=== PATIENT | female | born 1960 | race Caucasian/White ===

== ENCOUNTER 2018-03-28 13:59 | Inpatient (IN) | payer MEDICAID ==
[~2018-03-28] VITALS: Ht 172.7 cm; Wt 81.6 kg
[2018-03-28 14:30] VITALS: BP 105/71
[2018-03-28] MEDS ORDERED: Sodium Chloride 500ML 500 ML IV ONE (14:33)
[2018-03-28] MEDS ORDERED: ZESTRIL20 MG ORAL (14:34)
[2018-03-28] MEDS ORDERED: PRO-STAT LIQUID30 ML ORAL (14:34)
[2018-03-28] MEDS ORDERED: NITROFURAN25 MG/5 ML PO (14:34)
[2018-03-28] MEDS ORDERED: LORATADINE10 M2 PO (14:34)
[2018-03-28] MEDS ORDERED: MULTIVITAMINS1 EAC2 ORAL (14:34)
[2018-03-28] MEDS ORDERED: ARTIFICIAL TEAR15 ML BOTH EYES (14:34)
[2018-03-28] MEDS ORDERED: SYNTHROID25 MCG ORAL (14:34)
[2018-03-28] MEDS ORDERED: FLONASE ALLERG9.9 ML NS (14:34)
[2018-03-28] MEDS ORDERED: RESTORIL15 MG ORAL (14:34)
[2018-03-28] MEDS ORDERED: SEROQUEL200 MG ORAL (14:34)
[2018-03-28] MEDS ORDERED: VALIUM10 MG ORAL (14:34)
[2018-03-28] MEDS ORDERED: NORCO 10-325 T1 EACH ORAL (14:34)
[2018-03-28] MEDS: cefTRIAXone 1 GM in NS 55 ML IVPB ONE ×2 (14:45→15:19)
[2018-03-28] MEDS ORDERED: Morphine Sulfate 4mg/ml Inj (IV USE ONLY) IVP ONE (14:45)
--- NOTE | 2018-03-28 14:59 | Emergency Room Report ---
History of Present Illness General Chief Complaint: Abdominal Pain Source: Patient Present Illness HPI Patient is DO NOT RESUSCITATE. Patient has history of chronic back pain as well as recurrent UTIs. Patient was noted to have elevated white blood cells in the urine. Patient was at the intermediate. Patient was also complaining of worsening back pain. Patient apparently has required narcotics for pain control in the past. Patient's primary care physician is Dr. Nishant Rider. Given patient's presentation Dr. Nishant Rider recommended patient come the emergency Department further evaluation. Symptoms noted to be severe. Apparently patient was on oral antibiotics but things were not improving.No other modifying factors. No other associated signs and symptoms. No other complaints were noted. Allergies: Coded Allergies: HYDROMORPHONE (Verified Allergy, Intermediate, 03/28/18) PREDNISONE (Verified Allergy, Intermediate, 03/28/18) PSEUDOEPHEDRINE (Verified Allergy, Intermediate, 03/28/18) Patient History Past Medical History: HTN PMH Narrative multiple scle, chronic back pain, recurrent UTIs Past Surgical History: none Pertinent Family History: none Social History: Denies: smoking, alcohol use, drug use Social History Narrative from intermediate Reviewed Nursing Documentation: PMH: Agreed; PSxH: Agreed Nursing Documentation-PMH Hx Hypertension: Yes Review of Systems All Other Systems: negative except mentioned in HPI Physical Exam Vital Signs Date Time Temp Pulse Resp B/P (MAP) Pulse Ox O2 Delivery O2 Flow Rate FiO2 03/28/18 14:08 97.7 105/71 97.7 Sp02 EP Interpretation: reviewed, normal General Appearance: alert, mild distress Head: atraumatic Eyes: bilateral eye normal inspection ENT: normal ENT inspection, hearing grossly normal, normal voice Neck: normal inspection, full range of motion, supple, no bony tend Respiratory: normal inspection, lungs clear, normal breath sounds, no respiratory distress, no retraction, no wheezing Cardiovascular #1: regular rate, rhythm, no edema Gastrointestinal: normal inspection, normal bowel sounds, non tender, soft, no guarding, no hernia Genitourinary: no CVA tenderness Musculoskeletal: back normal, normal range of motion, other - Back pain Neurologic: normal inspection, alert, responsive, speech normal Psychiatric: normal inspection, judgement/insight normal, mood/affect normal Skin: normal inspection, normal color, no rash Medical Decision Making Diagnostic Impression: Primary Impression: UTI (urinary tract infection) Additional Impressions: Multiple sclerosis exacerbation Intractable pain ER Course Patient presents emergency department today complaining of lower back pain and dysuria with UTI. Patient states that she has a history of multiple sclerosis recurrent UTIs highly resistant in the past. Patient was in a intermediate and noted to have UTI apparently was started on antibiotics without much improvement. Patient was sent to the emergency room further evaluation by Dr. Nishant Rider.Given the severity of the patient's presentation I felt this is a highly complex patient. This patient required extensive workup.Patient laboratory workup show evidence UTI. Given severe he patient's pain require morphine injection and history of resistant UTI patient was seen by Dr. Nishant Rider patient's private care physician in the emergency department. He felt the patient should be admitted to the hospital. Patient will be admitted to the hospital under his service. Patient was started on one dose of Rocephin. Labs Test 03/28/18 14:45 03/28/18 15:00 White Blood Count 5.3 K/UL (4.8-10.8) Red Blood Count 4.09 M/UL (4.20-5.40) Hemoglobin 12.0 G/DL (12.0-16.0) Hematocrit 36.6 % (37.0-47.0) Mean Corpuscular Volume 90 FL (80-99) Mean Corpuscular Hemoglobin 29.4 PG (27.0-31.0) Mean Corpuscular Hemoglobin Concent 32.8 G/DL (32.0-36.0) Red Cell Distribution Width 12.2 % (11.6-14.8) Platelet Count 176 K/UL (150-450) Mean Platelet Volume 7.6 FL (6.5-10.1) Neutrophils (%) (Auto) 56.8 % (45.0-75.0) Lymphocytes (%) (Auto) 27.2 % (20.0-45.0) Monocytes (%) (Auto) 13.2 % (1.0-10.0) Eosinophils (%) (Auto) 1.7 % (0.0-3.0) Basophils (%) (Auto) 1.0 % (0.0-2.0) Sodium Level 134 MMOL/L (136-145) Potassium Level 4.3 MMOL/L (3.5-5.1) Chloride Level 100 MMOL/L (98-107) Carbon Dioxide Level 26 MMOL/L (21-32) Anion Gap 8 mmol/L (5-15) Blood Urea Nitrogen 17 mg/dL (7-18) Creatinine 0.8 MG/DL (0.55-1.30) Estimat Glomerular Filtration Rate > 60 mL/min (>60) Glucose Level 91 MG/DL (74-106) Calcium Level 8.8 MG/DL (8.5-10.1) Total Bilirubin 0.3 MG/DL (0.2-1.0) Aspartate Amino Transf (AST/SGOT) 17 U/L (15-37) Alanine Aminotransferase (ALT/SGPT) 26 U/L (12-78) Alkaline Phosphatase 64 U/L (46-116) Total Protein 7.5 G/DL (6.4-8.2) Albumin 3.1 G/DL (3.4-5.0) Globulin 4.4 g/dL Albumin/Globulin Ratio 0.7 (1.0-2.7) Lipase 155 U/L (73-393) Urine Color Pale yellow Urine Appearance Clear Urine pH 8 (4.5-8.0) Urine Specific [place] 1.010 (1.005-1.035) Urine Protein Negative (NEGATIVE) Urine Glucose (UA) Negative (NEGATIVE) Urine Ketones Negative (NEGATIVE) Urine Occult Blood 2+ (NEGATIVE) Urine Nitrite Positive (NEGATIVE) Urine Bilirubin Negative (NEGATIVE) Urine Urobilinogen Normal MG/DL (NORMAL) Urine Leukocyte Esterase 3+ (NEGATIVE) Urine RBC 0-2 /HPF (0 - 2) Urine WBC 2-4 /HPF (0 - 2) Urine Squamous Epithelial Cells Few /LPF (NONE/OCC) Urine Bacteria Moderate /HPF (NONE) Last Vital Signs Date Time Temp Pulse Resp B/P (MAP) Pulse Ox O2 Delivery O2 Flow Rate FiO2 03/28/18 14:08 97.7 105/71 97.7 Status: improved Disposition: ADMITTED INPATIENT Condition: Serious Shabbir Bruner MD Mar 28, 2018 14:59
[2018-03-28 15:05] LABS: EOSINOPHILS % (AUTO) 1.7 % (0.0-3.0); HEMATOCRIT 36.6 % (37.0-47.0); LYMPHOCYTES % (AUTO) 27.2 % (20.0-45.0); MEAN CORPUSCULAR VOLUME 90 FL (80-99); MONOCYTES % (AUTO) 13.2 % (1.0-10.0); NEUTROPHILS % (AUTO) 56.8 % (45.0-75.0); PLATELET COUNT 176 K/UL (150-450); RED BLOOD COUNT 4.09 M/UL (4.20-5.40); RED CELL DISTRIBUTION WIDTH 12.2 % (11.6-14.8); WHITE BLOOD COUNT 5.3 K/UL (4.8-10.8)
[2018-03-28 15:22] LABS: ANION GAP 8 mmol/L (5-15); BLOOD UREA NITROGEN 17 mg/dL (7-18); CALCIUM 8.8 MG/DL (8.5-10.1); CARBON DIOXIDE 26 MMOL/L (21-32); CHLORIDE 100 MMOL/L (98-107); CREATININE 0.8 MG/DL (0.55-1.30); POTASSIUM 4.3 MMOL/L (3.5-5.1); SODIUM 134 MMOL/L (136-145)
[2018-03-28 15:26] LABS: APPEARANCE,URINE CLEAR; BILIRUBIN, URINE NEGATIVE (NEGATIVE); COLOR,URINE PALE YELLOW; GLUCOSE, URINE (UA) NEGATIVE (NEGATIVE); KETONES,URINE NEGATIVE (NEGATIVE); LEUKOCYTE ESTERASE ,URINE 3+ (NEGATIVE); NITRITE,URINE POSITIVE (NEGATIVE); PH,URINE 8 (4.5-8.0); PROTEIN,URINE NEGATIVE (NEGATIVE); UROBILINOGEN,URINE NORMAL (NORMAL)
[2018-03-28 15:26] LABS: ALANINE AMINOTRANSFERASE 26 U/L (12-78); ALBUMIN 3.1 G/DL (3.4-5.0); ALBUMIN/GLOBULIN RATIO 0.7 (1.0-2.7); ALKALINE PHOSPHATASE 64 U/L (46-116); ASPARTATE AMINO TRANSFERASE 17 U/L (15-37); BILIRUBIN,TOTAL 0.3 MG/DL (0.2-1.0)
[2018-03-28 18:06] VITALS: BP 101/61
[2018-03-28] MEDS ORDERED: Miralax 17gm pkt ORAL PRN (19:00)
[2018-03-28] MEDS ORDERED: HYDROcodone/Acetamin 10/325 tab ORAL PRN (19:00)
[2018-03-28] MEDS ORDERED: Albuterol/Ipratropium 3ml neb HHN PRN (19:00)
[2018-03-28] MEDS ORDERED: Morphine Sulfate 2mg/ml Inj(IV/IM USE ONLY) IVP PRN (19:00)
[2018-03-28 20:00] VITALS: BP 95/63
[2018-03-28] MEDS ORDERED: Vancomycin 1.5 GM/D5W 250ML IVPB ONE (20:00)
[2018-03-28] MEDS: Heparin 5000 units/ml inj SUBQ SCH (20:23)
[2018-03-28] MEDS ORDERED: QUEtiapine 200mg tab ORAL SCH (21:00)
--- NOTE | 2018-03-28 21:45 | History and Physical Report ---
DATE OF ADMISSION: 03/28/2018 APPROXIMATE TIME: 3 p.m. CONSULTANTS: 1. Jose De Jesus Alcala M.D. 2. Lauren Fried M.D. 3. Randell Mills M.D. 4. Juan Correia M.D. CHIEF COMPLAINT: Back pain, UTI, weakness and anxiety. BRIEF HISTORY: This is a 57-year-old female from [facility] presented with the above-mentioned diagnosis, two-day increased back pain, found to have UTI, and increased weakness, sent to [place], diagnosed with above, being admitted to medical floor for further treatment. Currently slightly anxious in the ER gurfranklin, oriented x3, no acute distress. PAST MEDICAL HISTORY: Chronic pain, hypertension, hypothyroid and anxiety. PAST SURGICAL HISTORY: Exploratory abdominal surgery. MEDICATIONS: Morphine and ceftriaxone. ALLERGIES: Hydromorphone, prednisone, . SOCIAL HISTORY: No smoking. No alcohol. No intravenous drug abuse. FAMILY HISTORY: Noncontributory. PHYSICAL EXAMINATION: GENERAL: Anxious in bed, oriented x3, in no acute distress. VITAL SIGNS: Temperature 97 degrees, blood pressure 105/71, other values are pending. CARDIOVASCULAR: No murmur. LUNGS: Distant and clear. ABDOMEN: Bowel sound positive. Nontender. Nondistended. EXTREMITIES: No cyanosis, clubbing, or edema. NEUROLOGIC: Lower extremity weakness noted. The patient moves all extremities. LABORATORY AND DIAGNOSTIC DATA: CBC is normal. BMP is pending. Urinalysis is pending from long-term. UA was positive. ASSESSMENT: 1. UTI. 2. Back pain. 3. Anxiety. 4. Chronic pain. 5. Hypertension. 6. Hypothyroid. PLAN: 1. Continue previous medications. 2. OT/PT. 3. Dietary followup. 4. Antibiotics per Infectious Disease. 5. Pain control. 6. Blood pressure control. 7. We will continue to follow the patient medically. Nishant Rider D.O. DR: KARI JOB#: [id number] CC:
[2018-03-28] MEDS: Cefepime HCl 2 GM in D5W 110 ML IV SCH (22:32)
[2018-03-28] MEDS: QUEtiapine 200mg tab ORAL SCH (22:32)
[2018-03-29] VITALS: BP 86/54
[2018-03-29] MEDS ORDERED: Vancomycin 1 GM in D5W 275 ML IV SCH (00:30)
[2018-03-29 04:00] VITALS: BP 88/55
[2018-03-29 06:42] LABS: BASOPHILS % (AUTO) 0.8 % (0.0-2.0); EOSINOPHILS % (AUTO) 3.9 % (0.0-3.0); HEMATOCRIT 34.6 % (37.0-47.0); HEMOGLOBIN 11.6 G/DL (12.0-16.0); LYMPHOCYTES % (AUTO) 35.9 % (20.0-45.0); MEAN CORPUSCULAR VOLUME 90 FL (80-99); MONOCYTES % (AUTO) 8.6 % (1.0-10.0); NEUTROPHILS % (AUTO) 50.8 % (45.0-75.0); PLATELET COUNT 192 K/UL (150-450); RED BLOOD COUNT 3.83 M/UL (4.20-5.40); RED CELL DISTRIBUTION WIDTH 12.4 % (11.6-14.8); WHITE BLOOD COUNT 4.3 K/UL (4.8-10.8)
[2018-03-29 07:08] LABS: ALANINE AMINOTRANSFERASE 23 U/L (12-78); ALBUMIN/GLOBULIN RATIO 0.8 (1.0-2.7); ALKALINE PHOSPHATASE 58 U/L (46-116); ANION GAP 7 mmol/L (5-15); ASPARTATE AMINO TRANSFERASE 13 U/L (15-37); BILIRUBIN,TOTAL 0.3 MG/DL (0.2-1.0); BLOOD UREA NITROGEN 15 mg/dL (7-18); CALCIUM 8.6 MG/DL (8.5-10.1); CARBON DIOXIDE 26 MMOL/L (21-32); CHLORIDE 105 MMOL/L (98-107); CREATININE 0.5 MG/DL (0.55-1.30); SODIUM 138 MMOL/L (136-145)
--- NOTE | 2018-03-29 07:46 | Consultation ---
History of Present Illness Present Illness Allergies: Coded Allergies: HYDROMORPHONE (Verified Allergy, Intermediate, 03/28/18) PREDNISONE (Verified Allergy, Intermediate, 03/28/18) PSEUDOEPHEDRINE (Verified Allergy, Intermediate, 03/28/18) Medication History Scheduled Amino Acids/Protein Hydrolys (Pro-Stat Liquid), 30 ML ORAL THREE TIMES A DAY, ( Reported) Dextran 70/Hypromellose (Artificial Tears Eye Drops*), 1 DROP BOTH EYES BID, ( Reported) Levothyroxine Sodium* (Synthroid*), 25 MCG ORAL DAILY, (Reported) Lisinopril* (Zestril*), 20 MG ORAL DAILY, (Reported) Loratadine (Loratadine), 10 MG PO DAILY, (Reported) Multivitamins* (Multivitamins*), 1 TAB ORAL DAILY, (Reported) Nitrofurantoin (Nitrofurantoin), 100 MG PO BID, (Reported) Quetiapine Fumarate* (Seroquel*), 300 MG ORAL DAILY, (Reported) Scheduled PRN Diazepam* (Valium*), 10 MG ORAL EVERY 6 HOURS PRN for ANXIETY, (Reported) Hydrocodone Bit/Acetaminophen 10-325* ([place] 10-325*), 1 TAB ORAL Q6H PRN for For Pain, (Reported) Temazepam* (Restoril*), 30 MG ORAL BEDTIME PRN for Insomnia, (Reported) Miscellaneous Medications Fluticasone Propionate (Flonase Allergy Relief), 9.9 ML NS, (Reported) Patient History Healthcare decision maker N Resuscitation status Advanced Directive on File Physical Exam Last 24 Hour Vital Signs Date Time Temp Pulse Resp B/P (MAP) Pulse Ox O2 Delivery O2 Flow Rate FiO2 03/29/18 04:00 96.6 59 18 88/55 (66) 95 96.6 03/29/18 00:00 98.4 69 18 86/54 (65) 98 98.4 03/28/18 21:00 Room Air 03/28/18 20:00 98.6 68 19 95/63 (74) 98 98.6 03/28/18 18:38 Room Air 03/28/18 18:06 98.0 73 18 101/61 (74) 97 98.0 03/28/18 17:55 97.7 78 18 102/68 100 Room Air 97.7 03/28/18 14:30 97.7 80 18 105/71 100 Room Air 97.7 03/28/18 14:08 97.7 105/71 97.7 Intake and Output 03/28/18 03/29/18 19:00 07:00 Intake Total 500 ml 240 ml Output Total 600 ml Balance -100 ml 240 ml Intake Oral 240 ml IV Total 500 ml Output Urine Total 600 ml # Voids 4 Laboratory Tests Test 03/28/18 14:45 03/28/18 15:00 03/29/18 06:00 White Blood Count 5.3 K/UL (4.8-10.8) 4.3 K/UL (4.8-10.8) L Red Blood Count 4.09 M/UL (4.20-5.40) L 3.83 M/UL (4.20-5.40) L Hemoglobin 12.0 G/DL (12.0-16.0) 11.6 G/DL (12.0-16.0) L Hematocrit 36.6 % (37.0-47.0) L 34.6 % (37.0-47.0) L Mean Corpuscular Volume 90 FL (80-99) 90 FL (80-99) Mean Corpuscular Hemoglobin 29.4 PG (27.0-31.0) 30.3 PG (27.0-31.0) Mean Corpuscular Hemoglobin Concent 32.8 G/DL (32.0-36.0) 33.6 G/DL (32.0-36.0) Red Cell Distribution Width 12.2 % (11.6-14.8) 12.4 % (11.6-14.8) Platelet Count 176 K/UL (150-450) 192 K/UL (150-450) Mean Platelet Volume 7.6 FL (6.5-10.1) 7.6 FL (6.5-10.1) Neutrophils (%) (Auto) 56.8 % (45.0-75.0) 50.8 % (45.0-75.0) Lymphocytes (%) (Auto) 27.2 % (20.0-45.0) 35.9 % (20.0-45.0) Monocytes (%) (Auto) 13.2 % (1.0-10.0) H 8.6 % (1.0-10.0) Eosinophils (%) (Auto) 1.7 % (0.0-3.0) 3.9 % (0.0-3.0) H Basophils (%) (Auto) 1.0 % (0.0-2.0) 0.8 % (0.0-2.0) Sodium Level 134 MMOL/L (136-145) L 138 MMOL/L (136-145) Potassium Level 4.3 MMOL/L (3.5-5.1) 4.0 MMOL/L (3.5-5.1) Chloride Level 100 MMOL/L (98-107) 105 MMOL/L (98-107) Carbon Dioxide Level 26 MMOL/L (21-32) 26 MMOL/L (21-32) Anion Gap 8 mmol/L (5-15) 7 mmol/L (5-15) Blood Urea Nitrogen 17 mg/dL (7-18) 15 mg/dL (7-18) Creatinine 0.8 MG/DL (0.55-1.30) 0.5 MG/DL (0.55-1.30) L Estimat Glomerular Filtration Rate > 60 mL/min (>60) > 60 mL/min (>60) Glucose Level 91 MG/DL (74-106) 92 MG/DL (74-106) Calcium Level 8.8 MG/DL (8.5-10.1) 8.6 MG/DL (8.5-10.1) Total Bilirubin 0.3 MG/DL (0.2-1.0) 0.3 MG/DL (0.2-1.0) Aspartate Amino Transf (AST/SGOT) 17 U/L (15-37) 13 U/L (15-37) L Alanine Aminotransferase (ALT/SGPT) 26 U/L (12-78) 23 U/L (12-78) Alkaline Phosphatase 64 U/L (46-116) 58 U/L (46-116) Total Protein 7.5 G/DL (6.4-8.2) 6.9 G/DL (6.4-8.2) Albumin 3.1 G/DL (3.4-5.0) L 3.0 G/DL (3.4-5.0) L Globulin 4.4 g/dL 3.9 g/dL Albumin/Globulin Ratio 0.7 (1.0-2.7) L 0.8 (1.0-2.7) L Lipase 155 U/L (73-393) Urine Color Pale yellow Urine Appearance Clear Urine pH 8 (4.5-8.0) Urine Specific [place] 1.010 (1.005-1.035) Urine Protein Negative (NEGATIVE) Urine Glucose (UA) Negative (NEGATIVE) Urine Ketones Negative (NEGATIVE) Urine Occult Blood 2+ (NEGATIVE) H Urine Nitrite Positive (NEGATIVE) H Urine Bilirubin Negative (NEGATIVE) Urine Urobilinogen Normal MG/DL (NORMAL) Urine Leukocyte Esterase 3+ (NEGATIVE) H Urine RBC 0-2 /HPF (0 - 2) Urine WBC 2-4 /HPF (0 - 2) Urine Squamous Epithelial Cells Few /LPF (NONE/OCC) Urine Bacteria Moderate /HPF (NONE) H Height (Feet): 5 Height (Inches): 8.00 Weight (Pounds): 180 Medications Current Medications Medications (Trade) Dose Ordered Sig/[place] Route PRN Reason Start Time Stop Time Status Last Admin Dose Admin Acetaminophen (Tylenol) 650 mg Q4H PRN ORAL fever 03/28/18 19:00 04/27/18 18:59 Acetaminophen/ Hydrocodone Bitart ([place] 10/325) 1 tab Q6H PRN ORAL FOR MILD PAIN 03/28/18 19:00 04/04/18 18:59 Albuterol/ Ipratropium (Albuterol/ Ipratropium) 3 ml EVERY 4 HOURS PRN HHN Shortness of Breath 03/28/18 19:00 04/02/18 18:59 Cefepime HCl 2 gm/ Dextrose 110 ml @ 220 mls/hr EVERY 12 HOURS IV 03/28/18 21:00 04/04/18 20:59 03/28/18 22:32 Heparin Sodium (Porcine) (Heparin 5000 units/ml) 5,000 units EVERY 12 HOURS SUBQ 03/28/18 21:00 04/27/18 20:59 03/28/18 20:23 Levothyroxine Sodium (Synthroid) 25 mcg DAILY ORAL 03/29/18 09:00 04/28/18 08:59 Lisinopril (Prinivil) 20 mg DAILY ORAL 03/29/18 09:00 04/28/18 08:59 Morphine Sulfate (Morphine Sulfate) 2 mg EVERY 4 HOURS PRN IVP Moderate Pain (Pain Scale 4-6) 03/28/18 19:00 04/04/18 18:59 03/28/18 20:20 Ondansetron HCl (Zofran) 4 mg Q6H PRN IVP Nausea & Vomiting 03/28/18 19:00 04/27/18 18:59 Phenazopyridine HCl (Pyridium) 100 mg DAILY PRN ORAL dysuria 03/28/18 19:00 04/27/18 18:59 Polyethylene Glycol (Miralax) 17 gm DAILYPRN PRN ORAL Constipation 03/28/18 19:00 04/27/18 18:59 Quetiapine Fumarate (SEROquel) 300 mg QHS ORAL 03/28/18 22:00 04/27/18 21:59 03/28/18 22:32 Temazepam (Restoril) 15 mg HSPRN PRN ORAL Insomnia 03/28/18 19:00 04/04/18 18:59 Vancomycin HCl 1 gm/Dextrose 275 ml @ 183.708 mls/hr Q12H IVPB 03/29/18 08:00 04/03/18 07:59 Assessment/Plan Assessment/Plan (1) Multiple sclerosis (2) Neuropathic pain seen dictated. Alonso Young Mar 29, 2018 07:46
[2018-03-29 08:00] VITALS: BP 102/68
[2018-03-29] MEDS: Vancomycin 1gm/D5W 275ml IVPB SCH ×4 (08:07→20:16)
[2018-03-29] MEDS: HYDROcodone/Acetamin 10/325 tab ORAL PRN ×4 (08:15→22:15)
[2018-03-29] MEDS ORDERED: QUEtiapine 200mg tab ORAL SCH (09:00)
[2018-03-29] MEDS: Heparin 5000 units/ml inj SUBQ SCH ×2 (09:00→20:26)
[2018-03-29] MEDS: Lisinopril 20mg tab ORAL SCH (09:00)
[2018-03-29] MEDS: Lyrica 50mg cap ORAL SCH ×4 (09:47→21:14)
[2018-03-29] MEDS: Cefepime HCl 2 GM in D5W 110 ML IV SCH ×2 (09:48→21:52)
[2018-03-29] MEDS: Levothyroxine 25mcg tab ORAL SCH (09:48)
[2018-03-29 11:58] VITALS: BP 108/71
--- NOTE | 2018-03-29 12:26 | General Progress Note ---
Assessment/Plan Problem List: (1) Chronic pain ICD Codes: G89.29 - Other chronic pain SNOMED: 92452844 (2) HTN (hypertension) ICD Codes: I10 - Essential (primary) hypertension SNOMED: 75861941 (3) Hypothyroid ICD Codes: E03.9 - Hypothyroidism, unspecified SNOMED: 80170895 (4) UTI (urinary tract infection) ICD Codes: N39.0 - Urinary tract infection, site not specified SNOMED: 66751326 (5) Intractable pain ICD Codes: R52 - Pain, unspecified SNOMED: 22699677 (6) Multiple sclerosis exacerbation ICD Codes: G35 - Multiple sclerosis SNOMED: 973484298 Status: unchanged Assessment/Plan ot pt diet pain control abx cbc bmp am Subjective Constitutional: Reports: weakness Allergies: Coded Allergies: HYDROMORPHONE (Verified Allergy, Intermediate, 03/28/18) PREDNISONE (Verified Allergy, Intermediate, 03/28/18) PSEUDOEPHEDRINE (Verified Allergy, Intermediate, 03/28/18) All Systems: reviewed and negative except above Subjective calm in bed sleepy Objective Last 24 Hour Vital Signs Date Time Temp Pulse Resp B/P (MAP) Pulse Ox O2 Delivery O2 Flow Rate FiO2 03/29/18 11:58 98.3 71 20 108/71 (83) 98 98.3 03/29/18 09:14 96.6 03/29/18 08:15 96.6 03/29/18 08:03 65 Room Air 21 03/29/18 08:00 Room Air 03/29/18 08:00 97.7 68 20 102/68 (79) 95 97.7 03/29/18 04:00 96.6 59 18 88/55 (66) 95 96.6 03/29/18 00:00 98.4 69 18 86/54 (65) 98 98.4 03/28/18 21:00 Room Air 03/28/18 20:00 98.6 68 19 95/63 (74) 98 98.6 03/28/18 18:38 Room Air 03/28/18 18:06 98.0 73 18 101/61 (74) 97 98.0 03/28/18 17:55 97.7 78 18 102/68 100 Room Air 97.7 03/28/18 14:30 97.7 80 18 105/71 100 Room Air 97.7 8/7/18 14:08 97.7 105/71 97.7 Intake and Output 03/28/18 03/29/18 19:00 07:00 Intake Total 500 ml 240 ml Output Total 600 ml Balance -100 ml 240 ml Intake Oral 240 ml IV Total 500 ml Output Urine Total 600 ml # Voids 4 Laboratory Tests 03/28/18 14:45: White Blood Count 5.3, Red Blood Count 4.09L, Hemoglobin 12.0, Hematocrit 36.6L , Mean Corpuscular Volume 90, Mean Corpuscular Hemoglobin 29.4, Mean Corpuscular Hemoglobin Concent 32.8, Red Cell Distribution Width 12.2, Platelet Count 176, Mean Platelet Volume 7.6, Neutrophils (%) (Auto) 56.8, Lymphocytes (% ) (Auto) 27.2, Monocytes (%) (Auto) 13.2H, Eosinophils (%) (Auto) 1.7, Basophils (%) (Auto) 1.0, Sodium Level 134L, Potassium Level 4.3, Chloride Level 100, Carbon Dioxide Level 26, Anion Gap 8, Blood Urea Nitrogen 17, Creatinine 0.8, Estimat Glomerular Filtration Rate > 60, Glucose Level 91, Calcium Level 8.8, Total Bilirubin 0.3, Aspartate Amino Transf (AST/SGOT) 17, Alanine Aminotransferase (ALT/SGPT) 26, Alkaline Phosphatase 64, Total Protein 7.5, Albumin 3.1L, Globulin 4.4, Albumin/Globulin Ratio 0.7L, Lipase 155 03/28/18 15:00: Urine Color Pale yellow, Urine Appearance Clear, Urine pH 8, Urine Specific [place] 1.010, Urine Protein Negative, Urine Glucose (UA) Negative, Urine Ketones Negative, Urine Occult Blood 2+H, Urine Nitrite PositiveH, Urine Bilirubin Negative, Urine Urobilinogen Normal, Urine Leukocyte Esterase 3+H, Urine RBC 0-2, Urine WBC 2-4, Urine Squamous Epithelial Cells Few, Urine Bacteria ModerateH 03/29/18 06:00: White Blood Count 4.3L, Red Blood Count 3.83L, Hemoglobin 11.6L, Hematocrit 34.6L, Mean Corpuscular Volume 90, Mean Corpuscular Hemoglobin 30.3, Mean Corpuscular Hemoglobin Concent 33.6, Red Cell Distribution Width 12.4, Platelet Count 192, Mean Platelet Volume 7.6, Neutrophils (%) (Auto) 50.8, Lymphocytes (% ) (Auto) 35.9, Monocytes (%) (Auto) 8.6, Eosinophils (%) (Auto) 3.9H, Basophils (%) (Auto) 0.8, Sodium Level 138, Potassium Level 4.0, Chloride Level 105, Carbon Dioxide Level 26, Anion Gap 7, Blood Urea Nitrogen 15, Creatinine 0.5L, Estimat Glomerular Filtration Rate > 60, Glucose Level 92, Calcium Level 8.6, Total Bilirubin 0.3, Aspartate Amino Transf (AST/SGOT) 13L, Alanine Aminotransferase (ALT/SGPT) 23, Alkaline Phosphatase 58, Total Protein 6.9, Albumin 3.0L, Globulin 3.9, Albumin/Globulin Ratio 0.8L Height (Feet): 5 Height (Inches): 8.00 Weight (Pounds): 180 General Appearance: lethargic EENT: normal ENT inspection Neck: normal alignment Cardiovascular: normal peripheral pulses, normal rate, regular rhythm Respiratory/Chest: chest wall non-tender, lungs clear, normal breath sounds Abdomen: normal bowel sounds, non tender, soft Extremities: normal inspection Edema: no edema noted Arm (L), no edema noted Arm (R), no edema noted Leg (L), no edema noted Leg (R), no edema noted Pedal (L), no edema noted Pedal (R), no edema noted Generalized Neurologic: motor weakness Skin: normal pigmentation, warm/dry Nishant Rider DO Mar 29, 2018 12:26
--- NOTE | 2018-03-29 12:27 | Consultation ---
History of Present Illness General Date patient seen: Mar 29, 2018 Chief Complaint: Abdominal Pain Reason for Consultation: Recurrent UTI Present Illness HPI Ms Castorena is a 57 yo female with PMHx of recurrent UTIs. She presented to the ED on 03/28/18 with back pain not improved with antibiotics. She lives at a skilled nursing and get narcotic for her back pain. In the ED she had no fever or leukocytosis. UA was negative with 0-2 WBCs. She reports that she has had dysuria for the last to months or so. It comes an goes. No bleeding or suprapubic pain. She does have chronic back pain but this has no tbeen worse. She denies fever, chill, CP, SP, N/V/D and abdominal pain. She says that she was started on Macrobid on the day of admission, PMHx/PSHx HTN Recurrent UTIS MS Chronic back pain SocHx Live in a skilled nursing No E/T/D FamHx Reviewed not contributory Allergies: Coded Allergies: HYDROMORPHONE (Verified Allergy, Intermediate, 03/28/18) PREDNISONE (Verified Allergy, Intermediate, 03/28/18) PSEUDOEPHEDRINE (Verified Allergy, Intermediate, 03/28/18) Medication History Scheduled Amino Acids/Protein Hydrolys (Pro-Stat Liquid), 30 ML ORAL THREE TIMES A DAY, ( Reported) Dextran 70/Hypromellose (Artificial Tears Eye Drops*), 1 DROP BOTH EYES BID, ( Reported) Levothyroxine Sodium* (Synthroid*), 25 MCG ORAL DAILY, (Reported) Lisinopril* (Zestril*), 20 MG ORAL DAILY, (Reported) Loratadine (Loratadine), 10 MG PO DAILY, (Reported) Multivitamins* (Multivitamins*), 1 TAB ORAL DAILY, (Reported) Nitrofurantoin (Nitrofurantoin), 100 MG PO BID, (Reported) Quetiapine Fumarate* (Seroquel*), 300 MG ORAL DAILY, (Reported) Scheduled PRN Diazepam* (Valium*), 10 MG ORAL EVERY 6 HOURS PRN for ANXIETY, (Reported) Hydrocodone Bit/Acetaminophen 10-325* ([place] 10-325*), 1 TAB ORAL Q6H PRN for For Pain, (Reported) Temazepam* (Restoril*), 30 MG ORAL BEDTIME PRN for Insomnia, (Reported) Miscellaneous Medications Fluticasone Propionate (Flonase Allergy Relief), 9.9 ML NS, (Reported) Patient History Healthcare decision maker N Resuscitation status Advanced Directive on File Review of Systems All Other Systems: negative except mentioned in HPI Physical Exam Last 24 Hour Vital Signs Date Time Temp Pulse Resp B/P (MAP) Pulse Ox O2 Delivery O2 Flow Rate FiO2 03/29/18 11:58 98.3 71 20 108/71 (83) 98 98.3 03/29/18 09:14 96.6 03/29/18 08:15 96.6 03/29/18 08:03 65 Room Air 21 03/29/18 08:00 Room Air 03/29/18 08:00 97.7 68 20 102/68 (79) 95 97.7 03/29/18 04:00 96.6 59 18 88/55 (66) 95 96.6 03/29/18 00:00 98.4 69 18 86/54 (65) 98 98.4 03/28/18 21:00 Room Air 03/28/18 20:00 98.6 68 19 95/63 (74) 98 98.6 03/28/18 18:38 Room Air 03/28/18 18:06 98.0 73 18 101/61 (74) 97 98.0 03/28/18 17:55 97.7 78 18 102/68 100 Room Air 97.7 03/28/18 14:30 97.7 80 18 105/71 100 Room Air 97.7 03/28/18 14:08 97.7 105/71 97.7 Intake and Output 03/28/18 03/29/18 19:00 07:00 Intake Total 500 ml 240 ml Output Total 600 ml Balance -100 ml 240 ml Intake Oral 240 ml IV Total 500 ml Output Urine Total 600 ml # Voids 4 Laboratory Tests Test 03/28/18 14:45 03/28/18 15:00 03/29/18 06:00 White Blood Count 5.3 K/UL (4.8-10.8) 4.3 K/UL (4.8-10.8) L Red Blood Count 4.09 M/UL (4.20-5.40) L 3.83 M/UL (4.20-5.40) L Hemoglobin 12.0 G/DL (12.0-16.0) 11.6 G/DL (12.0-16.0) L Hematocrit 36.6 % (37.0-47.0) L 34.6 % (37.0-47.0) L Mean Corpuscular Volume 90 FL (80-99) 90 FL (80-99) Mean Corpuscular Hemoglobin 29.4 PG (27.0-31.0) 30.3 PG (27.0-31.0) Mean Corpuscular Hemoglobin Concent 32.8 G/DL (32.0-36.0) 33.6 G/DL (32.0-36.0) Red Cell Distribution Width 12.2 % (11.6-14.8) 12.4 % (11.6-14.8) Platelet Count 176 K/UL (150-450) 192 K/UL (150-450) Mean Platelet Volume 7.6 FL (6.5-10.1) 7.6 FL (6.5-10.1) Neutrophils (%) (Auto) 56.8 % (45.0-75.0) 50.8 % (45.0-75.0) Lymphocytes (%) (Auto) 27.2 % (20.0-45.0) 35.9 % (20.0-45.0) Monocytes (%) (Auto) 13.2 % (1.0-10.0) H 8.6 % (1.0-10.0) Eosinophils (%) (Auto) 1.7 % (0.0-3.0) 3.9 % (0.0-3.0) H Basophils (%) (Auto) 1.0 % (0.0-2.0) 0.8 % (0.0-2.0) Sodium Level 134 MMOL/L (136-145) L 138 MMOL/L (136-145) Potassium Level 4.3 MMOL/L (3.5-5.1) 4.0 MMOL/L (3.5-5.1) Chloride Level 100 MMOL/L (98-107) 105 MMOL/L (98-107) Carbon Dioxide Level 26 MMOL/L (21-32) 26 MMOL/L (21-32) Anion Gap 8 mmol/L (5-15) 7 mmol/L (5-15) Blood Urea Nitrogen 17 mg/dL (7-18) 15 mg/dL (7-18) Creatinine 0.8 MG/DL (0.55-1.30) 0.5 MG/DL (0.55-1.30) L Estimat Glomerular Filtration Rate > 60 mL/min (>60) > 60 mL/min (>60) Glucose Level 91 MG/DL (74-106) 92 MG/DL (74-106) Calcium Level 8.8 MG/DL (8.5-10.1) 8.6 MG/DL (8.5-10.1) Total Bilirubin 0.3 MG/DL (0.2-1.0) 0.3 MG/DL (0.2-1.0) Aspartate Amino Transf (AST/SGOT) 17 U/L (15-37) 13 U/L (15-37) L Alanine Aminotransferase (ALT/SGPT) 26 U/L (12-78) 23 U/L (12-78) Alkaline Phosphatase 64 U/L (46-116) 58 U/L (46-116) Total Protein 7.5 G/DL (6.4-8.2) 6.9 G/DL (6.4-8.2) Albumin 3.1 G/DL (3.4-5.0) L 3.0 G/DL (3.4-5.0) L Globulin 4.4 g/dL 3.9 g/dL Albumin/Globulin Ratio 0.7 (1.0-2.7) L 0.8 (1.0-2.7) L Lipase 155 U/L (73-393) Urine Color Pale yellow Urine Appearance Clear Urine pH 8 (4.5-8.0) Urine Specific [place] 1.010 (1.005-1.035) Urine Protein Negative (NEGATIVE) Urine Glucose (UA) Negative (NEGATIVE) Urine Ketones Negative (NEGATIVE) Urine Occult Blood 2+ (NEGATIVE) H Urine Nitrite Positive (NEGATIVE) H Urine Bilirubin Negative (NEGATIVE) Urine Urobilinogen Normal MG/DL (NORMAL) Urine Leukocyte Esterase 3+ (NEGATIVE) H Urine RBC 0-2 /HPF (0 - 2) Urine WBC 2-4 /HPF (0 - 2) Urine Squamous Epithelial Cells Few /LPF (NONE/OCC) Urine Bacteria Moderate /HPF (NONE) H Microbiology Date/Time Source Procedure Growth Status 03/28/18 15:00 Urine,Clean Catch Urine Culture - Preliminary Resulted Height (Feet): 5 Height (Inches): 8.00 Weight (Pounds): 180 Medications Current Medications Medications (Trade) Dose Ordered Sig/[place] Route PRN Reason Start Time Stop Time Status Last Admin Dose Admin Acetaminophen (Tylenol) 650 mg Q4H PRN ORAL fever 03/28/18 19:00 04/27/18 18:59 Acetaminophen/ Hydrocodone Bitart ([place] 10/325) 1 tab Q4H PRN ORAL Severe Pain (Pain Scale 7-10) 03/29/18 08:00 04/04/18 18:59 03/29/18 08:15 Albuterol/ Ipratropium (Albuterol/ Ipratropium) 3 ml EVERY 4 HOURS PRN HHN Shortness of Breath 03/28/18 19:00 04/02/18 18:59 Cefepime HCl 2 gm/ Dextrose 110 ml @ 220 mls/hr EVERY 12 HOURS IV 03/28/18 21:00 04/04/18 20:59 03/29/18 09:48 Heparin Sodium (Porcine) (Heparin 5000 units/ml) 5,000 units EVERY 12 HOURS SUBQ 03/28/18 21:00 04/27/18 20:59 03/28/18 20:23 Levothyroxine Sodium (Synthroid) 25 mcg DAILY ORAL 03/29/18 09:00 04/28/18 08:59 03/29/18 09:48 Lisinopril (Prinivil) 20 mg DAILY ORAL 03/29/18 09:00 04/28/18 08:59 Ondansetron HCl (Zofran) 4 mg Q6H PRN IVP Nausea & Vomiting 03/28/18 19:00 04/27/18 18:59 Phenazopyridine HCl (Pyridium) 100 mg DAILY PRN ORAL dysuria 03/28/18 19:00 04/27/18 18:59 Polyethylene Glycol (Miralax) 17 gm DAILYPRN PRN ORAL Constipation 03/28/18 19:00 04/27/18 18:59 Pregabalin (Lyrica) 50 mg Q8HR ORAL 03/29/18 09:00 9/7/18 08:59 03/29/18 09:47 Quetiapine Fumarate (SEROquel) 300 mg QHS ORAL 03/28/18 22:00 04/27/18 21:59 03/28/18 22:32 Temazepam (Restoril) 15 mg HSPRN PRN ORAL Insomnia 03/28/18 19:00 04/04/18 18:59 Vancomycin HCl 1 gm/Dextrose 275 ml @ 183.708 mls/hr Q12H IVPB 03/29/18 08:00 04/03/18 07:59 03/29/18 08:07 Objective Narrative Gen: NAD, well appearing, alert HEENT: NCAT, MMM, No Oral lesion NECK: full range of motion, supple, no meningismus, No LAD, No JVD LUNGS: CTAB, No W/C, No Accessory muscle use CARDS: RRR, S1, S2, No M/R/G, ABD: Soft, NT, ND, No R/G, + BS, No HSM, No Masses, Generalized back pain no specific CVA tenderness Ext: C/C/E, Pulses 2+ B/L (DP, Rad): NEURO: A/O x 4, Decrease strength in legs B/L PSYCH: mood/affect normal SKIN: warm/dry, No rashes Assessment/Plan Assessment/Plan 57 yo female with PMHx of recurrent UTIs. She presented to the ED on 03/28/18 with back pain hx of UTI at her skilled nursing that was not improved with antibiotics. # Recurrent UTI Patient s/p Abx. UA negative 03/28/28 Urine culture 03/28/28 - pending #HTN #MS #Chronic back pain PLAN - Continue Cefepime #1 and Vancomycin #1 for now - follow up Urine Cx - Monitor WBCs and Temps - Supportive care Thank you for consulting us for the care of this patient. We will continue to follow with you. Skyler Sawant M.D. Mar 29, 2018 12:27
--- NOTE | 2018-03-29 12:55 | Consultation ---
History of Present Illness General Date patient seen: Mar 29, 2018 Chief Complaint: Abdominal Pain Reason for Consultation: Recurrent UTI Present Illness HPI 57 year old female with hx of MS, HTN, chronic back pain as well as recurrent UTIs presented to ER from [facility] because she was noted to have elevated white blood cells in the urine. Patient was also complaining of worsening back pain. Patient apparently has required narcotics for pain control in the past. . Apparently patient was on oral antibiotics but things were not improving.No other modifying factors. No other associated signs and symptoms. She is admitted to medical floor for further management. Allergies: Coded Allergies: HYDROMORPHONE (Verified Allergy, Intermediate, 03/28/18) PREDNISONE (Verified Allergy, Intermediate, 03/28/18) PSEUDOEPHEDRINE (Verified Allergy, Intermediate, 03/28/18) Medication History Scheduled Amino Acids/Protein Hydrolys (Pro-Stat Liquid), 30 ML ORAL THREE TIMES A DAY, ( Reported) Dextran 70/Hypromellose (Artificial Tears Eye Drops*), 1 DROP BOTH EYES BID, ( Reported) Levothyroxine Sodium* (Synthroid*), 25 MCG ORAL DAILY, (Reported) Lisinopril* (Zestril*), 20 MG ORAL DAILY, (Reported) Loratadine (Loratadine), 10 MG PO DAILY, (Reported) Multivitamins* (Multivitamins*), 1 TAB ORAL DAILY, (Reported) Nitrofurantoin (Nitrofurantoin), 100 MG PO BID, (Reported) Quetiapine Fumarate* (Seroquel*), 300 MG ORAL DAILY, (Reported) Scheduled PRN Diazepam* (Valium*), 10 MG ORAL EVERY 6 HOURS PRN for ANXIETY, (Reported) Hydrocodone Bit/Acetaminophen 10-325* ([place] 10-325*), 1 TAB ORAL Q6H PRN for For Pain, (Reported) Temazepam* (Restoril*), 30 MG ORAL BEDTIME PRN for Insomnia, (Reported) Miscellaneous Medications Fluticasone Propionate (Flonase Allergy Relief), 9.9 ML NS, (Reported) Patient History Healthcare decision maker N Resuscitation status Advanced Directive on File Past Medical/Surgical History Past Medical/Surgical History: (1) Multiple sclerosis (2) Hypothyroid (3) Chronic pain (4) UTI (urinary tract infection) Review of Systems All Other Systems: negative except mentioned in HPI Physical Exam General Appearance: WD/WN Lines, tubes and drains: peripheral HEENT: normocephalic, atraumatic Neck: non-tender, normal alignment Respiratory/Chest: chest wall non-tender, lungs clear Breasts: no masses Cardiovascular/Chest: normal rate Abdomen: normal bowel sounds, soft Genitourinary/Rectal: normal genital exam Extremities: normal range of motion Last 24 Hour Vital Signs Date Time Temp Pulse Resp B/P (MAP) Pulse Ox O2 Delivery O2 Flow Rate FiO2 03/29/18 11:58 98.3 71 20 108/71 (83) 98 98.3 03/29/18 09:14 96.6 03/29/18 08:15 96.6 03/29/18 08:03 65 Room Air 21 03/29/18 08:00 Room Air 03/29/18 08:00 97.7 68 20 102/68 (79) 95 97.7 03/29/18 04:00 96.6 59 18 88/55 (66) 95 96.6 03/29/18 00:00 98.4 69 18 86/54 (65) 98 98.4 03/28/18 21:00 Room Air 03/28/18 20:00 98.6 68 19 95/63 (74) 98 98.6 03/28/18 18:38 Room Air 03/28/18 18:06 98.0 73 18 101/61 (74) 97 98.0 03/28/18 17:55 97.7 78 18 102/68 100 Room Air 97.7 03/28/18 14:30 97.7 80 18 105/71 100 Room Air 97.7 03/28/18 14:08 97.7 105/71 97.7 Intake and Output 03/28/18 03/29/18 19:00 07:00 Intake Total 500 ml 240 ml Output Total 600 ml Balance -100 ml 240 ml Intake Oral 240 ml IV Total 500 ml Output Urine Total 600 ml # Voids 4 Laboratory Tests Test 03/28/18 14:45 03/28/18 15:00 03/29/18 06:00 White Blood Count 5.3 K/UL (4.8-10.8) 4.3 K/UL (4.8-10.8) L Red Blood Count 4.09 M/UL (4.20-5.40) L 3.83 M/UL (4.20-5.40) L Hemoglobin 12.0 G/DL (12.0-16.0) 11.6 G/DL (12.0-16.0) L Hematocrit 36.6 % (37.0-47.0) L 34.6 % (37.0-47.0) L Mean Corpuscular Volume 90 FL (80-99) 90 FL (80-99) Mean Corpuscular Hemoglobin 29.4 PG (27.0-31.0) 30.3 PG (27.0-31.0) Mean Corpuscular Hemoglobin Concent 32.8 G/DL (32.0-36.0) 33.6 G/DL (32.0-36.0) Red Cell Distribution Width 12.2 % (11.6-14.8) 12.4 % (11.6-14.8) Platelet Count 176 K/UL (150-450) 192 K/UL (150-450) Mean Platelet Volume 7.6 FL (6.5-10.1) 7.6 FL (6.5-10.1) Neutrophils (%) (Auto) 56.8 % (45.0-75.0) 50.8 % (45.0-75.0) Lymphocytes (%) (Auto) 27.2 % (20.0-45.0) 35.9 % (20.0-45.0) Monocytes (%) (Auto) 13.2 % (1.0-10.0) H 8.6 % (1.0-10.0) Eosinophils (%) (Auto) 1.7 % (0.0-3.0) 3.9 % (0.0-3.0) H Basophils (%) (Auto) 1.0 % (0.0-2.0) 0.8 % (0.0-2.0) Sodium Level 134 MMOL/L (136-145) L 138 MMOL/L (136-145) Potassium Level 4.3 MMOL/L (3.5-5.1) 4.0 MMOL/L (3.5-5.1) Chloride Level 100 MMOL/L (98-107) 105 MMOL/L (98-107) Carbon Dioxide Level 26 MMOL/L (21-32) 26 MMOL/L (21-32) Anion Gap 8 mmol/L (5-15) 7 mmol/L (5-15) Blood Urea Nitrogen 17 mg/dL (7-18) 15 mg/dL (7-18) Creatinine 0.8 MG/DL (0.55-1.30) 0.5 MG/DL (0.55-1.30) L Estimat Glomerular Filtration Rate > 60 mL/min (>60) > 60 mL/min (>60) Glucose Level 91 MG/DL (74-106) 92 MG/DL (74-106) Calcium Level 8.8 MG/DL (8.5-10.1) 8.6 MG/DL (8.5-10.1) Total Bilirubin 0.3 MG/DL (0.2-1.0) 0.3 MG/DL (0.2-1.0) Aspartate Amino Transf (AST/SGOT) 17 U/L (15-37) 13 U/L (15-37) L Alanine Aminotransferase (ALT/SGPT) 26 U/L (12-78) 23 U/L (12-78) Alkaline Phosphatase 64 U/L (46-116) 58 U/L (46-116) Total Protein 7.5 G/DL (6.4-8.2) 6.9 G/DL (6.4-8.2) Albumin 3.1 G/DL (3.4-5.0) L 3.0 G/DL (3.4-5.0) L Globulin 4.4 g/dL 3.9 g/dL Albumin/Globulin Ratio 0.7 (1.0-2.7) L 0.8 (1.0-2.7) L Lipase 155 U/L (73-393) Urine Color Pale yellow Urine Appearance Clear Urine pH 8 (4.5-8.0) Urine Specific [place] 1.010 (1.005-1.035) Urine Protein Negative (NEGATIVE) Urine Glucose (UA) Negative (NEGATIVE) Urine Ketones Negative (NEGATIVE) Urine Occult Blood 2+ (NEGATIVE) H Urine Nitrite Positive (NEGATIVE) H Urine Bilirubin Negative (NEGATIVE) Urine Urobilinogen Normal MG/DL (NORMAL) Urine Leukocyte Esterase 3+ (NEGATIVE) H Urine RBC 0-2 /HPF (0 - 2) Urine WBC 2-4 /HPF (0 - 2) Urine Squamous Epithelial Cells Few /LPF (NONE/OCC) Urine Bacteria Moderate /HPF (NONE) H Microbiology Date/Time Source Procedure Growth Status 03/28/18 15:00 Urine,Clean Catch Urine Culture - Preliminary Resulted Height (Feet): 5 Height (Inches): 8.00 Weight (Pounds): 180 Medications Current Medications Medications (Trade) Dose Ordered Sig/[place] Route PRN Reason Start Time Stop Time Status Last Admin Dose Admin Acetaminophen (Tylenol) 650 mg Q4H PRN ORAL fever 03/28/18 19:00 04/27/18 18:59 Acetaminophen/ Hydrocodone Bitart ([place] 10/325) 1 tab Q4H PRN ORAL Severe Pain (Pain Scale 7-10) 03/29/18 08:00 04/04/18 18:59 03/29/18 08:15 Albuterol/ Ipratropium (Albuterol/ Ipratropium) 3 ml EVERY 4 HOURS PRN HHN Shortness of Breath 03/28/18 19:00 04/02/18 18:59 Cefepime HCl 2 gm/ Dextrose 110 ml @ 220 mls/hr EVERY 12 HOURS IV 03/28/18 21:00 04/04/18 20:59 03/29/18 09:48 Heparin Sodium (Porcine) (Heparin 5000 units/ml) 5,000 units EVERY 12 HOURS SUBQ 03/28/18 21:00 04/27/18 20:59 03/28/18 20:23 Levothyroxine Sodium (Synthroid) 25 mcg DAILY ORAL 03/29/18 09:00 04/28/18 08:59 03/29/18 09:48 Lisinopril (Prinivil) 20 mg DAILY ORAL 03/29/18 09:00 04/28/18 08:59 Ondansetron HCl (Zofran) 4 mg Q6H PRN IVP Nausea & Vomiting 03/28/18 19:00 04/27/18 18:59 Phenazopyridine HCl (Pyridium) 100 mg DAILY PRN ORAL dysuria 03/28/18 19:00 04/27/18 18:59 Polyethylene Glycol (Miralax) 17 gm DAILYPRN PRN ORAL Constipation 03/28/18 19:00 04/27/18 18:59 Pregabalin (Lyrica) 50 mg Q8HR ORAL 03/29/18 09:00 04/28/18 08:59 03/29/18 09:47 Quetiapine Fumarate (SEROquel) 300 mg QHS ORAL 03/28/18 22:00 04/27/18 21:59 03/28/18 22:32 Temazepam (Restoril) 15 mg HSPRN PRN ORAL Insomnia 03/28/18 19:00 04/04/18 18:59 Vancomycin HCl 1 gm/Dextrose 275 ml @ 183.708 mls/hr Q12H IVPB 03/29/18 08:00 04/03/18 07:59 03/29/18 08:07 Assessment/Plan Problem List: (1) UTI (urinary tract infection) ICD Codes: N39.0 - Urinary tract infection, site not specified SNOMED: 49836048 (2) Chronic pain ICD Codes: G89.29 - Other chronic pain SNOMED: 72354445 (3) HTN (hypertension) ICD Codes: I10 - Essential (primary) hypertension SNOMED: 81160450 (4) Intractable pain ICD Codes: R52 - Pain, unspecified SNOMED: 01340926 (5) Multiple sclerosis ICD Codes: G35 - Multiple sclerosis SNOMED: 30647868 (6) Hypothyroid ICD Codes: E03.9 - Hypothyroidism, unspecified SNOMED: 02571294 Assessment/Plan iv fluids iv abx check cultures pain management check electrolytes pt/ot dvt prophylaxis Jose De Jesus Alcala MD Mar 29, 2018 12:55
[2018-03-29 15:51] VITALS: BP 117/71
[2018-03-29 20:00] VITALS: BP 113/62
[2018-03-29] MEDS: QUEtiapine 200mg tab ORAL SCH (20:16)
[2018-03-30] VITALS: BP 110/60
--- NOTE | 2018-03-30 04:00 | Consultation ---
DATE OF CONSULTATION: 03/29/2018 PAIN MANAGEMENT CONSULTATION CONSULTING PHYSICIAN: Elmer Fried M.D. REFERRING PHYSICIAN: Nishant Rider D.O. PHYSICIAN CREDIT OR LOANS OFFICER: Vick Powers CHIEF COMPLAINT: Generalized body pain. HISTORY OF PRESENT ILLNESS: This is a 57-year-old female, who is being seen on the med/surg floor or [facility] for initial comprehensive pain management consultation. The patient was admitted under the care of Dr. Rider due to urinary tract infection. She reports that she has a history of MS, was living in a fpc, however, due to AMS she was brought to the emergency room and admitted to the hospital for possible IV antibiotics. She is complaining of pain throughout her body. She was started on [place] 10/325 one tablet every 6 hours as needed with morphine 2 mg IV every 4 hours as needed with no pain relief. We were consulted so patient has adequate pain control while here in the hospital. PAST MEDICAL HISTORY: Multiple sclerosis and hypertension. PAST SURGICAL HISTORY: Exploratory laparotomy. MEDICATIONS: As needed levothyroxine, lisinopril, loratadine, nitro, Seroquel. ALLERGIES: No known drug allergies. SOCIAL HISTORY: Denies smoking tobacco, drinking alcohol, or drug abuse. REVIEW OF SYSTEMS: Denies rash, fever, chills, sweating, dizziness, drowsiness, blurred vision, sore throat, or change in weight. No shortness of breath or chest pain. No nausea, vomiting, diarrhea, or blood in the stool or urine. She is complaining of generalized body pain. PHYSICAL EXAMINATION: GENERAL: She is alert, awake, and oriented. VITAL SIGNS: Blood pressure is 88/55, heart rate is 59, oxygen saturation is 95%, respirations 18, and temp is 96.6 degrees Fahrenheit. HEENT: PERRLA. NECK: Range of motion is full in all directions. No tenderness to paracervical muscles. No adenopathy. LUNGS: Decreased breath sounds bilaterally. HEART: S1 and S2 regular. ABDOMEN: Flat. BACK: Range of motion is decreased to flexion and extension. EXTREMITIES: No cyanosis. No clubbing. No edema. NEUROLOGICAL: Marked weakness noted in bilateral lower extremities. ASSESSMENT AND PLAN: This is a 57-year-old female with multiple sclerosis and neuropathic pain. The patient will be changed to a [place] 10/325 one tablet every 4 hours as needed for her severe pain. We will discontinue the morphine intravenous and start the patient on Lyrica 50 mg tablet 3 times a day. The patient was discussed with Dr. Fried and Dr. Fried concurred. We will follow the patient. Thank you very much for the courtesy of this consultation. Elmer Fried M.D. JM Powers DR: VICKY JOB#: [id number] CC: AR
[2018-03-30] MEDS: HYDROcodone/Acetamin 10/325 tab ORAL PRN ×4 (05:36→18:13)
[2018-03-30] MEDS: Lyrica 50mg cap ORAL SCH ×3 (06:29→21:17)
[2018-03-30 07:26] LABS: BASOPHILS % (AUTO) 1.4 % (0.0-2.0); EOSINOPHILS % (AUTO) 3.5 % (0.0-3.0); HEMATOCRIT 34.2 % (37.0-47.0); HEMOGLOBIN 11.8 G/DL (12.0-16.0); LYMPHOCYTES % (AUTO) 46.9 % (20.0-45.0); MEAN CORPUSCULAR VOLUME 89 FL (80-99); MONOCYTES % (AUTO) 9.4 % (1.0-10.0); NEUTROPHILS % (AUTO) 38.8 % (45.0-75.0); PLATELET COUNT 179 K/UL (150-450); RED BLOOD COUNT 3.84 M/UL (4.20-5.40); RED CELL DISTRIBUTION WIDTH 12.2 % (11.6-14.8); WHITE BLOOD COUNT 3.8 K/UL (4.8-10.8)
[2018-03-30 07:45] LABS: ANION GAP 6 mmol/L (5-15); BLOOD UREA NITROGEN 13 mg/dL (7-18); CARBON DIOXIDE 27 MMOL/L (21-32); CHLORIDE 100 MMOL/L (98-107); CREATININE 0.6 MG/DL (0.55-1.30); POTASSIUM 4.2 MMOL/L (3.5-5.1); SODIUM 133 MMOL/L (136-145)
[2018-03-30 07:51] VITALS: BP 95/61
[2018-03-30] MEDS: Levothyroxine 25mcg tab ORAL SCH (09:29)
[2018-03-30] MEDS: Lisinopril 20mg tab ORAL SCH (09:30)
--- NOTE | 2018-03-30 09:31 | Infectious Diseases Prog Note ---
Assessment/Plan Assessment/Plan 57 yo female with PMHx of recurrent UTIs. She presented to the ED on 03/28/18 with [facility] not improved with antibiotics. # Recurrent UTI Patient s/p Abx. - UA negative 03/28/28 - Urine culture 03/28/28 - Mixed illia - Suspect chronic pain contributing to feeling of dysuria. #HTN #MS #Chronic back pain PLAN - Continue Cefepime #2 will treat for 3-5 days as patient's symptoms improved - If D/C prior to finishing 3-5 days of IV abx would D/C on Augmentin to finish the course - D/C Vancomycin #2 - Monitor WBCs and Temps - Supportive care - Consider out patient urology consult for chronic urinary pain without strong evidence for active UTI Thank you for consulting us for the care of this patient. We will continue to follow with you. Subjective Allergies: Coded Allergies: HYDROMORPHONE (Verified Allergy, Intermediate, 03/28/18) PREDNISONE (Verified Allergy, Intermediate, 03/28/18) PSEUDOEPHEDRINE (Verified Allergy, Intermediate, 03/28/18) Subjective Patient reports dysuria improved Afebrile no leukocytosis Objective Vital Signs Last 24 Hour Vital Signs Date Time Temp Pulse Resp B/P (MAP) Pulse Ox O2 Delivery O2 Flow Rate FiO2 03/30/18 07:51 97.8 66 18 95/61 (72) 96 97.8 03/30/18 00:00 97.9 70 18 110/60 (77) 97 97.9 03/29/18 21:00 Room Air 03/29/18 20:00 97.6 73 19 113/62 (79) 97 97.6 03/29/18 19:12 97.9 03/29/18 18:13 97.9 03/29/18 15:51 97.9 69 19 117/71 (86) 98 97.9 03/29/18 13:54 98.3 03/29/18 11:58 98.3 71 20 108/71 (83) 98 98.3 Height (Feet): 5 Height (Inches): 8.00 Weight (Pounds): 180 Objective Gen: NAD, well appearing, alert HEENT: NCAT, MMM, LUNGS: CTAB, No W/C, No Accessory muscle use CARDS: RRR, S1, S2, No M/R/G, ABD: Soft, NT, ND, No R/G, + BS, No HSM, No Masses, Generalized back pain no specific CVA tenderness Ext: C/C/E, Pulses 2+ B/L (DP, Rad): NEURO: A/O x 4, Decrease strength in legs B/L SKIN: warm/dry, No rashes Microbiology Date/Time Source Procedure Growth Status 03/28/18 20:30 Blood Blood Culture - Preliminary NO GROWTH AFTER 24 HOURS Resulted 03/28/18 20:26 Blood Blood Culture - Preliminary NO GROWTH AFTER 24 HOURS Resulted 03/28/18 15:00 Urine,Clean Catch Urine Culture - Preliminary Mixed Urogenital Contaminants Resulted 03/28/18 16:00 Rectum VRE Culture - Final NO VANCOMYCIN RESISTANT ENTEROCOCCUS ... Complete 03/28/18 16:00 Rectum - Final NO CARBAPENEM-RESISTANT ENTEROBACTERI... Complete Laboratory Tests Test 03/30/18 07:00 White Blood Count 3.8 K/UL (4.8-10.8) L Red Blood Count 3.84 M/UL (4.20-5.40) L Hemoglobin 11.8 G/DL (12.0-16.0) L Hematocrit 34.2 % (37.0-47.0) L Mean Corpuscular Volume 89 FL (80-99) Mean Corpuscular Hemoglobin 30.7 PG (27.0-31.0) Mean Corpuscular Hemoglobin Concent 34.5 G/DL (32.0-36.0) Red Cell Distribution Width 12.2 % (11.6-14.8) Platelet Count 179 K/UL (150-450) Mean Platelet Volume 7.3 FL (6.5-10.1) Neutrophils (%) (Auto) 38.8 % (45.0-75.0) L Lymphocytes (%) (Auto) 46.9 % (20.0-45.0) H Monocytes (%) (Auto) 9.4 % (1.0-10.0) Eosinophils (%) (Auto) 3.5 % (0.0-3.0) H Basophils (%) (Auto) 1.4 % (0.0-2.0) Sodium Level 133 MMOL/L (136-145) L Potassium Level 4.2 MMOL/L (3.5-5.1) Chloride Level 100 MMOL/L (98-107) Carbon Dioxide Level 27 MMOL/L (21-32) Anion Gap 6 mmol/L (5-15) Blood Urea Nitrogen 13 mg/dL (7-18) Creatinine 0.6 MG/DL (0.55-1.30) Estimat Glomerular Filtration Rate > 60 mL/min (>60) Glucose Level 100 MG/DL (74-106) Calcium Level 9.0 MG/DL (8.5-10.1) Vancomycin Level Trough 12.4 ug/mL (5.0-12.0) H Current Medications Medications (Trade) Dose Ordered Sig/Galen Route PRN Reason Start Time Stop Time Status Last Admin Dose Admin Acetaminophen (Tylenol) 650 mg Q4H PRN ORAL fever 03/28/18 19:00 04/27/18 18:59 Acetaminophen/ Hydrocodone Bitart ([place] 10/325) 1 tab Q4H PRN ORAL Severe Pain (Pain Scale 7-10) 03/29/18 08:00 04/04/18 18:59 03/30/18 05:36 Albuterol/ Ipratropium (Albuterol/ Ipratropium) 3 ml EVERY 4 HOURS PRN HHN Shortness of Breath 03/28/18 19:00 04/02/18 18:59 Cefepime HCl 2 gm/ Dextrose 110 ml @ 220 mls/hr EVERY 12 HOURS IV 03/28/18 21:00 04/04/18 20:59 03/29/18 21:52 Heparin Sodium (Porcine) (Heparin 5000 units/ml) 5,000 units EVERY 12 HOURS SUBQ 03/28/18 21:00 04/27/18 20:59 03/29/18 20:26 Levothyroxine Sodium (Synthroid) 25 mcg DAILY ORAL 03/29/18 09:00 04/28/18 08:59 03/29/18 09:48 Lisinopril (Prinivil) 20 mg DAILY ORAL 03/29/18 09:00 04/28/18 08:59 Ondansetron HCl (Zofran) 4 mg Q6H PRN IVP Nausea & Vomiting 03/28/18 19:00 04/27/18 18:59 Phenazopyridine HCl (Pyridium) 100 mg DAILY PRN ORAL dysuria 03/28/18 19:00 04/27/18 18:59 Polyethylene Glycol (Miralax) 17 gm DAILYPRN PRN ORAL Constipation 03/28/18 19:00 04/27/18 18:59 Pregabalin (Lyrica) 50 mg Q8HR ORAL 03/29/18 09:00 04/28/18 08:59 03/30/18 06:29 Quetiapine Fumarate (SEROquel) 300 mg QHS ORAL 03/28/18 22:00 04/27/18 21:59 03/29/18 20:16 Temazepam (Restoril) 15 mg HSPRN PRN ORAL Insomnia 03/28/18 19:00 04/04/18 18:59 Vancomycin HCl (Vanco rx to dose) 1 ea DAILY PRN MISC vanco per pharmacy 03/30/18 08:30 04/29/18 08:29 Vancomycin HCl 1 gm/Dextrose 275 ml @ 183.708 mls/hr Q12H IVPB 03/29/18 08:00 04/03/18 07:59 03/29/18 20:16 Skyler Sawant M.D. Mar 30, 2018 09:31
[2018-03-30] MEDS: Heparin 5000 units/ml inj SUBQ SCH ×2 (09:32→20:06)
[2018-03-30] MEDS: Vancomycin 1gm/D5W 275ml IVPB SCH ×4 (09:33→20:05)
[2018-03-30] MEDS: Cefepime HCl 2 GM in D5W 110 ML IV SCH ×2 (11:39→21:17)
[2018-03-30 12:45] VITALS: BP 88/53
--- NOTE | 2018-03-30 13:33 | Pulmonology Progress Note ---
Assessment/Plan Problems: (1) UTI (urinary tract infection) (2) Chronic pain (3) HTN (hypertension) (4) Intractable pain (5) Multiple sclerosis (6) Hypothyroid Assessment/Plan continue abx pt/ot symptomatic treatment check electrolytes pain management Subjective ROS Limited/Unobtainable: No Constitutional: Reports: no symptoms Respiratory: Reports: no symptoms Allergies: Coded Allergies: HYDROMORPHONE (Verified Allergy, Intermediate, 03/28/18) PREDNISONE (Verified Allergy, Intermediate, 03/28/18) PSEUDOEPHEDRINE (Verified Allergy, Intermediate, 03/28/18) Objective Last 24 Hour Vital Signs Date Time Temp Pulse Resp B/P (MAP) Pulse Ox O2 Delivery O2 Flow Rate FiO2 03/30/18 12:45 97.6 68 18 88/53 (65) 97.6 03/30/18 10:29 97.8 03/30/18 09:30 97.8 03/30/18 09:30 95/61 03/30/18 07:51 97.8 66 18 95/61 (72) 96 97.8 03/30/18 00:00 97.9 70 18 110/60 (77) 97 97.9 03/29/18 21:00 Room Air 03/29/18 20:00 97.6 73 19 113/62 (79) 97 97.6 03/29/18 18:13 97.9 03/29/18 15:51 97.9 69 19 117/71 (86) 98 97.9 03/29/18 13:54 98.3 Intake and Output 03/29/18 03/30/18 19:00 07:00 Intake Total 845 ml 300 ml Balance 845 ml 300 ml Intake Oral 460 ml 300 ml IV Total 385 ml # Voids 3 2 General Appearance: WD/WN HEENT: normocephalic, atraumatic, PERRL Respiratory/Chest: chest wall non-tender, lungs clear Cardiovascular: normal peripheral pulses, normal rate Abdomen: normal bowel sounds, soft, non tender Extremities: no cyanosis Skin: no rash Microbiology Date/Time Source Procedure Growth Status 03/28/18 20:30 Blood Blood Culture - Preliminary NO GROWTH AFTER 24 HOURS Resulted 03/28/18 20:26 Blood Blood Culture - Preliminary NO GROWTH AFTER 24 HOURS Resulted 03/28/18 16:00 Nasal Nares MRSA Culture - Final NO METHICILLIN RESISTANT STAPH AUREUS... Complete 03/28/18 15:00 Urine,Clean Catch Urine Culture - Preliminary Mixed Urogenital Contaminants Resulted 03/28/18 16:00 Rectum VRE Culture - Final NO VANCOMYCIN RESISTANT ENTEROCOCCUS ... Complete 03/28/18 16:00 Rectum - Final NO CARBAPENEM-RESISTANT ENTEROBACTERI... Complete Laboratory Tests 03/30/18 07:00: White Blood Count 3.8L, Red Blood Count 3.84L, Hemoglobin 11.8L, Hematocrit 34.2L, Mean Corpuscular Volume 89, Mean Corpuscular Hemoglobin 30.7, Mean Corpuscular Hemoglobin Concent 34.5, Red Cell Distribution Width 12.2, Platelet Count 179, Mean Platelet Volume 7.3, Neutrophils (%) (Auto) 38.8L, Lymphocytes ( %) (Auto) 46.9H, Monocytes (%) (Auto) 9.4, Eosinophils (%) (Auto) 3.5H, Basophils (%) (Auto) 1.4, Sodium Level 133L, Potassium Level 4.2, Chloride Level 100, Carbon Dioxide Level 27, Anion Gap 6, Blood Urea Nitrogen 13, Creatinine 0.6, Estimat Glomerular Filtration Rate > 60, Glucose Level 100, Calcium Level 9.0, Vancomycin Level Trough 12.4H Current Medications Medications (Trade) Dose Ordered Sig/Gal[place] Route PRN Reason Start Time Stop Time Status Last Admin Dose Admin Acetaminophen (Tylenol) 650 mg Q4H PRN ORAL fever 03/28/18 19:00 04/27/18 18:59 Acetaminophen/ Hydrocodone Bitart ([place] 10/325) 1 tab Q4H PRN ORAL Severe Pain (Pain Scale 7-10) 03/29/18 08:00 04/04/18 18:59 03/30/18 09:30 Albuterol/ Ipratropium (Albuterol/ Ipratropium) 3 ml EVERY 4 HOURS PRN HHN Shortness of Breath 03/28/18 19:00 04/02/18 18:59 Cefepime HCl 2 gm/ Dextrose 110 ml @ 220 mls/hr EVERY 12 HOURS IV 03/28/18 21:00 04/04/18 20:59 03/30/18 11:39 Heparin Sodium (Porcine) (Heparin 5000 units/ml) 5,000 units EVERY 12 HOURS SUBQ 03/28/18 21:00 04/27/18 20:59 03/30/18 09:32 Levothyroxine Sodium (Synthroid) 25 mcg DAILY ORAL 03/29/18 09:00 04/28/18 08:59 03/30/18 09:29 Lisinopril (Prinivil) 20 mg DAILY ORAL 03/29/18 09:00 04/28/18 08:59 03/30/18 09:30 Ondansetron HCl (Zofran) 4 mg Q6H PRN IVP Nausea & Vomiting 03/28/18 19:00 04/27/18 18:59 Phenazopyridine HCl (Pyridium) 100 mg DAILY PRN ORAL dysuria 03/28/18 19:00 04/27/18 18:59 Polyethylene Glycol (Miralax) 17 gm DAILYPRN PRN ORAL Constipation 03/28/18 19:00 04/27/18 18:59 Pregabalin (Lyrica) 50 mg Q8HR ORAL 03/29/18 09:00 04/28/18 08:59 03/30/18 06:29 Quetiapine Fumarate (SEROquel) 300 mg QHS ORAL 03/28/18 22:00 04/27/18 21:59 03/29/18 20:16 Temazepam (Restoril) 15 mg HSPRN PRN ORAL Insomnia 03/28/18 19:00 04/04/18 18:59 Vancomycin HCl (Vanco rx to dose) 1 ea DAILY PRN MISC vanco per pharmacy 03/30/18 08:30 04/29/18 08:29 Vancomycin HCl 1 gm/Dextrose 275 ml @ 183.708 mls/hr Q12H IVPB 03/29/18 08:00 04/03/18 07:59 03/30/18 09:33 Jose De Jesus Alcala MD Mar 30, 2018 13:33
--- NOTE | 2018-03-30 13:59 | General Progress Note ---
Assessment/Plan Problem List: (1) Chronic pain ICD Codes: G89.29 - Other chronic pain SNOMED: 16786027 (2) HTN (hypertension) ICD Codes: I10 - Essential (primary) hypertension SNOMED: 42079979 (3) Hypothyroid ICD Codes: E03.9 - Hypothyroidism, unspecified SNOMED: 76690900 (4) UTI (urinary tract infection) ICD Codes: N39.0 - Urinary tract infection, site not specified SNOMED: 71540587 (5) Intractable pain ICD Codes: R52 - Pain, unspecified SNOMED: 80022757 (6) Multiple sclerosis exacerbation ICD Codes: G35 - Multiple sclerosis SNOMED: 345328770 Status: stable, progressing Assessment/Plan ot pt diet pain control abx cbc bmp am dc if clear Subjective Constitutional: Reports: weakness Allergies: Coded Allergies: HYDROMORPHONE (Verified Allergy, Intermediate, 03/28/18) PREDNISONE (Verified Allergy, Intermediate, 03/28/18) PSEUDOEPHEDRINE (Verified Allergy, Intermediate, 03/28/18) All Systems: reviewed and negative except above Subjective calm in bed sleepy Objective Last 24 Hour Vital Signs Date Time Temp Pulse Resp B/P (MAP) Pulse Ox O2 Delivery O2 Flow Rate FiO2 03/30/18 12:45 97.6 68 18 88/53 (65) 97.6 03/30/18 10:29 97.8 03/30/18 09:30 97.8 03/30/18 09:30 95/61 03/30/18 07:51 97.8 66 18 95/61 (72) 96 97.8 03/30/18 00:00 97.9 70 18 110/60 (77) 97 97.9 03/29/18 21:00 Room Air 03/29/18 20:00 97.6 73 19 113/62 (79) 97 97.6 03/29/18 18:13 97.9 03/29/18 15:51 97.9 69 19 117/71 (86) 98 97.9 Intake and Output 03/29/18 03/30/18 19:00 07:00 Intake Total 845 ml 300 ml Balance 845 ml 300 ml Intake Oral 460 ml 300 ml IV Total 385 ml # Voids 3 2 Laboratory Tests 03/30/18 07:00: White Blood Count 3.8L, Red Blood Count 3.84L, Hemoglobin 11.8L, Hematocrit 34.2L, Mean Corpuscular Volume 89, Mean Corpuscular Hemoglobin 30.7, Mean Corpuscular Hemoglobin Concent 34.5, Red Cell Distribution Width 12.2, Platelet Count 179, Mean Platelet Volume 7.3, Neutrophils (%) (Auto) 38.8L, Lymphocytes ( %) (Auto) 46.9H, Monocytes (%) (Auto) 9.4, Eosinophils (%) (Auto) 3.5H, Basophils (%) (Auto) 1.4, Sodium Level 133L, Potassium Level 4.2, Chloride Level 100, Carbon Dioxide Level 27, Anion Gap 6, Blood Urea Nitrogen 13, Creatinine 0.6, Estimat Glomerular Filtration Rate > 60, Glucose Level 100, Calcium Level 9.0, Vancomycin Level Trough 12.4H Height (Feet): 5 Height (Inches): 8.00 Weight (Pounds): 180 General Appearance: lethargic EENT: normal ENT inspection Neck: normal alignment Cardiovascular: normal peripheral pulses, normal rate, regular rhythm Respiratory/Chest: chest wall non-tender, lungs clear, normal breath sounds Abdomen: normal bowel sounds, non tender, soft Extremities: normal inspection Edema: no edema noted Arm (L), no edema noted Arm (R), no edema noted Leg (L), no edema noted Leg (R), no edema noted Pedal (L), no edema noted Pedal (R), no edema noted Generalized Neurologic: responsive, motor weakness Skin: normal pigmentation, warm/dry Nishant Rider DO Mar 30, 2018 13:59
[2018-03-30 16:00] VITALS: BP 91/43
[2018-03-30 20:00] VITALS: BP 87/40
[2018-03-30] MEDS: QUEtiapine 200mg tab ORAL SCH (20:05)
[2018-03-31] VITALS: BP 81/46
[2018-03-31] MEDS: HYDROcodone/Acetamin 10/325 tab ORAL PRN ×4 (00:34→16:13)
[2018-03-31 04:00] VITALS: BP 81/45
[2018-03-31] MEDS: Lyrica 50mg cap ORAL SCH ×2 (06:10→14:20)
[2018-03-31 07:34] LABS: EOSINOPHILS % (AUTO) 2.9 % (0.0-3.0); HEMATOCRIT 36.1 % (37.0-47.0); HEMOGLOBIN 11.9 G/DL (12.0-16.0); LYMPHOCYTES % (AUTO) 51.1 % (20.0-45.0); MEAN CORPUSCULAR VOLUME 91 FL (80-99); MONOCYTES % (AUTO) 10.9 % (1.0-10.0); NEUTROPHILS % (AUTO) 34.1 % (45.0-75.0); PLATELET COUNT 207 K/UL (150-450); RED BLOOD COUNT 3.95 M/UL (4.20-5.40); RED CELL DISTRIBUTION WIDTH 12.5 % (11.6-14.8)
[2018-03-31 07:58] LABS: ANION GAP 6 mmol/L (5-15); BLOOD UREA NITROGEN 16 mg/dL (7-18); CALCIUM 9.1 MG/DL (8.5-10.1); CARBON DIOXIDE 28 MMOL/L (21-32); CHLORIDE 102 MMOL/L (98-107); CREATININE 0.6 MG/DL (0.55-1.30); POTASSIUM 4.3 MMOL/L (3.5-5.1); SODIUM 136 MMOL/L (136-145)
--- NOTE | 2018-03-31 07:58 | Infectious Diseases Prog Note ---
Assessment/Plan Assessment/Plan 57 yo female with PMHx of recurrent UTIs. She presented to the ED on 03/28/18 with back pain hx of UTI at her [facility] that was not improved with antibiotics. # Recurrent UTI - Suspect chronic cystitis - No clear evidence of active infection. Patient s/p Abx. - UA negative 03/28/28 - Urine culture 03/28/28 - Mixed lilia - Suspect chronic pain contributing to feeling of dysuria. #HTN #MS #Chronic back pain PLAN - D/C Cefepime #3 - Suspect no significant UTI present - D/C Vancomycin #2 - Monitor WBCs and Temps - Supportive care - Consider out patient urology consult for chronic urinary pain without strong evidence for active UTI Thank you for consulting us for the care of this patient. We will continue to follow with you. Subjective Allergies: Coded Allergies: HYDROMORPHONE (Verified Allergy, Intermediate, 03/28/18) PREDNISONE (Verified Allergy, Intermediate, 03/28/18) PSEUDOEPHEDRINE (Verified Allergy, Intermediate, 03/28/18) Subjective No acute events over night. Patient no long complaining of dysuria Afebrile no leukocytosis Objective Vital Signs Last 24 Hour Vital Signs Date Time Temp Pulse Resp B/P (MAP) Pulse Ox O2 Delivery O2 Flow Rate FiO2 03/31/18 07:44 98.1 03/31/18 04:00 98.1 70 16 81/45 (57) 95 98.1 03/31/18 00:00 99.0 68 16 81/46 (58) 95 99.0 03/30/18 21:00 Room Air 03/30/18 20:00 99.8 76 16 87/40 (56) 96 99.8 03/30/18 19:24 98.1 03/30/18 18:13 98.1 03/30/18 16:00 98.1 55 17 91/43 (59) 97 98.1 03/30/18 12:45 97.6 68 18 88/53 (65) 97.6 03/30/18 09:30 97.8 03/30/18 09:30 95/61 03/30/18 09:00 Room Air Height (Feet): 5 Height (Inches): 8.00 Weight (Pounds): 180 Objective Gen: NAD, well appearing, alert HEENT: NCAT, MMM, EOMI, PERRL LUNGS: CTAB, No W/C, No Accessory muscle use CARDS: RRR, S1, S2, No M/R/G, ABD: Soft, NT, ND, No R/G, + BS, No HSM, No Masses, Generalized back pain no specific CVA tenderness Ext: C/C/E, Pulses 2+ B/L (DP, Rad): NEURO: A/O x 4, Decrease strength in legs B/L Microbiology Date/Time Source Procedure Growth Status 03/28/18 20:30 Blood Blood Culture - Preliminary NO GROWTH AFTER 48 HOURS Resulted 03/28/18 20:26 Blood Blood Culture - Preliminary NO GROWTH AFTER 48 HOURS Resulted 03/28/18 16:00 Nasal Nares MRSA Culture - Final NO METHICILLIN RESISTANT STAPH AUREUS... Complete 03/28/18 15:00 Urine,Clean Catch Urine Culture - Final Mixed Urogenital Contaminants Complete 03/28/18 16:00 Rectum VRE Culture - Final NO VANCOMYCIN RESISTANT ENTEROCOCCUS ... Complete 03/28/18 16:00 Rectum - Final NO CARBAPENEM-RESISTANT ENTEROBACTERI... Complete Laboratory Tests Test 03/31/18 06:40 White Blood Count 4.0 K/UL (4.8-10.8) L Red Blood Count 3.95 M/UL (4.20-5.40) L Hemoglobin 11.9 G/DL (12.0-16.0) L Hematocrit 36.1 % (37.0-47.0) L Mean Corpuscular Volume 91 FL (80-99) Mean Corpuscular Hemoglobin 30.0 PG (27.0-31.0) Mean Corpuscular Hemoglobin Concent 32.9 G/DL (32.0-36.0) Red Cell Distribution Width 12.5 % (11.6-14.8) Platelet Count 207 K/UL (150-450) Mean Platelet Volume 7.0 FL (6.5-10.1) Neutrophils (%) (Auto) 34.1 % (45.0-75.0) L Lymphocytes (%) (Auto) 51.1 % (20.0-45.0) H Monocytes (%) (Auto) 10.9 % (1.0-10.0) H Eosinophils (%) (Auto) 2.9 % (0.0-3.0) Basophils (%) (Auto) 1.0 % (0.0-2.0) Sodium Level Pending Potassium Level Pending Chloride Level Pending Carbon Dioxide Level Pending Blood Urea Nitrogen Pending Creatinine Pending Estimat Glomerular Filtration Rate Pending Glucose Level Pending Calcium Level Pending Current Medications Medications (Trade) Dose Ordered Sig/[place] Route PRN Reason Start Time Stop Time Status Last Admin Dose Admin Acetaminophen (Tylenol) 650 mg Q4H PRN ORAL fever 03/28/18 19:00 04/27/18 18:59 Acetaminophen/ Hydrocodone Bitart ([place] 10/325) 1 tab Q4H PRN ORAL Severe Pain (Pain Scale 7-10) 03/29/18 08:00 04/04/18 18:59 03/31/18 07:44 Albuterol/ Ipratropium (Albuterol/ Ipratropium) 3 ml EVERY 4 HOURS PRN HHN Shortness of Breath 03/28/18 19:00 04/02/18 18:59 Cefepime HCl 2 gm/ Dextrose 110 ml @ 220 mls/hr EVERY 12 HOURS IV 03/28/18 21:00 04/04/18 20:59 03/30/18 21:17 Heparin Sodium (Porcine) (Heparin 5000 units/ml) 5,000 units EVERY 12 HOURS SUBQ 03/28/18 21:00 04/27/18 20:59 03/30/18 20:06 Levothyroxine Sodium (Synthroid) 25 mcg DAILY ORAL 03/29/18 09:00 04/28/18 08:59 03/30/18 09:29 Lisinopril (Prinivil) 20 mg DAILY ORAL 03/29/18 09:00 04/28/18 08:59 03/30/18 09:30 Ondansetron HCl (Zofran) 4 mg Q6H PRN IVP Nausea & Vomiting 03/28/18 19:00 04/27/18 18:59 Phenazopyridine HCl (Pyridium) 100 mg DAILY PRN ORAL dysuria 03/28/18 19:00 04/27/18 18:59 Polyethylene Glycol (Miralax) 17 gm DAILYPRN PRN ORAL Constipation 03/28/18 19:00 04/27/18 18:59 Pregabalin (Lyrica) 50 mg Q8HR ORAL 03/29/18 09:00 04/28/18 08:59 03/31/18 06:10 Quetiapine Fumarate (SEROquel) 300 mg QHS ORAL 03/28/18 22:00 04/27/18 21:59 03/30/18 20:05 Temazepam (Restoril) 15 mg HSPRN PRN ORAL Insomnia 03/28/18 19:00 04/04/18 18:59 Vancomycin HCl (Vanco rx to dose) 1 ea DAILY PRN MISC vanco per pharmacy 03/30/18 08:30 04/29/18 08:29 Vancomycin HCl 1 gm/Dextrose 275 ml @ 183.708 mls/hr Q12H IVPB 03/29/18 08:00 04/03/18 07:59 03/30/18 20:05 Skyler Sawant M.D. Mar 31, 2018 07:58
[2018-03-31 08:00] VITALS: BP 112/71
[2018-03-31] MEDS: Levothyroxine 25mcg tab ORAL SCH (08:12)
[2018-03-31] MEDS: Lisinopril 20mg tab ORAL SCH (08:13)
[2018-03-31] MEDS: Heparin 5000 units/ml inj SUBQ SCH (08:14)
[2018-03-31] MEDS: Vancomycin 1gm/D5W 275ml IVPB SCH ×2 (08:15)
[2018-03-31] MEDS: Cefepime HCl 2 GM in D5W 110 ML IV SCH (10:08)
--- NOTE | 2018-03-31 11:46 | General Progress Note ---
Assessment/Plan Problem List: (1) Chronic pain ICD Codes: G89.29 - Other chronic pain SNOMED: 80428619 (2) HTN (hypertension) ICD Codes: I10 - Essential (primary) hypertension SNOMED: 53867994 (3) Hypothyroid ICD Codes: E03.9 - Hypothyroidism, unspecified SNOMED: 36553010 (4) UTI (urinary tract infection) ICD Codes: N39.0 - Urinary tract infection, site not specified SNOMED: 47719182 (5) Intractable pain ICD Codes: R52 - Pain, unspecified SNOMED: 92691643 (6) Multiple sclerosis exacerbation ICD Codes: G35 - Multiple sclerosis SNOMED: 289339199 Status: stable, progressing Assessment/Plan ot pt diet pain control abx cbc bmp am dc if clear Subjective Constitutional: Reports: weakness Allergies: Coded Allergies: HYDROMORPHONE (Verified Allergy, Intermediate, 03/28/18) PREDNISONE (Verified Allergy, Intermediate, 03/28/18) PSEUDOEPHEDRINE (Verified Allergy, Intermediate, 03/28/18) All Systems: reviewed and negative except above Subjective calm in bed sleepy Objective Last 24 Hour Vital Signs Date Time Temp Pulse Resp B/P (MAP) Pulse Ox O2 Delivery O2 Flow Rate FiO2 03/31/18 11:36 97.9 03/31/18 09:00 Room Air 03/31/18 08:43 97.9 03/31/18 08:00 97.9 68 20 112/71 (85) 99 97.9 03/31/18 07:44 98.1 03/31/18 04:00 98.1 70 16 81/45 (57) 95 98.1 03/31/18 00:00 99.0 68 16 81/46 (58) 95 99.0 03/30/18 21:00 Room Air 03/30/18 20:00 99.8 76 16 87/40 (56) 96 99.8 03/30/18 18:13 98.1 03/30/18 16:00 98.1 55 17 91/43 (59) 97 98.1 03/30/18 12:45 97.6 68 18 88/53 (65) 97.6 Intake and Output 03/30/18 03/31/18 19:00 07:00 Intake Total 900 ml 777.416 ml Balance 900 ml 777.416 ml Intake Oral 900 ml 300 ml IV Total 477.416 ml # Voids 2 2 Laboratory Tests 03/31/18 06:40: White Blood Count 4.0L, Red Blood Count 3.95L, Hemoglobin 11.9L, Hematocrit 36.1L, Mean Corpuscular Volume 91, Mean Corpuscular Hemoglobin 30.0, Mean Corpuscular Hemoglobin Concent 32.9, Red Cell Distribution Width 12.5, Platelet Count 207, Mean Platelet Volume 7.0, Neutrophils (%) (Auto) 34.1L, Lymphocytes ( %) (Auto) 51.1H, Monocytes (%) (Auto) 10.9H, Eosinophils (%) (Auto) 2.9, Basophils (%) (Auto) 1.0, Sodium Level 136, Potassium Level 4.3, Chloride Level 102, Carbon Dioxide Level 28, Anion Gap 6, Blood Urea Nitrogen 16, Creatinine 0.6, Estimat Glomerular Filtration Rate > 60, Glucose Level 85, Calcium Level 9.1 Height (Feet): 5 Height (Inches): 8.00 Weight (Pounds): 180 General Appearance: lethargic EENT: normal ENT inspection Neck: normal alignment Cardiovascular: normal peripheral pulses, normal rate, regular rhythm Respiratory/Chest: chest wall non-tender, lungs clear, normal breath sounds Abdomen: normal bowel sounds, non tender, soft Extremities: normal inspection Edema: no edema noted Arm (L), no edema noted Arm (R), no edema noted Leg (L), no edema noted Leg (R), no edema noted Pedal (L), no edema noted Pedal (R), no edema noted Generalized Neurologic: responsive, motor weakness Skin: normal pigmentation, warm/dry Nishant Rider DO Mar 31, 2018 11:46
[2018-03-31 12:00] VITALS: BP 115/74
[2018-03-31 16:00] VITALS: BP 118/70
[2018-03-31] MEDS ORDERED: AUGMENTIN 875-1 EAC1 ORAL (16:21)
[2018-03-31] MEDS ORDERED: NS 275ml ONE (18:46)
[2018-03-31] MEDS ORDERED: Tubing IV Secondary IV ONE (18:46)
[2018-03-31] MEDS ORDERED: D5 1/2NS 1000ml IV ONE (18:46)
[2018-04-01] MEDS ORDERED: Levothyroxine 25mcg tab ORAL SCH (06:30)
--- NOTE | 2018-04-02 10:57 | Discharge Summary ---
Discharge Summary Discharge Summary _ DATE OF ADMISSION: 03/28/2018 DATE OF DISCHARGE: 03/31/2018 REASON FOR ADMISSION: 57 years old female, resident of [facility] facility, with past medical history significant for multiple sclerosis, hypertension, recurrent UTIs , hypothyroidism, neuropathy, was sent from the [facility] for evaluation due to dysuria and worsening back pain. Patient started on oral antibiotics at the facility without significant improvement. Vital signs were stable. Laboratory workup revealed no leukocytosis ,stable hemoglobin and hematocrit. Stable renal parameters and electrolytes. Urinalysis with +3 leukocyte esterase and moderate bacteria Patient with DNR/DNI status. Patient given first dose of antibiotic in emergency room. patient admitted with diagnoses of multiple sclerosis exacerbation, urinary tract infection CONSULTANTS: pulmonary Dr. Alcala ID specialist Dr. Johnson pain specialist Dr. Fried [facility]RSE: Patient admitted. Patient started on empiric antibiotic. Infectious disease doctor closely followed. Urine culture revealed mixed urogenital contaminants , blood culture were negative. Patient was on Pyridium for symptomatic relief. Patient status post treatment with empiric antibiotics. Antibiotics stopped as per ID specialist. Urologic evaluation as outpatient was recommended by ID specialist. Chronic pain was due to MS exacerbation , and was likely contributed to dysuria as per infectious disease specialist . Patient was afebrile, no leukocytosis. Pain management consult was requested. Pain management was addressed and provided as per pain specialist recommendations. Pain was eventually controlled. Home medications were resumed. Blood pressure was managed with PATRICIA inhibitor and remained stable. DVT prophylaxis provided. Supplemental oxygen titrated as needed to keep pulse oximetry above 92%. Pulmonary toilet provided as needed. Patient was working with physical and occupational therapists. Fall precautions maintained. Bowel regimen instituted . Supportive care provided . Patient clinically improved and was stable for discharge back to [facility] for continuation of care. FINAL DIAGNOSES: MS exacerbation Neuropathic pain Possible UTI with history of recurrent UTI Chronic back pain Hypertension Hypothyroidism DISCHARGE MEDICATIONS: See Medication Reconciliation list. DISCHARGE INSTRUCTIONS: Patient was discharged to the [facility] facility. Follow up with medical doctor at the facility. I have been assigned to dictate discharge summary for this account. I was not involved in the patient's management. Amanda Spangler NP Apr 02, 2018 10:57
== END 2018-03-31 18:47 | DRG 463 ==
LOC: EDBD 13:59 → EMR 14:46 → 3E 15:35 → EDBEDREQ 17:07 → 3E 17:45
DX: N39.0 Urinary tract infection, site not specified (principal); G35 Multiple sclerosis; G62.9 Polyneuropathy, unspecified; M54.9 Dorsalgia, unspecified; G89.29 Other chronic pain; I10 Essential (primary) hypertension; E03.9 Hypothyroidism, unspecified; F41.9 Anxiety disorder, unspecified; Z66 Do not resuscitate; Z88.6 Allergy status to analgesic agent; Z88.8 Allergy status to other drugs, medicaments and biological substances
CPT/HCPCS: 36415; 80048; 80053; 80202; 81003; 83690; 85025; 87040; 87081; 87086; 94664; 99285; J2405

== ENCOUNTER 2018-04-12 13:16 | Inpatient (IN) | payer MEDICAID ==
[~2018-04-12] VITALS: Ht 165.1 cm; Wt 72.6 kg
[~2018-04-12 13:16] MED LIST: ARTIFICIAL TEAR15 ML BOTH EYES; AUGMENTIN 875-1 EAC1 ORAL; FLONASE ALLERG9.9 ML NS; LORATADINE10 M2 PO; MULTIVITAMINS1 EAC2 ORAL; NITROFURAN25 MG/5 ML PO; NORCO 10-325 T1 EACH ORAL; PRO-STAT LIQUID30 ML ORAL; RESTORIL15 MG ORAL; SEROQUEL200 MG ORAL; SYNTHROID25 MCG ORAL; VALIUM10 MG ORAL; ZESTRIL20 MG ORAL
[2018-04-12] MEDS ORDERED: Morphine Sulfate 4mg/ml Inj (IV USE ONLY) IVP ONE (13:30)
--- NOTE | 2018-04-12 14:07 | Consultation ---
History of Present Illness General Date patient seen: Apr 12, 2018 Chief Complaint: General Complaint Present Illness HPI 57 year old female with hx of MS, residential resident presented to ED c/o diffuse pain x 1 day. . coming from SNF. Patient states pain is not controlled with [place] at facility. Pain is a 10 out of 10, diffuse, non radiating. Denies chest pain or shortness of breath. Denies fevers or chills. No other aggravating relieving factors. Denies any other associated symptoms Allergies: Coded Allergies: HYDROMORPHONE (Verified Allergy, Intermediate, 03/28/18) PREDNISONE (Verified Allergy, Intermediate, 03/28/18) PSEUDOEPHEDRINE (Verified Allergy, Intermediate, 03/28/18) Medication History Scheduled Amino Acids/Protein Hydrolys (Pro-Stat Liquid), 30 ML ORAL THREE TIMES A DAY, ( Reported) Amoxicillin/Potassium Clav 875-125* (Augmentin 875-125 Tablet*), 1 TAB ORAL TWICE A DAY, (Reported) Baclofen* (Baclofen*), 10 MG ORAL Q8HR, (Reported) Dextran 70/Hypromellose (Artificial Tears Eye Drops*), 1 DROP BOTH EYES BID, ( Reported) Levofloxacin* (Levaquin*), 750 MG ORAL DAILY, (Reported) Levothyroxine Sodium* (Synthroid*), 25 MCG ORAL DAILY, (Reported) Lisinopril* (Zestril*), 20 MG ORAL DAILY, (Reported) Loratadine (Loratadine), 10 MG PO DAILY, (Reported) Multivitamins* (Multivitamins*), 1 TAB ORAL DAILY, (Reported) Nitrofurantoin (Nitrofurantoin), 100 MG PO BID, (Reported) Polyethylene Glycol 3350* (Miralax*), 17 GM ORAL DAILY, (Reported) Pregabalin* (Lyrica*), 100 MG ORAL THREE TIMES A DAY, (Reported) Quetiapine Fumarate* (Seroquel*), 300 MG ORAL DAILY, (Reported) Scheduled PRN Diazepam* (Valium*), 10 MG ORAL EVERY 6 HOURS PRN for ANXIETY, (Reported) Hydrocodone Bit/Acetaminophen 10-325* ([place] 10-325*), 1 TAB ORAL Q6H PRN for For Pain, (Reported) Hydrocodone Bit/Acetaminophen 10-325* ([place] 10-325*), 1 TAB ORAL Q4H PRN for For Pain, (Reported) Ondansetron Odt* (Zofran Odt*), 8 MG ORAL Q6H PRN for Nausea & Vomiting, ( Reported) Temazepam* (Restoril*), 30 MG ORAL BEDTIME PRN for Insomnia, (Reported) Miscellaneous Medications Fluticasone Propionate (Flonase Allergy Relief), 9.9 ML NS, (Reported) Patient History Healthcare decision maker Resuscitation status Advanced Directive on File Past Medical/Surgical History Past Medical/Surgical History: (1) Multiple sclerosis (2) Hypothyroid (3) HTN (hypertension) Review of Systems All Other Systems: negative except mentioned in HPI Physical Exam General Appearance: WD/WN, no apparent distress Lines, tubes and drains: peripheral HEENT: normocephalic, atraumatic Neck: non-tender, normal alignment Respiratory/Chest: chest wall non-tender, lungs clear Cardiovascular/Chest: normal peripheral pulses, normal rate Abdomen: normal bowel sounds, non tender Genitourinary/Rectal: normal genital exam Extremities: normal range of motion Skin Exam: normal pigmentation 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: 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 normal Last 24 Hour Vital Signs Date Time Temp Pulse Resp B/P (MAP) Pulse Ox O2 Delivery O2 Flow Rate FiO2 04/12/18 13:13 97.2 64 16 106/72 100 Room Air 97.2 Height (Feet): 5 Height (Inches): 5.00 Weight (Pounds): 160 Medications Current Medications Medications (Trade) Dose Ordered Sig/[place] Route PRN Reason Start Time Stop Time Status Last Admin Dose Admin Sodium Chloride 1,000 ml @ 999 mls/hr Q1H1M ONCE IV 04/12/18 13:28 04/12/18 14:28 Assessment/Plan Problem List: (1) Chronic pain ICD Codes: G89.29 - Other chronic pain SNOMED: 51891814 (2) UTI (urinary tract infection) ICD Codes: N39.0 - Urinary tract infection, site not specified SNOMED: 48086381 (3) Hypothyroid ICD Codes: E03.9 - Hypothyroidism, unspecified SNOMED: 45055072 (4) Multiple sclerosis ICD Codes: G35 - Multiple sclerosis SNOMED: 52191190 (5) HTN (hypertension) ICD Codes: I10 - Essential (primary) hypertension SNOMED: 13446831 Assessment/Plan symptomatic treatment pain management check electrolytes check urine dvt prophylaxis Jose De Jesus Alcala MD Apr 12, 2018 14:07
[2018-04-12] MEDS ORDERED: Miralax 17gm pkt ORAL PRN (14:15)
[2018-04-12] MEDS ORDERED: Mylanta II UD 30ml ORAL PRN (14:15)
[2018-04-12] MEDS ORDERED: LORazepam Inj 2mg/ml 1ml IV PRN (14:15)
[2018-04-12 14:16] VITALS: BP 111/67
--- NOTE | 2018-04-12 14:51 | Emergency Room Report ---
History of Present Illness General Chief Complaint: General Complaint Source: Patient, Medical Record Present Illness HPI 57 yo F presents to ED c/o pain. notes diffuse pain x 1 day. history of MS and chronic back pain. coming from SNF. Patient states pain is not controlled with [place] at facility. Pain is a 10 out of 10, diffuse, non radiating. Denies chest pain or shortness of breath. Denies fevers or chills. No other aggravating relieving factors. Denies any other associated symptoms Allergies: Coded Allergies: HYDROMORPHONE (Verified Allergy, Intermediate, 03/28/18) PREDNISONE (Verified Allergy, Intermediate, 03/28/18) PSEUDOEPHEDRINE (Verified Allergy, Intermediate, 03/28/18) Patient History Past Medical History: HTN Past Surgical History: none Pertinent Family History: none Social History: Denies: smoking, alcohol use, drug use Now: No Immunizations: UTD Reviewed Nursing Documentation: PMH: Agreed; PSxH: Agreed Nursing Documentation-PMH Past Medical History: No History, Except For Hx Hypertension: Yes Hx Cancer: No Hx Gastrointestinal Problems: No Review of Systems All Other Systems: negative except mentioned in HPI Physical Exam Vital Signs Date Time Temp Pulse Resp B/P (MAP) Pulse Ox O2 Delivery O2 Flow Rate FiO2 04/12/18 13:13 97.2 64 16 106/72 100 Room Air 97.2 Sp02 EP Interpretation: reviewed, normal General Appearance: no apparent distress, alert, GCS 15, non-toxic Head: normocephalic, atraumatic Eyes: bilateral eye normal inspection, bilateral eye PERRL ENT: hearing grossly normal, normal pharynx, no angioedema, normal voice Neck: full range of motion, supple/symm/no masses Respiratory: chest non-tender, lungs clear, normal breath sounds, speaking full sentences Cardiovascular #1: regular rate, rhythm, no edema Cardiovascular #2: 2+ carotid (R), 2+ carotid (L), 2+ radial (R), 2+ radial (L) , 2+ dorsalis pedis (R), 2+ dorsalis pedis (L) Gastrointestinal: normal bowel sounds, non tender, soft, non-distended, no guarding, no rebound Rectal: deferred Genitourinary: normal inspection, no CVA tenderness Musculoskeletal: back normal, gait/station normal, normal range of motion, non- tender Neurologic: alert, oriented x3, responsive, motor strength/tone normal, sensory intact, speech normal Psychiatric: judgement/insight normal, memory normal, mood/affect normal, no suicidal/homicidal ideation Reflexes: 3+ bicep (R), 3+ bicep (L), 3+ tricep (R), 3+ tricep (L), 3+ knee (R) , 3+ knee (L) Skin: normal color, no rash, warm/dry, well hydrated Lymphatic: no adenopathy Medical Decision Making Diagnostic Impression: Primary Impression: Multiple sclerosis Additional Impression: Intractable pain ER Course Hospital Course 57-year-old female presents to ED with back pain, generalized pain . Differential diagnoses include: narcotic withdrawal, dehydration, MS flare Clinical course Patient placed on stretcher. monitoring analyst. After initial history and physical I ordered labs, IV fluids, UA, pain meds Labs - no leukocytosis, Hb/Hct stable. electrolytes ok. Despite adequate analgesia patient continues to have pain. Uncontrolled that facility. Patient will require admission for IV pain control and pain management patient will be admitted to Dr Rider I feel this is a highly complex case requiring extensive working including EKG/ Rhythm strip, Xray/CT/US, Blood/urine lab work, repeat exams while in ED, and administration of strong opiates/narcotics for pain control, admission to hospital or close patient follow up. Diagnosis -intractable pain , multiple sclerosis Patient admitted to floor in serious condition Labs Test 04/12/18 15:05 04/13/18 06:55 White Blood Count 6.3 K/UL (4.8-10.8) 4.5 K/UL (4.8-10.8) Red Blood Count 3.93 M/UL (4.20-5.40) 3.96 M/UL (4.20-5.40) Hemoglobin 11.6 G/DL (12.0-16.0) 12.2 G/DL (12.0-16.0) Hematocrit 35.3 % (37.0-47.0) 35.8 % (37.0-47.0) Mean Corpuscular Volume 90 FL (80-99) 91 FL (80-99) Mean Corpuscular Hemoglobin 29.4 PG (27.0-31.0) 30.7 PG (27.0-31.0) Mean Corpuscular Hemoglobin Concent 32.8 G/DL (32.0-36.0) 33.9 G/DL (32.0-36.0) Red Cell Distribution Width 12.1 % (11.6-14.8) 12.6 % (11.6-14.8) Platelet Count 220 K/UL (150-450) 194 K/UL (150-450) Mean Platelet Volume 7.2 FL (6.5-10.1) 7.6 FL (6.5-10.1) Neutrophils (%) (Auto) 40.3 % (45.0-75.0) 40.6 % (45.0-75.0) Lymphocytes (%) (Auto) 49.9 % (20.0-45.0) 49.9 % (20.0-45.0) Monocytes (%) (Auto) 6.7 % (1.0-10.0) 5.9 % (1.0-10.0) Eosinophils (%) (Auto) 1.9 % (0.0-3.0) 2.3 % (0.0-3.0) Basophils (%) (Auto) 1.2 % (0.0-2.0) 1.3 % (0.0-2.0) Sodium Level 139 MMOL/L (136-145) 138 MMOL/L (136-145) Potassium Level 4.2 MMOL/L (3.5-5.1) 4.3 MMOL/L (3.5-5.1) Chloride Level 105 MMOL/L (98-107) 104 MMOL/L (98-107) Carbon Dioxide Level 26 MMOL/L (21-32) 27 MMOL/L (21-32) Anion Gap 8 mmol/L (5-15) 7 mmol/L (5-15) Blood Urea Nitrogen 11 mg/dL (7-18) 10 mg/dL (7-18) Creatinine 0.4 MG/DL (0.55-1.30) 0.5 MG/DL (0.55-1.30) Estimat Glomerular Filtration Rate > 60 mL/min (>60) > 60 mL/min (>60) Glucose Level 92 MG/DL (74-106) 85 MG/DL (74-106) Calcium Level 8.4 MG/DL (8.5-10.1) 8.3 MG/DL (8.5-10.1) Total Bilirubin 0.2 MG/DL (0.2-1.0) 0.2 MG/DL (0.2-1.0) Aspartate Amino Transf (AST/SGOT) 15 U/L (15-37) 16 U/L (15-37) Alanine Aminotransferase (ALT/SGPT) 32 U/L (12-78) 28 U/L (12-78) Alkaline Phosphatase 73 U/L (46-116) 66 U/L (46-116) Total Protein 6.2 G/DL (6.4-8.2) 6.4 G/DL (6.4-8.2) Albumin 3.0 G/DL (3.4-5.0) 3.0 G/DL (3.4-5.0) Globulin 3.2 g/dL 3.4 g/dL Albumin/Globulin Ratio 0.9 (1.0-2.7) 0.9 (1.0-2.7) Lipase 124 U/L (73-393) Thyroid Stimulating Hormone (TSH) 5.383 uiU/mL (0.358-3.740) Last Vital Signs Date Time Temp Pulse Resp B/P (MAP) Pulse Ox O2 Delivery O2 Flow Rate FiO2 04/12/18 14:21 97.2 04/12/18 14:16 89 16 111/67 100 Room Air Status: improved Disposition: ADMITTED INPATIENT Condition: Serious Referrals: Nishant Rider DO (PCP) Nikko Sawyer MD Apr 12, 2018 14:51
[2018-04-12 15:20] LABS: BASOPHILS % (AUTO) 1.2 % (0.0-2.0); EOSINOPHILS % (AUTO) 1.9 % (0.0-3.0); HEMATOCRIT 35.3 % (37.0-47.0); HEMOGLOBIN 11.6 G/DL (12.0-16.0); LYMPHOCYTES % (AUTO) 49.9 % (20.0-45.0); MEAN CORPUSCULAR VOLUME 90 FL (80-99); MONOCYTES % (AUTO) 6.7 % (1.0-10.0); NEUTROPHILS % (AUTO) 40.3 % (45.0-75.0); PLATELET COUNT 220 K/UL (150-450); RED BLOOD COUNT 3.93 M/UL (4.20-5.40); RED CELL DISTRIBUTION WIDTH 12.1 % (11.6-14.8); WHITE BLOOD COUNT 6.3 K/UL (4.8-10.8)
[2018-04-12 15:33] LABS: ANION GAP 8 mmol/L (5-15); BLOOD UREA NITROGEN 11 mg/dL (7-18); CALCIUM 8.4 MG/DL (8.5-10.1); CARBON DIOXIDE 26 MMOL/L (21-32); CHLORIDE 105 MMOL/L (98-107); CREATININE 0.4 MG/DL (0.55-1.30); POTASSIUM 4.2 MMOL/L (3.5-5.1); SODIUM 139 MMOL/L (136-145)
[2018-04-12 15:39] LABS: ALANINE AMINOTRANSFERASE 32 U/L (12-78); ALBUMIN/GLOBULIN RATIO 0.9 (1.0-2.7); ALKALINE PHOSPHATASE 73 U/L (46-116); ASPARTATE AMINO TRANSFERASE 15 U/L (15-37); BILIRUBIN,TOTAL 0.2 MG/DL (0.2-1.0)
[2018-04-12 17:45] VITALS: BP 118/62
[2018-04-12 18:50] VITALS: BP 81/54
[2018-04-12 21:00] VITALS: BP 101/55
[2018-04-12] MEDS ORDERED: QUEtiapine 200mg tab ORAL SCH (21:00)
[2018-04-12] MEDS: Zolpidem 5mg tab ORAL PRN (21:05)
[2018-04-12] MEDS: HYDROcodone/Acetamin 10/325 tab ORAL PRN (21:06)
[2018-04-12] MEDS: Heparin 5000 units/ml inj SUBQ SCH (21:07)
--- NOTE | 2018-04-12 23:30 | History and Physical Report ---
DATE OF ADMISSION: 04/12/2018 This is a patient of Dr. Nishant Rider. I am covering Dr. Nishant Rider. HISTORY OF PRESENT ILLNESS: The patient is coming here because of intractable pain. The patient has MS and also possible urinary tract infection. The patient is in lot of pain and so he now is admitted for pain control as well as possible urinary tract infection. The patient also complains of back and leg pain and dysuria. PAST MEDICAL HISTORY: Significant for chronic pain syndrome, gastroesophageal reflux disease, and multiple sclerosis. PAST SURGICAL HISTORY: Exploratory abdominal surgery as a child. MEDICATIONS: in the chart. ALLERGIES: Denied. SOCIAL HISTORY: Denies smoking, alcohol, or illicit drugs. FAMILY HISTORY: Noncontributory. REVIEW OF SYSTEMS: HEENT: Has occasional headaches. RESPIRATORY: Denies shortness of breath. Denies cough. CARDIOVASCULAR: Denies chest pain or orthopnea. GASTROINTESTINAL: Denies nausea, vomiting, or diarrhea. EXTREMITIES: Does have back and leg pains, which is excruciating and getting worse. The patient cannot tolerate it. GRADES 1 6 TUTOR: No change in speech pattern and does have ataxic gait. PHYSICAL EXAMINATION: VITAL SIGNS: Temperature 97.2, pulse 70, and blood pressure 132/70. HEENT: PERRLA. NECK: Supple. No lymphadenopathy. CHEST: Clear to auscultation. GASTROINTESTINAL: Soft, nontender, and nondistended. No organomegaly. EXTREMITIES: A 1+ edema. Reflexes are equal on both sides. Moves all extremities. ASSESSMENT: Possible urinary tract infection and pain control. The patient is in severe pain. PLAN: Dr. Fried, Dr. Rogelio Mejia, Dr. Alcala, and Dr. Temple have been consulted for psychiatric condition as well as for pain control as well as for treatment of urinary tract infection. Dexter Pelayo M.D. DR: DANILO JOB#: [id number] CC:
[2018-04-13] VITALS: BP 91/49
[2018-04-13 04:00] VITALS: BP 129/55
[2018-04-13] MEDS: HYDROcodone/Acetamin 10/325 tab ORAL PRN ×2 (04:40→09:43)
[2018-04-13 07:31] LABS: BASOPHILS % (AUTO) 1.3 % (0.0-2.0); EOSINOPHILS % (AUTO) 2.3 % (0.0-3.0); HEMATOCRIT 35.8 % (37.0-47.0); HEMOGLOBIN 12.2 G/DL (12.0-16.0); LYMPHOCYTES % (AUTO) 49.9 % (20.0-45.0); MEAN CORPUSCULAR VOLUME 91 FL (80-99); MONOCYTES % (AUTO) 5.9 % (1.0-10.0); NEUTROPHILS % (AUTO) 40.6 % (45.0-75.0); PLATELET COUNT 194 K/UL (150-450); RED BLOOD COUNT 3.96 M/UL (4.20-5.40); RED CELL DISTRIBUTION WIDTH 12.6 % (11.6-14.8); WHITE BLOOD COUNT 4.5 K/UL (4.8-10.8)
[2018-04-13 07:52] LABS: ALANINE AMINOTRANSFERASE 28 U/L (12-78); ALBUMIN/GLOBULIN RATIO 0.9 (1.0-2.7); ALKALINE PHOSPHATASE 66 U/L (46-116); ANION GAP 7 mmol/L (5-15); ASPARTATE AMINO TRANSFERASE 16 U/L (15-37); BILIRUBIN,TOTAL 0.2 MG/DL (0.2-1.0); BLOOD UREA NITROGEN 10 mg/dL (7-18); CALCIUM 8.3 MG/DL (8.5-10.1); CARBON DIOXIDE 27 MMOL/L (21-32); CHLORIDE 104 MMOL/L (98-107); CREATININE 0.5 MG/DL (0.55-1.30); POTASSIUM 4.3 MMOL/L (3.5-5.1); SODIUM 138 MMOL/L (136-145)
[2018-04-13 08:00] VITALS: BP 108/60
[2018-04-13] MEDS: Heparin 5000 units/ml inj SUBQ SCH ×2 (08:17→21:24)
[2018-04-13 12:00] VITALS: BP 114/60
--- NOTE | 2018-04-13 12:36 | Pulmonology Progress Note ---
Assessment/Plan Problems: (1) Intractable pain (2) Multiple sclerosis (3) Hypothyroid (4) Chronic pain (5) HTN (hypertension) Assessment/Plan pain management MRI of left hip monitor bp symptomatic treatment dvt prophylaxis Subjective ROS Limited/Unobtainable: No Interval Events: still complaining of left hip pain Allergies: Coded Allergies: HYDROMORPHONE (Verified Allergy, Intermediate, 03/28/18) PREDNISONE (Verified Allergy, Intermediate, 03/28/18) PSEUDOEPHEDRINE (Verified Allergy, Intermediate, 03/28/18) Objective Last 24 Hour Vital Signs Date Time Temp Pulse Resp B/P (MAP) Pulse Ox O2 Delivery O2 Flow Rate FiO2 04/13/18 09:00 Room Air 04/13/18 08:00 98.0 70 20 108/60 (76) 99 98.0 04/13/18 04:00 97.1 71 20 129/55 (79) 99 97.1 04/13/18 00:00 98.2 66 20 91/49 (63) 96 98.2 04/12/18 21:00 97.8 70 20 101/55 (70) 98 97.8 04/12/18 19:03 Room Air 04/12/18 18:50 93.0 81/54 (63) 93.0 04/12/18 18:22 Room Air 04/12/18 18:07 98.2 75 18 135/75 99 Room Air 04/12/18 17:45 85 16 118/62 100 Room Air 04/12/18 14:45 97.2 04/12/18 14:21 97.2 04/12/18 14:16 97.2 89 16 111/67 100 Room Air 97.2 04/12/18 13:13 97.2 64 16 106/72 100 Room Air 97.2 Intake and Output 04/12/18 04/13/18 19:00 07:00 Intake Total 1000 ml Balance 1000 ml Intake Oral 1000 ml # Voids 1 2 General Appearance: WD/WN HEENT: normocephalic, atraumatic Respiratory/Chest: chest wall non-tender, lungs clear Breasts: no masses Cardiovascular: normal peripheral pulses Abdomen: normal bowel sounds, no organomegaly Genitourinary: normal external genitalia Extremities: no cyanosis Skin: no rash Neurologic/Psychiatric: aba therapist 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 normal Lymphatic: no neck adenopathy Laboratory Tests 8/22/18 15:05: White Blood Count 6.3, Red Blood Count 3.93L, Hemoglobin 11.6L, Hematocrit 35.3L , Mean Corpuscular Volume 90, Mean Corpuscular Hemoglobin 29.4, Mean Corpuscular Hemoglobin Concent 32.8, Red Cell Distribution Width 12.1, Platelet Count 220, Mean Platelet Volume 7.2, Neutrophils (%) (Auto) 40.3L, Lymphocytes ( %) (Auto) 49.9H, Monocytes (%) (Auto) 6.7, Eosinophils (%) (Auto) 1.9, Basophils (%) (Auto) 1.2, Sodium Level 139, Potassium Level 4.2, Chloride Level 105, Carbon Dioxide Level 26, Anion Gap 8, Blood Urea Nitrogen 11, Creatinine 0.4L, Estimat Glomerular Filtration Rate > 60, Glucose Level 92, Calcium Level 8.4L, Total Bilirubin 0.2, Aspartate Amino Transf (AST/SGOT) 15, Alanine Aminotransferase (ALT/SGPT) 32, Alkaline Phosphatase 73, Total Protein 6.2L, Albumin 3.0L, Globulin 3.2, Albumin/Globulin Ratio 0.9L, Lipase 124 04/13/18 06:55: White Blood Count 4.5L, Red Blood Count 3.96L, Hemoglobin 12.2, Hematocrit 35.8L , Mean Corpuscular Volume 91, Mean Corpuscular Hemoglobin 30.7, Mean Corpuscular Hemoglobin Concent 33.9, Red Cell Distribution Width 12.6, Platelet Count 194, Mean Platelet Volume 7.6, Neutrophils (%) (Auto) 40.6L, Lymphocytes ( %) (Auto) 49.9H, Monocytes (%) (Auto) 5.9, Eosinophils (%) (Auto) 2.3, Basophils (%) (Auto) 1.3, Sodium Level 138, Potassium Level 4.3, Chloride Level 104, Carbon Dioxide Level 27, Anion Gap 7, Blood Urea Nitrogen 10, Creatinine 0.5L, Estimat Glomerular Filtration Rate > 60, Glucose Level 85, Calcium Level 8.3L, Total Bilirubin 0.2, Aspartate Amino Transf (AST/SGOT) 16, Alanine Aminotransferase (ALT/SGPT) 28, Alkaline Phosphatase 66, Total Protein 6.4, Albumin 3.0L, Globulin 3.4, Albumin/Globulin Ratio 0.9L, Thyroid Stimulating Hormone (TSH) 5.383H Current Medications Medications (Trade) Dose Ordered Sig/[place] Route PRN Reason Start Time Stop Time Status Last Admin Dose Admin Acetaminophen (Tylenol) 650 mg Q4H PRN ORAL fever 04/12/18 14:15 05/12/18 14:14 Acetaminophen/ Hydrocodone Bitart ([place] 10/325) 1 tab Q4H PRN ORAL For Pain 04/12/18 20:30 04/19/18 20:29 04/13/18 09:43 Al Hydroxide/Mg Hydroxide ([place]yl[place] II) 30 ml Q6H PRN ORAL dyspepsia 04/12/18 14:15 05/12/18 14:14 Dextrose (Dextrose 50%) STAT PRN IV Hypoglycemia 04/12/18 14:15 05/12/18 14:14 Diazepam (Valium) 10 mg Q6H PRN ORAL For Anxiety 04/13/18 07:45 04/20/18 07:44 04/13/18 08:16 Heparin Sodium (Porcine) (Heparin 5000 units/ml) 5,000 units EVERY 12 HOURS SUBQ 04/12/18 21:00 05/12/18 20:59 04/13/18 08:17 Levothyroxine Sodium (Synthroid) 25 mcg DAILY@0630 ORAL 04/14/18 06:30 05/14/18 06:29 Ondansetron HCl (Zofran) 4 mg Q6H PRN IVP Nausea & Vomiting 04/12/18 14:15 05/12/18 14:14 Polyethylene Glycol (Miralax) 17 gm HSPRN PRN ORAL Constipation 04/12/18 14:15 05/12/18 14:14 Quetiapine Fumarate (SEROquel) 300 mg QHS ORAL 04/13/18 21:00 05/12/18 20:59 Zolpidem Tartrate (Ambien) 5 mg HSPRN PRN ORAL Insomnia 04/12/18 14:15 04/19/18 14:14 04/12/18 21:05 Jose De Jesus Alcala MD Apr 13, 2018 12:36
--- NOTE | 2018-04-13 12:38 | General Progress Note ---
Assessment/Plan Problem List: (1) Multiple sclerosis ICD Codes: G35 - Multiple sclerosis SNOMED: 56079557 (2) HTN (hypertension) ICD Codes: I10 - Essential (primary) hypertension SNOMED: 84681061 (3) Chronic pain ICD Codes: G89.29 - Other chronic pain SNOMED: 61667732 (4) Intractable pain ICD Codes: R52 - Pain, unspecified SNOMED: 85719824 (5) Hypothyroid ICD Codes: E03.9 - Hypothyroidism, unspecified SNOMED: 78602152 Status: progressing Assessment/Plan chronic and intractable pain pain med per dr amaya MS R/O UTI ABX PER ID Subjective Allergies: Coded Allergies: HYDROMORPHONE (Verified Allergy, Intermediate, 03/28/18) PREDNISONE (Verified Allergy, Intermediate, 03/28/18) PSEUDOEPHEDRINE (Verified Allergy, Intermediate, 03/28/18) Subjective chronic pain Objective Last 24 Hour Vital Signs Date Time Temp Pulse Resp B/P (MAP) Pulse Ox O2 Delivery O2 Flow Rate FiO2 04/13/18 09:00 Room Air 04/13/18 08:00 98.0 70 20 108/60 (76) 99 98.0 04/13/18 04:00 97.1 71 20 129/55 (79) 99 97.1 04/13/18 00:00 98.2 66 20 91/49 (63) 96 98.2 04/12/18 21:00 97.8 70 20 101/55 (70) 98 97.8 04/12/18 19:03 Room Air 04/12/18 18:50 93.0 81/54 (63) 93.0 04/12/18 18:22 Room Air 04/12/18 18:07 98.2 75 18 135/75 99 Room Air 04/12/18 17:45 85 16 118/62 100 Room Air 04/12/18 14:45 97.2 04/12/18 14:21 97.2 04/12/18 14:16 97.2 89 16 111/67 100 Room Air 97.2 04/12/18 13:13 97.2 64 16 106/72 100 Room Air 97.2 Intake and Output 04/12/18 04/13/18 19:00 07:00 Intake Total 1000 ml Balance 1000 ml Intake Oral 1000 ml # Voids 1 2 Laboratory Tests 04/12/18 15:05: White Blood Count 6.3, Red Blood Count 3.93L, Hemoglobin 11.6L, Hematocrit 35.3L , Mean Corpuscular Volume 90, Mean Corpuscular Hemoglobin 29.4, Mean Corpuscular Hemoglobin Concent 32.8, Red Cell Distribution Width 12.1, Platelet Count 220, Mean Platelet Volume 7.2, Neutrophils (%) (Auto) 40.3L, Lymphocytes ( %) (Auto) 49.9H, Monocytes (%) (Auto) 6.7, Eosinophils (%) (Auto) 1.9, Basophils (%) (Auto) 1.2, Sodium Level 139, Potassium Level 4.2, Chloride Level 105, Carbon Dioxide Level 26, Anion Gap 8, Blood Urea Nitrogen 11, Creatinine 0.4L, Estimat Glomerular Filtration Rate > 60, Glucose Level 92, Calcium Level 8.4L, Total Bilirubin 0.2, Aspartate Amino Transf (AST/SGOT) 15, Alanine Aminotransferase (ALT/SGPT) 32, Alkaline Phosphatase 73, Total Protein 6.2L, Albumin 3.0L, Globulin 3.2, Albumin/Globulin Ratio 0.9L, Lipase 124 04/13/18 06:55: White Blood Count 4.5L, Red Blood Count 3.96L, Hemoglobin 12.2, Hematocrit 35.8L , Mean Corpuscular Volume 91, Mean Corpuscular Hemoglobin 30.7, Mean Corpuscular Hemoglobin Concent 33.9, Red Cell Distribution Width 12.6, Platelet Count 194, Mean Platelet Volume 7.6, Neutrophils (%) (Auto) 40.6L, Lymphocytes ( %) (Auto) 49.9H, Monocytes (%) (Auto) 5.9, Eosinophils (%) (Auto) 2.3, Basophils (%) (Auto) 1.3, Sodium Level 138, Potassium Level 4.3, Chloride Level 104, Carbon Dioxide Level 27, Anion Gap 7, Blood Urea Nitrogen 10, Creatinine 0.5L, Estimat Glomerular Filtration Rate > 60, Glucose Level 85, Calcium Level 8.3L, Total Bilirubin 0.2, Aspartate Amino Transf (AST/SGOT) 16, Alanine Aminotransferase (ALT/SGPT) 28, Alkaline Phosphatase 66, Total Protein 6.4, Albumin 3.0L, Globulin 3.4, Albumin/Globulin Ratio 0.9L, Thyroid Stimulating Hormone (TSH) 5.383H Height (Feet): 5 Height (Inches): 5.00 Weight (Pounds): 160 Cardiovascular: normal rate Respiratory/Chest: lungs clear Abdomen: soft Dexter Pelayo MD Apr 13, 2018 12:38
[2018-04-13] MEDS ORDERED: HYDROcodone/Acetamin 10/325 tab ORAL PRN (13:00)
[2018-04-13] MEDS: Morphine Sulfate 4mg/ml Inj (IV USE ONLY) IVP PRN ×3 (13:11→21:30)
--- NOTE | 2018-04-13 14:52 | Infectious Diseases Prog Note ---
Assessment/Plan Assessment/Plan ID consult dictated # [id number] Subjective Allergies: Coded Allergies: HYDROMORPHONE (Verified Allergy, Intermediate, 03/28/18) PREDNISONE (Verified Allergy, Intermediate, 03/28/18) PSEUDOEPHEDRINE (Verified Allergy, Intermediate, 03/28/18) Objective Vital Signs Last 24 Hour Vital Signs Date Time Temp Pulse Resp B/P (MAP) Pulse Ox O2 Delivery O2 Flow Rate FiO2 04/13/18 12:00 96.8 67 20 114/60 (78) 99 96.8 04/13/18 09:00 Room Air 04/13/18 08:00 98.0 70 20 108/60 (76) 99 98.0 04/13/18 04:00 97.1 71 20 129/55 (79) 99 97.1 04/13/18 00:00 98.2 66 20 91/49 (63) 96 98.2 04/12/18 21:00 97.8 70 20 101/55 (70) 98 97.8 04/12/18 19:03 Room Air 04/12/18 18:50 93.0 81/54 (63) 93.0 04/12/18 18:22 Room Air 04/12/18 18:07 98.2 75 18 135/75 99 Room Air 04/12/18 17:45 85 16 118/62 100 Room Air Height (Feet): 5 Height (Inches): 5.00 Weight (Pounds): 160 Laboratory Tests Test 04/12/18 15:05 04/13/18 06:55 White Blood Count 6.3 K/UL (4.8-10.8) 4.5 K/UL (4.8-10.8) L Red Blood Count 3.93 M/UL (4.20-5.40) L 3.96 M/UL (4.20-5.40) L Hemoglobin 11.6 G/DL (12.0-16.0) L 12.2 G/DL (12.0-16.0) Hematocrit 35.3 % (37.0-47.0) L 35.8 % (37.0-47.0) L Mean Corpuscular Volume 90 FL (80-99) 91 FL (80-99) Mean Corpuscular Hemoglobin 29.4 PG (27.0-31.0) 30.7 PG (27.0-31.0) Mean Corpuscular Hemoglobin Concent 32.8 G/DL (32.0-36.0) 33.9 G/DL (32.0-36.0) Red Cell Distribution Width 12.1 % (11.6-14.8) 12.6 % (11.6-14.8) Platelet Count 220 K/UL (150-450) 194 K/UL (150-450) Mean Platelet Volume 7.2 FL (6.5-10.1) 7.6 FL (6.5-10.1) Neutrophils (%) (Auto) 40.3 % (45.0-75.0) L 40.6 % (45.0-75.0) L Lymphocytes (%) (Auto) 49.9 % (20.0-45.0) H 49.9 % (20.0-45.0) H Monocytes (%) (Auto) 6.7 % (1.0-10.0) 5.9 % (1.0-10.0) Eosinophils (%) (Auto) 1.9 % (0.0-3.0) 2.3 % (0.0-3.0) Basophils (%) (Auto) 1.2 % (0.0-2.0) 1.3 % (0.0-2.0) Sodium Level 139 MMOL/L (136-145) 138 MMOL/L (136-145) Potassium Level 4.2 MMOL/L (3.5-5.1) 4.3 MMOL/L (3.5-5.1) Chloride Level 105 MMOL/L (98-107) 104 MMOL/L (98-107) Carbon Dioxide Level 26 MMOL/L (21-32) 27 MMOL/L (21-32) Anion Gap 8 mmol/L (5-15) 7 mmol/L (5-15) Blood Urea Nitrogen 11 mg/dL (7-18) 10 mg/dL (7-18) Creatinine 0.4 MG/DL (0.55-1.30) L 0.5 MG/DL (0.55-1.30) L Estimat Glomerular Filtration Rate > 60 mL/min (>60) > 60 mL/min (>60) Glucose Level 92 MG/DL (74-106) 85 MG/DL (74-106) Calcium Level 8.4 MG/DL (8.5-10.1) L 8.3 MG/DL (8.5-10.1) L Total Bilirubin 0.2 MG/DL (0.2-1.0) 0.2 MG/DL (0.2-1.0) Aspartate Amino Transf (AST/SGOT) 15 U/L (15-37) 16 U/L (15-37) Alanine Aminotransferase (ALT/SGPT) 32 U/L (12-78) 28 U/L (12-78) Alkaline Phosphatase 73 U/L (46-116) 66 U/L (46-116) Total Protein 6.2 G/DL (6.4-8.2) L 6.4 G/DL (6.4-8.2) Albumin 3.0 G/DL (3.4-5.0) L 3.0 G/DL (3.4-5.0) L Globulin 3.2 g/dL 3.4 g/dL Albumin/Globulin Ratio 0.9 (1.0-2.7) L 0.9 (1.0-2.7) L Lipase 124 U/L (73-393) Thyroid Stimulating Hormone (TSH) 5.383 uiU/mL (0.358-3.740) Current Medications Medications (Trade) Dose Ordered Sig/[place] Route PRN Reason Start Time Stop Time Status Last Admin Dose Admin Acetaminophen (Tylenol) 650 mg Q4H PRN ORAL fever 04/12/18 14:15 05/12/18 14:14 Acetaminophen/ Hydrocodone Bitart ([place] 10/325) 1 tab Q4H PRN ORAL Moderate Pain (Pain Scale 4-6) 04/13/18 13:00 04/19/18 12:59 Al Hydroxide/Mg Hydroxide (Mylanta II) 30 ml Q6H PRN ORAL dyspepsia 04/12/18 14:15 05/12/18 14:14 Ceftriaxone Sodium 1 gm/ Dextrose 55 ml @ 110 mls/hr Q24H IVPB 04/13/18 16:00 04/20/18 15:59 Dextrose (Dextrose 50%) STAT PRN IV Hypoglycemia 04/12/18 14:15 05/12/18 14:14 Diazepam (Valium) 10 mg Q6H PRN ORAL For Anxiety 04/13/18 07:45 04/20/18 07:44 04/13/18 14:22 Heparin Sodium (Porcine) (Heparin 5000 units/ml) 5,000 units EVERY 12 HOURS SUBQ 04/12/18 21:00 05/12/18 20:59 04/13/18 08:17 Levothyroxine Sodium (Synthroid) 25 mcg DAILY@0630 ORAL 04/14/18 06:30 05/14/18 06:29 Morphine Sulfate (Morphine Sulfate) 4 mg Q4H PRN IVP Severe Pain (Pain Scale 7-10) 04/13/18 12:45 04/20/18 12:44 04/13/18 13:11 Ondansetron HCl (Zofran) 4 mg Q6H PRN IVP Nausea & Vomiting 04/12/18 14:15 05/12/18 14:14 Polyethylene Glycol (Miralax) 17 gm HSPRN PRN ORAL Constipation 04/12/18 14:15 05/12/18 14:14 Quetiapine Fumarate (SEROquel) 300 mg QHS ORAL 04/13/18 21:00 05/12/18 20:59 Zolpidem Tartrate (Ambien) 5 mg HSPRN PRN ORAL Insomnia 04/12/18 14:15 04/19/18 14:14 04/12/18 21:05 Rogelio Mejia MD Apr 13, 2018 14:52
[2018-04-13 16:00] VITALS: BP 100/52
--- NOTE | 2018-04-13 17:10 | General Progress Note ---
Assessment/Plan Assessment/Plan (1) Neuropathic pain (2) Multiple Sclerosis Patient will be continued on Sandy and Morphine Stated on Lyrica 100mg TID and Baclofen 10mg PO 1 tab Q8H PRN muscle spasm. D/w Dr. Fried and he concurred. Subjective Date patient seen: Apr 13, 2018 Time patient seen: 05:15 - pm Allergies: Coded Allergies: HYDROMORPHONE (Verified Allergy, Intermediate, 03/28/18) PREDNISONE (Verified Allergy, Intermediate, 03/28/18) PSEUDOEPHEDRINE (Verified Allergy, Intermediate, 03/28/18) Subjective REVIEW OF SYSTEMS: Denies rash, fever, chills, sweating, dizziness, drowsiness, blurred vision, sore throat, or change in weight. No shortness of breath or chest pain. No nausea, vomiting, diarrhea, or blood in the stool or urine. She is complaining of generalized body pain. SUBJECTIVE: Patient is a known patient from prior admission. Has returned with c/o severe body pain. Started on [place] 10/325mg PO 1 tab Q4H PRN mod pain and Morphine 4mg IV Q4H PRN severe pain withe minimal pain relief. Due to this we were consulted so patient will had adequate pain control while here in the hospital. Objective Last 24 Hour Vital Signs Date Time Temp Pulse Resp B/P (MAP) Pulse Ox O2 Delivery O2 Flow Rate FiO2 04/13/18 16:00 98.8 74 20 100/52 (68) 99 98.8 04/13/18 12:00 96.8 67 20 114/60 (78) 99 96.8 04/13/18 09:00 Room Air 04/13/18 08:00 98.0 70 20 108/60 (76) 99 98.0 04/13/18 04:00 97.1 71 20 129/55 (79) 99 97.1 04/13/18 00:00 98.2 66 20 91/49 (63) 96 98.2 04/12/18 21:00 97.8 70 20 101/55 (70) 98 97.8 04/12/18 19:03 Room Air 04/12/18 18:50 93.0 81/54 (63) 93.0 04/12/18 18:22 Room Air 04/12/18 18:07 98.2 75 18 135/75 99 Room Air 04/12/18 17:45 85 16 118/62 100 Room Air Intake and Output 04/12/18 04/13/18 19:00 07:00 Intake Total 1000 ml Balance 1000 ml Intake Oral 1000 ml # Voids 1 2 Laboratory Tests 04/13/18 06:55: White Blood Count 4.5L, Red Blood Count 3.96L, Hemoglobin 12.2, Hematocrit 35.8L , Mean Corpuscular Volume 91, Mean Corpuscular Hemoglobin 30.7, Mean Corpuscular Hemoglobin Concent 33.9, Red Cell Distribution Width 12.6, Platelet Count 194, Mean Platelet Volume 7.6, Neutrophils (%) (Auto) 40.6L, Lymphocytes ( %) (Auto) 49.9H, Monocytes (%) (Auto) 5.9, Eosinophils (%) (Auto) 2.3, Basophils (%) (Auto) 1.3, Sodium Level 138, Potassium Level 4.3, Chloride Level 104, Carbon Dioxide Level 27, Anion Gap 7, Blood Urea Nitrogen 10, Creatinine 0.5L, Estimat Glomerular Filtration Rate > 60, Glucose Level 85, Calcium Level 8.3L, Total Bilirubin 0.2, Aspartate Amino Transf (AST/SGOT) 16, Alanine Aminotransferase (ALT/SGPT) 28, Alkaline Phosphatase 66, Total Protein 6.4, Albumin 3.0L, Globulin 3.4, Albumin/Globulin Ratio 0.9L, Thyroid Stimulating Hormone (TSH) 5.383H 04/13/18 10:30: Hepatitis B Surface Antigen [Pending], Hepatitis B Surface Antibody, Quant [ Pending], Hepatitis C Antibody [Pending] Height (Feet): 5 Height (Inches): 5.00 Weight (Pounds): 160 Objective ENERAL: She is alert, awake, and oriented. LUNGS: Decreased breath sounds bilaterally. HEART: S1 and S2 regular. ABDOMEN: Benign. EXTREMITIES: No cyanosis. No clubbing. No edema. NEUROLOGICAL: Marked weakness noted in bilateral lower extremities. Alonso Young Apr 13, 2018 17:10
[2018-04-13] MEDS: cefTRIAXone 1 GM in D5W 55 ML IVPB SCH (17:27)
[2018-04-13] MEDS: Lyrica 50mg cap ORAL SCH ×2 (17:29→18:28)
[2018-04-13 20:00] VITALS: BP 105/57
[2018-04-13] MEDS: Zolpidem 5mg tab ORAL PRN (21:19)
--- NOTE | 2018-04-14 01:15 | Consultation ---
DATE OF CONSULTATION: 04/13/2018 INFECTIOUS DISEASE CONSULTATION CONSULTING PHYSICIAN: Rogelio Mejia M.D. PRIMARY ATTENDING PHYSICIAN: Dexter Pelayo M.D. REASON FOR CONSULT: Dysuria, UTI. HISTORY OF PRESENT ILLNESS: The patient is a 57-year-old female who is a assisted resident, admitted yesterday complaining of generalized body pain. She has multiple sclerosis, she is bed bound, had diarrhea and urinary frequency. Denies any fever or chills. PAST MEDICAL HISTORY: Significant for multiple sclerosis, hypertension, hypothyroidism, and sacral ulcer. ALLERGIES: Allergic to hydromorphone, prednisone, and pseudoephedrine. MEDICATIONS: Getting levothyroxine with Seroquel, B[place], morphine, diazepam, , Ambien, and Mylanta. REVIEW OF SYSTEMS: No fever. No chills. No headache. No coughing. Feels nausea. No vomiting. No diarrhea. Has urinary incontinence and dysuria. PHYSICAL EXAMINATION: VITAL SIGNS: Temperature 96.8 degrees, pulse 67, blood pressure 114/60. GENERAL APPEARANCE: No acute distress. HEAD AND NECK: [place] conjunctivae. HEART: S1 and S2, regular. LUNGS: Clear. ABDOMEN: Soft and nontender. EXTREMITIES: She has no edema. LABORATORY AND DIAGNOSTIC DATA: Sodium 138, potassium 4.3, chloride 104, bicarbonate 27, BUN 10, creatinine 0.5, and glucose 85. WBC 4.5, hemoglobin 12.2, hematocrit 35.8, and platelets 194. IMPRESSION: Dysuria, may have UTI. The patient has multiple sclerosis, coming with generalized body pain, has hypertension, hypothyroidism, and has sacral pressure ulcer that seems uninfected. The patient is concerned about having hepatitis C. She states that 2 years ago, she had relation with somebody with hepatitis C. RECOMMENDATION: Check hepatitis C antibody. We will check UA, urine culture. We will check hepatitis B surface antigen and antibody. We will empirically start her on ceftriaxone. At the end of my exam, I thank Dr. Pelayo for involving me in the care of this patient. Rogelio Mejia M.D. DR: TOSIN JOB#: [id number] CC:
[2018-04-14] MEDS: Levothyroxine 25mcg tab ORAL SCH (06:32)
[2018-04-14] MEDS: Morphine Sulfate 4mg/ml Inj (IV USE ONLY) IVP PRN ×4 (06:33→20:05)
[2018-04-14 06:40] VITALS: BP 104/60
[2018-04-14 08:00] VITALS: BP 112/62
[2018-04-14] MEDS: Heparin 5000 units/ml inj SUBQ SCH ×2 (09:43→20:06)
--- NOTE | 2018-04-14 12:59 | Infectious Diseases Prog Note ---
Assessment/Plan Assessment/Plan A; UTI Multiple sclerosis HPN Hypothyroidism P; Continue Rocephin Will f/u cultures Subjective ROS Limited/Unobtainable: No Respiratory: Reports: no symptoms Cardiovascular: Reports: no symptoms Genitourinary: Reports: no symptoms Musculoskeletal: Reports: pain, other - in left lower ribs, left hip Allergies: Coded Allergies: HYDROMORPHONE (Verified Allergy, Intermediate, 03/28/18) PREDNISONE (Verified Allergy, Intermediate, 03/28/18) PSEUDOEPHEDRINE (Verified Allergy, Intermediate, 03/28/18) Objective Vital Signs Last 24 Hour Vital Signs Date Time Temp Pulse Resp B/P (MAP) Pulse Ox O2 Delivery O2 Flow Rate FiO2 04/14/18 09:00 Room Air 04/14/18 08:00 97.7 86 20 112/62 (79) 95 97.7 04/14/18 06:40 98.1 70 19 104/60 (75) 94 98.1 04/13/18 21:00 Room Air 04/13/18 20:00 98.5 71 19 105/57 (73) 95 98.5 04/13/18 16:00 98.8 74 20 100/52 (68) 99 98.8 Height (Feet): 5 Height (Inches): 5.00 Weight (Pounds): 160 HEENT: mucous membranes moist Respiratory/Chest: lungs clear Cardiovascular: normal rate Abdomen: soft, non tender Extremities: no edema Neurologic/Psychiatric: alert, responsive Microbiology Date/Time Source Procedure Growth Status 04/12/18 17:01 Nasal Nares MRSA Culture - Final NO METHICILLIN RESISTANT STAPH AUREUS... Complete 04/12/18 17:01 Rectum VRE Culture - Final NO VANCOMYCIN RESISTANT ENTEROCOCCUS ... Complete Current Medications Medications (Trade) Dose Ordered Sig/[place] Route PRN Reason Start Time Stop Time Status Last Admin Dose Admin Acetaminophen (Tylenol) 650 mg Q4H PRN ORAL fever 04/12/18 14:15 05/12/18 14:14 Acetaminophen/ Hydrocodone Bitart ([place] 10/325) 1 tab Q4H PRN ORAL Moderate Pain (Pain Scale 4-6) 04/13/18 13:00 04/19/18 12:59 Al Hydroxide/Mg Hydroxide (Mylanta II) 30 ml Q6H PRN ORAL dyspepsia 04/12/18 14:15 05/12/18 14:14 Baclofen (Lioresal) 10 mg TIDPRN PRN ORAL muscle spasm 04/13/18 17:15 05/13/18 17:14 Ceftriaxone Sodium 1 gm/ Dextrose 55 ml @ 110 mls/hr Q24H IVPB 04/13/18 16:00 04/20/18 15:59 04/13/18 17:27 Dextrose (Dextrose 50%) STAT PRN IV Hypoglycemia 04/12/18 14:15 05/12/18 14:14 Diazepam (Valium) 10 mg Q6H PRN ORAL For Anxiety 04/13/18 07:45 04/20/18 07:44 04/14/18 06:56 Heparin Sodium (Porcine) (Heparin 5000 units/ml) 5,000 units EVERY 12 HOURS SUBQ 04/12/18 21:00 05/12/18 20:59 04/14/18 09:43 Levothyroxine Sodium (Synthroid) 25 mcg DAILY@0630 ORAL 04/14/18 06:30 05/14/18 06:29 04/14/18 06:32 Morphine Sulfate (Morphine Sulfate) 4 mg Q4H PRN IVP Severe Pain (Pain Scale 7-10) 04/13/18 12:45 04/20/18 12:44 04/14/18 10:36 Ondansetron HCl (Zofran) 4 mg Q6H PRN IVP Nausea & Vomiting 04/12/18 14:15 05/12/18 14:14 Polyethylene Glycol (Miralax) 17 gm HSPRN PRN ORAL Constipation 04/12/18 14:15 05/12/18 14:14 Pregabalin (Lyrica) 100 mg THREE TIMES A DAY ORAL 04/13/18 18:00 05/13/18 17:59 04/13/18 18:28 Quetiapine Fumarate (SEROquel) 300 mg QHS ORAL 04/13/18 21:00 05/12/18 20:59 04/13/18 21:19 Zolpidem Tartrate (Ambien) 5 mg HSPRN PRN ORAL Insomnia 04/12/18 14:15 04/19/18 14:14 04/13/18 21:19 Rogelio Mejia MD Apr 14, 2018 12:59
[2018-04-14] MEDS: Lyrica 50mg cap ORAL SCH ×2 (13:03→17:03)
--- NOTE | 2018-04-14 13:15 | Pulmonology Progress Note ---
Assessment/Plan Problems: (1) Intractable pain (2) Multiple sclerosis (3) Hypothyroid (4) Chronic pain (5) HTN (hypertension) Assessment/Plan no new complains pain management MRI of left hip pending monitor bp symptomatic treatment dvt prophylaxis Subjective ROS Limited/Unobtainable: No Constitutional: Reports: no symptoms HEENT: Repors: no symptoms Respiratory: Reports: no symptoms Allergies: Coded Allergies: HYDROMORPHONE (Verified Allergy, Intermediate, 03/28/18) PREDNISONE (Verified Allergy, Intermediate, 03/28/18) PSEUDOEPHEDRINE (Verified Allergy, Intermediate, 03/28/18) Objective Last 24 Hour Vital Signs Date Time Temp Pulse Resp B/P (MAP) Pulse Ox O2 Delivery O2 Flow Rate FiO2 04/14/18 09:00 Room Air 04/14/18 08:00 97.7 86 20 112/62 (79) 95 97.7 04/14/18 06:40 98.1 70 19 104/60 (75) 94 98.1 04/13/18 21:00 Room Air 04/13/18 20:00 98.5 71 19 105/57 (73) 95 98.5 04/13/18 16:00 98.8 74 20 100/52 (68) 99 98.8 Intake and Output 04/13/18 04/14/18 19:00 07:00 Intake Total 2360 ml 350 ml Balance 2360 ml 350 ml Intake Oral 2360 ml 350 ml # Voids 4 3 General Appearance: WD/WN HEENT: normocephalic, anicteric Cardiovascular: normal peripheral pulses, normal rate Abdomen: normal bowel sounds, soft, non tender Genitourinary: normal external genitalia Extremities: no clubbing Skin: no rash Microbiology Date/Time Source Procedure Growth Status 04/12/18 17:01 Nasal Nares MRSA Culture - Final NO METHICILLIN RESISTANT STAPH AUREUS... Complete 04/12/18 17:01 Rectum VRE Culture - Final NO VANCOMYCIN RESISTANT ENTEROCOCCUS ... Complete Current Medications Medications (Trade) Dose Ordered Sig/[place] Route PRN Reason Start Time Stop Time Status Last Admin Dose Admin Acetaminophen (Tylenol) 650 mg Q4H PRN ORAL fever 04/12/18 14:15 05/12/18 14:14 Acetaminophen/ Hydrocodone Bitart ([place] 10/325) 1 tab Q4H PRN ORAL Moderate Pain (Pain Scale 4-6) 04/13/18 13:00 04/19/18 12:59 Al Hydroxide/Mg Hydroxide (Mylanta II) 30 ml Q6H PRN ORAL dyspepsia 04/12/18 14:15 05/12/18 14:14 Baclofen (Lioresal) 10 mg TIDPRN PRN ORAL muscle spasm 04/13/18 17:15 05/13/18 17:14 Ceftriaxone Sodium 1 gm/ Dextrose 55 ml @ 110 mls/hr Q24H IVPB 04/13/18 16:00 04/20/18 15:59 04/13/18 17:27 Dextrose (Dextrose 50%) STAT PRN IV Hypoglycemia 04/12/18 14:15 05/12/18 14:14 Diazepam (Valium) 10 mg Q6H PRN ORAL For Anxiety 04/13/18 07:45 04/20/18 07:44 04/14/18 13:03 Heparin Sodium (Porcine) (Heparin 5000 units/ml) 5,000 units EVERY 12 HOURS SUBQ 04/12/18 21:00 05/12/18 20:59 04/14/18 09:43 Levothyroxine Sodium (Synthroid) 25 mcg DAILY@0630 ORAL 04/14/18 06:30 05/14/18 06:29 04/14/18 06:32 Morphine Sulfate (Morphine Sulfate) 4 mg Q4H PRN IVP Severe Pain (Pain Scale 7-10) 04/13/18 12:45 04/20/18 12:44 04/14/18 10:36 Ondansetron HCl (Zofran) 4 mg Q6H PRN IVP Nausea & Vomiting 04/12/18 14:15 05/12/18 14:14 Polyethylene Glycol (Miralax) 17 gm HSPRN PRN ORAL Constipation 04/12/18 14:15 05/12/18 14:14 Pregabalin (Lyrica) 100 mg THREE TIMES A DAY ORAL 04/13/18 18:00 05/13/18 17:59 04/14/18 13:03 Quetiapine Fumarate (SEROquel) 300 mg QHS ORAL 04/13/18 21:00 05/12/18 20:59 04/13/18 21:19 Zolpidem Tartrate (Ambien) 5 mg HSPRN PRN ORAL Insomnia 04/12/18 14:15 04/19/18 14:14 04/13/18 21:19 Jose De Jesus Alcala MD Apr 14, 2018 13:15
--- NOTE | 2018-04-14 13:51 | General Progress Note ---
Assessment/Plan Problem List: (1) HTN (hypertension) ICD Codes: I10 - Essential (primary) hypertension SNOMED: 93273237 (2) Chronic pain ICD Codes: G89.29 - Other chronic pain SNOMED: 04723418 (3) Hypothyroid ICD Codes: E03.9 - Hypothyroidism, unspecified SNOMED: 49223570 (4) Multiple sclerosis ICD Codes: G35 - Multiple sclerosis SNOMED: 93559109 (5) Intractable pain ICD Codes: R52 - Pain, unspecified SNOMED: 78528409 Status: stable, progressing Assessment/Plan ot pt diet pain control cbc bmp am Subjective Constitutional: Reports: weakness Allergies: Coded Allergies: HYDROMORPHONE (Verified Allergy, Intermediate, 03/28/18) PREDNISONE (Verified Allergy, Intermediate, 03/28/18) PSEUDOEPHEDRINE (Verified Allergy, Intermediate, 03/28/18) All Systems: reviewed and negative except above Subjective calm in bed c/o sl left leg pain Objective Last 24 Hour Vital Signs Date Time Temp Pulse Resp B/P (MAP) Pulse Ox O2 Delivery O2 Flow Rate FiO2 04/14/18 09:00 Room Air 04/14/18 08:00 97.7 86 20 112/62 (79) 95 97.7 04/14/18 06:40 98.1 70 19 104/60 (75) 94 98.1 04/13/18 21:00 Room Air 04/13/18 20:00 98.5 71 19 105/57 (73) 95 98.5 04/13/18 16:00 98.8 74 20 100/52 (68) 99 98.8 Intake and Output 04/13/18 04/14/18 19:00 07:00 Intake Total 2360 ml 350 ml Balance 2360 ml 350 ml Intake Oral 2360 ml 350 ml # Voids 4 3 Height (Feet): 5 Height (Inches): 5.00 Weight (Pounds): 160 General Appearance: alert EENT: normal ENT inspection Neck: normal alignment Cardiovascular: normal peripheral pulses, normal rate, regular rhythm Respiratory/Chest: chest wall non-tender, lungs clear, normal breath sounds Abdomen: normal bowel sounds, non tender, soft Extremities: normal inspection Edema: no edema noted Arm (L), no edema noted Arm (R), no edema noted Leg (L), no edema noted Leg (R), no edema noted Pedal (L), no edema noted Pedal (R), no edema noted Generalized Neurologic: responsive, motor weakness Skin: normal pigmentation, warm/dry Nishant Rider DO Apr 14, 2018 13:51
[2018-04-14 16:00] VITALS: BP 111/63
[2018-04-14] MEDS: cefTRIAXone 1 GM in D5W 55 ML IVPB SCH (17:03)
[2018-04-14 20:00] VITALS: BP 119/74
[2018-04-14] MEDS: Zolpidem 5mg tab ORAL PRN (20:56)
[2018-04-15 04:00] VITALS: BP 124/62
[2018-04-15] MEDS: Morphine Sulfate 4mg/ml Inj (IV USE ONLY) IVP PRN ×5 (05:31→22:35)
[2018-04-15] MEDS: Levothyroxine 25mcg tab ORAL SCH (06:16)
[2018-04-15 06:18] LABS: BASOPHILS % (AUTO) 0.8 % (0.0-2.0); EOSINOPHILS % (AUTO) 2.3 % (0.0-3.0); HEMATOCRIT 38.1 % (37.0-47.0); HEMOGLOBIN 12.7 G/DL (12.0-16.0); LYMPHOCYTES % (AUTO) 34.4 % (20.0-45.0); MEAN CORPUSCULAR VOLUME 90 FL (80-99); MONOCYTES % (AUTO) 6.7 % (1.0-10.0); NEUTROPHILS % (AUTO) 55.8 % (45.0-75.0); PLATELET COUNT 224 K/UL (150-450); RED BLOOD COUNT 4.22 M/UL (4.20-5.40); RED CELL DISTRIBUTION WIDTH 12.3 % (11.6-14.8); WHITE BLOOD COUNT 5.2 K/UL (4.8-10.8)
[2018-04-15 06:25] LABS: ANION GAP 8 mmol/L (5-15); BLOOD UREA NITROGEN 20 mg/dL (7-18); CALCIUM 8.9 MG/DL (8.5-10.1); CARBON DIOXIDE 27 MMOL/L (21-32); CHLORIDE 103 MMOL/L (98-107); CREATININE 0.5 MG/DL (0.55-1.30); SODIUM 138 MMOL/L (136-145)
[2018-04-15] MEDS: Lyrica 50mg cap ORAL SCH ×3 (09:22→17:51)
[2018-04-15] MEDS: Heparin 5000 units/ml inj SUBQ SCH ×2 (09:23→21:12)
[2018-04-15 09:35] VITALS: BP 136/75
--- NOTE | 2018-04-15 10:33 | General Progress Note ---
Assessment/Plan Problem List: (1) HTN (hypertension) ICD Codes: I10 - Essential (primary) hypertension SNOMED: 64813982 (2) Chronic pain ICD Codes: G89.29 - Other chronic pain SNOMED: 79916058 (3) Hypothyroid ICD Codes: E03.9 - Hypothyroidism, unspecified SNOMED: 65832574 (4) Multiple sclerosis ICD Codes: G35 - Multiple sclerosis SNOMED: 73961566 (5) Intractable pain ICD Codes: R52 - Pain, unspecified SNOMED: 34421709 Status: stable, progressing Assessment/Plan ot pt diet pain control psyc transfer Subjective Allergies: Coded Allergies: HYDROMORPHONE (Verified Allergy, Intermediate, 03/28/18) PREDNISONE (Verified Allergy, Intermediate, 03/28/18) PSEUDOEPHEDRINE (Verified Allergy, Intermediate, 03/28/18) All Systems: reviewed and negative except above Subjective calm in bed c/o sl left leg pain Objective Last 24 Hour Vital Signs Date Time Temp Pulse Resp B/P (MAP) Pulse Ox O2 Delivery O2 Flow Rate FiO2 04/15/18 10:10 97.3 04/15/18 09:35 97.3 70 18 136/75 (95) 96 97.3 04/15/18 09:00 Room Air 04/15/18 04:00 97.7 89 18 124/62 (82) 94 97.7 04/14/18 21:00 Room Air 04/14/18 20:00 99.7 77 19 119/74 (89) 95 99.7 04/14/18 16:00 98.3 74 20 111/63 (79) 95 98.3 Intake and Output 04/14/18 04/15/18 19:00 07:00 Intake Total 2105 ml 1000 ml Balance 2105 ml 1000 ml Intake Oral 2050 ml 1000 ml IV Total 55 ml # Voids 3 3 Laboratory Tests 04/15/18 05:20: White Blood Count 5.2, Red Blood Count 4.22, Hemoglobin 12.7, Hematocrit 38.1, Mean Corpuscular Volume 90, Mean Corpuscular Hemoglobin 30.0, Mean Corpuscular Hemoglobin Concent 33.3, Red Cell Distribution Width 12.3, Platelet Count 224, Mean Platelet Volume 7.8, Neutrophils (%) (Auto) 55.8, Lymphocytes (%) (Auto) 34.4, Monocytes (%) (Auto) 6.7, Eosinophils (%) (Auto) 2.3, Basophils (%) (Auto ) 0.8, Sodium Level 138, Potassium Level 4.0, Chloride Level 103, Carbon Dioxide Level 27, Anion Gap 8, Blood Urea Nitrogen 20H, Creatinine 0.5L, Estimat Glomerular Filtration Rate > 60, Glucose Level 95, Calcium Level 8.9 Height (Feet): 5 Height (Inches): 5.00 Weight (Pounds): 160 General Appearance: alert EENT: normal ENT inspection Neck: normal alignment Cardiovascular: normal peripheral pulses, normal rate, regular rhythm Respiratory/Chest: chest wall non-tender, lungs clear, normal breath sounds Abdomen: normal bowel sounds, non tender, soft Extremities: normal inspection Edema: no edema noted Arm (L), no edema noted Arm (R), no edema noted Leg (L), no edema noted Leg (R), no edema noted Pedal (L), no edema noted Pedal (R), no edema noted Generalized Neurologic: responsive, motor weakness Skin: normal pigmentation, warm/dry Nishant Rider DO Apr 15, 2018 10:33
[2018-04-15 12:00] VITALS: BP 131/79
[2018-04-15 12:45] VITALS: BP 131/71
--- NOTE | 2018-04-15 15:24 | Infectious Diseases Prog Note ---
Assessment/Plan Problems: (1) UTI (urinary tract infection) Assessment & Plan: due to gram negative rods continue ceftriaxon pending urine culture (2) Multiple sclerosis Assessment & Plan: continue meds follow up with neurology (3) Hypothyroid Assessment & Plan: continue levothyroxine monitor TSH (4) Chronic pain Assessment & Plan: due to MS continue lyrica Subjective Constitutional: Reports: no symptoms HEENT: Reports: no symptoms Respiratory: Reports: no symptoms Breasts: Reports: no symptoms Cardiovascular: Reports: no symptoms Gastrointestinal/Abdominal: Reports: no symptoms Genitourinary: Reports: no symptoms Neurologic: Reports: numbness, weakness Psychiatric: Reports: no symptoms Skin: Reports: no symptoms Musculoskeletal: Reports: pain, stiffness Allergies: Coded Allergies: HYDROMORPHONE (Verified Allergy, Intermediate, 03/28/18) PREDNISONE (Verified Allergy, Intermediate, 03/28/18) PSEUDOEPHEDRINE (Verified Allergy, Intermediate, 03/28/18) Objective Vital Signs Last 24 Hour Vital Signs Date Time Temp Pulse Resp B/P (MAP) Pulse Ox O2 Delivery O2 Flow Rate FiO2 04/15/18 14:53 96.6 04/15/18 12:45 96.6 81 18 131/71 (91) 97 96.6 04/15/18 12:00 96.6 81 18 131/79 (96) 97 96.6 04/15/18 10:10 97.3 04/15/18 09:35 97.3 70 18 136/75 (95) 96 97.3 04/15/18 09:00 Room Air 04/15/18 04:00 97.7 89 18 124/62 (82) 94 97.7 04/14/18 21:00 Room Air 04/14/18 20:00 99.7 77 19 119/74 (89) 95 99.7 04/14/18 16:00 98.3 74 20 111/63 (79) 95 98.3 Height (Feet): 5 Height (Inches): 5.00 Weight (Pounds): 160 General Appearance: WD/WN, no acute distress HEENT: normocephalic, atraumatic, anicteric, mucous membranes moist, PERRL Respiratory/Chest: chest wall non-tender, lungs clear, normal breath sounds, no respiratory distress, no accessory muscle use Cardiovascular: normal peripheral pulses, normal rate, regular rhythm, no gallop/murmur, no JVD Abdomen: normal bowel sounds, soft, non tender, no organomegaly, non distended , no mass, no scars Extremities: no cyanosis, no clubbing Skin: no rash, no lesions, no ulcers Neurologic/Psychiatric: alert, oriented x 3, responsive Lymphatic: no neck adenopathy, no groin adenopathy Musculoskeletal: no effusion Microbiology Date/Time Source Procedure Growth Status 04/12/18 17:01 Nasal Nares MRSA Culture - Final NO METHICILLIN RESISTANT STAPH AUREUS... Complete 04/14/18 00:00 External Cath Urine Culture - Preliminary Gram Negative Parviz Resulted 04/12/18 17:01 Rectum VRE Culture - Final NO VANCOMYCIN RESISTANT ENTEROCOCCUS ... Complete Laboratory Tests Test 04/15/18 05:20 White Blood Count 5.2 K/UL (4.8-10.8) Red Blood Count 4.22 M/UL (4.20-5.40) Hemoglobin 12.7 G/DL (12.0-16.0) Hematocrit 38.1 % (37.0-47.0) Mean Corpuscular Volume 90 FL (80-99) Mean Corpuscular Hemoglobin 30.0 PG (27.0-31.0) Mean Corpuscular Hemoglobin Concent 33.3 G/DL (32.0-36.0) Red Cell Distribution Width 12.3 % (11.6-14.8) Platelet Count 224 K/UL (150-450) Mean Platelet Volume 7.8 FL (6.5-10.1) Neutrophils (%) (Auto) 55.8 % (45.0-75.0) Lymphocytes (%) (Auto) 34.4 % (20.0-45.0) Monocytes (%) (Auto) 6.7 % (1.0-10.0) Eosinophils (%) (Auto) 2.3 % (0.0-3.0) Basophils (%) (Auto) 0.8 % (0.0-2.0) Sodium Level 138 MMOL/L (136-145) Potassium Level 4.0 MMOL/L (3.5-5.1) Chloride Level 103 MMOL/L (98-107) Carbon Dioxide Level 27 MMOL/L (21-32) Anion Gap 8 mmol/L (5-15) Blood Urea Nitrogen 20 mg/dL (7-18) H Creatinine 0.5 MG/DL (0.55-1.30) L Estimat Glomerular Filtration Rate > 60 mL/min (>60) Glucose Level 95 MG/DL (74-106) Calcium Level 8.9 MG/DL (8.5-10.1) Current Medications Medications (Trade) Dose Ordered Sig/[place] Route PRN Reason Start Time Stop Time Status Last Admin Dose Admin Acetaminophen (Tylenol) 650 mg Q4H PRN ORAL fever 04/12/18 14:15 05/12/18 14:14 Acetaminophen/ Hydrocodone Bitart ([place] 10/325) 1 tab Q4H PRN ORAL Moderate Pain (Pain Scale 4-6) 04/13/18 13:00 04/19/18 12:59 Al Hydroxide/Mg Hydroxide (Mylanta II) 30 ml Q6H PRN ORAL dyspepsia 04/12/18 14:15 05/12/18 14:14 Baclofen (Lioresal) 10 mg TIDPRN PRN ORAL muscle spasm 04/13/18 17:15 05/13/18 17:14 Bisacodyl (Dulcolax) 10 mg BID PRN RECTAL Constipation 04/15/18 13:00 05/15/18 12:59 04/15/18 13:07 Ceftriaxone Sodium 1 gm/ Dextrose 55 ml @ 110 mls/hr Q24H IVPB 04/13/18 16:00 04/20/18 15:59 04/14/18 17:03 Dextrose (Dextrose 50%) STAT PRN IV Hypoglycemia 04/12/18 14:15 05/12/18 14:14 Diazepam (Valium) 10 mg Q6H PRN ORAL For Anxiety 04/13/18 07:45 04/20/18 07:44 04/15/18 13:10 Heparin Sodium (Porcine) (Heparin 5000 units/ml) 5,000 units EVERY 12 HOURS SUBQ 04/12/18 21:00 05/12/18 20:59 04/15/18 09:23 Levothyroxine Sodium (Synthroid) 25 mcg DAILY@0630 ORAL 04/14/18 06:30 05/14/18 06:29 04/15/18 06:16 Morphine Sulfate (Morphine Sulfate) 4 mg Q4H PRN IVP Severe Pain (Pain Scale 7-10) 04/13/18 12:45 04/20/18 12:44 04/15/18 14:23 Ondansetron HCl (Zofran) 4 mg Q6H PRN IVP Nausea & Vomiting 04/12/18 14:15 05/12/18 14:14 Polyethylene Glycol (Miralax) 17 gm HSPRN PRN ORAL Constipation 04/12/18 14:15 05/12/18 14:14 Pregabalin (Lyrica) 100 mg THREE TIMES A DAY ORAL 04/13/18 18:00 05/13/18 17:59 04/15/18 13:07 Quetiapine Fumarate (SEROquel) 300 mg QHS ORAL 04/13/18 21:00 05/12/18 20:59 04/14/18 20:04 Zolpidem Tartrate (Ambien) 5 mg HSPRN PRN ORAL Insomnia 04/12/18 14:15 04/19/18 14:14 04/14/18 20:56 Susan Thompson M.D. Apr 15, 2018 15:24
[2018-04-15] MEDS: cefTRIAXone 1 GM in D5W 55 ML IVPB SCH (15:56)
[2018-04-15 16:00] VITALS: BP 106/63
[2018-04-15 20:00] VITALS: BP 104/64
[2018-04-15] MEDS: Zolpidem 5mg tab ORAL PRN (23:32)
[2018-04-16] VITALS: BP 97/61
[2018-04-16 04:00] VITALS: BP 102/64
[2018-04-16] MEDS: Levothyroxine 25mcg tab ORAL SCH (06:05)
[2018-04-16] MEDS: Morphine Sulfate 4mg/ml Inj (IV USE ONLY) IVP PRN ×3 (07:28→17:02)
[2018-04-16 08:00] VITALS: BP 107/60
[2018-04-16] MEDS: Lyrica 50mg cap ORAL SCH ×2 (08:12→12:34)
[2018-04-16] MEDS: Heparin 5000 units/ml inj SUBQ SCH (08:14)
--- NOTE | 2018-04-16 09:45 | General Progress Note ---
Assessment/Plan Problem List: (1) HTN (hypertension) ICD Codes: I10 - Essential (primary) hypertension SNOMED: 56054625 (2) Chronic pain ICD Codes: G89.29 - Other chronic pain SNOMED: 93018179 (3) Hypothyroid ICD Codes: E03.9 - Hypothyroidism, unspecified SNOMED: 83070643 (4) Multiple sclerosis ICD Codes: G35 - Multiple sclerosis SNOMED: 05063122 (5) Intractable pain ICD Codes: R52 - Pain, unspecified SNOMED: 40733034 Status: stable, progressing Assessment/Plan ot pt diet pain control psyc transfer cbc bmp am dc plan if clear by all Subjective Constitutional: Reports: weakness Allergies: Coded Allergies: HYDROMORPHONE (Verified Allergy, Intermediate, 03/28/18) PREDNISONE (Verified Allergy, Intermediate, 03/28/18) PSEUDOEPHEDRINE (Verified Allergy, Intermediate, 03/28/18) All Systems: reviewed and negative except above Subjective calm in bed sleepy Objective Last 24 Hour Vital Signs Date Time Temp Pulse Resp B/P (MAP) Pulse Ox O2 Delivery O2 Flow Rate FiO2 04/16/18 04:00 97.3 74 18 102/64 (77) 96 97.3 04/16/18 00:00 99.3 76 18 97/61 (73) 95 99.3 04/15/18 21:00 Room Air 04/15/18 20:00 98.1 81 19 104/64 (77) 5 98.1 04/15/18 19:00 98.3 04/15/18 16:00 98.3 82 18 106/63 (77) 94 98.3 04/15/18 12:45 96.6 81 18 131/71 (91) 97 96.6 04/15/18 12:00 96.6 81 18 131/79 (96) 97 96.6 04/15/18 10:10 97.3 Intake and Output 04/15/18 04/16/18 19:00 07:00 Intake Total 2110 ml 800 ml Balance 2110 ml 800 ml Intake Oral 2000 ml 800 ml IV Total 110 ml # Voids 3 2 # Bowel Movements 1 Height (Feet): 5 Height (Inches): 5.00 Weight (Pounds): 160 General Appearance: lethargic EENT: normal ENT inspection Neck: normal alignment Cardiovascular: normal peripheral pulses, normal rate, regular rhythm Respiratory/Chest: chest wall non-tender, lungs clear, normal breath sounds Abdomen: normal bowel sounds, non tender, soft Extremities: normal inspection Edema: no edema noted Arm (L), no edema noted Arm (R), no edema noted Leg (L), no edema noted Leg (R), no edema noted Pedal (L), no edema noted Pedal (R), no edema noted Generalized Neurologic: motor weakness Skin: normal pigmentation, warm/dry Nishant Rider Apr 16, 2018 09:44
--- NOTE | 2018-04-16 13:12 | Infectious Diseases Prog Note ---
Assessment/Plan Assessment/Plan A; UTI with pseudomonas Multiple sclerosis HPN Hypothyroidism P; discontinue Rocephin Start on Levaquin Subjective HEENT: Reports: other - dental problem with bleeding Respiratory: Reports: no symptoms Gastrointestinal/Abdominal: Reports: no symptoms Genitourinary: Reports: dysuria Musculoskeletal: Reports: pain Allergies: Coded Allergies: HYDROMORPHONE (Verified Allergy, Intermediate, 03/28/18) PREDNISONE (Verified Allergy, Intermediate, 03/28/18) PSEUDOEPHEDRINE (Verified Allergy, Intermediate, 03/28/18) Objective Vital Signs Last 24 Hour Vital Signs Date Time Temp Pulse Resp B/P (MAP) Pulse Ox O2 Delivery O2 Flow Rate FiO2 04/16/18 13:02 97.3 04/16/18 09:00 Room Air 04/16/18 08:00 97.3 74 19 107/60 (76) 99 97.3 04/16/18 07:58 97.3 04/16/18 04:00 97.3 74 18 102/64 (77) 96 97.3 04/16/18 00:00 99.3 76 18 97/61 (73) 95 99.3 04/15/18 21:00 Room Air 04/15/18 20:00 98.1 81 19 104/64 (77) 5 98.1 04/15/18 16:00 98.3 82 18 106/63 (77) 94 98.3 Height (Feet): 5 Height (Inches): 5.00 Weight (Pounds): 160 General Appearance: no acute distress HEENT: mucous membranes moist, other - decayed teeth in left upper jaw Respiratory/Chest: lungs clear Cardiovascular: normal peripheral pulses Abdomen: soft, non tender Extremities: no edema Neurologic/Psychiatric: alert, oriented x 3, responsive Microbiology Date/Time Source Procedure Growth Status 04/14/18 00:00 External Cath Urine Culture - Final Pseudomonas Aeruginosa Complete Current Medications Medications (Trade) Dose Ordered Sig/[place] Route PRN Reason Start Time Stop Time Status Last Admin Dose Admin Acetaminophen (Tylenol) 650 mg Q4H PRN ORAL fever 04/12/18 14:15 05/12/18 14:14 Acetaminophen/ Hydrocodone Bitart ([place] 10/325) 1 tab Q4H PRN ORAL Moderate Pain (Pain Scale 4-6) 04/13/18 13:00 04/19/18 12:59 Al Hydroxide/Mg Hydroxide (Mylanta II) 30 ml Q6H PRN ORAL dyspepsia 04/12/18 14:15 05/12/18 14:14 Baclofen (Lioresal) 10 mg TIDPRN PRN ORAL muscle spasm 04/13/18 17:15 05/13/18 17:14 04/15/18 17:50 Bisacodyl (Dulcolax) 10 mg BID PRN RECTAL Constipation 04/15/18 13:00 05/15/18 12:59 04/15/18 13:07 Ceftriaxone Sodium 1 gm/ Dextrose 55 ml @ 110 mls/hr Q24H IVPB 04/13/18 16:00 04/20/18 15:59 04/15/18 15:56 Dextrose (Dextrose 50%) STAT PRN IV Hypoglycemia 04/12/18 14:15 05/12/18 14:14 Diazepam (Valium) 10 mg Q6H PRN ORAL For Anxiety 04/13/18 07:45 04/20/18 07:44 04/16/18 12:39 Heparin Sodium (Porcine) (Heparin 5000 units/ml) 5,000 units EVERY 12 HOURS SUBQ 04/12/18 21:00 05/12/18 20:59 04/16/18 08:14 Levothyroxine Sodium (Synthroid) 25 mcg DAILY@0630 ORAL 04/14/18 06:30 05/14/18 06:29 04/16/18 06:05 Morphine Sulfate (Morphine Sulfate) 4 mg Q4H PRN IVP Severe Pain (Pain Scale 7-10) 04/13/18 12:45 04/20/18 12:44 04/16/18 13:02 Ondansetron HCl (Zofran) 4 mg Q6H PRN IVP Nausea & Vomiting 04/12/18 14:15 05/12/18 14:14 Polyethylene Glycol (Miralax) 17 gm HSPRN PRN ORAL Constipation 04/12/18 14:15 05/12/18 14:14 Pregabalin (Lyrica) 100 mg THREE TIMES A DAY ORAL 04/13/18 18:00 05/13/18 17:59 04/16/18 12:34 Quetiapine Fumarate (SEROquel) 300 mg QHS ORAL 04/13/18 21:00 05/12/18 20:59 04/15/18 21:08 Zolpidem Tartrate (Ambien) 5 mg HSPRN PRN ORAL Insomnia 04/12/18 14:15 04/19/18 14:14 04/15/18 23:32 Rogelio Mejia MD Apr 16, 2018 13:12
[2018-04-16 16:00] VITALS: BP 121/73
[2018-04-16] MEDS ORDERED: LEVAQUIN750 MG ORAL (16:06)
[2018-04-16] MEDS ORDERED: ZOFRAN ODT8 MG ORAL (16:07)
[2018-04-16] MEDS ORDERED: LYRICA75 M1 ORAL (16:07)
[2018-04-16] MEDS ORDERED: BACLOFEN10 MG ORAL (16:07)
[2018-04-16] MEDS ORDERED: MIRALAX17 G2 ORAL (16:07)
[2018-04-16] MEDS ORDERED: NORCO 10-325 T1 EACH ORAL (16:08)
[2018-04-16] MEDS ORDERED: Levofloxacin 500mg tab ORAL SCH (17:00)
--- NOTE | 2018-04-17 10:04 | Discharge Summary ---
Discharge Summary Discharge Summary _ DATE OF ADMISSION: 04/12/2018 DATE OF DISCHARGE: 04/16/2018 REASON FOR ADMISSION: 57 years old female with past medical history of multiple sclerosis, chronic back pain, hypertension, presented to emergency department complaining of diffuse pain for one day. Patient was not controlled with [place] at the facility. Upon evaluation vital signs were stable No leukocytosis, hemoglobin 11.6 hematocrit 35.3 , albumin 2.0 , electrolytes and renal parameters stable . Patient admitted with diagnoses of multiple sclerosis, possible UTI, intractable pain. CONSULTANTS: pulmonary Dr. Alcala ID specialist Dr.M. Mejia pain specialist Dr. Fried [facility] COURSE: Patient admitted. Patient started on IV hydration and empiric antibiotic. ID specialist consulted. Urine culture revealed Pseudomonas. Antibiotic regimen optimized as per ID specialist recommendations. Patient need to continue antibiotic at the facility to complete the course. Pain management was provided as per pain specialist recommendations. Pain was neuropathic and was controlled with current analgesic regimen. Home medications were resumed. Supportive care provided. DVT prophylaxis provided. Supplemental oxygen provided as needed to keep pulse oximetry above 92%. Patient was working with physical and occupational therapists. Bowel regimen instituted. Hepatitis panel revealed no immunity to hepatitis B. Recommended hepatitis B vaccination at the facility. Patient clinically improved and was stable for discharge to half-way facility for continuation of care FINAL DIAGNOSES: Pseudomonas UTI multiply sclerosis neuropathic pain hypertension hypothyroidism DISCHARGE MEDICATIONS: See Medication Reconciliation list. DISCHARGE INSTRUCTIONS: Patient was discharged to the half-way facility. Follow up with medical doctor at the facility. I have been assigned to dictate discharge summary for this account. I was not involved in the patient's management. Amanda Spangler NP Apr 17, 2018 10:04
--- NOTE | 2018-04-17 12:24 | Diagnostic Imaging Report ---
Indication: Hip and pelvis pain Technique: MRI examination of the pelvis and left hip was performed in a 1.5 Meera magnet. Sequences obtained include multiplanar T1 and T2 fast spin echo, and STIR. Comparison: none Findings: Bone marrow signal is moderately heterogeneous in appearance throughout the visualized hip and axial skeleton. There is no acute fracture identified. No significant joint effusion identified. No evidence of AVN of either hip. Hips demonstrate osteoarthritis changes with osteophyte formation and abnormal subchondral signal. Parasacral posterior decubitus subcutaneous signal noted. Consider decubitus ulceration. No obvious abscess identified. No ascites appreciated within the visualized pelvis. Incidental left ovarian cyst suspected measuring about 2.4 cm. Spondylosis are demonstrated within the visualized part of the lower lumbar spine. IMPRESSION: No acute findings with regard to the left hip to account for the pain. No fracture or AVN. Moderate arthrosis. Heterogeneous bone marrow signal nonspecific in nature. Degenerative spondylosis involving the visualized lower lumbar spine. Question of a decubitus ulceration posterior to the sacrum. Incidental 2.4 cm left ovarian cyst.
== END 2018-04-16 18:30 | disposition home or self-care (01) | DRG 463 ==
LOC: EDBD 13:16 → EMR 13:46 → EDBEDREQ 16:47 → 4E 17:21
DX: N39.0 Urinary tract infection, site not specified (principal); G35 Multiple sclerosis; B96.5 Pseudomonas (aeruginosa) (mallei) (pseudomallei) as the cause of diseases classified elsewhere; G62.9 Polyneuropathy, unspecified; I10 Essential (primary) hypertension; E03.9 Hypothyroidism, unspecified; Z88.6 Allergy status to analgesic agent; Z88.8 Allergy status to other drugs, medicaments and biological substances; G89.29 Other chronic pain
CPT/HCPCS: 36415; 80048; 80053; 83690; 84443; 85025; 86803; 87081; 87086; 87181; 87340; 87517; 99285; J2405

== ENCOUNTER 2019-01-04 18:00 | Inpatient (IN) | payer MEDICAID ==
[~2019-01-04] VITALS: Ht 172.7 cm; Wt 81.6 kg
[~2019-01-04 18:00] MED LIST changes: +BACLOFEN10 MG ORAL; +LEVAQUIN750 MG ORAL; +LYRICA75 M1 ORAL; +MIRALAX17 G2 ORAL; +ZOFRAN ODT8 MG ORAL
[2019-01-04 18:01] VITALS: BP 116/75
--- NOTE | 2019-01-04 18:09 | NUR ---
ED Nurse Note: Patient brought in by [facility] ambulance from [facility] Patient is c/o bodyache, patient reports pain starts from the back and radiates to bilateral feet, 10/10, feels like "electrocution" patient is alert awake x4 immobile, due to paraplegic. patient reports hx of MS. Attempted to assess patient's sacral area due to hx of wound, patient reports she has no wounds and refused to show the sacral area at this time.
[2019-01-04] MEDS ORDERED: NEURONTIN400 MG ORAL (18:10)
[2019-01-04] MEDS ORDERED: TEGRETOL200 MG PO (18:10)
[2019-01-04] MEDS ORDERED: HYDROcodone/Acetamin 10/325 tab ORAL ONE (18:30)
--- NOTE | 2019-01-04 18:33 | Emergency Room Report ---
History of Present Illness General Chief Complaint: Pain Source: Patient, Medical Record Present Illness HPI Patient present with complaints of diffuse bodyaches increased weakness in her legs patient reports that she was sleeping on a harder material and feels that this worsened her symptoms denies any chest pain denies any short of breath Denies any vomiting or diarrhea denies any fevers Allergies: Coded Allergies: HYDROMORPHONE (Verified Allergy, Intermediate, 03/28/18) PREDNISONE (Verified Allergy, Intermediate, 03/28/18) PSEUDOEPHEDRINE (Verified Allergy, Intermediate, 03/28/18) Patient History Past Medical History: see triage record Pertinent Family History: none Reviewed Nursing Documentation: PMH: Agreed; PSxH: Agreed Nursing Documentation-PMH Past Medical History: No History, Except For Hx Cardiac Problems: No - multiple sclerosis, paraplegia, anemia Hx Hypertension: Yes History Of Psychiatric Problem: Yes - dementia, schizoaffective Review of Systems All Other Systems: negative except mentioned in HPI Physical Exam Vital Signs Date Time Temp Pulse Resp B/P (MAP) Pulse Ox O2 Delivery O2 Flow Rate FiO2 01/04/19 18:01 98.4 72 16 95 Room Air 01/04/19 18:01 116/75 Sp02 EP Interpretation: reviewed, normal General Appearance: well appearing, no apparent distress Head: normocephalic, atraumatic Eyes: bilateral eye PERRL, bilateral eye EOMI ENT: hearing grossly normal, normal pharynx, TMs + canals normal, uvula midline Neck: full range of motion, supple, no meningismus, no bony tend Respiratory: lungs clear, normal breath sounds, no rhonchi, no respiratory distress, no retraction, no accessory muscle use Cardiovascular #1: normal peripheral pulses, regular rate, rhythm, no edema, no gallop, no JVD, no murmur Gastrointestinal: normal bowel sounds, non tender, soft, no mass, no organomegaly, non-distended, no guarding, no hernia, no pulsatile mass, no rebound Genitourinary: no CVA tenderness Musculoskeletal: other - Patient has difficulty trying to push against resistance on both feet Neurologic: oriented x3, responsive, sensory intact Psychiatric: mood/affect normal Skin: normal color, no rash, warm/dry, palpation normal Lymphatic: normal inspection, no adenopathy Medical Decision Making Diagnostic Impression: Primary Impression: Multiple sclerosis Additional Impression: Myalgia ER Course Patient is a complex medical history given the exam and presentation multiple differentials are in consideration Baseline blood work are appropriate patient feels aggressively worsening weakness General myalgia And requires further inpatient care Labs Test 01/04/19 18:43 01/04/19 18:59 01/05/19 06:36 White Blood Count 7.1 K/UL (4.8-10.8) 5.1 K/UL (4.8-10.8) Red Blood Count 3.98 M/UL (4.20-5.40) 3.84 M/UL (4.20-5.40) Hemoglobin 12.2 G/DL (12.0-16.0) 11.8 G/DL (12.0-16.0) Hematocrit 34.9 % (37.0-47.0) 34.7 % (37.0-47.0) Mean Corpuscular Volume 88 FL (80-99) 90 FL (80-99) Mean Corpuscular Hemoglobin 30.7 PG (27.0-31.0) 30.8 PG (27.0-31.0) Mean Corpuscular Hemoglobin Concent 35.1 G/DL (32.0-36.0) 34.1 G/DL (32.0-36.0) Red Cell Distribution Width 12.1 % (11.6-14.8) 12.3 % (11.6-14.8) Platelet Count 303 K/UL (150-450) 293 K/UL (150-450) Mean Platelet Volume 5.2 FL (6.5-10.1) 6.1 FL (6.5-10.1) Neutrophils (%) (Auto) 60.2 % (45.0-75.0) 46.6 % (45.0-75.0) Lymphocytes (%) (Auto) 30.6 % (20.0-45.0) 43.2 % (20.0-45.0) Monocytes (%) (Auto) 6.5 % (1.0-10.0) 6.3 % (1.0-10.0) Eosinophils (%) (Auto) 1.5 % (0.0-3.0) 2.8 % (0.0-3.0) Basophils (%) (Auto) 1.3 % (0.0-2.0) 1.2 % (0.0-2.0) Sodium Level 125 MMOL/L (136-145) Potassium Level 4.3 MMOL/L (3.5-5.1) Chloride Level 93 MMOL/L (98-107) Carbon Dioxide Level 23 MMOL/L (21-32) Anion Gap 9 mmol/L (5-15) Blood Urea Nitrogen 11 mg/dL (7-18) Creatinine 0.4 MG/DL (0.55-1.30) Estimat Glomerular Filtration Rate > 60 mL/min (>60) Glucose Level 91 MG/DL (74-106) Calcium Level 8.8 MG/DL (8.5-10.1) Total Bilirubin 0.3 MG/DL (0.2-1.0) Aspartate Amino Transf (AST/SGOT) 22 U/L (15-37) Alanine Aminotransferase (ALT/SGPT) 22 U/L (12-78) Alkaline Phosphatase 97 U/L (46-116) Total Protein 7.0 G/DL (6.4-8.2) Albumin 3.5 G/DL (3.4-5.0) Globulin 3.5 g/dL Albumin/Globulin Ratio 1.0 (1.0-2.7) Lipase 103 U/L (73-393) Urine Color Pale yellow Urine Appearance Clear Urine pH 8 (4.5-8.0) Urine Specific [place] 1.015 (1.005-1.035) Urine Protein Negative (NEGATIVE) Urine Glucose (UA) Negative (NEGATIVE) Urine Ketones Negative (NEGATIVE) Urine Blood 2+ (NEGATIVE) Urine Nitrite Positive (NEGATIVE) Urine Bilirubin Negative (NEGATIVE) Urine Urobilinogen Normal MG/DL (0.0-1.0) Urine Leukocyte Esterase 3+ (NEGATIVE) Urine RBC 5-10 /HPF (0 - 2) Urine WBC 40-60 /HPF (0 - 2) Urine Squamous Epithelial Cells Few /LPF (NONE/OCC) Urine Bacteria Many /HPF (NONE) Rhythm Strip Diag. Results EP Interpretation: yes Rate: 80 Rhythm: NSR, no PVC's, no ectopy Last Vital Signs Date Time Temp Pulse Resp B/P (MAP) Pulse Ox O2 Delivery O2 Flow Rate FiO2 01/04/19 18:01 98.4 72 16 116/75 95 Room Air Status: improved Disposition: ADMITTED INPATIENT Condition: Serious Dexter Pitt DO January 04, 2019 18:33
--- NOTE | 2019-01-04 18:40 | NUR ---
ED Nurse Note: blood and urine sent to lab
[2019-01-04] MEDS ORDERED: Morphine Sulfate 4mg/ml Inj (IV USE ONLY) IVP ONE (18:45)
[2019-01-04 19:17] LABS: BASOPHILS % (AUTO) 1.3 % (0.0-2.0); EOSINOPHILS % (AUTO) 1.5 % (0.0-3.0); HEMATOCRIT 34.9 % (37.0-47.0); HEMOGLOBIN 12.2 G/DL (12.0-16.0); LYMPHOCYTES % (AUTO) 30.6 % (20.0-45.0); MEAN CORPUSCULAR VOLUME 88 FL (80-99); MONOCYTES % (AUTO) 6.5 % (1.0-10.0); NEUTROPHILS % (AUTO) 60.2 % (45.0-75.0); PLATELET COUNT 303 K/UL (150-450); RED BLOOD COUNT 3.98 M/UL (4.20-5.40); RED CELL DISTRIBUTION WIDTH 12.1 % (11.6-14.8); WHITE BLOOD COUNT 7.1 K/UL (4.8-10.8)
[2019-01-04 19:18] LABS: APPEARANCE,URINE CLEAR; BILIRUBIN, URINE NEGATIVE (NEGATIVE); COLOR,URINE PALE YELLOW; GLUCOSE, URINE (UA) NEGATIVE (NEGATIVE); KETONES,URINE NEGATIVE (NEGATIVE); LEUKOCYTE ESTERASE ,URINE 3+ (NEGATIVE); NITRITE,URINE POSITIVE (NEGATIVE); PH,URINE 8 (4.5-8.0); PROTEIN,URINE NEGATIVE (NEGATIVE); UROBILINOGEN,URINE NORMAL MG/DL (0.0-1.0)
[2019-01-04 19:37] LABS: ANION GAP 9 mmol/L (5-15); BLOOD UREA NITROGEN 11 mg/dL (7-18); CALCIUM 8.8 MG/DL (8.5-10.1); CARBON DIOXIDE 23 MMOL/L (21-32); CHLORIDE 93 MMOL/L (98-107); CREATININE 0.4 MG/DL (0.55-1.30); POTASSIUM 4.3 MMOL/L (3.5-5.1); SODIUM 125 MMOL/L (136-145)
[2019-01-04 19:42] LABS: ALANINE AMINOTRANSFERASE 22 U/L (12-78); ALBUMIN 3.5 G/DL (3.4-5.0); ALKALINE PHOSPHATASE 97 U/L (46-116); ASPARTATE AMINO TRANSFERASE 22 U/L (15-37); BILIRUBIN,TOTAL 0.3 MG/DL (0.2-1.0)
--- NOTE | 2019-01-04 19:59 | Consultation ---
History of Present Illness General Date patient seen: January 04, 2019 Chief Complaint: Pain and Weakness Referring physician: Dr. Juni Rider Present Illness HPI Estefania Castorena is a 58 year old with a reported PMH of multiple sclerosis. She presented to [facility] to complaining of diffuse body pain and increased weakness in her legs. She reports a past history of multiple sclerosis but cannot recall when she was diagnosed or if she has ever received treatment. She reports that memory problems have been a part of her syndrome. She confirms that she has not been ambulatory for 3 years. She denies any vomiting, diarrhea, fevers, shortness of breath, rashes, vision changes, difficulty eating or drinking, voice changes, new numbness or tingling. Allergies: Coded Allergies: HYDROMORPHONE (Verified Allergy, Intermediate, 03/28/18) PREDNISONE (Verified Allergy, Intermediate, 03/28/18) PSEUDOEPHEDRINE (Verified Allergy, Intermediate, 03/28/18) Medication History Scheduled Amino Acids/Protein Hydrolys (Pro-Stat Liquid), 30 ML ORAL THREE TIMES A DAY, ( Reported) Amoxicillin/Potassium Clav 875-125* (Augmentin 875-125 Tablet*), 1 TAB ORAL TWICE A DAY, (Reported) Baclofen* (Baclofen*), 10 MG ORAL Q8HR, (Reported) Carbamazepine (Tegretol*), 200 MG PO BID, (Reported) Dextran 70/Hypromellose (Artificial Tears Eye Drops*), 1 DROP BOTH EYES BID, ( Reported) Gabapentin* (Neurontin*), 400 MG ORAL TWICE A DAY, (Reported) Levofloxacin* (Levaquin*), 750 MG ORAL DAILY, (Reported) Levothyroxine Sodium* (Synthroid*), 25 MCG ORAL DAILY, (Reported) Lisinopril* (Zestril*), 20 MG ORAL DAILY, (Reported) Loratadine (Loratadine), 10 MG PO DAILY, (Reported) Multivitamins* (Multivitamins*), 1 TAB ORAL DAILY, (Reported) Nitrofurantoin (Nitrofurantoin), 100 MG PO BID, (Reported) Polyethylene Glycol 3350* (Miralax*), 17 GM ORAL DAILY, (Reported) Pregabalin* (Lyrica*), 100 MG ORAL THREE TIMES A DAY, (Reported) Quetiapine Fumarate* (Seroquel*), 300 MG ORAL DAILY, (Reported) Scheduled PRN Diazepam* (Valium*), 10 MG ORAL EVERY 6 HOURS PRN for ANXIETY, (Reported) Hydrocodone Bit/Acetaminophen 10-325* ([place] 10-325*), 1 TAB ORAL Q6H PRN for For Pain, (Reported) Hydrocodone Bit/Acetaminophen 10-325* ([place] 10-325*), 1 TAB ORAL Q4H PRN for For Pain, (Reported) Ondansetron Odt* (Zofran Odt*), 8 MG ORAL Q6H PRN for Nausea & Vomiting, ( Reported) Temazepam* (Restoril*), 30 MG ORAL BEDTIME PRN for Insomnia, (Reported) Miscellaneous Medications Fluticasone Propionate (Flonase Allergy Relief), 9.9 ML NS, (Reported) Patient History Limited by: medical condition Healthcare decision maker Resuscitation status Advanced Directive on File Past Medical/Surgical History Past Medical/Surgical History: (1) HTN (hypertension) (2) Chronic pain (3) Hypothyroid (4) Multiple sclerosis (5) UTI (urinary tract infection) (6) Pain Review of Systems Constitutional: Reports: malaise, weakness Eye: Denies: no symptoms, see HPI, eye pain, blurred vision, tearing, double vision, nose pain, nose congestion, acuity changes, discharge, other ENT: Denies: no symptoms, see HPI, ear pain, ear discharge, nose pain, nose congestion, throat pain, throat swelling, mouth pain, hearing loss, nasal discharge, other Respiratory: Denies: no symptoms, see HPI, cough, orthopnea, shortness of breath, stridor, wheezing, WATTS, sputum, other Cardiovascular: Denies: no symptoms, see HPI, chest pain, edema, palpitations, syncope, PND, other Gastrointestinal: Denies: no symptoms, see HPI, abdominal pain, constipation, diarrhea, nausea, vomiting, melena, hematemesis, other Genitourinary: Denies: no symptoms, see HPI, discharge, dysuria, frequency, hematuria, pain, retention, incontinence, urgency, vag bleed/dc, other Musculoskeletal: Denies: no symptoms, see HPI, back pain, gout, joint pain, joint swelling, muscle pain, muscle stiffness, other Skin: Denies: no symptoms, see HPI, rash, change in color, change in hair/nails , dryness, lesions, other Psychiatric: Denies: no symptoms, see HPI, prior hx, anxiety, depressed feelings, emotional problems, SI, HI, hallucinations, other Neurological: Denies: no symptoms, see HPI, headache, numbness, paresthesia, seizure, tingling, tremors, focal weakness, syncope, dizziness, other Endocrine: Denies: no symptoms, see HPI, excessive sweating, flushing, intolerance to temperature, increased thirst, increased urine, unexplained weight loss, other Hematologic/Lymphatic: Denies: no symptoms, see HPI, anemia, blood clots, easy bleeding, easy bruising, swollen glands, diathesis, other Physical Exam General Appearance: WD/WN, no apparent distress, alert, mild distress - Requesting benzodiazapenes, Xanax , alert oriented x3 Lines, tubes and drains: peripheral HEENT: normocephalic, atraumatic, anicteric, mucous membranes moist, PERRL, EOMI, pharynx normal, no JVD Neck: non-tender, normal alignment, supple, normal inspection Respiratory/Chest: no respiratory distress, no accessory muscle use Cardiovascular/Chest: normal peripheral pulses Extremities: non-tender, no edema, no cyanosis Skin Exam: normal pigmentation, warm/dry 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 normal, no motor/sensory deficits, motor weakness Physical Exam Narrative Bilateral LE / calf atrophy and foot drop Reports prior nerve conduction testing - cannot recall results Neurovascular signs intact for PMS Increased weakness on RLE 2/5, LLE 3/5 UEs 5/5, no facial weakness, dysarthria or aphasia Last 24 Hour Vital Signs Date Time Temp Pulse Resp B/P (MAP) Pulse Ox O2 Delivery O2 Flow Rate FiO2 01/04/19 18:01 98.4 72 16 116/75 95 Room Air 01/04/19 18:01 98.4 72 16 95 Room Air Laboratory Tests Test 01/04/19 18:43 01/04/19 18:59 White Blood Count 7.1 K/UL (4.8-10.8) Red Blood Count 3.98 M/UL (4.20-5.40) L Hemoglobin 12.2 G/DL (12.0-16.0) Hematocrit 34.9 % (37.0-47.0) L Mean Corpuscular Volume 88 FL (80-99) Mean Corpuscular Hemoglobin 30.7 PG (27.0-31.0) Mean Corpuscular Hemoglobin Concent 35.1 G/DL (32.0-36.0) Red Cell Distribution Width 12.1 % (11.6-14.8) Platelet Count 303 K/UL (150-450) Mean Platelet Volume 5.2 FL (6.5-10.1) L Neutrophils (%) (Auto) 60.2 % (45.0-75.0) Lymphocytes (%) (Auto) 30.6 % (20.0-45.0) Monocytes (%) (Auto) 6.5 % (1.0-10.0) Eosinophils (%) (Auto) 1.5 % (0.0-3.0) Basophils (%) (Auto) 1.3 % (0.0-2.0) Sodium Level Pending Potassium Level Pending Chloride Level Pending Carbon Dioxide Level Pending Blood Urea Nitrogen Pending Creatinine Pending Estimat Glomerular Filtration Rate Pending Glucose Level Pending Calcium Level Pending Total Bilirubin Pending Aspartate Amino Transf (AST/SGOT) Pending Alanine Aminotransferase (ALT/SGPT) Pending Alkaline Phosphatase Pending Total Protein Pending Albumin Pending Globulin Pending Lipase Pending Urine Color Pale yellow Urine Appearance Clear Urine pH 8 (4.5-8.0) Urine Specific [place] 1.015 (1.005-1.035) Urine Protein Negative (NEGATIVE) Urine Glucose (UA) Negative (NEGATIVE) Urine Ketones Negative (NEGATIVE) Urine Blood 2+ (NEGATIVE) H Urine Nitrite Positive (NEGATIVE) H Urine Bilirubin Negative (NEGATIVE) Urine Urobilinogen Normal MG/DL (0.0-1.0) Urine Leukocyte Esterase 3+ (NEGATIVE) H Urine RBC 5-10 /HPF (0 - 2) H Urine WBC 40-60 /HPF (0 - 2) H Urine Squamous Epithelial Cells Few /LPF (NONE/OCC) Urine Bacteria Many /HPF (NONE) H Height (Feet): 5 Height (Inches): 2.50 Weight (Pounds): 153 Medications Current Medications Medications (Trade) Dose Ordered Sig/[place] Route PRN Reason Start Time Stop Time Status Last Admin Dose Admin Baclofen (Lioresal) 10 mg Q8HR ORAL 01/04/19 22:00 02/03/19 21:59 UNV Carbamazepine (TEGretol) 200 mg BID ORAL 01/05/19 09:00 02/04/19 08:59 UNV Gabapentin (Neurontin) 400 mg TWICE A DAY ORAL 01/05/19 09:00 02/04/19 08:59 UNV Levofloxacin (Levaquin) 750 mg DAILY ORAL 01/05/19 09:00 01/12/19 08:59 UNV Pregabalin (Lyrica) 100 mg THREE TIMES A DAY ORAL 01/05/19 09:00 02/04/19 08:59 UNV Quetiapine Fumarate (SEROquel) 300 mg DAILY ORAL 01/05/19 09:00 02/04/19 08:59 UNV Assessment/Plan Problem List: (1) Pain ICD Codes: R52 - Pain, unspecified SNOMED: 20775685 (2) UTI (urinary tract infection) ICD Codes: N39.0 - Urinary tract infection, site not specified SNOMED: 88242687 (3) Multiple sclerosis ICD Codes: G35 - Multiple sclerosis SNOMED: 23186734 (4) HTN (hypertension) ICD Codes: I10 - Essential (primary) hypertension SNOMED: 91741958 (5) Chronic pain ICD Codes: G89.29 - Other chronic pain SNOMED: 78691394 (6) Hypothyroid ICD Codes: E03.9 - Hypothyroidism, unspecified SNOMED: 85277883 (7) Hyponatremia ICD Codes: E87.1 - Hypo-osmolality and hyponatremia SNOMED: 09353810 Status: stable Assessment/Plan: MRI Brain to determine if pseudo versus MS relapse Can plan for IV course initially of Methylprednisolone 1000mg IV x 5 days - if patient can tolerate high dose steroids . Await MRI results prior to initiating treatment - Review Gabapentin vs Lyrica for neuropathic pain Q4 Neuro Obs SBP<140 Treat UTI with Abx Check TSH Na 135-145 IV Hydration - limit free water Kacie Toscano N.PMervin January 04, 2019 19:59
[2019-01-04] MEDS ORDERED: Gadavist 7.5mMol/7.5ml vial IV PRN (20:00)
[2019-01-04 20:04] VITALS: BP 124/78
--- NOTE | 2019-01-04 20:11 | NUR ---
ER Nurse Note: Pt a&ox4, VSS, no signs of distress. Pt skin intact. Radioloy called for MRI. Will continue to montior.
--- NOTE | 2019-01-04 21:30 | NUR ---
ER Nurse Note: Report given to IRAIDA Yates for continuity of care. Pt a&ox4, VSS, no signs of distress. 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
[2019-01-04 21:40] VITALS: BP 117/61
--- NOTE | 2019-01-04 22:00 | NUR ---
NURSE NOTES: Admitted patient awake,alert,verbal,on bedrest,with essentially normal vital signs.
[2019-01-04] MEDS ORDERED: Zolpidem 5mg tab ORAL PRN (22:15)
[2019-01-04] MEDS ORDERED: Miralax 17gm pkt ORAL PRN (22:15)
[2019-01-04] MEDS ORDERED: Morphine Sulfate 2mg/ml Inj(IV/IM USE ONLY) IVP PRN (22:15)
[2019-01-04] MEDS: Morphine Sulfate 4mg/ml Inj (IV USE ONLY) IVP PRN (23:10)
[2019-01-05] VITALS: BP 120/71
[2019-01-05] MEDS: Morphine Sulfate 4mg/ml Inj (IV USE ONLY) IVP PRN ×5 (02:59→21:32)
--- NOTE | 2019-01-05 03:37 | Neurology Progress Note ---
Interim History Interim History ROS Limited/Unobtainable: No Events: Weakness/ Pain Interim History MRI Brain performed - results pending Review of Systems All Systems: reviewed and negative except above Objective Physical Exam Last Vital Signs Date Time Temp Pulse Resp B/P (MAP) Pulse Ox O2 Delivery O2 Flow Rate FiO2 01/05/19 00:00 98.3 65 18 120/71 (87) 96 01/04/19 22:35 Room Air Laboratory Tests Test 01/04/19 18:43 01/04/19 18:59 White Blood Count 7.1 K/UL (4.8-10.8) Red Blood Count 3.98 M/UL (4.20-5.40) L Hemoglobin 12.2 G/DL (12.0-16.0) Hematocrit 34.9 % (37.0-47.0) L Mean Corpuscular Volume 88 FL (80-99) Mean Corpuscular Hemoglobin 30.7 PG (27.0-31.0) Mean Corpuscular Hemoglobin Concent 35.1 G/DL (32.0-36.0) Red Cell Distribution Width 12.1 % (11.6-14.8) Platelet Count 303 K/UL (150-450) Mean Platelet Volume 5.2 FL (6.5-10.1) L Neutrophils (%) (Auto) 60.2 % (45.0-75.0) Lymphocytes (%) (Auto) 30.6 % (20.0-45.0) Monocytes (%) (Auto) 6.5 % (1.0-10.0) Eosinophils (%) (Auto) 1.5 % (0.0-3.0) Basophils (%) (Auto) 1.3 % (0.0-2.0) Sodium Level 125 MMOL/L (136-145) L Potassium Level 4.3 MMOL/L (3.5-5.1) Chloride Level 93 MMOL/L (98-107) L Carbon Dioxide Level 23 MMOL/L (21-32) Anion Gap 9 mmol/L (5-15) Blood Urea Nitrogen 11 mg/dL (7-18) Creatinine 0.4 MG/DL (0.55-1.30) L Estimat Glomerular Filtration Rate > 60 mL/min (>60) Glucose Level 91 MG/DL (74-106) Calcium Level 8.8 MG/DL (8.5-10.1) Total Bilirubin 0.3 MG/DL (0.2-1.0) Aspartate Amino Transf (AST/SGOT) 22 U/L (15-37) Alanine Aminotransferase (ALT/SGPT) 22 U/L (12-78) Alkaline Phosphatase 97 U/L (46-116) Total Protein 7.0 G/DL (6.4-8.2) Albumin 3.5 G/DL (3.4-5.0) Globulin 3.5 g/dL Albumin/Globulin Ratio 1.0 (1.0-2.7) Lipase 103 U/L (73-393) Urine Color Pale yellow Urine Appearance Clear Urine pH 8 (4.5-8.0) Urine Specific [place] 1.015 (1.005-1.035) Urine Protein Negative (NEGATIVE) Urine Glucose (UA) Negative (NEGATIVE) Urine Ketones Negative (NEGATIVE) Urine Blood 2+ (NEGATIVE) H Urine Nitrite Positive (NEGATIVE) H Urine Bilirubin Negative (NEGATIVE) Urine Urobilinogen Normal MG/DL (0.0-1.0) Urine Leukocyte Esterase 3+ (NEGATIVE) H Urine RBC 5-10 /HPF (0 - 2) H Urine WBC 40-60 /HPF (0 - 2) H Urine Squamous Epithelial Cells Few /LPF (NONE/OCC) Urine Bacteria Many /HPF (NONE) H Neurologic Exam Mental Status: awake, alert, oriented x4, normal cognition, good mathematical skills, normal recent memory, normal remote memory, preserved visuospatial function Speech: normal speech, no dysarthia Language: normal language, no aphasia Cranial Nerve II: fundus normal, visual jesus, no papilledema Cranial Nerves III, IV, : PERRLA, EOMI, pupils Cranial Nerve V: normal facial sensations, temporales function normal, masseters function normal, pterygoids function normal Cranial Nerve VII: no facial asymmetry, normal facial expressions Cranial Nerve IX: normal palate elevation, gag response Cranial Nerve X: no voice hoarseness Cranial Nerve XI: SCM symmetric, trapezii function normal Cranial Nerve XII: tongue midline, no tongue atrophy/fasciculations Motor System: other Impression/Recommendations Problems: (1) Pain (2) UTI (urinary tract infection) (3) Multiple sclerosis (4) HTN (hypertension) (5) Chronic pain (6) Hypothyroid Status: stable Recommendations Await MRI results Adjust Lyrica dose to commence lower and then titrate Will consider steroids depending upon what MRI shows. Kacie Toscano N.P. January 05, 2019 03:37
[2019-01-05 04:00] VITALS: BP_SYST 106; BP_SYST 115; BP_DIAS 59; BP_DIAS 67
--- NOTE | 2019-01-05 05:56 | NUR ---
HAND-OFF: Written Report given to Torri Hernandez RN.
[2019-01-05 06:53] LABS: BASOPHILS % (AUTO) 1.2 % (0.0-2.0); EOSINOPHILS % (AUTO) 2.8 % (0.0-3.0); HEMATOCRIT 34.7 % (37.0-47.0); HEMOGLOBIN 11.8 G/DL (12.0-16.0); LYMPHOCYTES % (AUTO) 43.2 % (20.0-45.0); MEAN CORPUSCULAR VOLUME 90 FL (80-99); MONOCYTES % (AUTO) 6.3 % (1.0-10.0); NEUTROPHILS % (AUTO) 46.6 % (45.0-75.0); PLATELET COUNT 293 K/UL (150-450); RED BLOOD COUNT 3.84 M/UL (4.20-5.40); RED CELL DISTRIBUTION WIDTH 12.3 % (11.6-14.8); WHITE BLOOD COUNT 5.1 K/UL (4.8-10.8)
--- NOTE | 2019-01-05 07:15 | NUR ---
NURSE NOTES: Received written report from IRAIDA Macias. Patient a/o x4 and c/o generalized pain as 10/10. Pain medicine will be given as MD ordered. Bed in lowest position, call light within reach. Will continue to monitor.
[2019-01-05 07:23] LABS: ALANINE AMINOTRANSFERASE 22 U/L (12-78); ALBUMIN 3.2 G/DL (3.4-5.0); ALBUMIN/GLOBULIN RATIO 0.9 (1.0-2.7); ALKALINE PHOSPHATASE 89 U/L (46-116); ANION GAP 7 mmol/L (5-15); ASPARTATE AMINO TRANSFERASE 13 U/L (15-37); BILIRUBIN,TOTAL 0.2 MG/DL (0.2-1.0); BLOOD UREA NITROGEN 13 mg/dL (7-18); CALCIUM 8.8 MG/DL (8.5-10.1); CARBON DIOXIDE 28 MMOL/L (21-32); CHLORIDE 96 MMOL/L (98-107); CHOLESTEROL 198 MG/DL (< 200); CREATININE 0.5 MG/DL (0.55-1.30); HDL CHOLESTEROL 71 MG/DL (40-60); POTASSIUM 4.2 MMOL/L (3.5-5.1); SODIUM 130 MMOL/L (136-145); TRIGLYCERIDES 35 MG/DL (30-150)
[2019-01-05 08:00] VITALS: BP 94/59
--- NOTE | 2019-01-05 08:03 | NUR ---
NURSE NOTES: Patient c/o itching on posterior neck area. Dr. Rider was notified and ordered Benadryl 50 mg q6 prn. Noted and carried out.
[2019-01-05] MEDS: carBAMazepine 200mg tab ORAL SCH ×2 (08:50→17:42)
[2019-01-05] MEDS: Docusate 100mg cap ORAL SCH ×3 (08:53→17:43)
[2019-01-05] MEDS ORDERED: Lyrica 50mg cap ORAL SCH (09:00)
--- NOTE | 2019-01-05 09:01 | General Progress Note ---
Assessment/Plan Assessment/Plan: (1) Neuropathic pain (2) Multiple Sclerosis Patient will be continued on Morphine We will start Percocet 10/325mg PO 1 tab Q6H PRN pain. D/w Dr. Fried and he concurred. Subjective Date patient seen: January 05, 2019 Time patient seen: 07:15 - am Allergies: Coded Allergies: HYDROMORPHONE (Verified Allergy, Intermediate, 03/28/18) PREDNISONE (Verified Allergy, Intermediate, 03/28/18) PSEUDOEPHEDRINE (Verified Allergy, Intermediate, 03/28/18) Subjective REVIEW OF SYSTEMS: Denies rash, fever, chills, sweating, dizziness, drowsiness, blurred vision, sore throat, or change in weight. No shortness of breath or chest pain. No nausea, vomiting, diarrhea, or blood in the stool or urine. She is complaining of generalized body pain. SUBJECTIVE: Patient is a known patient from prior admission. Has returned with c/o exacerbation body pain due MS. Started on Morphine 4mg IV Q4H PRN severe pain which patient reports has helped to minimally to reduce her pain. Was seen by Neurologist who has ordered neuropathic pain medications. Objective Last 24 Hour Vital Signs Date Time Temp Pulse Resp B/P (MAP) Pulse Ox O2 Delivery O2 Flow Rate FiO2 01/05/19 04:00 97.9 69 18 106/59 (75) 97 01/05/19 03:30 98.3 01/05/19 00:00 98.3 65 18 120/71 (87) 96 01/04/19 22:35 Room Air 01/04/19 21:40 98.2 90 18 117/61 (79) 96 01/04/19 21:30 98.4 76 16 124/78 98 Room Air 01/04/19 20:04 98.4 01/04/19 20:04 98.4 76 16 124/78 98 Room Air 01/04/19 18:01 98.4 72 16 116/75 95 Room Air 01/04/19 18:01 98.4 72 16 95 Room Air Laboratory Tests 01/04/19 18:43: White Blood Count 7.1, Red Blood Count 3.98L, Hemoglobin 12.2, Hematocrit 34.9L , Mean Corpuscular Volume 88, Mean Corpuscular Hemoglobin 30.7, Mean Corpuscular Hemoglobin Concent 35.1, Red Cell Distribution Width 12.1, Platelet Count 303, Mean Platelet Volume 5.2L, Neutrophils (%) (Auto) 60.2, Lymphocytes ( %) (Auto) 30.6, Monocytes (%) (Auto) 6.5, Eosinophils (%) (Auto) 1.5, Basophils (%) (Auto) 1.3, Sodium Level 125L, Potassium Level 4.3, Chloride Level 93L, Carbon Dioxide Level 23, Anion Gap 9, Blood Urea Nitrogen 11, Creatinine 0.4L, Estimat Glomerular Filtration Rate > 60, Glucose Level 91, Calcium Level 8.8, Total Bilirubin 0.3, Aspartate Amino Transf (AST/SGOT) 22, Alanine Aminotransferase (ALT/SGPT) 22, Alkaline Phosphatase 97, Total Protein 7.0, Albumin 3.5, Globulin 3.5, Albumin/Globulin Ratio 1.0, Lipase 103 01/04/19 18:59: Urine Color Pale yellow, Urine Appearance Clear, Urine pH 8, Urine Specific [place] 1.015, Urine Protein Negative, Urine Glucose (UA) Negative, Urine Ketones Negative, Urine Blood 2+H, Urine Nitrite PositiveH, Urine Bilirubin Negative, Urine Urobilinogen Normal, Urine Leukocyte Esterase 3+H, Urine RBC 5- 10H, Urine WBC 40-60H, Urine Squamous Epithelial Cells Few, Urine Bacteria ManyH 01/05/19 06:36: White Blood Count 5.1, Red Blood Count 3.84L, Hemoglobin 11.8L, Hematocrit 34.7L , Mean Corpuscular Volume 90, Mean Corpuscular Hemoglobin 30.8, Mean Corpuscular Hemoglobin Concent 34.1, Red Cell Distribution Width 12.3, Platelet Count 293, Mean Platelet Volume 6.1L, Neutrophils (%) (Auto) 46.6, Lymphocytes ( %) (Auto) 43.2, Monocytes (%) (Auto) 6.3, Eosinophils (%) (Auto) 2.8, Basophils (%) (Auto) 1.2, Sodium Level 130L, Potassium Level 4.2, Chloride Level 96L, Carbon Dioxide Level 28, Anion Gap 7, Blood Urea Nitrogen 13, Creatinine 0.5L, Estimat Glomerular Filtration Rate > 60, Glucose Level 90, Calcium Level 8.8, Total Bilirubin 0.2, Aspartate Amino Transf (AST/SGOT) 13L, Alanine Aminotransferase (ALT/SGPT) 22, Alkaline Phosphatase 89, Total Protein 6.8, Albumin 3.2L, Globulin 3.6, Albumin/Globulin Ratio 0.9L, Triglycerides Level 35 , Cholesterol Level 198, LDL Cholesterol 116H, HDL Cholesterol 71H, Cholesterol/ HDL Ratio 2.8L, Thyroid Stimulating Hormone (TSH) 5.851H Height (Feet): 5 Height (Inches): 8.00 Weight (Pounds): 180 Objective GENERAL: She is alert, awake, and oriented. LUNGS: Decreased breath sounds bilaterally. HEART: S1 and S2 regular. ABDOMEN: Benign. EXTREMITIES: No cyanosis. No clubbing. No edema. NEUROLOGICAL: Marked weakness noted in bilateral lower extremities. Alonso Young January 05, 2019 09:01
[2019-01-05] MEDS ORDERED: Morphine Sulfate 2mg/ml Inj(IV/IM USE ONLY) IVP PRN (09:30)
--- NOTE | 2019-01-05 10:16 | Consultation ---
Consult Note Consult Note asked to eval for low Na Patient present with complaints of diffuse bodyaches increased weakness in her legs patient reports that she was sleeping on a harder material and feels that this worsened her symptoms denies any chest pain denies any short of breath Denies any vomiting or diarrhea denies any fevers Allergies: Coded Allergies: HYDROMORPHONE (Verified Allergy, Intermediate, 03/28/18) PREDNISONE (Verified Allergy, Intermediate, 03/28/18) PSEUDOEPHEDRINE (Verified Allergy, Intermediate, 03/28/18) Past Medical History: No History, Except For Hx Cardiac Problems: No - multiple sclerosis, paraplegia, anemia Hx Hypertension: Yes History Of Psychiatric Problem: Yes - dementia, schizoaffective examined interviewed data reviewed has foot drop no edema Assessment/Plan Low Na , 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
[2019-01-05 10:37] LABS: PHOSPHORUS 4.5 MG/DL (2.5-4.9)
--- NOTE | 2019-01-05 11:25 | NUR ---
MRI BRAIN W/WO COMPLETED
--- NOTE | 2019-01-05 11:35 | NUR ---
NURSE NOTES: Patient came back from Brain MRI in stable condition.
[2019-01-05] MEDS: D5NS 1,000 ML IV SCH (11:47)
--- NOTE | 2019-01-05 13:19 | Consultation ---
History of Present Illness General Date patient seen: January 05, 2019 Chief Complaint: Pain Referring physician: Dr. Juni Rider Present Illness HPI 58 year old year female with hx of MS, longterm resident presented to ER with complaints of diffuse body aches increased weakness in her legs. Pt was found to have severe hyponatremia and admitted for further work up. Allergies: Coded Allergies: HYDROMORPHONE (Verified Allergy, Intermediate, 03/28/18) PREDNISONE (Verified Allergy, Intermediate, 03/28/18) PSEUDOEPHEDRINE (Verified Allergy, Intermediate, 03/28/18) Medication History Scheduled Amino Acids/Protein Hydrolys (Pro-Stat Liquid), 30 ML ORAL THREE TIMES A DAY, ( Reported) Amoxicillin/Potassium Clav 875-125* (Augmentin 875-125 Tablet*), 1 TAB ORAL TWICE A DAY, (Reported) Baclofen* (Baclofen*), 10 MG ORAL Q8HR, (Reported) Carbamazepine (Tegretol*), 200 MG PO BID, (Reported) Dextran 70/Hypromellose (Artificial Tears Eye Drops*), 1 DROP BOTH EYES BID, ( Reported) Gabapentin* (Neurontin*), 400 MG ORAL TWICE A DAY, (Reported) Levofloxacin* (Levaquin*), 750 MG ORAL DAILY, (Reported) Levothyroxine Sodium* (Synthroid*), 25 MCG ORAL DAILY, (Reported) Lisinopril* (Zestril*), 20 MG ORAL DAILY, (Reported) Loratadine (Loratadine), 10 MG PO DAILY, (Reported) Multivitamins* (Multivitamins*), 1 TAB ORAL DAILY, (Reported) Nitrofurantoin (Nitrofurantoin), 100 MG PO BID, (Reported) Polyethylene Glycol 3350* (Miralax*), 17 GM ORAL DAILY, (Reported) Pregabalin* (Lyrica*), 100 MG ORAL THREE TIMES A DAY, (Reported) Quetiapine Fumarate* (Seroquel*), 300 MG ORAL DAILY, (Reported) Scheduled PRN Diazepam* (Valium*), 10 MG ORAL EVERY 6 HOURS PRN for ANXIETY, (Reported) Hydrocodone Bit/Acetaminophen 10-325* ([place] 10-325*), 1 TAB ORAL Q6H PRN for For Pain, (Reported) Hydrocodone Bit/Acetaminophen 10-325* ([place] 10-325*), 1 TAB ORAL Q4H PRN for For Pain, (Reported) Ondansetron Odt* (Zofran Odt*), 8 MG ORAL Q6H PRN for Nausea & Vomiting, ( Reported) Temazepam* (Restoril*), 30 MG ORAL BEDTIME PRN for Insomnia, (Reported) Miscellaneous Medications Fluticasone Propionate (Flonase Allergy Relief), 9.9 ML NS, (Reported) Patient History Healthcare decision maker Resuscitation status Do Not Resuscitate Advanced Directive on File Yes Past Medical/Surgical History Past Medical/Surgical History: (1) Multiple sclerosis (2) Hypothyroid (3) HTN (hypertension) (4) DNR (do not resuscitate) Review of Systems All Other Systems: negative except mentioned in HPI Physical Exam General Appearance: WD/WN Lines, tubes and drains: peripheral HEENT: normocephalic, atraumatic Neck: non-tender, normal alignment Respiratory/Chest: chest wall non-tender, lungs clear Cardiovascular/Chest: normal peripheral pulses, normal rate, regular rhythm Abdomen: normal bowel sounds, non tender Genitourinary/Rectal: normal genital exam Extremities: normal range of motion, non-pitting Last 24 Hour Vital Signs Date Time Temp Pulse Resp B/P (MAP) Pulse Ox O2 Delivery O2 Flow Rate FiO2 01/05/19 09:00 Room Air 01/05/19 08:00 97.7 73 20 94/59 (71) 95 01/05/19 04:00 97.9 69 18 106/59 (75) 97 01/05/19 03:30 98.3 01/05/19 00:00 98.3 65 18 120/71 (87) 96 01/04/19 22:35 Room Air 01/04/19 21:40 98.2 90 18 117/61 (79) 96 01/04/19 21:30 98.4 76 16 124/78 98 Room Air 01/04/19 20:04 98.4 01/04/19 20:04 98.4 76 16 124/78 98 Room Air 01/04/19 18:01 98.4 72 16 116/75 95 Room Air 01/04/19 18:01 98.4 72 16 95 Room Air Laboratory Tests Test 01/04/19 18:43 01/04/19 18:59 01/05/19 06:30 01/05/19 06:36 White Blood Count 7.1 K/UL (4.8-10.8) 5.1 K/UL (4.8-10.8) Red Blood Count 3.98 M/UL (4.20-5.40) L 3.84 M/UL (4.20-5.40) L Hemoglobin 12.2 G/DL (12.0-16.0) 11.8 G/DL (12.0-16.0) L Hematocrit 34.9 % (37.0-47.0) L 34.7 % (37.0-47.0) L Mean Corpuscular Volume 88 FL (80-99) 90 FL (80-99) Mean Corpuscular Hemoglobin 30.7 PG (27.0-31.0) 30.8 PG (27.0-31.0) Mean Corpuscular Hemoglobin Concent 35.1 G/DL (32.0-36.0) 34.1 G/DL (32.0-36.0) Red Cell Distribution Width 12.1 % (11.6-14.8) 12.3 % (11.6-14.8) Platelet Count 303 K/UL (150-450) 293 K/UL (150-450) Mean Platelet Volume 5.2 FL (6.5-10.1) L 6.1 FL (6.5-10.1) L Neutrophils (%) (Auto) 60.2 % (45.0-75.0) 46.6 % (45.0-75.0) Lymphocytes (%) (Auto) 30.6 % (20.0-45.0) 43.2 % (20.0-45.0) Monocytes (%) (Auto) 6.5 % (1.0-10.0) 6.3 % (1.0-10.0) Eosinophils (%) (Auto) 1.5 % (0.0-3.0) 2.8 % (0.0-3.0) Basophils (%) (Auto) 1.3 % (0.0-2.0) 1.2 % (0.0-2.0) Sodium Level 125 MMOL/L (136-145) L 130 MMOL/L (136-145) L Potassium Level 4.3 MMOL/L (3.5-5.1) 4.2 MMOL/L (3.5-5.1) Chloride Level 93 MMOL/L (98-107) L 96 MMOL/L (98-107) L Carbon Dioxide Level 23 MMOL/L (21-32) 28 MMOL/L (21-32) Anion Gap 9 mmol/L (5-15) 7 mmol/L (5-15) Blood Urea Nitrogen 11 mg/dL (7-18) 13 mg/dL (7-18) Creatinine 0.4 MG/DL (0.55-1.30) L 0.5 MG/DL (0.55-1.30) L Estimat Glomerular Filtration Rate > 60 mL/min (>60) > 60 mL/min (>60) Glucose Level 91 MG/DL (74-106) 90 MG/DL (74-106) Calcium Level 8.8 MG/DL (8.5-10.1) 8.8 MG/DL (8.5-10.1) Total Bilirubin 0.3 MG/DL (0.2-1.0) 0.2 MG/DL (0.2-1.0) Aspartate Amino Transf (AST/SGOT) 22 U/L (15-37) 13 U/L (15-37) L Alanine Aminotransferase (ALT/SGPT) 22 U/L (12-78) 22 U/L (12-78) Alkaline Phosphatase 97 U/L (46-116) 89 U/L (46-116) Total Protein 7.0 G/DL (6.4-8.2) 6.8 G/DL (6.4-8.2) Albumin 3.5 G/DL (3.4-5.0) 3.2 G/DL (3.4-5.0) L Globulin 3.5 g/dL 3.6 g/dL Albumin/Globulin Ratio 1.0 (1.0-2.7) 0.9 (1.0-2.7) L Lipase 103 U/L (73-393) Urine Color Pale yellow Urine Appearance Clear Urine pH 8 (4.5-8.0) Urine Specific [place] 1.015 (1.005-1.035) Urine Protein Negative (NEGATIVE) Urine Glucose (UA) Negative (NEGATIVE) Urine Ketones Negative (NEGATIVE) Urine Blood 2+ (NEGATIVE) H Urine Nitrite Positive (NEGATIVE) H Urine Bilirubin Negative (NEGATIVE) Urine Urobilinogen Normal MG/DL (0.0-1.0) Urine Leukocyte Esterase 3+ (NEGATIVE) H Urine RBC 5-10 /HPF (0 - 2) H Urine WBC 40-60 /HPF (0 - 2) H Urine Squamous Epithelial Cells Few /LPF (NONE/OCC) Urine Bacteria Many /HPF (NONE) H Osmolality 274 mOsm/kg (297-317) L Uric Acid 2.3 MG/DL (2.6-7.2) L Phosphorus Level 4.5 MG/DL (2.5-4.9) Magnesium Level 1.7 MG/DL (1.8-2.4) L Triglycerides Level 35 MG/DL (30-150) Cholesterol Level 198 MG/DL (< 200) LDL Cholesterol 116 mg/dL (<100) H HDL Cholesterol 71 MG/DL (40-60) H Cholesterol/HDL Ratio 2.8 (3.3-4.4) L Thyroid Stimulating Hormone (TSH) 5.851 uiU/mL (0.358-3.740) Microbiology Date/Time Source Procedure Growth Status 01/04/19 18:59 Urine,Clean Catch Urine Culture - Preliminary Resulted 01/04/19 21:00 Rectum Received Height (Feet): 5 Height (Inches): 8.00 Weight (Pounds): 180 Medications Current Medications Medications (Trade) Dose Ordered Sig/Gal[place] Route PRN Reason Start Time Stop Time Status Last Admin Dose Admin Acetaminophen (Tylenol) 650 mg Q4H PRN ORAL fever 01/04/19 22:15 02/03/19 22:14 Baclofen (Lioresal) 10 mg Q8HR ORAL 01/04/19 22:00 02/03/19 21:59 01/05/19 05:22 Carbamazepine (TEGretol) 200 mg BID ORAL 01/05/19 09:00 02/04/19 08:59 01/05/19 08:50 Dextrose (Dextrose 50%) STAT PRN IV Hypoglycemia 01/04/19 22:15 02/03/19 22:14 Dextrose/Sodium Chloride 1,000 ml @ 75 mls/hr [id number] IV 01/05/19 10:30 02/04/19 10:29 01/05/19 11:47 Diphenhydramine HCl (Benadryl) 50 mg Q6H PRN ORAL Itching 01/05/19 08:30 02/04/19 08:29 01/05/19 08:50 Docusate Sodium (Colace) 100 mg THREE TIMES A DAY ORAL 01/05/19 09:00 02/04/19 08:59 Gabapentin (Neurontin) 400 mg TID ORAL 01/05/19 09:00 02/04/19 08:59 01/05/19 08:51 Lorazepam (Ativan 2mg/ml 1ml) 0.5 mg Q4H PRN IV For Anxiety 01/04/19 22:15 01/11/19 22:14 Morphine Sulfate (Morphine Sulfate) 1 mg EVERY 4 HOURS PRN IVP Moderate Pain (Pain Scale 4-6) 01/05/19 09:30 01/11/19 22:14 Morphine Sulfate (Morphine Sulfate) 4 mg Q4H PRN IVP Severe Pain (Pain Scale 7-10) 01/04/19 22:30 01/11/19 22:29 01/05/19 11:56 Ondansetron HCl (Zofran) 4 mg Q6H PRN IVP Nausea & Vomiting 01/04/19 22:15 02/03/19 22:14 Oxycodone/ Acetaminophen (Percocet 10/325) 1 tab Q6H PRN ORAL Moderate Breakthru Pain (4-6) 01/05/19 09:30 01/12/19 09:29 Polyethylene Glycol (Miralax) 17 gm HSPRN PRN ORAL Constipation 01/04/19 22:15 02/03/19 22:14 Pregabalin (Lyrica) 50 mg BID ORAL 01/05/19 18:00 02/04/19 08:59 Quetiapine Fumarate (SEROquel) 300 mg DAILY ORAL 01/05/19 09:00 02/04/19 08:59 01/05/19 08:50 Temazepam (Restoril) 30 mg HSPRN PRN ORAL Insomnia 01/04/19 22:30 01/11/19 22:29 01/05/19 00:17 Assessment/Plan Problem List: (1) Hyponatremia ICD Codes: E87.1 - Hypo-osmolality and hyponatremia SNOMED: 72155636 (2) HTN (hypertension) ICD Codes: I10 - Essential (primary) hypertension SNOMED: 42387712 (3) Chronic pain ICD Codes: G89.29 - Other chronic pain SNOMED: 17810852 (4) Multiple sclerosis ICD Codes: G35 - Multiple sclerosis SNOMED: 94329537 (5) Myalgia ICD Codes: M79.10 - Myalgia, unspecified site SNOMED: 18496998 (6) DNR (do not resuscitate) ICD Codes: Z66 - Do not resuscitate SNOMED: 053306407 Assessment/Plan: check TSH, cortisol level NS as iv fluids check electrolytes psych and neuro evaluation. dvt prophylaxis. Jose De Jesus Alcala MD January 05, 2019 13:19
--- NOTE | 2019-01-05 13:55 | NUR ---
NURSE NOTES: Mg 1.[address] Martinez is aware.
--- NOTE | 2019-01-05 14:41 | NUR ---
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
--- NOTE | 2019-01-05 15:08 | Consultation ---
History of Present Illness General Date patient seen: January 05, 2019 Chief Complaint: Pain Referring physician: Dr. 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 Was found to have severe hyponatremia upon admission Denied CP, SOB, n/v/d, fevers, vision/voice changes, new numbness or tingling upon admission Allergies: Coded Allergies: HYDROMORPHONE (Verified Allergy, Intermediate, 03/28/18) PREDNISONE (Verified Allergy, Intermediate, 03/28/18) PSEUDOEPHEDRINE (Verified Allergy, Intermediate, 03/28/18) Medication History Scheduled Amino Acids/Protein Hydrolys (Pro-Stat Liquid), 30 ML ORAL THREE TIMES A DAY, ( Reported) Amoxicillin/Potassium Clav 875-125* (Augmentin 875-125 Tablet*), 1 TAB ORAL TWICE A DAY, (Reported) Baclofen* (Baclofen*), 10 MG ORAL Q8HR, (Reported) Carbamazepine (Tegretol*), 200 MG PO BID, (Reported) Dextran 70/Hypromellose (Artificial Tears Eye Drops*), 1 DROP BOTH EYES BID, ( Reported) Gabapentin* (Neurontin*), 400 MG ORAL TWICE A DAY, (Reported) Levofloxacin* (Levaquin*), 750 MG ORAL DAILY, (Reported) Levothyroxine Sodium* (Synthroid*), 25 MCG ORAL DAILY, (Reported) Lisinopril* (Zestril*), 20 MG ORAL DAILY, (Reported) Loratadine (Loratadine), 10 MG PO DAILY, (Reported) Multivitamins* (Multivitamins*), 1 TAB ORAL DAILY, (Reported) Nitrofurantoin (Nitrofurantoin), 100 MG PO BID, (Reported) Polyethylene Glycol 3350* (Miralax*), 17 GM ORAL DAILY, (Reported) Pregabalin* (Lyrica*), 100 MG ORAL THREE TIMES A DAY, (Reported) Quetiapine Fumarate* (Seroquel*), 300 MG ORAL DAILY, (Reported) Scheduled PRN Diazepam* (Valium*), 10 MG ORAL EVERY 6 HOURS PRN for ANXIETY, (Reported) Hydrocodone Bit/Acetaminophen 10-325* ([place] 10-325*), 1 TAB ORAL Q6H PRN for For Pain, (Reported) Hydrocodone Bit/Acetaminophen 10-325* ([place] 10-325*), 1 TAB ORAL Q4H PRN for For Pain, (Reported) Ondansetron Odt* (Zofran Odt*), 8 MG ORAL Q6H PRN for Nausea & Vomiting, ( Reported) Temazepam* (Restoril*), 30 MG ORAL BEDTIME PRN for Insomnia, (Reported) Miscellaneous Medications Fluticasone Propionate (Flonase Allergy Relief), 9.9 ML NS, (Reported) Patient History Healthcare decision maker Resuscitation status Do Not Resuscitate Advanced Directive on File Yes Patient History Narrative Pmhx: as above Shx: reviewed Fhx: non contributory Review of Systems All Other Systems: negative except mentioned in HPI Physical Exam Physical Exam Narrative General Appearance: WD/WN Lines, tubes and drains: peripheral HEENT: normocephalic, atraumatic Neck: non-tender, normal alignment Respiratory/Chest: chest wall non-tender, lungs clear Cardiovascular/Chest: normal peripheral pulses, normal rate, regular rhythm Abdomen: normal bowel sounds, non tender Extremities: normal range of motion, non-pitting Last 24 Hour Vital Signs Date Time Temp Pulse Resp B/P (MAP) Pulse Ox O2 Delivery O2 Flow Rate FiO2 01/05/19 09:00 Room Air 01/05/19 08:00 97.7 73 20 94/59 (71) 95 01/05/19 04:00 97.9 69 18 106/59 (75) 97 01/05/19 03:30 98.3 01/05/19 00:00 98.3 65 18 120/71 (87) 96 01/04/19 22:35 Room Air 01/04/19 21:40 98.2 90 18 117/61 (79) 96 01/04/19 21:30 98.4 76 16 124/78 98 Room Air 01/04/19 20:04 98.4 01/04/19 20:04 98.4 76 16 124/78 98 Room Air 01/04/19 18:01 98.4 72 16 116/75 95 Room Air 01/04/19 18:01 98.4 72 16 95 Room Air Laboratory Tests Test 01/04/19 18:43 01/04/19 18:59 01/05/19 06:30 01/05/19 06:36 White Blood Count 7.1 K/UL (4.8-10.8) 5.1 K/UL (4.8-10.8) Red Blood Count 3.98 M/UL (4.20-5.40) L 3.84 M/UL (4.20-5.40) L Hemoglobin 12.2 G/DL (12.0-16.0) 11.8 G/DL (12.0-16.0) L Hematocrit 34.9 % (37.0-47.0) L 34.7 % (37.0-47.0) L Mean Corpuscular Volume 88 FL (80-99) 90 FL (80-99) Mean Corpuscular Hemoglobin 30.7 PG (27.0-31.0) 30.8 PG (27.0-31.0) Mean Corpuscular Hemoglobin Concent 35.1 G/DL (32.0-36.0) 34.1 G/DL (32.0-36.0) Red Cell Distribution Width 12.1 % (11.6-14.8) 12.3 % (11.6-14.8) Platelet Count 303 K/UL (150-450) 293 K/UL (150-450) Mean Platelet Volume 5.2 FL (6.5-10.1) L 6.1 FL (6.5-10.1) L Neutrophils (%) (Auto) 60.2 % (45.0-75.0) 46.6 % (45.0-75.0) Lymphocytes (%) (Auto) 30.6 % (20.0-45.0) 43.2 % (20.0-45.0) Monocytes (%) (Auto) 6.5 % (1.0-10.0) 6.3 % (1.0-10.0) Eosinophils (%) (Auto) 1.5 % (0.0-3.0) 2.8 % (0.0-3.0) Basophils (%) (Auto) 1.3 % (0.0-2.0) 1.2 % (0.0-2.0) Sodium Level 125 MMOL/L (136-145) L 130 MMOL/L (136-145) L Potassium Level 4.3 MMOL/L (3.5-5.1) 4.2 MMOL/L (3.5-5.1) Chloride Level 93 MMOL/L (98-107) L 96 MMOL/L (98-107) L Carbon Dioxide Level 23 MMOL/L (21-32) 28 MMOL/L (21-32) Anion Gap 9 mmol/L (5-15) 7 mmol/L (5-15) Blood Urea Nitrogen 11 mg/dL (7-18) 13 mg/dL (7-18) Creatinine 0.4 MG/DL (0.55-1.30) L 0.5 MG/DL (0.55-1.30) L Estimat Glomerular Filtration Rate > 60 mL/min (>60) > 60 mL/min (>60) Glucose Level 91 MG/DL (74-106) 90 MG/DL (74-106) Calcium Level 8.8 MG/DL (8.5-10.1) 8.8 MG/DL (8.5-10.1) Total Bilirubin 0.3 MG/DL (0.2-1.0) 0.2 MG/DL (0.2-1.0) Aspartate Amino Transf (AST/SGOT) 22 U/L (15-37) 13 U/L (15-37) L Alanine Aminotransferase (ALT/SGPT) 22 U/L (12-78) 22 U/L (12-78) Alkaline Phosphatase 97 U/L (46-116) 89 U/L (46-116) Total Protein 7.0 G/DL (6.4-8.2) 6.8 G/DL (6.4-8.2) Albumin 3.5 G/DL (3.4-5.0) 3.2 G/DL (3.4-5.0) L Globulin 3.5 g/dL 3.6 g/dL Albumin/Globulin Ratio 1.0 (1.0-2.7) 0.9 (1.0-2.7) L Lipase 103 U/L (73-393) Urine Color Pale yellow Urine Appearance Clear Urine pH 8 (4.5-8.0) Urine Specific [place] 1.015 (1.005-1.035) Urine Protein Negative (NEGATIVE) Urine Glucose (UA) Negative (NEGATIVE) Urine Ketones Negative (NEGATIVE) Urine Blood 2+ (NEGATIVE) H Urine Nitrite Positive (NEGATIVE) H Urine Bilirubin Negative (NEGATIVE) Urine Urobilinogen Normal MG/DL (0.0-1.0) Urine Leukocyte Esterase 3+ (NEGATIVE) H Urine RBC 5-10 /HPF (0 - 2) H Urine WBC 40-60 /HPF (0 - 2) H Urine Squamous Epithelial Cells Few /LPF (NONE/OCC) Urine Bacteria Many /HPF (NONE) H Osmolality 274 mOsm/kg (297-317) L Uric Acid 2.3 MG/DL (2.6-7.2) L Phosphorus Level 4.5 MG/DL (2.5-4.9) Magnesium Level 1.7 MG/DL (1.8-2.4) L Triglycerides Level 35 MG/DL (30-150) Cholesterol Level 198 MG/DL (< 200) LDL Cholesterol 116 mg/dL (<100) H HDL Cholesterol 71 MG/DL (40-60) H Cholesterol/HDL Ratio 2.8 (3.3-4.4) L Thyroid Stimulating Hormone (TSH) 5.851 uiU/mL (0.358-3.740) Microbiology Date/Time Source Procedure Growth Status 01/04/19 18:59 Urine,Clean Catch Urine Culture - Preliminary Resulted 01/04/19 21:00 Rectum Received Height (Feet): 5 Height (Inches): 8.00 Weight (Pounds): 180 Medications Current Medications Medications (Trade) Dose Ordered Sig/[place] Route PRN Reason Start Time Stop Time Status Last Admin Dose Admin Acetaminophen (Tylenol) 650 mg Q4H PRN ORAL fever 01/04/19 22:15 02/03/19 22:14 Baclofen (Lioresal) 10 mg Q8HR ORAL 01/04/19 22:00 02/03/19 21:59 01/05/19 13:34 Carbamazepine (TEGretol) 200 mg BID ORAL 01/05/19 09:00 02/04/19 08:59 01/05/19 08:50 Dextrose (Dextrose 50%) STAT PRN IV Hypoglycemia 01/04/19 22:15 02/03/19 22:14 Dextrose/Sodium Chloride 1,000 ml @ 75 mls/hr [id number] IV 01/05/19 10:30 02/04/19 10:29 01/05/19 11:47 Diphenhydramine HCl (Benadryl) 50 mg Q6H PRN ORAL Itching 01/05/19 08:30 02/04/19 08:29 01/05/19 08:50 Docusate Sodium (Colace) 100 mg THREE TIMES A DAY ORAL 01/05/19 09:00 02/04/19 08:59 Gabapentin (Neurontin) 400 mg TID ORAL 01/05/19 09:00 02/04/19 08:59 01/05/19 13:34 Lorazepam (Ativan 2mg/ml 1ml) 0.5 mg Q4H PRN IV For Anxiety 01/04/19 22:15 01/11/19 22:14 Morphine Sulfate (Morphine Sulfate) 1 mg EVERY 4 HOURS PRN IVP Moderate Pain (Pain Scale 4-6) 01/05/19 09:30 01/11/19 22:14 Morphine Sulfate (Morphine Sulfate) 4 mg Q4H PRN IVP Severe Pain (Pain Scale 7-10) 01/04/19 22:30 01/11/19 22:29 01/05/19 11:56 Ondansetron HCl (Zofran) 4 mg Q6H PRN IVP Nausea & Vomiting 01/04/19 22:15 02/03/19 22:14 Oxycodone/ Acetaminophen (Percocet 10/325) 1 tab Q6H PRN ORAL Moderate Breakthru Pain (4-6) 01/05/19 09:30 01/12/19 09:29 Polyethylene Glycol (Miralax) 17 gm HSPRN PRN ORAL Constipation 01/04/19 22:15 02/03/19 22:14 Pregabalin (Lyrica) 50 mg BID ORAL 01/05/19 18:00 02/04/19 08:59 Quetiapine Fumarate (SEROquel) 300 mg DAILY ORAL 01/05/19 09:00 02/04/19 08:59 01/05/19 08:50 Temazepam (Restoril) 30 mg HSPRN PRN ORAL Insomnia 01/04/19 22:30 01/11/19 22:29 01/05/19 00:17 Assessment/Plan Assessment/Plan: Abx: Levaquin x1 01/05 Assessment: ?MS Flare Probable UTI -u/a wbc 40-60, nit +, leuk +3; ucx p Afebrile No leukocytosis Hyponatremia MS w/ resultant paraplegia anemia HTN stage 1 sacal decub ulcer [facility] resident Plan: -Continue LEvaquin #1 pending UCx -f/u cx -Monitor CBC/CMP, temperatures -EKG- monitor qtc -aspiration precautions -wound care per hospital protocol -Neuro eval Thank you for this consultation. Will continue to follow along with you. Discussed with Shivani Brown M.D. January 05, 2019 15:08
--- NOTE | 2019-01-05 15:16 | Diagnostic Imaging Report ---
Indication: 50-year-old female presenting with chronic headache. Diagnosis of multiple sclerosis Technique: The head was imaged in a 1.5 Meera magnet. Sequences obtained include sagittal and axial T1 FLAIR, axial T2 fast spin echo with fat saturation, axial T2 FLAIR, diffusion and ADC map. Gadolinium-enhanced axial and coronal T1 FLAIR obtained also. Comparison: None There are fairly extensive foci of T2 hyperintense signal demonstrated within black radiata and centrum semiovale. Several of the lesions have a typical configuration for multiple sclerosis, oriented transversely, perpendicular to the long axis of the lateral ventricles. There is no abnormal enhancement identified. There is some mild generalized prominence of the sulci ventricles and basal cisterns in keeping with atrophy. There is no mass effect or edema identified. There is no diffusion restriction identified. Mild mucosal thickening demonstrated within the ethmoid sinus. T2 hyperintense fluid signal in the left mastoid region noted. Corpus callosum and sella appear unremarkable. IMPRESSION: Extensive white matter disease consistent with the given history of multiple sclerosis. No enhancing lesions identified. Generalized atrophy of the brain Sinusitis. Left mastoiditis
[2019-01-05] MEDS ORDERED: Levofloxacin 500mg tab ORAL SCH (15:45)
[2019-01-05 16:00] VITALS: BP 104/64
--- NOTE | 2019-01-05 16:30 | History and Physical Report ---
DATE OF ADMISSION: 01/04/2019 CONSULTANTS: 1. Jose De Jesus Alcala M.D. 2. Elmer Fried M.D. 3. Dominick Bejarano M.D. 4. Juan Correia M.D. CHIEF COMPLAINT: Body pain for a week. BRIEF HISTORY: This is a 58-year-old female from [facility], presented with increased body pain for a week, came to [facility], diagnosed with multiple sclerosis exacerbation, and admitted to medical floor for further treatment. Currently, calm in bed, slight general pain, no complaint. PAST MEDICAL HISTORY: Includes multiple sclerosis, hypertension, chronic pain, and hypothyroid. PAST SURGICAL HISTORY: None. MEDICATIONS: Include carbamazepine, Pregabalin, Seroquel, Neurontin, Colace, morphine, temazepam, Tylenol, and Zofran. ALLERGIES: Hydromorphone, prednisone, and pseudoephedrine. SOCIAL HISTORY: No smoking. No alcohol. No intravenous drug abuse. FAMILY HISTORY: Noncontributory. REVIEW OF SYSTEMS: No chest pain. No shortness of breath. No nausea, vomiting, or diarrhea. PHYSICAL EXAMINATION: GENERAL: Calm in bed, oriented x2, in no acute distress. VITAL SIGNS: Temperature 97 degrees, pulse 69, respirations 18, and blood pressure 106/59. CARDIOVASCULAR: No murmurs. LUNGS: Distant and clear. ABDOMEN: Bowel sound positive. Nontender. Nondistended. EXTREMITIES: No cyanosis, clubbing, or edema. NEUROLOGIC: The patient moves all extremities, slightly weak. LABORATORY AND DIAGNOSTIC DATA: H and H is 11.8 and 34. BMP shows sodium 130, chloride 96, creatinine 0.5, and albumin 3.2. Urinalysis shows positive nitrites. ASSESSMENT: 1. Body pain. 2. Multiple sclerosis exacerbation. 3. Chronic pain. 4. Hypertension. 5. Hypothyroid. 6. Anemia. 7. Hyponatremia. 8. Malnutrition. 9. Urinary tract infection. PLAN: 1. Continue previous meds. 2. Antibiotics per Infectious Disease. 3. Pain control. 4. Dietary followup. 5. PT and dietary evaluation. 6. CBC and BMP in the morning. 7. We will add Dr. Martinez, Nephrology and Dr. Johnson for ID. 8. We will continue to follow this patient. Nishant Rider D.O. DR: KEMAL JOB#: [id number] CC:
[2019-01-05] MEDS: Lyrica 50mg cap ORAL SCH (17:43)
--- NOTE | 2019-01-05 19:59 | NUR ---
HAND-OFF: Report given to Alverto Davison RN.
[2019-01-05 20:00] VITALS: BP 118/62
--- NOTE | 2019-01-05 20:00 | NUR ---
NURSE NOTES: Patient in bed awake and oriented. VSS. No SOB noted. Patient complaining of 8/10 leg pain. No IV site at this time. Needs attended. Bed is locked and in low position. Call light within reach. In stable condition.
--- NOTE | 2019-01-05 21:00 | NUR ---
NURSE NOTES: Started patients IV line on L Hand 22 and R AC 22. PRN pain medication. Other due meds given. Needs attended.
--- NOTE | 2019-01-05 21:15 | NUR ---
NURSE NOTES: Patient refused body assessment. Refused to have RN check sacral dressing. Per patient she wants to do it in the morning.
[2019-01-06] VITALS: BP 129/67
[2019-01-06] MEDS: D5NS 1,000 ML IV SCH ×2 (00:17→13:39)
[2019-01-06 04:00] VITALS: BP 134/69
[2019-01-06] MEDS: LORazepam Inj 2mg/ml 1ml IV PRN ×2 (05:16→22:02)
[2019-01-06 06:15] LABS: BASOPHILS % (AUTO) 0.9 % (0.0-2.0); EOSINOPHILS % (AUTO) 2.6 % (0.0-3.0); HEMATOCRIT 33.5 % (37.0-47.0); HEMOGLOBIN 11.4 G/DL (12.0-16.0); LYMPHOCYTES % (AUTO) 39.7 % (20.0-45.0); MEAN CORPUSCULAR VOLUME 91 FL (80-99); MONOCYTES % (AUTO) 5.1 % (1.0-10.0); NEUTROPHILS % (AUTO) 51.7 % (45.0-75.0); PLATELET COUNT 288 K/UL (150-450); RED BLOOD COUNT 3.69 M/UL (4.20-5.40); RED CELL DISTRIBUTION WIDTH 12.5 % (11.6-14.8); WHITE BLOOD COUNT 5.6 K/UL (4.8-10.8)
[2019-01-06 06:18] LABS: ANION GAP 6 mmol/L (5-15); BLOOD UREA NITROGEN 13 mg/dL (7-18); CALCIUM 8.3 MG/DL (8.5-10.1); CARBON DIOXIDE 27 MMOL/L (21-32); CHLORIDE 97 MMOL/L (98-107); CREATININE 0.5 MG/DL (0.55-1.30); POTASSIUM 4.1 MMOL/L (3.5-5.1); SODIUM 130 MMOL/L (136-145)
--- NOTE | 2019-01-06 07:57 | Diagnostic Imaging Report ---
APPROVED REPORT CPT Code: 01657 Present Symptoms Comments: BILATERAL LEGS PAIN. BILATERAL: Imaging reveals a patent deep venous system bilaterally. There is no evidence of thrombus within the femoral, popliteal or tibial segments. The greater saphenous veins are also within normal limits. Doppler indicates normal spontaneous flow within these segments.
[2019-01-06] MEDS: Docusate 100mg cap ORAL SCH ×3 (09:00→17:16)
[2019-01-06 09:04] VITALS: BP 105/61
[2019-01-06] MEDS: carBAMazepine 200mg tab ORAL SCH ×2 (09:12→17:57)
[2019-01-06] MEDS: Lyrica 50mg cap ORAL SCH ×2 (09:12→17:16)
[2019-01-06] MEDS: Levofloxacin 500mg tab ORAL SCH (09:13)
[2019-01-06] MEDS: Morphine Sulfate 4mg/ml Inj (IV USE ONLY) IVP PRN ×2 (09:52→20:18)
--- NOTE | 2019-01-06 10:00 | NUR ---
NURSE NOTES: PT ASKING FOR LAXATIVE. RN EDUCATED PT ON PRN MIRALAX. PT STATES SHE WILL TAKE MIRALAX CLOSE TO BEDTIME.
[2019-01-06] MEDS ORDERED: NS 500ML ONE (10:09)
[2019-01-06] MEDS ORDERED: Tubing IV Secondary IV ONE (10:09)
[2019-01-06] MEDS ORDERED: D5NS 1000ml IV ONE (10:09)
--- NOTE | 2019-01-06 10:30 | NUR ---
NURSE NOTES: PT AXOX4, CALM, RESTING IN BED. PT ABLE TO REPOSITION SELF WITH MINIMAL ASSISTANCE, BUT NEEDS PROMPTING EVERY 2 HOURS. SKIN INTEGRITY OF SACRAL INTACT. IN NO APPARENT DISTRESS AT THIS TIME. PT WAS EDUCATED ON SCHEDULED 0900HR MEDICATIONS. PT VERBALIZED UNDERSTANDING. CALL LIGHT WITHIN REACH. BED IN LOWEST POSITION WITH BEDSIDE RAILS X2 RAISED. WILL CONTINUE TO MONITOR.
[2019-01-06 11:18] LABS: ALANINE AMINOTRANSFERASE 24 U/L (12-78); ALBUMIN 3.2 G/DL (3.4-5.0); ALKALINE PHOSPHATASE 82 U/L (46-116); ASPARTATE AMINO TRANSFERASE 16 U/L (15-37); BILIRUBIN,DIRECT < 0.1 MG/DL (0.0-0.3); BILIRUBIN,TOTAL 0.2 MG/DL (0.2-1.0)
--- NOTE | 2019-01-06 11:37 | Infectious Diseases Prog Note ---
Assessment/Plan Assessment/Plan Abx: Levaquin x1 01/05 Assessment: ?MS Flare Probable UTI -u/a wbc 40-60, nit +, leuk +3; ucx >100k GNR Afebrile No leukocytosis Hyponatremia MS w/ resultant paraplegia anemia HTN stage 1 sacal decub ulcer [facility] resident Plan: -Continue LEvaquin #2 pending UCx -f/u cx -Monitor CBC/CMP, temperatures -EKG- monitor qtc- will order today STAT as was not done yesterday as ordered -aspiration precautions -wound care per hospital protocol -Neuro eval Thank you for this consultation. Will continue to follow along with you. Discussed with RN. Subjective Allergies: Coded Allergies: HYDROMORPHONE (Verified Allergy, Intermediate, 03/28/18) PREDNISONE (Verified Allergy, Intermediate, 03/28/18) PSEUDOEPHEDRINE (Verified Allergy, Intermediate, 03/28/18) Subjective afebrile Objective Vital Signs Last 24 Hour Vital Signs Date Time Temp Pulse Resp B/P (MAP) Pulse Ox O2 Delivery O2 Flow Rate FiO2 01/06/19 09:04 99.0 64 19 105/61 (76) 95 01/06/19 09:00 Room Air 01/06/19 04:00 97.8 70 20 134/69 (90) 96 01/06/19 00:00 97.8 68 20 129/67 (87) 96 01/05/19 20:00 97.5 67 18 118/62 (80) 96 01/05/19 18:20 Room Air 01/05/19 16:00 97.7 73 20 104/64 (77) 96 Height (Feet): 5 Height (Inches): 8.00 Weight (Pounds): 180 Objective General Appearance: WD/WN Lines, tubes and drains: peripheral HEENT: normocephalic, atraumatic Neck: non-tender, normal alignment Respiratory/Chest: chest wall non-tender, lungs clear Cardiovascular/Chest: normal peripheral pulses, normal rate, regular rhythm Abdomen: normal bowel sounds, non tender Extremities: normal range of motion, non-pitting Microbiology Date/Time Source Procedure Growth Status 01/04/19 18:59 Urine,Clean Catch Urine Culture - Preliminary Gram Negative Parviz Resulted 01/04/19 21:00 Rectum Received Laboratory Tests Test 01/05/19 17:15 01/06/19 04:45 Urine Osmolality 299 mOsm/kg (429-449) L Urine Random Sodium 61 mmol/L (20-110) White Blood Count 5.6 K/UL (4.8-10.8) Red Blood Count 3.69 M/UL (4.20-5.40) L Hemoglobin 11.4 G/DL (12.0-16.0) L Hematocrit 33.5 % (37.0-47.0) L Mean Corpuscular Volume 91 FL (80-99) Mean Corpuscular Hemoglobin 30.8 PG (27.0-31.0) Mean Corpuscular Hemoglobin Concent 33.9 G/DL (32.0-36.0) Red Cell Distribution Width 12.5 % (11.6-14.8) Platelet Count 288 K/UL (150-450) Mean Platelet Volume 5.6 FL (6.5-10.1) L Neutrophils (%) (Auto) 51.7 % (45.0-75.0) Lymphocytes (%) (Auto) 39.7 % (20.0-45.0) Monocytes (%) (Auto) 5.1 % (1.0-10.0) Eosinophils (%) (Auto) 2.6 % (0.0-3.0) Basophils (%) (Auto) 0.9 % (0.0-2.0) Sodium Level 130 MMOL/L (136-145) L Potassium Level 4.1 MMOL/L (3.5-5.1) Chloride Level 97 MMOL/L (98-107) L Carbon Dioxide Level 27 MMOL/L (21-32) Anion Gap 6 mmol/L (5-15) Blood Urea Nitrogen 13 mg/dL (7-18) Creatinine 0.5 MG/DL (0.55-1.30) L Estimat Glomerular Filtration Rate > 60 mL/min (>60) Glucose Level 138 MG/DL (74-106) H Osmolality 275 mOsm/kg (297-317) L Uric Acid 3.1 MG/DL (2.6-7.2) Calcium Level 8.3 MG/DL (8.5-10.1) L Total Bilirubin 0.2 MG/DL (0.2-1.0) Direct Bilirubin < 0.1 MG/DL (0.0-0.3) Aspartate Amino Transf (AST/SGOT) 16 U/L (15-37) Alanine Aminotransferase (ALT/SGPT) 24 U/L (12-78) Alkaline Phosphatase 82 U/L (46-116) Total Protein 6.4 G/DL (6.4-8.2) Albumin 3.2 G/DL (3.4-5.0) L Current Medications Medications (Trade) Dose Ordered Sig/Galen Route PRN Reason Start Time Stop Time Status Last Admin Dose Admin Acetaminophen (Tylenol) 650 mg Q4H PRN ORAL fever 01/04/19 22:15 02/03/19 22:14 Baclofen (Lioresal) 10 mg Q8HR ORAL 01/04/19 22:00 02/03/19 21:59 01/06/19 05:16 Carbamazepine (TEGretol) 200 mg BID ORAL 01/05/19 09:00 02/04/19 08:59 01/06/19 09:12 Dextrose (Dextrose 50%) STAT PRN IV Hypoglycemia 01/04/19 22:15 02/03/19 22:14 Dextrose/Sodium Chloride 1,000 ml @ 75 mls/hr [id number] IV 01/05/19 10:30 02/04/19 10:29 01/06/19 00:17 Diphenhydramine HCl (Benadryl) 50 mg Q6H PRN ORAL Itching 01/05/19 08:30 02/04/19 08:29 01/06/19 06:17 Docusate Sodium (Colace) 100 mg THREE TIMES A DAY ORAL 01/05/19 09:00 02/04/19 08:59 Gabapentin (Neurontin) 400 mg TID ORAL 01/05/19 09:00 02/04/19 08:59 01/06/19 09:12 Levofloxacin (Levaquin) 500 mg DAILY ORAL 01/06/19 09:00 01/13/19 08:59 01/06/19 09:13 Lorazepam (Ativan 2mg/ml 1ml) 0.5 mg Q4H PRN IV For Anxiety 01/04/19 22:15 01/11/19 22:14 01/06/19 05:16 Morphine Sulfate (Morphine Sulfate) 1 mg EVERY 4 HOURS PRN IVP Moderate Pain (Pain Scale 4-6) 01/05/19 09:30 01/11/19 22:14 Morphine Sulfate (Morphine Sulfate) 4 mg Q4H PRN IVP Severe Pain (Pain Scale 7-10) 01/04/19 22:30 01/11/19 22:29 01/06/19 09:52 Ondansetron HCl (Zofran) 4 mg Q6H PRN IVP Nausea & Vomiting 01/04/19 22:15 02/03/19 22:14 Oxycodone/ Acetaminophen (Percocet 10/325) 1 tab Q6H PRN ORAL Moderate Breakthru Pain (4-6) 01/05/19 09:30 01/12/19 09:29 01/06/19 01:10 Polyethylene Glycol (Miralax) 17 gm HSPRN PRN ORAL Constipation 01/04/19 22:15 02/03/19 22:14 Pregabalin (Lyrica) 50 mg BID ORAL 01/05/19 18:00 02/04/19 08:59 01/06/19 09:12 Quetiapine Fumarate (SEROquel) 300 mg DAILY ORAL 01/05/19 09:00 02/04/19 08:59 01/06/19 09:13 Temazepam (Restoril) 30 mg HSPRN PRN ORAL Insomnia 01/04/19 22:30 01/11/19 22:29 01/05/19 22:57 Shivani Sánchez M.D. January 06, 2019 11:37
--- NOTE | 2019-01-06 11:47 | Neurology Progress Note ---
Interim History Interim History ROS Limited/Unobtainable: No Events: Weakness/ Pain Interim History MRI confirming MS - likely pseudoflare Review of Systems All Systems: reviewed and negative except above Objective Physical Exam Last Vital Signs Date Time Temp Pulse Resp B/P (MAP) Pulse Ox O2 Delivery O2 Flow Rate FiO2 01/06/19 09:04 99.0 64 19 105/61 (76) 95 01/06/19 09:00 Room Air Laboratory Tests Test 01/05/19 17:15 01/06/19 04:45 Urine Osmolality 299 mOsm/kg (429-449) L Urine Random Sodium 61 mmol/L (20-110) White Blood Count 5.6 K/UL (4.8-10.8) Red Blood Count 3.69 M/UL (4.20-5.40) L Hemoglobin 11.4 G/DL (12.0-16.0) L Hematocrit 33.5 % (37.0-47.0) L Mean Corpuscular Volume 91 FL (80-99) Mean Corpuscular Hemoglobin 30.8 PG (27.0-31.0) Mean Corpuscular Hemoglobin Concent 33.9 G/DL (32.0-36.0) Red Cell Distribution Width 12.5 % (11.6-14.8) Platelet Count 288 K/UL (150-450) Mean Platelet Volume 5.6 FL (6.5-10.1) L Neutrophils (%) (Auto) 51.7 % (45.0-75.0) Lymphocytes (%) (Auto) 39.7 % (20.0-45.0) Monocytes (%) (Auto) 5.1 % (1.0-10.0) Eosinophils (%) (Auto) 2.6 % (0.0-3.0) Basophils (%) (Auto) 0.9 % (0.0-2.0) Sodium Level 130 MMOL/L (136-145) L Potassium Level 4.1 MMOL/L (3.5-5.1) Chloride Level 97 MMOL/L (98-107) L Carbon Dioxide Level 27 MMOL/L (21-32) Anion Gap 6 mmol/L (5-15) Blood Urea Nitrogen 13 mg/dL (7-18) Creatinine 0.5 MG/DL (0.55-1.30) L Estimat Glomerular Filtration Rate > 60 mL/min (>60) Glucose Level 138 MG/DL (74-106) H Osmolality 275 mOsm/kg (297-317) L Uric Acid 3.1 MG/DL (2.6-7.2) Calcium Level 8.3 MG/DL (8.5-10.1) L Total Bilirubin 0.2 MG/DL (0.2-1.0) Direct Bilirubin < 0.1 MG/DL (0.0-0.3) Aspartate Amino Transf (AST/SGOT) 16 U/L (15-37) Alanine Aminotransferase (ALT/SGPT) 24 U/L (12-78) Alkaline Phosphatase 82 U/L (46-116) Total Protein 6.4 G/DL (6.4-8.2) Albumin 3.2 G/DL (3.4-5.0) L Neurologic Exam Mental Status: awake, alert, oriented x4, normal cognition, good mathematical skills, normal recent memory, normal remote memory, preserved visuospatial function Speech: normal speech, no dysarthia Language: normal language, no aphasia Cranial Nerve II: fundus normal, visual jesus, no papilledema Cranial Nerves III, IV, : PERRLA, EOMI, pupils Cranial Nerve V: normal facial sensations, temporales function normal, masseters function normal, pterygoids function normal Cranial Nerve VII: no facial asymmetry, normal facial expressions Cranial Nerve IX: normal palate elevation, gag response Cranial Nerve X: no voice hoarseness Cranial Nerve XI: SCM symmetric, trapezii function normal Cranial Nerve XII: tongue midline, no tongue atrophy/fasciculations Motor System: other Impression/Recommendations Problems: (1) UTI (urinary tract infection) (2) Multiple sclerosis (3) HTN (hypertension) (4) Chronic pain (5) Hypothyroid Recommendations MS Diagnosis confirmed on MRI but without any current enhancement - Pseudoflare at this time. Symptoms can be managed individually- Lyrica to be up titrated as needed . Increased Lyrica to 50mg TID Kacie Toscano N.P. January 06, 2019 11:47
[2019-01-06 12:00] VITALS: BP 95/60
--- NOTE | 2019-01-06 13:34 | NUR ---
NURSE NOTES: PT AXOX4, DIFFICULT TO AROUSE FROM SLEEP. WHEN PT IS AWAKE, PT ABLE TO RESPOND TO RN'S QUESTION AND IS ALERT. PT REQUESTED PRN PERCOCET AND PRN BENADRYL. WHEN RN BROUGHT TO PT, PT WAS ASLEEP. PT WOKE UP TO TAKE MEDICATION BUT FELL BACK ASLEEP BEFORE TAKING PRN PERCOCET AND BENADRYL. RN WASTED MEDICATIONS AT [facility] WITH WITNESS. VSS AND IN NO APPARENT DISTRESS AT THIS TIME. WILL CONTINUE TO MONITOR.
--- NOTE | 2019-01-06 14:01 | Nephrology Progress Note ---
Assessment/Plan Problem List: (1) Hyponatremia (2) Multiple sclerosis (3) Chronic pain (4) UTI (urinary tract infection) Assessment Low Na , Likely depletional Multiple Sclerosis Myalgia stage 2-3 sacral decub Plan gabriel 3% saline + lasix pain management low na lacey indicates SIADH per orders 1200 cc po fluid restriction discussed with RN Subjective ROS Limited/Unobtainable: No Constitutional: Reports: malaise Objective Objective Last 24 Hour Vital Signs Date Time Temp Pulse Resp B/P (MAP) Pulse Ox O2 Delivery O2 Flow Rate FiO2 01/06/19 12:00 98.1 73 18 95/60 (72) 94 01/06/19 09:04 99.0 64 19 105/61 (76) 95 01/06/19 09:00 Room Air 01/06/19 04:00 97.8 70 20 134/69 (90) 96 01/06/19 00:00 97.8 68 20 129/67 (87) 96 01/05/19 20:00 97.5 67 18 118/62 (80) 96 01/05/19 18:20 Room Air 01/05/19 16:00 97.7 73 20 104/64 (77) 96 Intake and Output 01/05/19 01/06/19 18:59 06:59 Intake Total 525 ml 1725 ml Output Total 1900 ml Balance 525 ml -175 ml Intake Oral 900 ml IV Total 525 ml 825 ml Output Urine Total 1900 ml # Voids 3 Laboratory Tests 01/05/19 17:15: Urine Osmolality 299L, Urine Random Sodium 61 01/06/19 04:45: White Blood Count 5.6, Red Blood Count 3.69L, Hemoglobin 11.4L, Hematocrit 33.5L , Mean Corpuscular Volume 91, Mean Corpuscular Hemoglobin 30.8, Mean Corpuscular Hemoglobin Concent 33.9, Red Cell Distribution Width 12.5, Platelet Count 288, Mean Platelet Volume 5.6L, Neutrophils (%) (Auto) 51.7, Lymphocytes ( %) (Auto) 39.7, Monocytes (%) (Auto) 5.1, Eosinophils (%) (Auto) 2.6, Basophils (%) (Auto) 0.9, Sodium Level 130L, Potassium Level 4.1, Chloride Level 97L, Carbon Dioxide Level 27, Anion Gap 6, Blood Urea Nitrogen 13, Creatinine 0.5L, Estimat Glomerular Filtration Rate > 60, Glucose Level 138H, Osmolality 275L, Uric Acid 3.1, Calcium Level 8.3L, Total Bilirubin 0.2, Direct Bilirubin < 0.1, Aspartate Amino Transf (AST/SGOT) 16, Alanine Aminotransferase (ALT/SGPT) 24, Alkaline Phosphatase 82, Total Protein 6.4, Albumin 3.2L Height (Feet): 5 Height (Inches): 8.00 Weight (Pounds): 180 General Appearance: no apparent distress Objective no change Zoran Martinez MD January 06, 2019 14:01
[2019-01-06] MEDS ORDERED: NaCl 3% 500ml 500 ML IV ONE (15:00)
[2019-01-06] MEDS ORDERED: Dextrose 50% 25ml Syringe IV PRN (15:30)
[2019-01-06 16:00] VITALS: BP 101/70
--- NOTE | 2019-01-06 16:48 | NUR ---
PT Note PT eval completed, treatment initiated. Patient was lethargic during eval but was able to follow instructions. Patient can benefit from PT services to increase her LE ROM and muscle strength and balance to improve her bed mobility. Addendum: 01/06/19 at 1650 by GORGE SANDS PT Amended: Links added.
--- NOTE | 2019-01-06 17:00 | NUR ---
CASE MANAGEMENT: REVIEW SI: MULTIPLE SCLEROSIS . UTI . CHRONIC PAIN T 97.2 HR 70 RR 17 BP 95/60 SAT 94% ROOM AIR H/H 11.4/33.5 NA 130 IS: NS IVF X1 LASIX IV Q6HR LEVAQUIN PO QD TEGRETOL PO BID FLUID RESTRICTION PT EVAL MED/SURG STATUS DCP: PATIENT IS FROM [facility]
--- NOTE | 2019-01-06 17:36 | NUR ---
NURSE NOTES: PT AWAKE AND AXOX4, EATING DINNER IN BED. PT REQUESTING FOR PRN PERCOCET AND BENADRYL. RN EDUCATED PT ON SCHEDULED PAIN MEDS AND PRN PAIN MEDICATIONS AVAILABLE. IN NO APPARENT DISTRESS AT THIS TIME. WILL CONTINUE TO MONITOR.
--- NOTE | 2019-01-06 18:45 | NUR ---
NURSE NOTES: PT REQUESTING FOR 40MG DULCOLAX PO. RN LEFT MESSAGE TO DR KNIGHT REGARDING PT'S REQUEST.
--- NOTE | 2019-01-06 19:18 | NUR ---
HAND-OFF: Report given to Milad PIERCE RN.
[2019-01-06 20:00] VITALS: BP 86/58
--- NOTE | 2019-01-06 21:16 | General Progress Note ---
Assessment/Plan Problem List: (1) HTN (hypertension) ICD Codes: I10 - Essential (primary) hypertension SNOMED: 21372632 (2) UTI (urinary tract infection) ICD Codes: N39.0 - Urinary tract infection, site not specified SNOMED: 21853824 (3) Chronic pain ICD Codes: G89.29 - Other chronic pain SNOMED: 10496902 (4) Myalgia ICD Codes: M79.10 - Myalgia, unspecified site SNOMED: 53876303 (5) Multiple sclerosis ICD Codes: G35 - Multiple sclerosis SNOMED: 73961434 (6) Hypothyroid ICD Codes: E03.9 - Hypothyroidism, unspecified SNOMED: 50674440 Status: progressing Assessment/Plan: afebrile uti chronic pain myalgia vitals stable reviewed chart and labs Subjective ROS Limited/Unobtainable: Yes Allergies: Coded Allergies: HYDROMORPHONE (Verified Allergy, Intermediate, 03/28/18) PREDNISONE (Verified Allergy, Intermediate, 03/28/18) PSEUDOEPHEDRINE (Verified Allergy, Intermediate, 03/28/18) Objective Last 24 Hour Vital Signs Date Time Temp Pulse Resp B/P (MAP) Pulse Ox O2 Delivery O2 Flow Rate FiO2 01/06/19 16:00 97.2 70 17 101/70 (80) 95 01/06/19 12:00 98.1 73 18 95/60 (72) 94 01/06/19 09:04 99.0 64 19 105/61 (76) 95 01/06/19 09:00 Room Air 01/06/19 04:00 97.8 70 20 134/69 (90) 96 01/06/19 00:00 97.8 68 20 129/67 (87) 96 Intake and Output 01/05/19 01/06/19 19:00 07:00 Intake Total 600 ml 1725 ml Output Total 1900 ml Balance 600 ml -175 ml Intake Oral 900 ml IV Total 600 ml 825 ml Output Urine Total 1900 ml # Voids 3 Laboratory Tests 01/06/19 04:45: White Blood Count 5.6, Red Blood Count 3.69L, Hemoglobin 11.4L, Hematocrit 33.5L , Mean Corpuscular Volume 91, Mean Corpuscular Hemoglobin 30.8, Mean Corpuscular Hemoglobin Concent 33.9, Red Cell Distribution Width 12.5, Platelet Count 288, Mean Platelet Volume 5.6L, Neutrophils (%) (Auto) 51.7, Lymphocytes ( %) (Auto) 39.7, Monocytes (%) (Auto) 5.1, Eosinophils (%) (Auto) 2.6, Basophils (%) (Auto) 0.9, Sodium Level 130L, Potassium Level 4.1, Chloride Level 97L, Carbon Dioxide Level 27, Anion Gap 6, Blood Urea Nitrogen 13, Creatinine 0.5L, Estimat Glomerular Filtration Rate > 60, Glucose Level 138H, Osmolality 275L, Uric Acid 3.1, Calcium Level 8.3L, Total Bilirubin 0.2, Direct Bilirubin < 0.1, Aspartate Amino Transf (AST/SGOT) 16, Alanine Aminotransferase (ALT/SGPT) 24, Alkaline Phosphatase 82, Total Protein 6.4, Albumin 3.2L Height (Feet): 5 Height (Inches): 8.00 Weight (Pounds): 180 Cardiovascular: normal rate Respiratory/Chest: lungs clear Abdomen: soft Dexter Pelayo MD January 06, 2019 21:16
--- NOTE | 2019-01-06 21:24 | NUR ---
NURSE NOTES: Patient in bed awake and oriented. VSS. No SOB noted. PRN pain medication given. Patient complaining of not having a bowel movement for the past 3 days. PRN miralax given. Per patient she wants to have a bowel disimpaction. Left MD a message awaiting for call back. per patient "I will do it myself if I have to" R/B explained to the patient. Refused body assessment. IV site intact tolerating IV fluids well. Needs attended. Due meds given. Call light within reach. Bed is locked and in low position. In stable condition.
[2019-01-07] VITALS (8 sets, daily range): BP systolic 88–125; BP diastolic 52–76
--- NOTE | 2019-01-07 01:15 | Progress Note ---
DATE: 01/05/2019 PSYCHOTHERAPY CONSULTATION PROGRESS NOTE SUBJECTIVE: The patient is a 58-year-old female patient. She is from [facility]. The patient was brought into the hospital. She had body pains for about a week and she has muscular sclerosis. She has been anxious and agitated. For these reasons, she was referred for psychotherapeutic services. This clinician assessed the patient. The patient states that she is in some pain that she has not been able to sleep well in bed. The patient states that she does have a history of anxiety and her anxiety becomes worse when there is significant amount of pain. She denies suicidal or homicidal thoughts of ideation. She denies any auditory or visual hallucinations. She is endorsing feelings of anxiety and restlessness. PAST MEDICAL HISTORY: Includes a history of multiple sclerosis, hypertension, chronic pain, and hypothyroid. ALLERGIES: The patient is allergic to penicillin, hydromorphone, and pseudoephedrine. PSYCHIATRIC HISTORY: The patient states that she has a history of anxiety and has been treated with psychotropic medications in the past. SOCIAL HISTORY: The patient is a 58-year-old single female patient from [facility]. Financially sustained through [employer]. MENTAL STATUS EXAMINATION: The patient is alert and oriented to person, place, time, and situation. Mood is anxious. Affect is congruent. Thought process is disorganized. Thought content is linear. The patient has poor attention and concentration. Poor insight, judgment, and impulse control. DIAGNOSIS: Generalized anxiety disorder. PLAN: I assessed this patient. I provided the patient with cognitive behavioral therapy, which is focused on mood liability and techniques to assist regarding general and emotional ability addressing on mood and feelings of anxiety. Plan is to maintain medication compliance with the progression of reality of thoughts, for positive coping skills and possibly stabilizing thoughts and behavior. Psychotherapy provided for this patient. This clinician has reviewed the patient's chart and discussed the treatment with treatment team. Darron Viveros PsyD. : MARCIAL JOB#: [id number] CC:
--- NOTE | 2019-01-07 02:20 | NUR ---
NURSE NOTES: Patient report taken from IRAIDA Del Toro. Patient is asleep in bed, asked not to be woken up. Mac c/d/i and draining yellow urine. IV site c/d/i and patent, running hypertonic solution at 30cc/hr. No signs of distress on room air. Bed in lowest position, call light within reach.
--- NOTE | 2019-01-07 07:31 | NUR ---
HAND-OFF: Report given to IRAIDA Al. Patient is asleep in bed, VS stable..
--- NOTE | 2019-01-07 07:35 | NUR ---
NURSE NOTES: Patient lying in bed sleeping. No signs and symptoms of pain or distress at this time. IV dressing intact and dry. Mac catheter patent and draining well. Bed lowest position. Call light within reach. Will continue to monitor.
[2019-01-07 07:38] LABS: ALANINE AMINOTRANSFERASE 23 U/L (12-78); ALBUMIN 3.2 G/DL (3.4-5.0); ALBUMIN/GLOBULIN RATIO 0.9 (1.0-2.7); ALKALINE PHOSPHATASE 90 U/L (46-116); ANION GAP 8 mmol/L (5-15); ASPARTATE AMINO TRANSFERASE 16 U/L (15-37); BILIRUBIN,TOTAL 0.2 MG/DL (0.2-1.0); BLOOD UREA NITROGEN 14 mg/dL (7-18); CALCIUM 8.5 MG/DL (8.5-10.1); CARBON DIOXIDE 27 MMOL/L (21-32); CHLORIDE 98 MMOL/L (98-107); CREATININE 0.5 MG/DL (0.55-1.30); PHOSPHORUS 3.8 MG/DL (2.5-4.9); POTASSIUM 3.8 MMOL/L (3.5-5.1); SODIUM 133 MMOL/L (136-145)
[2019-01-07] MEDS ORDERED: Flonase Nasal Inhaler 16gm NASAL SCH (09:00)
[2019-01-07] MEDS: Docusate 100mg cap ORAL SCH ×3 (09:00→18:00)
[2019-01-07] MEDS: Levofloxacin 500mg tab ORAL SCH (09:26)
[2019-01-07] MEDS: carBAMazepine 200mg tab ORAL SCH ×2 (09:26→17:42)
[2019-01-07] MEDS: Lyrica 50mg cap ORAL SCH ×3 (09:27→17:43)
--- NOTE | 2019-01-07 09:28 | NUR ---
CHARGE NURSE NOTE: Mg.1.6. notified.
--- NOTE | 2019-01-07 12:00 | NUR ---
CHARGE NURSE NOTE: IRRIGATOR VALVE PIPE and Charge nurse at the patient's bed to change her position. Patient refused to be repositioned.
--- NOTE | 2019-01-07 12:45 | Nephrology Progress Note ---
Assessment/Plan Problem List: (1) Hyponatremia (2) Multiple sclerosis (3) Chronic pain (4) UTI (urinary tract infection) Assessment Low Na , improving Multiple Sclerosis Myalgia stage 2-3 sacral decub Plan gabriel 3% saline + lasix pain management low na lacey indicates SIADH per orders 1200 cc po fluid restriction discussed with RN Subjective ROS Limited/Unobtainable: No Constitutional: Reports: malaise Objective Objective Last 24 Hour Vital Signs Date Time Temp Pulse Resp B/P (MAP) Pulse Ox O2 Delivery O2 Flow Rate FiO2 01/07/19 12:00 98.1 75 18 88/56 (67) 95 01/07/19 10:20 83 104/60 (75) 01/07/19 09:00 Room Air 01/07/19 08:00 97.9 60 17 91/52 (65) 95 01/07/19 04:00 97.9 71 18 104/59 (74) 94 01/07/19 00:00 98.1 80 18 110/61 (77) 96 01/06/19 21:00 Room Air 01/06/19 20:00 97.9 88 18 86/58 (67) 96 01/06/19 16:00 97.2 70 17 101/70 (80) 95 Intake and Output 01/06/19 01/07/19 19:00 07:00 Intake Total 1240 ml 120 ml Output Total 2300 ml 2950 ml Balance -1060 ml -2830 ml Intake Oral 700 ml IV Total 540 ml 120 ml Output Urine Total 2300 ml 2950 ml Laboratory Tests 01/07/19 05:40: Sodium Level 133L, Potassium Level 3.8, Chloride Level 98, Carbon Dioxide Level 27, Anion Gap 8, Blood Urea Nitrogen 14, Creatinine 0.5L, Estimat Glomerular Filtration Rate > 60, Glucose Level 110H, Uric Acid 3.2, Calcium Level 8.5, Phosphorus Level 3.8, Magnesium Level 1.6L, Total Bilirubin 0.2, Aspartate Amino Transf (AST/SGOT) 16, Alanine Aminotransferase (ALT/SGPT) 23, Alkaline Phosphatase 90, Total Protein 6.7, Albumin 3.2L, Globulin 3.5, Albumin/Globulin Ratio 0.9L, Cortisol AM Sample [Pending] Height (Feet): 5 Height (Inches): 8.00 Weight (Pounds): 180 General Appearance: no apparent distress Objective no change Zoran Martinez MD January 07, 2019 12:45
--- NOTE | 2019-01-07 13:00 | NUR ---
NURSE NOTES: Patient non-compliant with 1200 cc fluid restriction. Explained risks and benefits of 1200 cc fluid restriction but still non-compliant. Notified and no new order at this time. Will continue to monitor.
--- NOTE | 2019-01-07 13:10 | General Progress Note ---
Assessment/Plan Assessment/Plan: (1) Neuropathic pain (2) Multiple Sclerosis Patient will be continued on Morphine and Percocet. D/w Dr. Fried and he concurred. Subjective Date patient seen: January 07, 2019 Time patient seen: 12:00 - pm Allergies: Coded Allergies: HYDROMORPHONE (Verified Allergy, Intermediate, 03/28/18) PREDNISONE (Verified Allergy, Intermediate, 03/28/18) PSEUDOEPHEDRINE (Verified Allergy, Intermediate, 03/28/18) Subjective REVIEW OF SYSTEMS: Denies rash, fever, chills, sweating, dizziness, drowsiness, blurred vision, sore throat, or change in weight. No shortness of breath or chest pain. No nausea, vomiting, diarrhea, or blood in the stool or urine. She is complaining of generalized body pain. SUBJECTIVE: Patient is in bed and her pain has been tolerated on the Morphine and Percocet. No new complaints at this time. Objective Last 24 Hour Vital Signs Date Time Temp Pulse Resp B/P (MAP) Pulse Ox O2 Delivery O2 Flow Rate FiO2 01/07/19 12:00 98.1 75 18 88/56 (67) 95 01/07/19 10:20 83 104/60 (75) 01/07/19 09:00 Room Air 01/07/19 08:00 97.9 60 17 91/52 (65) 95 01/07/19 04:00 97.9 71 18 104/59 (74) 94 01/07/19 00:00 98.1 80 18 110/61 (77) 96 01/06/19 21:00 Room Air 01/06/19 20:00 97.9 88 18 86/58 (67) 96 01/06/19 16:00 97.2 70 17 101/70 (80) 95 Intake and Output 01/06/19 01/07/19 19:00 07:00 Intake Total 1240 ml 120 ml Output Total 2300 ml 2950 ml Balance -1060 ml -2830 ml Intake Oral 700 ml IV Total 540 ml 120 ml Output Urine Total 2300 ml 2950 ml Laboratory Tests 01/07/19 05:40: Sodium Level 133L, Potassium Level 3.8, Chloride Level 98, Carbon Dioxide Level 27, Anion Gap 8, Blood Urea Nitrogen 14, Creatinine 0.5L, Estimat Glomerular Filtration Rate > 60, Glucose Level 110H, Uric Acid 3.2, Calcium Level 8.5, Phosphorus Level 3.8, Magnesium Level 1.6L, Total Bilirubin 0.2, Aspartate Amino Transf (AST/SGOT) 16, Alanine Aminotransferase (ALT/SGPT) 23, Alkaline Phosphatase 90, Total Protein 6.7, Albumin 3.2L, Globulin 3.5, Albumin/Globulin Ratio 0.9L, Cortisol AM Sample [Pending] Height (Feet): 5 Height (Inches): 8.00 Weight (Pounds): 180 Objective GENERAL: She is alert, awake, and oriented. LUNGS: Decreased breath sounds bilaterally. HEART: S1 and S2 regular. ABDOMEN: Benign. EXTREMITIES: No cyanosis. No clubbing. No edema. NEUROLOGICAL: Marked weakness noted in bilateral lower extremities. Alonso Young January 07, 2019 13:10
[2019-01-07] MEDS: Morphine Sulfate 4mg/ml Inj (IV USE ONLY) IVP PRN ×2 (14:58→23:19)
[2019-01-07] MEDS ORDERED: NaCl 3% 500ml 500 ML IV ONE (15:00)
--- NOTE | 2019-01-07 16:19 | NUR ---
CASE MANAGEMENT: REVIEW SI: MULTIPLE SCLEROSIS . UTI . CHRONIC PAIN T 98.1 HR 75 RR 18 BP 88/56 SAT 95% ROOM AIR CORTISOL AM SAMPLE PENDING IS: LASIX IV Q6HR LEVAQUIN PO QD TEGRETOL PO BID K-DUR PO QD NS IVF BOLUS X1 MIDODRINE PO TID FLUID RESTRICTION MED/SURG STATUS DCP: PATIENT IS FROM [facility]
--- NOTE | 2019-01-07 16:40 | NUR ---
NURSE NOTES: Spoke to regarding patient and new order received. Order read back and carried out.
[2019-01-07] MEDS ORDERED: Bisacodyl EC 5mg tab ORAL PRN ×2 (16:45)
--- NOTE | 2019-01-07 19:30 | NUR ---
HAND-OFF: Report given to Princess KHOURY. Patient in stable condition.
[2019-01-07] MEDS: Oxymetazoline 0.05% Na Spray 30ml NASAL PRN (21:26)
--- NOTE | 2019-01-07 21:37 | General Progress Note ---
Assessment/Plan Problem List: (1) HTN (hypertension) ICD Codes: I10 - Essential (primary) hypertension SNOMED: 82166221 (2) UTI (urinary tract infection) ICD Codes: N39.0 - Urinary tract infection, site not specified SNOMED: 87578846 (3) Chronic pain ICD Codes: G89.29 - Other chronic pain SNOMED: 39954625 (4) Myalgia ICD Codes: M79.10 - Myalgia, unspecified site SNOMED: 88721435 (5) Multiple sclerosis ICD Codes: G35 - Multiple sclerosis SNOMED: 19900283 (6) Hypothyroid ICD Codes: E03.9 - Hypothyroidism, unspecified SNOMED: 72701877 Status: progressing Assessment/Plan: htn no vomiting afebrile uti chronic pain myalgia v reviewed chart and labs Subjective ROS Limited/Unobtainable: Yes Allergies: Coded Allergies: HYDROMORPHONE (Verified Allergy, Intermediate, 03/28/18) PREDNISONE (Verified Allergy, Intermediate, 03/28/18) PSEUDOEPHEDRINE (Verified Allergy, Intermediate, 03/28/18) Objective Last 24 Hour Vital Signs Date Time Temp Pulse Resp B/P (MAP) Pulse Ox O2 Delivery O2 Flow Rate FiO2 01/07/19 16:00 98.3 65 19 113/72 (86) 100 01/07/19 14:48 66 125/76 (92) 01/07/19 12:00 98.1 75 18 88/56 (67) 95 01/07/19 10:20 83 104/60 (75) 01/07/19 09:00 Room Air 01/07/19 08:00 97.9 60 17 91/52 (65) 95 01/07/19 04:00 97.9 71 18 104/59 (74) 94 01/07/19 00:00 98.1 80 18 110/61 (77) 96 Intake and Output 01/06/19 01/07/19 18:59 06:59 Intake Total 1315 ml 120 ml Output Total 2300 ml 2950 ml Balance -985 ml -2830 ml Intake Oral 700 ml IV Total 615 ml 120 ml Output Urine Total 2300 ml 2950 ml Laboratory Tests 01/07/19 05:40: Sodium Level 133L, Potassium Level 3.8, Chloride Level 98, Carbon Dioxide Level 27, Anion Gap 8, Blood Urea Nitrogen 14, Creatinine 0.5L, Estimat Glomerular Filtration Rate > 60, Glucose Level 110H, Uric Acid 3.2, Calcium Level 8.5, Phosphorus Level 3.8, Magnesium Level 1.6L, Total Bilirubin 0.2, Aspartate Amino Transf (AST/SGOT) 16, Alanine Aminotransferase (ALT/SGPT) 23, Alkaline Phosphatase 90, Total Protein 6.7, Albumin 3.2L, Globulin 3.5, Albumin/Globulin Ratio 0.9L, Cortisol AM Sample [Pending] Height (Feet): 5 Height (Inches): 8.00 Weight (Pounds): 180 Cardiovascular: normal rate Respiratory/Chest: lungs clear Abdomen: soft Dexter Pelayo MD January 07, 2019 21:37
--- NOTE | 2019-01-07 23:41 | Neurology Progress Note ---
Interim History Interim History ROS Limited/Unobtainable: No Events: Weakness/ Pain Interim History Improved pain as per patient. Objective Physical Exam Last Vital Signs Date Time Temp Pulse Resp B/P (MAP) Pulse Ox O2 Delivery O2 Flow Rate FiO2 01/07/19 16:00 98.3 65 19 113/72 (86) 100 01/07/19 09:00 Room Air Laboratory Tests Test 01/07/19 05:40 Sodium Level 133 MMOL/L (136-145) L Potassium Level 3.8 MMOL/L (3.5-5.1) Chloride Level 98 MMOL/L (98-107) Carbon Dioxide Level 27 MMOL/L (21-32) Anion Gap 8 mmol/L (5-15) Blood Urea Nitrogen 14 mg/dL (7-18) Creatinine 0.5 MG/DL (0.55-1.30) L Estimat Glomerular Filtration Rate > 60 mL/min (>60) Glucose Level 110 MG/DL (74-106) H Uric Acid 3.2 MG/DL (2.6-7.2) Calcium Level 8.5 MG/DL (8.5-10.1) Phosphorus Level 3.8 MG/DL (2.5-4.9) Magnesium Level 1.6 MG/DL (1.8-2.4) L Total Bilirubin 0.2 MG/DL (0.2-1.0) Aspartate Amino Transf (AST/SGOT) 16 U/L (15-37) Alanine Aminotransferase (ALT/SGPT) 23 U/L (12-78) Alkaline Phosphatase 90 U/L (46-116) Total Protein 6.7 G/DL (6.4-8.2) Albumin 3.2 G/DL (3.4-5.0) L Globulin 3.5 g/dL Albumin/Globulin Ratio 0.9 (1.0-2.7) L Cortisol AM Sample Pending Neurologic Exam Mental Status: awake, alert, oriented x4, normal cognition, good mathematical skills, normal recent memory, normal remote memory, preserved visuospatial function Speech: normal speech, no dysarthia Language: normal language, no aphasia Cranial Nerve II: fundus normal, visual jesus, no papilledema Cranial Nerves III, IV, : PERRLA, EOMI, pupils Cranial Nerve V: normal facial sensations, temporales function normal, masseters function normal, pterygoids function normal Cranial Nerve VII: no facial asymmetry, normal facial expressions Cranial Nerve IX: normal palate elevation, gag response Cranial Nerve X: no voice hoarseness Cranial Nerve XI: SCM symmetric, trapezii function normal Cranial Nerve XII: tongue midline, no tongue atrophy/fasciculations Motor System: other Deep Tendon Reflexes: 1+ bicep (L), 1+ bicep (R), 1+ tricep (L), 1+ tricep (R) , 1+ brachioradialis (L), 1+ brachioradialis (R), 1+ knee (L), 1+ knee (R), 1+ ankle (L), 1+ ankle (R) Reflexes: flexor plantar (L), flexor plantar (R); extensor plantar (L), extensor plantar (R) Gait: other Impression/Recommendations Problems: (1) UTI (urinary tract infection) (2) Multiple sclerosis Assessment & Plan: Bilateral lower leg atrophy and foot drop PT for orthotic braces? Increasing Lyrica to (3) HTN (hypertension) (4) Chronic pain (5) Hypothyroid Status: progressing Recommendations MS Diagnosis confirmed on MRI but without any current enhancement - Pseudoflare at this time. Symptoms can be managed individually- Lyrica to be up titrated as needed . Increased Lyrica to 75mg TID Kacie Toscano N.P. January 07, 2019 23:41
[2019-01-08] VITALS (7 sets, daily range): BP systolic 102–132; BP diastolic 65–78
[2019-01-08] MEDS: Morphine Sulfate 4mg/ml Inj (IV USE ONLY) IVP PRN ×3 (07:08→22:23)
--- NOTE | 2019-01-08 07:30 | NUR ---
NURSE NOTES: Patient is in bed awake and able to verbalize needs. Patient is stable. Breathing is even and unlabored. Patient encouraged to use call light for assistance, verbalized understanding. Patient educated on the importance of fluid restriction, patient stated, "it's not ok, I need tea and ice." Patient aware of all risks and benefits, continues to be noncompliant. Patient is in bed in locked and lowest position with call light within reach. Will continue to monitor.
--- NOTE | 2019-01-08 08:28 | Neurology Progress Note ---
Interim History Interim History ROS Limited/Unobtainable: No Events: Improving neuropathic pain Interim History This visit was conducted on January 08, [address] Dominick Bejarano Objective Physical Exam Last Vital Signs Date Time Temp Pulse Resp B/P (MAP) Pulse Ox O2 Delivery O2 Flow Rate FiO2 01/08/19 07:38 98.1 01/08/19 04:00 68 20 102/65 (77) 100 01/07/19 21:00 Room Air Neurologic Exam Mental Status: awake, alert, oriented x4, normal cognition, good mathematical skills, normal recent memory, normal remote memory, preserved visuospatial function Speech: normal speech, no dysarthia Language: normal language, no aphasia Cranial Nerve II: fundus normal, visual jesus, no papilledema Cranial Nerves III, IV, : PERRLA, EOMI, pupils Cranial Nerve V: normal facial sensations, temporales function normal, masseters function normal, pterygoids function normal Cranial Nerve VII: no facial asymmetry, normal facial expressions Cranial Nerve IX: normal palate elevation, gag response Cranial Nerve X: no voice hoarseness Cranial Nerve XI: SCM symmetric, trapezii function normal Cranial Nerve XII: tongue midline, no tongue atrophy/fasciculations Motor System: other Deep Tendon Reflexes: 1+ bicep (L), 1+ bicep (R), 1+ tricep (L), 1+ tricep (R) , 1+ brachioradialis (L), 1+ brachioradialis (R), 1+ knee (L), 1+ knee (R), 1+ ankle (L), 1+ ankle (R) Reflexes: flexor plantar (L), flexor plantar (R); extensor plantar (L), extensor plantar (R) Gait: other Impression/Recommendations Problems: (1) UTI (urinary tract infection) (2) Multiple sclerosis Assessment & Plan: Bilateral lower leg atrophy and foot drop PT for orthotic braces? Increasing Lyrica from 50mg BID to 50mg TID to 75mg TID (3) HTN (hypertension) (4) Chronic pain (5) Hypothyroid Status: progressing Recommendations MS Diagnosis confirmed on MRI but without any current enhancement - Pseudoflare at this time. Symptoms can be managed individually- Lyrica to be up titrated as needed . Increased Lyrica to 75mg TID Kacie Toscano N.PMervin January 08, 2019 08:28
--- NOTE | 2019-01-08 08:42 | General Progress Note ---
Assessment/Plan Assessment/Plan: (1) Neuropathic pain (2) Multiple Sclerosis Patient will be continued on Morphine and Percocet. D/w Dr. Fried and he concurred. Subjective Date patient seen: January 08, 2019 Time patient seen: 07:00 - am Allergies: Coded Allergies: HYDROMORPHONE (Verified Allergy, Intermediate, 03/28/18) PREDNISONE (Verified Allergy, Intermediate, 03/28/18) PSEUDOEPHEDRINE (Verified Allergy, Intermediate, 03/28/18) Subjective REVIEW OF SYSTEMS: Denies rash, fever, chills, sweating, dizziness, drowsiness, blurred vision, sore throat, or change in weight. No shortness of breath or chest pain. No nausea, vomiting, diarrhea, or blood in the stool or urine. She is complaining of generalized body pain. SUBJECTIVE: Patient showing no signs of pain and has been tolerated on the medications. No new complaints. Objective Last 24 Hour Vital Signs Date Time Temp Pulse Resp B/P (MAP) Pulse Ox O2 Delivery O2 Flow Rate FiO2 01/08/19 07:38 98.1 01/08/19 04:00 98.1 68 20 102/65 (77) 100 01/08/19 00:00 97.0 66 20 104/72 (83) 100 01/07/19 21:00 Room Air 01/07/19 20:00 98.6 65 19 106/70 (82) 100 01/07/19 16:00 98.3 65 19 113/72 (86) 100 01/07/19 14:48 66 125/76 (92) 01/07/19 12:00 98.1 75 18 88/56 (67) 95 01/07/19 10:20 83 104/60 (75) 01/07/19 09:00 Room Air Intake and Output 01/07/19 01/08/19 19:00 07:00 Intake Total 300 ml Output Total 1450 ml Balance -1150 ml Intake Oral 300 ml Output Urine Total 1450 ml Height (Feet): 5 Height (Inches): 8.00 Weight (Pounds): 180 Objective GENERAL: She is alert, awake, and oriented. LUNGS: Decreased breath sounds bilaterally. HEART: S1 and S2 regular. ABDOMEN: Benign. EXTREMITIES: No cyanosis. No clubbing. No edema. NEUROLOGICAL: Marked weakness noted in bilateral lower extremities. Alonso Young January 08, 2019 08:42
[2019-01-08] MEDS: Docusate 100mg cap ORAL SCH ×4 (09:07→17:38)
[2019-01-08] MEDS: Levofloxacin 500mg tab ORAL SCH (09:07)
[2019-01-08] MEDS: Lyrica 75mg cap ORAL SCH ×3 (09:08→17:38)
[2019-01-08] MEDS: carBAMazepine 200mg tab ORAL SCH ×2 (09:08→17:38)
[2019-01-08] MEDS: Oxymetazoline 0.05% Na Spray 30ml NASAL PRN (09:56)
--- NOTE | 2019-01-08 11:59 | NUR ---
DISCHARGE PLANNING FAXED REFERRAL TO: [facility] WILL FOLLOW UP
--- NOTE | 2019-01-08 13:08 | NUR ---
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 MS VS: BP 102/65,P 68, T 97.0, RR 20, SpO2 98 NO LABS TODAY IS:LASIX 10mg IV TEGRETOL 200mg K-DUR 40meq BACLOFEN 10mg MORPHINE 4mg IVP 3E MED/SURG STATUS
--- NOTE | 2019-01-08 13:21 | General Progress Note ---
Assessment/Plan Problem List: (1) UTI (urinary tract infection) ICD Codes: N39.0 - Urinary tract infection, site not specified SNOMED: 09995382 (2) HTN (hypertension) ICD Codes: I10 - Essential (primary) hypertension SNOMED: 82677968 (3) Chronic pain ICD Codes: G89.29 - Other chronic pain SNOMED: 81560141 (4) Hypothyroid ICD Codes: E03.9 - Hypothyroidism, unspecified SNOMED: 62244093 (5) Myalgia ICD Codes: M79.10 - Myalgia, unspecified site SNOMED: 06641854 (6) Hyponatremia ICD Codes: E87.1 - Hypo-osmolality and hyponatremia SNOMED: 59439746 (7) Multiple sclerosis ICD Codes: G35 - Multiple sclerosis SNOMED: 54427685 Status: unchanged Assessment/Plan: pt diet pain control abx cbc bmp am Subjective Constitutional: Reports: weakness Allergies: Coded Allergies: HYDROMORPHONE (Verified Allergy, Intermediate, 03/28/18) PREDNISONE (Verified Allergy, Intermediate, 03/28/18) PSEUDOEPHEDRINE (Verified Allergy, Intermediate, 03/28/18) All Systems: reviewed and negative except above Subjective sleepy calm Objective Last 24 Hour Vital Signs Date Time Temp Pulse Resp B/P (MAP) Pulse Ox O2 Delivery O2 Flow Rate FiO2 01/08/19 09:00 Room Air 01/08/19 08:00 97.9 68 17 124/65 (84) 98 01/08/19 07:38 98.1 01/08/19 04:00 98.1 68 20 102/65 (77) 100 01/08/19 00:00 97.0 66 20 104/72 (83) 100 01/07/19 21:00 Room Air 01/07/19 20:00 98.6 65 19 106/70 (82) 100 01/07/19 16:00 98.3 65 19 113/72 (86) 100 01/07/19 14:48 66 125/76 (92) Intake and Output 01/07/19 01/08/19 19:00 07:00 Intake Total 300 ml Output Total 1450 ml Balance -1150 ml Intake Oral 300 ml Output Urine Total 1450 ml Height (Feet): 5 Height (Inches): 8.00 Weight (Pounds): 180 General Appearance: lethargic EENT: normal ENT inspection Neck: normal alignment Cardiovascular: normal peripheral pulses, normal rate, regular rhythm Respiratory/Chest: chest wall non-tender, lungs clear, normal breath sounds Abdomen: normal bowel sounds, non tender, soft Extremities: normal inspection Edema: no edema noted Arm (L), no edema noted Arm (R), no edema noted Leg (L), no edema noted Leg (R), no edema noted Pedal (L), no edema noted Pedal (R), no edema noted Generalized Neurologic: motor weakness Skin: normal pigmentation, warm/dry Nishant Rider January 08, 2019 13:21
--- NOTE | 2019-01-08 14:17 | Infectious Diseases Prog Note ---
Assessment/Plan Assessment/Plan Abx: Levaquin x1 01/05 Assessment: ?MS Flare -MRI Brain: Extensive white matter disease consistent with the given history of multiple sclerosis. No enhancing lesions identified. Generalized atrophy of the brain. Sinusitis. Left mastoiditis Probable UTI -u/a wbc 40-60, nit +, leuk +3; ucx >100k E>coli ( R amp; otherwise S) Afebrile No leukocytosis Hyponatremia MS w/ resultant paraplegia anemia HTN stage 1 sacal decub ulcer [facility] resident Plan: -Continue Levaquin #4/5 for UTI -f/u cx -Monitor CBC/CMP, temperatures -aspiration precautions -wound care per hospital protocol -Neuro eval Thank you for this consultation. Will continue to follow along with you. Discussed with RN. Subjective Allergies: Coded Allergies: HYDROMORPHONE (Verified Allergy, Intermediate, 03/28/18) PREDNISONE (Verified Allergy, Intermediate, 03/28/18) PSEUDOEPHEDRINE (Verified Allergy, Intermediate, 03/28/18) Subjective afebrile no leukocytosis Objective Vital Signs Last 24 Hour Vital Signs Date Time Temp Pulse Resp B/P (MAP) Pulse Ox O2 Delivery O2 Flow Rate FiO2 01/08/19 12:00 98.4 64 17 121/70 (87) 98 01/08/19 09:00 Room Air 01/08/19 08:00 97.9 68 17 124/65 (84) 98 01/08/19 07:38 98.1 01/08/19 04:00 98.1 68 20 102/65 (77) 100 01/08/19 00:00 97.0 66 20 104/72 (83) 100 01/07/19 21:00 Room Air 01/07/19 20:00 98.6 65 19 106/70 (82) 100 01/07/19 16:00 98.3 65 19 113/72 (86) 100 01/07/19 14:48 66 125/76 (92) Height (Feet): 5 Height (Inches): 8.00 Weight (Pounds): 180 Objective General Appearance: WD/WN Lines, tubes and drains: peripheral HEENT: normocephalic, atraumatic Neck: non-tender, normal alignment Respiratory/Chest: chest wall non-tender, lungs clear Cardiovascular/Chest: normal peripheral pulses, normal rate, regular rhythm Abdomen: normal bowel sounds, non tender Extremities: normal range of motion, non-pitting Current Medications Medications (Trade) Dose Ordered Sig/[place] Route PRN Reason Start Time Stop Time Status Last Admin Dose Admin Acetaminophen (Tylenol) 650 mg Q4H PRN ORAL fever 01/04/19 22:15 02/03/19 22:14 Baclofen (Lioresal) 10 mg Q8HR ORAL 01/04/19 22:00 02/03/19 21:59 01/08/19 14:02 Bisacodyl (Dulcolax) 5 mg DAILYPRN PRN ORAL Constipation 01/07/19 16:45 02/06/19 16:44 Carbamazepine (TEGretol) 200 mg BID ORAL 01/05/19 09:00 02/04/19 08:59 01/08/19 09:08 Dextrose (Dextrose 50%) 25 ml Q30M PRN IV Hypoglycemia 01/06/19 15:30 02/05/19 15:16 Dextrose (Dextrose 50%) 50 ml Q30M PRN IV hypoglycemia 01/06/19 15:30 02/05/19 15:29 Diphenhydramine HCl (Benadryl) 50 mg Q6H PRN ORAL Itching 01/05/19 08:30 02/04/19 08:29 01/08/19 09:51 Docusate Sodium (Colace) 100 mg THREE TIMES A DAY ORAL 01/05/19 09:00 02/04/19 08:59 01/08/19 09:07 Furosemide (Lasix) 10 mg EVERY 6 HOURS IV 01/06/19 14:00 02/05/19 13:59 01/08/19 12:26 Gabapentin (Neurontin) 400 mg TID ORAL 01/05/19 09:00 02/04/19 08:59 01/08/19 12:25 Levofloxacin (Levaquin) 500 mg DAILY ORAL 01/06/19 09:00 01/13/19 08:59 01/08/19 09:07 Lorazepam (Ativan 2mg/ml 1ml) 0.5 mg Q4H PRN IV For Anxiety 01/04/19 22:15 01/11/19 22:14 01/06/19 22:02 Midodrine (Pro-Amatine) 2.5 mg THREE TIMES A DAY ORAL 01/07/19 13:00 02/06/19 12:59 01/08/19 12:26 Morphine Sulfate (Morphine Sulfate) 1 mg EVERY 4 HOURS PRN IVP Moderate Pain (Pain Scale 4-6) 01/05/19 09:30 01/11/19 22:14 Morphine Sulfate (Morphine Sulfate) 4 mg Q4H PRN IVP Severe Pain (Pain Scale 7-10) 01/04/19 22:30 01/11/19 22:29 01/08/19 07:08 Ondansetron HCl (Zofran) 4 mg Q6H PRN IVP Nausea & Vomiting 01/04/19 22:15 02/03/19 22:14 Oxycodone/ Acetaminophen (Percocet 10/325) 1 tab Q6H PRN ORAL Moderate Breakthru Pain (4-6) 01/05/19 09:30 01/12/19 09:29 01/07/19 18:05 Oxymetazoline HCl (Afrin Nasal [place]) 1 spray Q12H PRN NASAL CONGESTION 01/07/19 16:45 02/06/19 16:44 01/08/19 09:56 Polyethylene Glycol (Miralax) 17 gm HSPRN PRN ORAL Constipation 01/04/19 22:15 02/03/19 22:14 01/06/19 20:18 Potassium Chloride (K-Dur) 40 meq DAILY ORAL 01/08/19 09:00 02/07/19 08:59 01/08/19 09:07 Pregabalin (Lyrica) 75 mg TID ORAL 01/08/19 09:00 02/04/19 08:59 01/08/19 12:25 Quetiapine Fumarate (SEROquel) 300 mg DAILY ORAL 01/05/19 09:00 02/04/19 08:59 01/08/19 09:07 Temazepam (Restoril) 30 mg HSPRN PRN ORAL Insomnia 01/04/19 22:30 01/11/19 22:29 01/07/19 21:33 Shivani Sánchez M.D. January 08, 2019 14:17
--- NOTE | 2019-01-08 14:48 | NUR ---
RD ASSESSMENT & RECOMMENDATIONS SEE CARE ACTIVITY FOR COMPLETE ASSESSMENT DAILY ESTIMATED NEEDS: Needs based on wound, 69kg adj 25-35 kcals/kg 0413-1330 total kcals 1.25-1.5 g protein/kg 86-104 g total protein Fluid per MD: 1.2L/day NUTRITION DIAGNOSIS: 1) Increased protein needs r/t wound healing as evidenced by partial thickness sacral wound. 2) Altered nutrition related lab values r/t clinical status as evidenced by pt adm w/ low Na (125->133), low osmolality (275), on 1.2L fluid restriction. CURRENT DIET: Regular diet PO DIET RECOMMENDATIONS: Regular diet ADDITIONAL RECOMMENDATIONS: 1) Wound care:MVI x1 + Vit C 250mg daily REC SHARLENE BID when off Fluid restriction (requires 8oz per pack) 2) Obtain a calibrated bed scale wt as able 3) On lasix, monitor lytes daily 4) Add High protein snack in b/w meals
--- NOTE | 2019-01-08 15:33 | Nephrology Progress Note ---
Assessment/Plan Problem List: (1) Hyponatremia (2) Multiple sclerosis (3) Chronic pain (4) UTI (urinary tract infection) Assessment Low BP improved with Midodrine- Low Na , improving Multiple Sclerosis Myalgia stage 2-3 sacral decub Plan check lytes in am gabriel 3% saline + lasix tried previously pain management low na lacey indicates SIADH per orders 1200 cc po fluid restriction discussed with RN Subjective ROS Limited/Unobtainable: No Constitutional: Reports: malaise, weakness Objective Objective Last 24 Hour Vital Signs Date Time Temp Pulse Resp B/P (MAP) Pulse Ox O2 Delivery O2 Flow Rate FiO2 01/08/19 12:00 98.4 64 17 121/70 (87) 98 01/08/19 09:00 Room Air 01/08/19 08:00 97.9 68 17 124/65 (84) 98 01/08/19 07:38 98.1 01/08/19 04:00 98.1 68 20 102/65 (77) 100 01/08/19 00:00 97.0 66 20 104/72 (83) 100 01/07/19 21:00 Room Air 01/07/19 20:00 98.6 65 19 106/70 (82) 100 01/07/19 16:00 98.3 65 19 113/72 (86) 100 Intake and Output 01/07/19 01/08/19 19:00 07:00 Intake Total 300 ml Output Total 1450 ml Balance -1150 ml Intake Oral 300 ml Output Urine Total 1450 ml Height (Feet): 5 Height (Inches): 8.00 Weight (Pounds): 180 General Appearance: no apparent distress Objective no change Zoran Martinez MD January 08, 2019 15:33
--- NOTE | 2019-01-08 17:00 | NUR ---
NURSE NOTES: Dressing changed as ordered. Patient tolerated it well. Will continue to monitor.
--- NOTE | 2019-01-08 19:35 | NUR ---
HAND-OFF: Report given to Nicolette KHOURY. Patient is stable.
--- NOTE | 2019-01-08 19:40 | Cardiology Report ---
APPROVED REPORT EKG Measurement Heart [id number] [place] 182P52 [id number] Normal sinus rhythm Rightward axis Borderline ECG
--- NOTE | 2019-01-08 19:40 | NUR ---
NURSE NOTES: patient received. patient in no acute distress at this time. patient complains of no pain at this time. Patient awake alert and oriented x4. patient IV intact patent and asymptomatic. bed in lowest position and locked. call light within reach. bed alarm on. will continue to monitor.
--- NOTE | 2019-01-08 19:46 | Cardiology Report ---
APPROVED REPORT EKG Measurement Heart [id number] NM 180P39 [id number] Sinus rhythm with premature atrial complexes Otherwise normal ECG
--- NOTE | 2019-01-08 20:10 | NUR ---
NURSE NOTES: memo has stage II sacral wound. wound dressing dry and intact. will continue to monitor.
[2019-01-09 04:00] VITALS: BP 133/76
--- NOTE | 2019-01-09 04:00 | NUR ---
NURSE NOTES: patient requested i give her all her pain medications together. i explained to her she can only get one at a time. she has been up the whole shift calling the nurses station constantly for medications and for various other things. will continue to monitor.
[2019-01-09] MEDS: Morphine Sulfate 4mg/ml Inj (IV USE ONLY) IVP PRN ×3 (06:18→16:39)
[2019-01-09 06:55] LABS: ALANINE AMINOTRANSFERASE 19 U/L (12-78); ALBUMIN 3.1 G/DL (3.4-5.0); ALKALINE PHOSPHATASE 82 U/L (46-116); ANION GAP 8 mmol/L (5-15); ASPARTATE AMINO TRANSFERASE 14 U/L (15-37); BILIRUBIN,TOTAL 0.2 MG/DL (0.2-1.0); BLOOD UREA NITROGEN 14 mg/dL (7-18); CALCIUM 8.5 MG/DL (8.5-10.1); CARBON DIOXIDE 25 MMOL/L (21-32); CHLORIDE 98 MMOL/L (98-107); CREATININE 0.4 MG/DL (0.55-1.30); SODIUM 131 MMOL/L (136-145)
[2019-01-09 06:57] LABS: BASOPHILS % (AUTO) 1.4 % (0.0-2.0); EOSINOPHILS % (AUTO) 3.1 % (0.0-3.0); HEMATOCRIT 33.8 % (37.0-47.0); HEMOGLOBIN 11.5 G/DL (12.0-16.0); LYMPHOCYTES % (AUTO) 43.5 % (20.0-45.0); MEAN CORPUSCULAR VOLUME 91 FL (80-99); MONOCYTES % (AUTO) 6.7 % (1.0-10.0); NEUTROPHILS % (AUTO) 45.3 % (45.0-75.0); PLATELET COUNT 282 K/UL (150-450); RED BLOOD COUNT 3.73 M/UL (4.20-5.40); RED CELL DISTRIBUTION WIDTH 12.6 % (11.6-14.8); WHITE BLOOD COUNT 5.4 K/UL (4.8-10.8)
--- NOTE | 2019-01-09 07:25 | NUR ---
NURSE NOTES: WALKING ROUNDS DONE WITH OUTGOING RN. PATIENT AWAKE IN BED. HAD A RESTLESS NIGHT BUT STATES SHE IS SLEEPY NOW. QUESTIONS ANSWERED, NEEDS MET A THIS TIME.DISCUSSED PLAN OF CARE FOR THE DAY. VERBALIZED UNDERSTANDING.CALL LIGHT WITHIN REACH. BED IN LOW AND LOCKED POSITION.
[2019-01-09 08:00] VITALS: BP 108/65
[2019-01-09] MEDS: Lyrica 75mg cap ORAL SCH ×3 (09:29→18:02)
[2019-01-09] MEDS: carBAMazepine 200mg tab ORAL SCH (09:29)
[2019-01-09] MEDS: Levofloxacin 500mg tab ORAL SCH (09:30)
[2019-01-09] MEDS: Docusate 100mg cap ORAL SCH ×3 (09:30→18:00)
[2019-01-09] MEDS ORDERED: NaCl 3% 500ml 500 ML IV ONE (11:30)
[2019-01-09 12:00] VITALS: BP 96/56
--- NOTE | 2019-01-09 12:10 | Nephrology Progress Note ---
Assessment/Plan Problem List: (1) Hyponatremia (2) Multiple sclerosis (3) Chronic pain (4) UTI (urinary tract infection) Assessment Low BP improved with Midodrine- Low Na , improving Multiple Sclerosis Myalgia stage 2-3 sacral decub Plan non compliant with po fluid restriction check lytes in am gabriel 3% saline + lasix tried previously, retry today pain management low na lacey indicates SIADH per orders 1200 cc po fluid restriction discussed with RN Subjective ROS Limited/Unobtainable: No Constitutional: Reports: malaise Objective Objective Last 24 Hour Vital Signs Date Time Temp Pulse Resp B/P (MAP) Pulse Ox O2 Delivery O2 Flow Rate FiO2 01/09/19 11:14 98.4 01/09/19 09:59 98.4 01/09/19 09:00 Room Air 01/09/19 08:00 98.4 16 16 108/65 (79) 94 01/09/19 04:00 98.9 57 18 133/76 (95) 96 01/08/19 23:09 124/78 (93) 01/08/19 21:00 Room Air 01/08/19 20:00 98.9 68 18 132/72 (92) 96 01/08/19 16:00 98.1 69 19 126/72 (90) 97 Intake and Output 01/08/19 01/09/19 19:00 07:00 Intake Total 660 ml 480 ml Output Total 1750 ml 700 ml Balance -1090 ml -220 ml Intake Oral 660 ml 480 ml Output Urine Total 1750 ml 700 ml # Voids 1 Laboratory Tests 01/09/19 05:10: White Blood Count 5.4, Red Blood Count 3.73L, Hemoglobin 11.5L, Hematocrit 33.8L , Mean Corpuscular Volume 91, Mean Corpuscular Hemoglobin 30.9, Mean Corpuscular Hemoglobin Concent 34.2, Red Cell Distribution Width 12.6, Platelet Count 282, Mean Platelet Volume 6.0L, Neutrophils (%) (Auto) 45.3, Lymphocytes ( %) (Auto) 43.5, Monocytes (%) (Auto) 6.7, Eosinophils (%) (Auto) 3.1H, Basophils (%) (Auto) 1.4, Sodium Level 131L, Potassium Level 4.0, Chloride Level 98, Carbon Dioxide Level 25, Anion Gap 8, Blood Urea Nitrogen 14, Creatinine 0.4L, Estimat Glomerular Filtration Rate > 60, Glucose Level 88, Osmolality 272L, Uric Acid 3.0, Calcium Level 8.5, Phosphorus Level 4.0, Magnesium Level 1.6L, Total Bilirubin 0.2, Aspartate Amino Transf (AST/SGOT) 14L , Alanine Aminotransferase (ALT/SGPT) 19, Alkaline Phosphatase 82, Total Protein 6.3L, Albumin 3.1L, Globulin 3.2, Albumin/Globulin Ratio 1.0 Height (Feet): 5 Height (Inches): 8.00 Weight (Pounds): 180 Objective no change Zoran Martinez MD January 09, 2019 12:10
--- NOTE | 2019-01-09 12:30 | General Progress Note ---
Assessment/Plan Problem List: (1) UTI (urinary tract infection) ICD Codes: N39.0 - Urinary tract infection, site not specified SNOMED: 53172518 (2) HTN (hypertension) ICD Codes: I10 - Essential (primary) hypertension SNOMED: 19791978 (3) Chronic pain ICD Codes: G89.29 - Other chronic pain SNOMED: 98831509 (4) Hypothyroid ICD Codes: E03.9 - Hypothyroidism, unspecified SNOMED: 05498737 (5) Myalgia ICD Codes: M79.10 - Myalgia, unspecified site SNOMED: 61374461 (6) Hyponatremia ICD Codes: E87.1 - Hypo-osmolality and hyponatremia SNOMED: 17804302 (7) Multiple sclerosis ICD Codes: G35 - Multiple sclerosis SNOMED: 47530456 Status: stable, progressing Assessment/Plan: pt diet pain control abx cbc bmp am dc plan snf Subjective Constitutional: Reports: weakness Allergies: Coded Allergies: HYDROMORPHONE (Verified Allergy, Intermediate, 03/28/18) PREDNISONE (Verified Allergy, Intermediate, 03/28/18) PSEUDOEPHEDRINE (Verified Allergy, Intermediate, 03/28/18) All Systems: reviewed and negative except above Subjective sleepy calm Objective Last 24 Hour Vital Signs Date Time Temp Pulse Resp B/P (MAP) Pulse Ox O2 Delivery O2 Flow Rate FiO2 01/09/19 11:14 98.4 01/09/19 09:59 98.4 01/09/19 09:00 Room Air 01/09/19 08:00 98.4 16 16 108/65 (79) 94 01/09/19 04:00 98.9 57 18 133/76 (95) 96 01/08/19 23:09 124/78 (93) 01/08/19 21:00 Room Air 01/08/19 20:00 98.9 68 18 132/72 (92) 96 01/08/19 16:00 98.1 69 19 126/72 (90) 97 Intake and Output 01/08/19 01/09/19 19:00 07:00 Intake Total 660 ml 480 ml Output Total 1750 ml 700 ml Balance -1090 ml -220 ml Intake Oral 660 ml 480 ml Output Urine Total 1750 ml 700 ml # Voids 1 Laboratory Tests 01/09/19 05:10: White Blood Count 5.4, Red Blood Count 3.73L, Hemoglobin 11.5L, Hematocrit 33.8L , Mean Corpuscular Volume 91, Mean Corpuscular Hemoglobin 30.9, Mean Corpuscular Hemoglobin Concent 34.2, Red Cell Distribution Width 12.6, Platelet Count 282, Mean Platelet Volume 6.0L, Neutrophils (%) (Auto) 45.3, Lymphocytes ( %) (Auto) 43.5, Monocytes (%) (Auto) 6.7, Eosinophils (%) (Auto) 3.1H, Basophils (%) (Auto) 1.4, Sodium Level 131L, Potassium Level 4.0, Chloride Level 98, Carbon Dioxide Level 25, Anion Gap 8, Blood Urea Nitrogen 14, Creatinine 0.4L, Estimat Glomerular Filtration Rate > 60, Glucose Level 88, Osmolality 272L, Uric Acid 3.0, Calcium Level 8.5, Phosphorus Level 4.0, Magnesium Level 1.6L, Total Bilirubin 0.2, Aspartate Amino Transf (AST/SGOT) 14L , Alanine Aminotransferase (ALT/SGPT) 19, Alkaline Phosphatase 82, Total Protein 6.3L, Albumin 3.1L, Globulin 3.2, Albumin/Globulin Ratio 1.0 Height (Feet): 5 Height (Inches): 8.00 Weight (Pounds): 180 General Appearance: lethargic EENT: normal ENT inspection Neck: normal alignment Cardiovascular: normal peripheral pulses, normal rate, regular rhythm Respiratory/Chest: chest wall non-tender, lungs clear, normal breath sounds Abdomen: normal bowel sounds, non tender, soft Extremities: normal inspection Edema: no edema noted Arm (L), no edema noted Arm (R), no edema noted Leg (L), no edema noted Leg (R), no edema noted Pedal (L), no edema noted Pedal (R), no edema noted Generalized Neurologic: motor weakness Skin: normal pigmentation, warm/dry Nishant Rider DO January 09, 2019 12:30
--- NOTE | 2019-01-09 12:53 | Pulmonology Progress Note ---
Assessment/Plan Problems: (1) Hyponatremia (2) HTN (hypertension) (3) Chronic pain (4) Multiple sclerosis (5) Myalgia (6) DNR (do not resuscitate) Assessment/Plan add methadone f/u consultants recommendations all reviewed dvt prophylaxis Subjective ROS Limited/Unobtainable: No Constitutional: Reports: no symptoms HEENT: Repors: no symptoms Allergies: Coded Allergies: HYDROMORPHONE (Verified Allergy, Intermediate, 03/28/18) PREDNISONE (Verified Allergy, Intermediate, 03/28/18) PSEUDOEPHEDRINE (Verified Allergy, Intermediate, 03/28/18) Objective Last 24 Hour Vital Signs Date Time Temp Pulse Resp B/P (MAP) Pulse Ox O2 Delivery O2 Flow Rate FiO2 01/09/19 12:00 98.2 67 16 96/56 (69) 95 01/09/19 11:14 98.4 01/09/19 09:59 98.4 01/09/19 09:00 Room Air 01/09/19 08:00 98.4 16 16 108/65 (79) 94 01/09/19 04:00 98.9 57 18 133/76 (95) 96 01/08/19 23:09 124/78 (93) 01/08/19 21:00 Room Air 01/08/19 20:00 98.9 68 18 132/72 (92) 96 01/08/19 16:00 98.1 69 19 126/72 (90) 97 Intake and Output 01/08/19 01/09/19 19:00 07:00 Intake Total 660 ml 480 ml Output Total 1750 ml 700 ml Balance -1090 ml -220 ml Intake Oral 660 ml 480 ml Output Urine Total 1750 ml 700 ml # Voids 1 General Appearance: WD/WN HEENT: normocephalic, anicteric Respiratory/Chest: chest wall non-tender, lungs clear Breasts: no masses Cardiovascular: normal peripheral pulses Abdomen: normal bowel sounds, soft, non tender Genitourinary: normal external genitalia Extremities: no clubbing Skin: no rash Laboratory Tests 01/09/19 05:10: White Blood Count 5.4, Red Blood Count 3.73L, Hemoglobin 11.5L, Hematocrit 33.8L , Mean Corpuscular Volume 91, Mean Corpuscular Hemoglobin 30.9, Mean Corpuscular Hemoglobin Concent 34.2, Red Cell Distribution Width 12.6, Platelet Count 282, Mean Platelet Volume 6.0L, Neutrophils (%) (Auto) 45.3, Lymphocytes ( %) (Auto) 43.5, Monocytes (%) (Auto) 6.7, Eosinophils (%) (Auto) 3.1H, Basophils (%) (Auto) 1.4, Sodium Level 131L, Potassium Level 4.0, Chloride Level 98, Carbon Dioxide Level 25, Anion Gap 8, Blood Urea Nitrogen 14, Creatinine 0.4L, Estimat Glomerular Filtration Rate > 60, Glucose Level 88, Osmolality 272L, Uric Acid 3.0, Calcium Level 8.5, Phosphorus Level 4.0, Magnesium Level 1.6L, Total Bilirubin 0.2, Aspartate Amino Transf (AST/SGOT) 14L , Alanine Aminotransferase (ALT/SGPT) 19, Alkaline Phosphatase 82, Total Protein 6.3L, Albumin 3.1L, Globulin 3.2, Albumin/Globulin Ratio 1.0 Current Medications Medications (Trade) Dose Ordered Sig/[place] Route PRN Reason Start Time Stop Time Status Last Admin Dose Admin Acetaminophen (Tylenol) 650 mg Q4H PRN ORAL fever 01/04/19 22:15 02/03/19 22:14 Baclofen (Lioresal) 10 mg Q8HR ORAL 01/04/19 22:00 02/03/19 21:59 01/09/19 06:17 Bisacodyl (Dulcolax) 5 mg DAILYPRN PRN ORAL Constipation 01/07/19 16:45 02/06/19 16:44 Carbamazepine (TEGretol) 200 mg Q12HR ORAL 01/09/19 21:00 02/04/19 08:59 Dextrose (Dextrose 50%) 25 ml Q30M PRN IV Hypoglycemia 01/06/19 15:30 02/05/19 15:16 Dextrose (Dextrose 50%) 50 ml Q30M PRN IV hypoglycemia 01/06/19 15:30 02/05/19 15:29 Diphenhydramine HCl (Benadryl) 50 mg Q6H PRN ORAL Itching 01/05/19 08:30 02/04/19 08:29 01/08/19 17:53 Docusate Sodium (Colace) 100 mg THREE TIMES A DAY ORAL 01/05/19 09:00 02/04/19 08:59 01/09/19 09:30 Furosemide (Lasix) 10 mg EVERY 6 HOURS IV 01/09/19 12:00 02/08/19 11:59 01/09/19 12:05 Gabapentin (Neurontin) 400 mg TID ORAL 01/05/19 09:00 02/04/19 08:59 01/09/19 09:29 Levofloxacin (Levaquin) 500 mg DAILY ORAL 01/06/19 09:00 01/13/19 08:59 01/09/19 09:30 Lorazepam (Ativan 2mg/ml 1ml) 0.5 mg Q4H PRN IV For Anxiety 01/04/19 22:15 01/11/19 22:14 01/06/19 22:02 Midodrine (Pro-Amatine) 2.5 mg THREE TIMES A DAY ORAL 01/07/19 13:00 02/06/19 12:59 01/09/19 09:29 Morphine Sulfate (Morphine Sulfate) 1 mg EVERY 4 HOURS PRN IVP Moderate Pain (Pain Scale 4-6) 01/05/19 09:30 01/11/19 22:14 Morphine Sulfate (Morphine Sulfate) 4 mg Q4H PRN IVP Severe Pain (Pain Scale 7-10) 01/04/19 22:30 01/11/19 22:29 01/09/19 10:44 Ondansetron HCl (Zofran) 4 mg Q6H PRN IVP Nausea & Vomiting 01/04/19 22:15 02/03/19 22:14 Oxycodone/ Acetaminophen (Percocet 10/325) 1 tab Q6H PRN ORAL Moderate Breakthru Pain (4-6) 01/05/19 09:30 01/12/19 09:29 01/09/19 12:07 Oxymetazoline HCl (Afrin Nasal [place]) 1 spray Q12H PRN NASAL CONGESTION 01/07/19 16:45 02/06/19 16:44 01/08/19 09:56 Polyethylene Glycol (Miralax) 17 gm HSPRN PRN ORAL Constipation 01/04/19 22:15 02/03/19 22:14 01/06/19 20:18 Potassium Chloride (K-Dur) 40 meq DAILY ORAL 01/08/19 09:00 02/07/19 08:59 01/09/19 09:30 Pregabalin (Lyrica) 75 mg TID ORAL 01/08/19 09:00 02/04/19 08:59 01/09/19 09:29 Quetiapine Fumarate (SEROquel) 300 mg DAILY ORAL 01/05/19 09:00 02/04/19 08:59 01/09/19 09:29 Sodium Chloride 500 ml @ 30 mls/hr ONCE ONCE IV 01/09/19 11:30 01/10/19 04:09 01/09/19 12:04 Temazepam (Restoril) 30 mg HSPRN PRN ORAL Insomnia 01/04/19 22:30 01/11/19 22:29 01/09/19 00:12 Jose De Jesus Alcala MD January 09, 2019 12:53
--- NOTE | 2019-01-09 15:10 | NUR ---
NURSE NOTES: WOUND CARE NOTES:Pt presented on admission with non-blanchable erythema cleft of buttocks. Sacral erythema resolving cleft of buttocks with less erythema noted .Skin is intact and pt denied tenderness when area palpated. Both heels are soft but blanchable and pt denied tenderness when R and L heels both palpated. Pt demonstrated ability to reposition self when cued. Education provided on wound prevention and encouraged to frequently reposition slef and to off-lift buttocks when repositioning to prevent friction on skin. Recommendations: Apply Moisture Barrier paste to buttocks .Cover sacral area with Optifoam drsg. Change every 3 days and prn. Apply Cavilon Skin BArrier to R and L heels .Cover each heel with Optifoam drsg. Change every 7 days and prn. Encourage and assist as needed with repositioning at least every 2hours or as tolerated. Off-Load heels with pillow.
--- NOTE | 2019-01-09 15:18 | NUR ---
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 HYPOTHYROIDISM VS: BP 96/56, P 67, T 98.2, RR 16, SpO2 94 RBC 3.73, H&H 11.5/33.8, Na 131, CR 0.4 IS:BACLOFEN 10mg GABAPENTIN 400mg LYRICA 75mg PERCOCET 10/325 1tab NS x1L IV K-DUR 40meq 3E MED/SURG STATUS
[2019-01-09 15:46] VITALS: BP 105/49
--- NOTE | 2019-01-09 17:10 | NUR ---
NURSE NOTES: DISCHARGE ORDER RECEIVED TODAY. WILL BE TRANSFERRED TO [facility] THIS EVENING. PATIENT AWARE AND ENTHUSIASTIC ABOUT GOING TO NEW FACILITY. SACRAL WOUND PICTURE TAKENED AND DOWNLOADED. NOTED TO RIGHT ABDOMEN DRY SCAB NAD BILATERAL HEELS WITH OPTIFOAM FOR PROTECTION PLACED BY COOLER WORKER. NO WOUNDS PRESENT TO THESE AREAS.HEPLOCK REMOVED. ALL BELONGINGS ACCOUNTED FOR AND PACKED TO BE TRANSPORTED WITH PATIENT.PER MD TO [facility]. REPORT GIVEN TO JODY AT [facility]. WILL BE TRANSPORTED VIA BLS AMBULANCE.
--- NOTE | 2019-01-09 17:31 | Infectious Diseases Prog Note ---
Assessment/Plan Assessment/Plan Abx: Levaquin x1 01/05 Assessment: ?MS Flare -MRI Brain: Extensive white matter disease consistent with the given history of multiple sclerosis. No enhancing lesions identified. Generalized atrophy of the brain. Sinusitis. Left mastoiditis Probable UTI -u/a wbc 40-60, nit +, leuk +3; ucx >100k E>coli ( R amp; otherwise S) Afebrile No leukocytosis Hyponatremia MS w/ resultant paraplegia anemia HTN stage 1 sacal decub ulcer NH resident Plan: -Continue Levaquin #5/ for UTI -f/u cx -Monitor CBC/CMP, temperatures -aspiration precautions -wound care per hospital protocol -Neuro eval Thank you for this consultation. Will continue to follow along with you. Discussed with RN. Subjective Allergies: Coded Allergies: HYDROMORPHONE (Verified Allergy, Intermediate, 03/28/18) PREDNISONE (Verified Allergy, Intermediate, 03/28/18) PSEUDOEPHEDRINE (Verified Allergy, Intermediate, 03/28/18) Subjective afebrile no leukocytosis Objective Vital Signs Last 24 Hour Vital Signs Date Time Temp Pulse Resp B/P (MAP) Pulse Ox O2 Delivery O2 Flow Rate FiO2 01/09/19 17:09 98.0 01/09/19 15:46 98.0 61 15 105/49 (67) 95 01/09/19 14:02 98.4 01/09/19 12:37 98.4 01/09/19 12:00 98.2 67 16 96/56 (69) 95 01/09/19 09:00 Room Air 01/09/19 08:00 98.4 16 16 108/65 (79) 94 01/09/19 04:00 98.9 57 18 133/76 (95) 96 01/08/19 23:09 124/78 (93) 01/08/19 21:00 Room Air 01/08/19 20:00 98.9 68 18 132/72 (92) 96 Height (Feet): 5 Height (Inches): 8.00 Weight (Pounds): 180 Objective General Appearance: WD/WN Lines, tubes and drains: peripheral HEENT: normocephalic, atraumatic Neck: non-tender, normal alignment Respiratory/Chest: chest wall non-tender, lungs clear Cardiovascular/Chest: normal peripheral pulses, normal rate, regular rhythm Abdomen: normal bowel sounds, non tender Extremities: normal range of motion, non-pitting Laboratory Tests Test 01/09/19 05:10 White Blood Count 5.4 K/UL (4.8-10.8) Red Blood Count 3.73 M/UL (4.20-5.40) L Hemoglobin 11.5 G/DL (12.0-16.0) L Hematocrit 33.8 % (37.0-47.0) L Mean Corpuscular Volume 91 FL (80-99) Mean Corpuscular Hemoglobin 30.9 PG (27.0-31.0) Mean Corpuscular Hemoglobin Concent 34.2 G/DL (32.0-36.0) Red Cell Distribution Width 12.6 % (11.6-14.8) Platelet Count 282 K/UL (150-450) Mean Platelet Volume 6.0 FL (6.5-10.1) L Neutrophils (%) (Auto) 45.3 % (45.0-75.0) Lymphocytes (%) (Auto) 43.5 % (20.0-45.0) Monocytes (%) (Auto) 6.7 % (1.0-10.0) Eosinophils (%) (Auto) 3.1 % (0.0-3.0) H Basophils (%) (Auto) 1.4 % (0.0-2.0) Sodium Level 131 MMOL/L (136-145) L Potassium Level 4.0 MMOL/L (3.5-5.1) Chloride Level 98 MMOL/L (98-107) Carbon Dioxide Level 25 MMOL/L (21-32) Anion Gap 8 mmol/L (5-15) Blood Urea Nitrogen 14 mg/dL (7-18) Creatinine 0.4 MG/DL (0.55-1.30) L Estimat Glomerular Filtration Rate > 60 mL/min (>60) Glucose Level 88 MG/DL (74-106) Osmolality 272 mOsm/kg (297-317) L Uric Acid 3.0 MG/DL (2.6-7.2) Calcium Level 8.5 MG/DL (8.5-10.1) Phosphorus Level 4.0 MG/DL (2.5-4.9) Magnesium Level 1.6 MG/DL (1.8-2.4) L Total Bilirubin 0.2 MG/DL (0.2-1.0) Aspartate Amino Transf (AST/SGOT) 14 U/L (15-37) L Alanine Aminotransferase (ALT/SGPT) 19 U/L (12-78) Alkaline Phosphatase 82 U/L (46-116) Total Protein 6.3 G/DL (6.4-8.2) L Albumin 3.1 G/DL (3.4-5.0) L Globulin 3.2 g/dL Albumin/Globulin Ratio 1.0 (1.0-2.7) Current Medications Medications (Trade) Dose Ordered Sig/[place] Route PRN Reason Start Time Stop Time Status Last Admin Dose Admin Acetaminophen (Tylenol) 650 mg Q4H PRN ORAL fever 01/04/19 22:15 02/03/19 22:14 Baclofen (Lioresal) 10 mg Q8HR ORAL 01/04/19 22:00 02/03/19 21:59 01/09/19 13:32 Bisacodyl (Dulcolax) 5 mg DAILYPRN PRN ORAL Constipation 01/07/19 16:45 02/06/19 16:44 Carbamazepine (TEGretol) 200 mg Q12HR ORAL 01/09/19 21:00 02/04/19 08:59 Dextrose (Dextrose 50%) 25 ml Q30M PRN IV Hypoglycemia 01/06/19 15:30 02/05/19 15:16 Dextrose (Dextrose 50%) 50 ml Q30M PRN IV hypoglycemia 01/06/19 15:30 02/05/19 15:29 Diphenhydramine HCl (Benadryl) 50 mg Q6H PRN ORAL Itching 01/05/19 08:30 02/04/19 08:29 01/08/19 17:53 Docusate Sodium (Colace) 100 mg THREE TIMES A DAY ORAL 01/05/19 09:00 02/04/19 08:59 01/09/19 09:30 Gabapentin (Neurontin) 400 mg TID ORAL 01/05/19 09:00 02/04/19 08:59 01/09/19 13:32 Levofloxacin (Levaquin) 500 mg DAILY ORAL 01/06/19 09:00 01/13/19 08:59 01/09/19 09:30 Lorazepam (Ativan 2mg/ml 1ml) 0.5 mg Q4H PRN IV For Anxiety 01/04/19 22:15 01/11/19 22:14 01/06/19 22:02 Methadone HCl (Methadone HCl) 10 mg EVERY 12 HOURS ORAL 01/09/19 21:00 01/16/19 20:59 Midodrine (Pro-Amatine) 2.5 mg THREE TIMES A DAY ORAL 01/07/19 13:00 02/06/19 12:59 01/09/19 13:32 Morphine Sulfate (Morphine Sulfate) 1 mg EVERY 4 HOURS PRN IVP Moderate Pain (Pain Scale 4-6) 01/05/19 09:30 01/11/19 22:14 Morphine Sulfate (Morphine Sulfate) 4 mg Q4H PRN IVP Severe Pain (Pain Scale 7-10) 01/04/19 22:30 01/11/19 22:29 01/09/19 16:39 Ondansetron HCl (Zofran) 4 mg Q6H PRN IVP Nausea & Vomiting 01/04/19 22:15 02/03/19 22:14 Oxycodone/ Acetaminophen (Percocet 10/325) 1 tab Q6H PRN ORAL Moderate Breakthru Pain (4-6) 01/05/19 09:30 01/12/19 09:29 01/09/19 12:07 Oxymetazoline HCl (Afrin Nasal [place]) 1 spray Q12H PRN NASAL CONGESTION 01/07/19 16:45 02/06/19 16:44 01/08/19 09:56 Polyethylene Glycol (Miralax) 17 gm HSPRN PRN ORAL Constipation 01/04/19 22:15 02/03/19 22:14 01/06/19 20:18 Potassium Chloride (K-Dur) 40 meq DAILY ORAL 01/08/19 09:00 02/07/19 08:59 01/09/19 09:30 Pregabalin (Lyrica) 75 mg TID ORAL 01/08/19 09:00 02/04/19 08:59 01/09/19 13:32 Quetiapine Fumarate (SEROquel) 300 mg QHS ORAL 01/10/19 21:00 02/04/19 08:59 Sodium Chloride 500 ml @ 30 mls/hr ONCE ONCE IV 01/09/19 11:30 01/10/19 04:09 01/09/19 12:04 Temazepam (Restoril) 30 mg HSPRN PRN ORAL Insomnia 01/04/19 22:30 01/11/19 22:29 01/09/19 00:12 Shivani Sánchez M.D. January 09, 2019 17:31
--- NOTE | 2019-01-09 18:30 | NUR ---
NURSE NOTES: PATIENT REFUSED TO [facility] DUE TO SEVERE INCONTINENCE. DR KNIGHT NOTIFIED. [facility] ORDER CANCELED. PATIENT AWARE.
--- NOTE | 2019-01-09 18:30 | NUR ---
NURSE NOTES: ADMINISTERED PERCOCET ONE TAB PO. SCANNED MEDICATION ASSUMED; WENT TO RE-ASSESS. DISCOVERED MED NOT SCANNED TO RE-ASSESS. SPOKE TO PHARMACY RAYMUNDO OF FINDINGS. PHARMACY AWARE AND CORRECTED.
[2019-01-09] MEDS ORDERED: carBAMazepine 200mg tab ORAL SCH (21:00)
--- NOTE | 2019-01-10 01:08 | Neurology Progress Note ---
Interim History Interim History ROS Limited/Unobtainable: No Events: Weakness/ Pain Interim History This visit was conducted on January 09, [address] Dominick Bejarano. Improved pain today with increased Lyrica dose Objective Physical Exam Last Vital Signs Date Time Temp Pulse Resp B/P (MAP) Pulse Ox O2 Delivery O2 Flow Rate FiO2 01/09/19 18:32 98.0 01/09/19 15:46 61 15 105/49 (67) 95 01/09/19 09:00 Room Air Laboratory Tests Test 01/09/19 05:10 White Blood Count 5.4 K/UL (4.8-10.8) Red Blood Count 3.73 M/UL (4.20-5.40) L Hemoglobin 11.5 G/DL (12.0-16.0) L Hematocrit 33.8 % (37.0-47.0) L Mean Corpuscular Volume 91 FL (80-99) Mean Corpuscular Hemoglobin 30.9 PG (27.0-31.0) Mean Corpuscular Hemoglobin Concent 34.2 G/DL (32.0-36.0) Red Cell Distribution Width 12.6 % (11.6-14.8) Platelet Count 282 K/UL (150-450) Mean Platelet Volume 6.0 FL (6.5-10.1) L Neutrophils (%) (Auto) 45.3 % (45.0-75.0) Lymphocytes (%) (Auto) 43.5 % (20.0-45.0) Monocytes (%) (Auto) 6.7 % (1.0-10.0) Eosinophils (%) (Auto) 3.1 % (0.0-3.0) H Basophils (%) (Auto) 1.4 % (0.0-2.0) Sodium Level 131 MMOL/L (136-145) L Potassium Level 4.0 MMOL/L (3.5-5.1) Chloride Level 98 MMOL/L (98-107) Carbon Dioxide Level 25 MMOL/L (21-32) Anion Gap 8 mmol/L (5-15) Blood Urea Nitrogen 14 mg/dL (7-18) Creatinine 0.4 MG/DL (0.55-1.30) L Estimat Glomerular Filtration Rate > 60 mL/min (>60) Glucose Level 88 MG/DL (74-106) Osmolality 272 mOsm/kg (297-317) L Uric Acid 3.0 MG/DL (2.6-7.2) Calcium Level 8.5 MG/DL (8.5-10.1) Phosphorus Level 4.0 MG/DL (2.5-4.9) Magnesium Level 1.6 MG/DL (1.8-2.4) L Total Bilirubin 0.2 MG/DL (0.2-1.0) Aspartate Amino Transf (AST/SGOT) 14 U/L (15-37) L Alanine Aminotransferase (ALT/SGPT) 19 U/L (12-78) Alkaline Phosphatase 82 U/L (46-116) Total Protein 6.3 G/DL (6.4-8.2) L Albumin 3.1 G/DL (3.4-5.0) L Globulin 3.2 g/dL Albumin/Globulin Ratio 1.0 (1.0-2.7) Neurologic Exam Mental Status: awake, alert, oriented x4, normal cognition, good mathematical skills, normal recent memory, normal remote memory, preserved visuospatial function Speech: normal speech, no dysarthia Language: normal language, no aphasia Cranial Nerve II: fundus normal, visual jesus, no papilledema Cranial Nerves III, IV, : PERRLA, EOMI, pupils Cranial Nerve V: normal facial sensations, temporales function normal, masseters function normal, pterygoids function normal Cranial Nerve VII: no facial asymmetry, normal facial expressions Cranial Nerve IX: normal palate elevation, gag response Cranial Nerve X: no voice hoarseness Cranial Nerve XI: SCM symmetric, trapezii function normal Cranial Nerve XII: tongue midline, no tongue atrophy/fasciculations Motor System: other Deep Tendon Reflexes: 1+ bicep (L), 1+ bicep (R), 1+ tricep (L), 1+ tricep (R) , 1+ brachioradialis (L), 1+ brachioradialis (R), 1+ knee (L), 1+ knee (R), 1+ ankle (L), 1+ ankle (R) Reflexes: flexor plantar (L), flexor plantar (R); extensor plantar (L), extensor plantar (R) Gait: other Impression/Recommendations Problems: (1) UTI (urinary tract infection) (2) Multiple sclerosis Assessment & Plan: Bilateral lower leg atrophy and foot drop PT for orthotic braces? Increasing Lyrica to (3) HTN (hypertension) (4) Chronic pain (5) Hypothyroid Status: stable, progressing Recommendations MS Diagnosis confirmed on MRI but without any current enhancement - Pseudoflare at this time. Symptoms can be managed individually- Lyrica to be up titrated as needed . Increased Lyrica to 75mg TID No change in dosage at this time. Stable for discharge from a neurological perspective Kacie Toscano N.P. January 10, 2019 01:08
--- NOTE | 2019-01-12 10:44 | Discharge Summary ---
Discharge Summary Discharge Summary _ DATE OF ADMISSION: 01/04/2019 DATE OF DISCHARGE: 01/09/2019 DISCHARGED BY: REASON FOR ADMISSION: 58 years old female with past medical history of multiple sclerosis, hypothyroidism, hypertension, anemia, resident of halfway facility, DNR/ DNI status, presented to emergency department with complaint of diffuse body aches and increased weakness in her legs. Upon evaluation in emergency department patient was found to be extremely hyponatremic with sodium 125. Stable renal parameters and LFT Urinalysis was grossly positive for UTI. EKG revealed sinus rhythm, no acute ischemic changes. No leukocytosis , stable hemoglobin and hematocrit. Patient subsequently was admitted to medical surgical floor for further management. CONSULTANTS: neurologist Dr. Bejarano pulmonary Dr. Alcala ID specialist Dr. Johnson easement man Dr. Martinez pain specialist Dr. Fried [facility] COURSE: Patient general started on IV fluids with normal saline. Renal parameters and electrolytes were closely monitored. Hyponatremia work-up initiated. No improvement in sodium. Hyponatremia work-up was consistent with SIADH as per easement man. Barrel Maker closely followed. Increase TSH mildly elevated 5.85. Dose of levothyroxine increased. Cortisol level stable. Patient started on fluid restriction. Patient received 3% saline infusion and Lasix for 2 days. Patient was not compliant with fluid restriction. Sodium improved to 131. Patient will need to continue with fluid restriction 1200 cc a day with close monitoring of sodium at the facility. Blood pressure was closely monitored and managed with midodrine. Blood pressure stabilized. DVT prophylaxis provided. Neurologist followed. MRI of the brain demonstrated extensive white matter disease, consistent with given history of multiple sclerosis. No enhancing lesion identified. Generalized atrophy of the brain noted. Per neurologist, patient had no evidence of multiple sclerosis exacerbation, and manifested pseudo-flare. Per neurologist, patient can be managed symptomatically with Lyrica which was uptitrated at this time. Neurologist recommended orthotic braces for bilateral lower leg atrophy and foot drop. Pain management was addressed as per pain specialist recommendations. Pain was eventually controlled. Infectious disease specialist followed. Urinalysis revealed E. coli. Patient afebrile, no leukocytosis. Patient completed course of Levaquin while and at the hospital. Bowel regimen instituted. Symptomatic care provided. Anxiolytic were on board as needed. Patient was stabilized and ready for transfer to halfway facility for continuation of care. FINAL DIAGNOSES: Acute hyponatremia, likely SIADH UTI with E. coli Multiple sclerosis Hypothyroidism Hypotension Neuropathic pain Anxiety disorder. DISCHARGE MEDICATIONS: See Medication Reconciliation list. DISCHARGE INSTRUCTIONS: Patient was discharged to the halfway facility. Follow up with medical doctor at the facility. I have been assigned to dictate discharge summary for this account. I was not involved in the patient's management. Amanda Spangler NP January 12, 2019 10:44
--- NOTE | 2019-01-22 19:25 | Cardiology Report ---
APPROVED REPORT EKG Measurement Heart [id number] Normal sinus rhythm Cannot rule out Anterior infarct, age undetermined Abnormal ECG
== END 2019-01-09 18:27 | DRG 426 ==
LOC: EDBD 18:00 → EMR 19:26 → 3E 19:29 → EDBEDREQ 20:25
DX: E22.2 Syndrome of inappropriate secretion of antidiuretic hormone (principal); L89.151 Pressure ulcer of sacral region, stage 1; E46 Unspecified protein-calorie malnutrition; I95.9 Hypotension, unspecified; G82.20 Paraplegia, unspecified; G35 Multiple sclerosis; E87.1 Hypo-osmolality and hyponatremia; G62.9 Polyneuropathy, unspecified; F41.9 Anxiety disorder, unspecified; I10 Essential (primary) hypertension; E03.9 Hypothyroidism, unspecified; N39.0 Urinary tract infection, site not specified; B96.20 Unspecified Escherichia coli [E. coli] as the cause of diseases classified elsewhere; Z88.8 Allergy status to other drugs, medicaments and biological substances; M79.10 Myalgia, unspecified site; Z66 Do not resuscitate; M21.372 Foot drop, left foot; M21.371 Foot drop, right foot
CPT/HCPCS: 36415; 70553; 80048; 80053; 80061; 80076; 81003; 82533; 83690; 83735; 83930; 83935; 84100; 84300; 84443; 84550; 85025; 87081; 87086; 87181; 93005; 93970; 96374; 96375; 97803; 99285; A9585; J2405; J8499

== ENCOUNTER 2019-03-07 12:39 | Inpatient (IN) | payer MEDICAID ==
[~2019-03-07] VITALS: Ht 167.6 cm; Wt 67.6 kg
[~2019-03-07 12:39] MED LIST changes: +NEURONTIN400 MG ORAL; +TEGRETOL200 MG PO
[2019-03-07 12:45] VITALS: BP 104/73
--- NOTE | 2019-03-07 12:47 | NUR ---
ED Nurse Note: Pt DANIEL from [facility] due to sternal area chest pain x 2 days with headache. Pt stated she had hx of "pericarditis years ago". Pain 8/10 jessica. AOx4, VSS jessica. Will cont to monitor.
--- NOTE | 2019-03-07 12:56 | NUR ---
ED Nurse Note: X-ray at bedside for imaging.
[2019-03-07 13:08] LABS: BASOPHILS % (AUTO) 0.9 % (0.0-2.0); EOSINOPHILS % (AUTO) 1.9 % (0.0-3.0); HEMOGLOBIN 14.3 G/DL (12.0-16.0); LYMPHOCYTES % (AUTO) 23.9 % (20.0-45.0); MEAN CORPUSCULAR VOLUME 92 FL (80-99); MONOCYTES % (AUTO) 7.5 % (1.0-10.0); NEUTROPHILS % (AUTO) 65.7 % (45.0-75.0); PLATELET COUNT 296 K/UL (150-450); RED BLOOD COUNT 4.55 M/UL (4.20-5.40); RED CELL DISTRIBUTION WIDTH 11.5 % (11.6-14.8); WHITE BLOOD COUNT 6.7 K/UL (4.8-10.8)
--- NOTE | 2019-03-07 13:09 | Diagnostic Imaging Report ---
Indication: Chest pain Comparison: None A single view chest radiograph was obtained. Findings: Cardiomediastinal appearance is within normal limits for age. The lungs are clear. Pulmonary vascularity is appropriate. The diaphragmatic contour is smooth and costophrenic angles are sharp. No pleural effusions are identified. The bones are unremarkable. Impression: No acute findings
[2019-03-07 13:36] LABS: ANION GAP 7 mmol/L (5-15); BLOOD UREA NITROGEN 13 mg/dL (7-18); CALCIUM 9.2 MG/DL (8.5-10.1); CARBON DIOXIDE 29 MMOL/L (21-32); CHLORIDE 99 MMOL/L (98-107); CREATININE 0.4 MG/DL (0.55-1.30); POTASSIUM 4.1 MMOL/L (3.5-5.1); SODIUM 135 MMOL/L (136-145)
[2019-03-07 14:01] LABS: ALANINE AMINOTRANSFERASE 24 U/L (12-78); ALBUMIN 3.4 G/DL (3.4-5.0); ALBUMIN/GLOBULIN RATIO 0.9 (1.0-2.7); ALKALINE PHOSPHATASE 93 U/L (46-116); ASPARTATE AMINO TRANSFERASE 16 U/L (15-37); BILIRUBIN,TOTAL 0.3 MG/DL (0.2-1.0); CKMB < 0.5 NG/ML (0.0-3.6); CREATINE KINASE 32 U/L (26-308)
--- NOTE | 2019-03-07 14:29 | Emergency Room Report ---
History of Present Illness General Chief Complaint: Chest Pain Source: Patient Present Illness HPI Patient presents with complaints of midsternal chest pain radiates up to the neck ongoing for the past 2 days Denies any headache denies any pleurisy denies any back or flank pain Patient has significant comorbidities including anemia and multiple sclerosis Paraplegia Denies any vomiting or diarrhea denies any rash Pain is not worsened with exertion or position Allergies: Coded Allergies: HYDROMORPHONE (Verified Allergy, Intermediate, 03/28/18) PREDNISONE (Verified Allergy, Intermediate, 03/28/18) PSEUDOEPHEDRINE (Verified Allergy, Intermediate, 03/28/18) Patient History Past Medical History: see triage record Now: No Reviewed Nursing Documentation: PMH: Agreed; PSxH: Agreed Nursing Documentation-PMH Past Medical History: No History, Except For Hx Cardiac Problems: No - multiple sclerosis, paraplegia, anemia Hx Hypertension: Yes - Myalgia Hx Cancer: No Hx Gastrointestinal Problems: No Hx Neurological Problems: Yes - Neuralgia and Neuritis, Degenarative Disease Hx Multiple Sclerosis: Yes Review of Systems All Other Systems: negative except mentioned in HPI Physical Exam Vital Signs Date Time Temp Pulse Resp B/P (MAP) Pulse Ox O2 Delivery O2 Flow Rate FiO2 03/07/19 12:31 98.2 78 18 130/80 (97) 97 Room Air Sp02 EP Interpretation: reviewed, normal General Appearance: well appearing, no apparent distress Head: normocephalic, atraumatic Eyes: bilateral eye PERRL, bilateral eye EOMI ENT: normal pharynx Neck: supple Respiratory: lungs clear, no respiratory distress, no retraction Cardiovascular #1: regular rate, rhythm Gastrointestinal: non tender, no mass Musculoskeletal: other - Both feet are in extended position patient is paraplegic Neurologic: alert, oriented x3 Skin: no rash Lymphatic: no adenopathy Medical Decision Making Diagnostic Impression: Primary Impression: ACS (acute coronary syndrome) ER Course Patient is a fairly complex patient with multiple differential to consideration including but not limited to cardiac cardiopulmonary and vascular emergencies Initial blood work is appropriate and at baseline levels patient continues to feel significantly improved and admitted for further inpatient observation Labs Test 03/07/19 12:54 White Blood Count 6.7 K/UL (4.8-10.8) Red Blood Count 4.55 M/UL (4.20-5.40) Hemoglobin 14.3 G/DL (12.0-16.0) Hematocrit 42.0 % (37.0-47.0) Mean Corpuscular Volume 92 FL (80-99) Mean Corpuscular Hemoglobin 31.4 PG (27.0-31.0) Mean Corpuscular Hemoglobin Concent 34.0 G/DL (32.0-36.0) Red Cell Distribution Width 11.5 % (11.6-14.8) Platelet Count 296 K/UL (150-450) Mean Platelet Volume 7.0 FL (6.5-10.1) Neutrophils (%) (Auto) 65.7 % (45.0-75.0) Lymphocytes (%) (Auto) 23.9 % (20.0-45.0) Monocytes (%) (Auto) 7.5 % (1.0-10.0) Eosinophils (%) (Auto) 1.9 % (0.0-3.0) Basophils (%) (Auto) 0.9 % (0.0-2.0) Sodium Level 135 MMOL/L (136-145) Potassium Level 4.1 MMOL/L (3.5-5.1) Chloride Level 99 MMOL/L (98-107) Carbon Dioxide Level 29 MMOL/L (21-32) Anion Gap 7 mmol/L (5-15) Blood Urea Nitrogen 13 mg/dL (7-18) Creatinine 0.4 MG/DL (0.55-1.30) Estimat Glomerular Filtration Rate > 60 mL/min (>60) Glucose Level 105 MG/DL (74-106) Calcium Level 9.2 MG/DL (8.5-10.1) Total Bilirubin 0.3 MG/DL (0.2-1.0) Aspartate Amino Transf (AST/SGOT) 16 U/L (15-37) Alanine Aminotransferase (ALT/SGPT) 24 U/L (12-78) Alkaline Phosphatase 93 U/L (46-116) Total Creatine Kinase 32 U/L (26-308) Creatine Kinase MB < 0.5 NG/ML (0.0-3.6) Creatine Kinase MB Relative Index Troponin I 0.000 ng/mL (0.000-0.056) Pro-B-Type Natriuretic Peptide 38 pg/mL (0-125) Total Protein 7.2 G/DL (6.4-8.2) Albumin 3.4 G/DL (3.4-5.0) Globulin 3.8 g/dL Albumin/Globulin Ratio 0.9 (1.0-2.7) Rhythm Strip Diag. Results EP Interpretation: yes Rate: 87 Rhythm: NSR, no PVC's, no ectopy Chest X-Ray Diagnostic Results Chest X-Ray Diagnostic Results : Chest X-Ray Ordered: Yes # of Views/Limited/Complete: 1 View Indication: Chest Pain EP Interpretation: Yes Interpretation: no consolidation, no effusion, no pneumothorax Impression: No acute disease Electronically Signed by: Dexter Pitt DO Last Vital Signs Date Time Temp Pulse Resp B/P (MAP) Pulse Ox O2 Delivery O2 Flow Rate FiO2 03/07/19 12:45 98.2 100 18 104/73 99 Room Air Status: improved Disposition: PLACE IN OBSERVATION Condition: Serious Dexter Pitt DO Mar 07, 2019 14:29
[2019-03-07] MEDS ORDERED: Morphine Sulfate 4mg/ml Inj (IV USE ONLY) IVP ONE (14:30)
[2019-03-07 14:36] VITALS: BP 123/74
[2019-03-07 15:43] VITALS: BP 118/79
--- NOTE | 2019-03-07 15:44 | NUR ---
ED Nurse Note: report given to Yuni Palma at ext [phone]. Pt to be transfered to room 205-1 on [facility] per protocol.
[2019-03-07] MEDS ORDERED: LORAZEPAM1 MG ORAL (15:50)
[2019-03-07] MEDS ORDERED: FUROSEMIDE40 MG/5 ML ORAL (15:50)
--- NOTE | 2019-03-07 16:15 | NUR ---
NURSE NOTES: Received report from IRAIDA Turner. Patient transferred from ED to tele. desk monitor on, no active s/s cardiac, respiratory distress noticed at this time. VS at the time of arrival HR 75, RR 16, O2 sat 97% on room air, BP 114/70, pain 6/10. Patient c/o IV site on right AC 20G, IV site changed to left wrist 24G, asymptomatic, patent, intact. Assessed left trochanter redness, sacral white/red old healed wound. Patient refused to take off diaper she has. AOx4. Belonging list checked with RN, LG, iphone at the bedside. Bed in lowest position, side rail upx3, call light within reach. Will continue to monitor, will call for admission orders.
[2019-03-07] MEDS ORDERED: Albuterol/Ipratropium 3ml neb HHN PRN (17:15)
[2019-03-07] MEDS ORDERED: Nitroglycerin Subl 0.4mg tab SL PRN (17:15)
[2019-03-07] MEDS ORDERED: Enalaprilat 1.25mg/ml Inj IV PRN (17:15)
[2019-03-07] MEDS ORDERED: dilTIAZem HCl 25mg/5ml Inj IV PRN (17:15)
[2019-03-07] MEDS ORDERED: Miralax 17gm pkt ORAL PRN (17:15)
[2019-03-07] MEDS ORDERED: MILK OF MA400 MG/51 ORAL (17:34)
[2019-03-07] MEDS ORDERED: AFRIN NASAL SPR30 ML NASAL (17:34)
[2019-03-07] MEDS ORDERED: ACETAMINOPHEN325 M1 ORAL (17:34)
[2019-03-07] MEDS ORDERED: CYMBALTA60 MG ORAL (17:34)
[2019-03-07] MEDS ORDERED: LYRICA75 M1 ORAL (17:34)
[2019-03-07] MEDS ORDERED: PRO-AMATINE2.5 MG ORAL (17:34)
[2019-03-07] MEDS ORDERED: DOCUSATE SODIU100 MG ORAL (17:34)
[2019-03-07] MEDS ORDERED: BENADRYL25 MG ORAL (17:34)
[2019-03-07] MEDS ORDERED: HYDROCODON-ACE1 EA16 ORAL (17:34)
[2019-03-07] MEDS ORDERED: ARTIFICIAL TEAR15 ML BOTH EYES (17:34)
[2019-03-07] MEDS: Lyrica 50mg cap ORAL SCH (18:35)
--- NOTE | 2019-03-07 19:59 | NUR ---
NURSE NOTES: Dr. Alcala made aware patient c/o body pain, requesting for percocet. Per Dr. Alcala, percocet 5/325mg PO Q6H prn for pain, Order noted, entered, carried out.
--- NOTE | 2019-03-07 20:00 | NUR ---
NURSE NOTES: pt in bed, AOx4, no acute distress noted. falling precaution in place: bed locked an lowest position. bedside rail up x2, will round pt hourly, to ensure pt safety and assess for any change in condition.
--- NOTE | 2019-03-07 20:00 | NUR ---
HAND-OFF: Report given to IRAIDA Blackwell.
[2019-03-07] MEDS: Heparin 5000 units/ml inj SUBQ SCH (20:54)
[2019-03-07] MEDS: oxyCODONE HCL/Acetaminophen 5/325mg ORAL PRN (20:55)
[2019-03-07] MEDS: carBAMazepine 200mg tab ORAL SCH (20:55)
--- NOTE | 2019-03-08 | NUR ---
NURSE NOTES: pt awake and calling for help constantly. no change in condition. will continue to monitor for any change in condition.
[2019-03-08] MEDS: oxyCODONE HCL/Acetaminophen 5/325mg ORAL PRN ×4 (03:19→23:34)
[2019-03-08 04:00] VITALS: BP 123/80
--- NOTE | 2019-03-08 04:00 | NUR ---
NURSE NOTES: pt sleeping, no change in condition. will continue to monitor for any change in condition.
[2019-03-08] MEDS ORDERED: Levothyroxine 25mcg tab ORAL SCH (06:30)
--- NOTE | 2019-03-08 06:54 | NUR ---
NURSE NOTES: pt remains stable, no change in condition. off feeding at this time. falling precaution in place: bed locked and lowest position, bedside rail up x2, call light within reach. all needs met during my shift. will endorse plan of care to incoming nurse. Addendum: 03/08/19 at 0655 by Rosalva Crawford RN wrong pt
--- NOTE | 2019-03-08 06:55 | NUR ---
NURSE NOTES: pt remains stable, no change in condition. falling precaution in place: bed locked and lowest position, bedside rail up x2, call light within reach. all needs met during my shift. will endorse plan of care to incoming nurse.
[2019-03-08 07:19] LABS: BASOPHILS % (AUTO) 1.1 % (0.0-2.0); HEMATOCRIT 38.5 % (37.0-47.0); LYMPHOCYTES % (AUTO) 43.8 % (20.0-45.0); MEAN CORPUSCULAR VOLUME 92 FL (80-99); MONOCYTES % (AUTO) 5.8 % (1.0-10.0); NEUTROPHILS % (AUTO) 46.3 % (45.0-75.0); PLATELET COUNT 262 K/UL (150-450); RED BLOOD COUNT 4.17 M/UL (4.20-5.40); RED CELL DISTRIBUTION WIDTH 11.5 % (11.6-14.8); WHITE BLOOD COUNT 6.2 K/UL (4.8-10.8)
[2019-03-08 08:00] VITALS: BP 124/65
[2019-03-08 08:05] LABS: CHOLESTEROL 201 MG/DL (< 200); HDL CHOLESTEROL 63 MG/DL (40-60); TRIGLYCERIDES 42 MG/DL (30-150)
--- NOTE | 2019-03-08 08:39 | NUR ---
pt. AOX/4. Pt on clinic assistant no signs of cardiac or respiratory distress at this time. Cell ph by bedside. bed is locked and in lowest position. Call light with in reach. Pt was changed this morning trochanter redness and old sacrum healed wound. Will continue to follow plan of care.
[2019-03-08] MEDS ORDERED: QUEtiapine 200mg tab ORAL SCH (09:00)
[2019-03-08] MEDS: Lyrica 50mg cap ORAL SCH ×3 (09:00→17:14)
[2019-03-08] MEDS ORDERED: Aspirin Baby 81mg ORAL SCH (09:00)
[2019-03-08] MEDS ORDERED: Lisinopril 20mg tab ORAL SCH (09:00)
[2019-03-08] MEDS: carBAMazepine 200mg tab ORAL SCH ×2 (09:45→21:04)
[2019-03-08] MEDS: Heparin 5000 units/ml inj SUBQ SCH ×2 (09:48→21:11)
--- NOTE | 2019-03-08 10:30 | NUR ---
Per telephone order from moses James to change pt to DNR/DNI. POLST will be sign by pt and doctor. `
[2019-03-08 16:00] VITALS: BP 94/64
--- NOTE | 2019-03-08 16:18 | Consultation ---
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 Pt is usually wheelchair bound and lives for many years in a retirement. Allergies: Coded Allergies: HYDROMORPHONE (Verified Allergy, Intermediate, 03/28/18) PREDNISONE (Verified Allergy, Intermediate, 03/28/18) PSEUDOEPHEDRINE (Verified Allergy, Intermediate, 03/28/18) Medication History Scheduled Amino Acids/Protein Hydrolys (Pro-Stat Liquid), 30 ML ORAL THREE TIMES A DAY, ( Reported) Amoxicillin/Potassium Clav 875-125* (Augmentin 875-125 Tablet*), 1 TAB ORAL TWICE A DAY, (Reported) Baclofen* (Baclofen*), 10 MG ORAL Q8HR, (Reported) Carbamazepine (Tegretol*), 200 MG PO BID, (Reported) Dextran 70/Hypromellose (Artificial Tears Eye Drops*), 1 DROP BOTH EYES BID, ( Reported) Docusate Sodium* (Docusate Sodium*), 100 MG ORAL THREE TIMES A DAY, (Reported) Duloxetine Hcl* (Cymbalta*), 60 MG ORAL DAILY, (Reported) Furosemide (Furosemide), 20 MG ORAL DAILY, (Reported) Gabapentin* (Neurontin*), 400 MG ORAL TWICE A DAY, (Reported) Levofloxacin* (Levaquin*), 750 MG ORAL DAILY, (Reported) Levothyroxine Sodium* (Synthroid*), 25 MCG ORAL DAILY, (Reported) Lisinopril* (Zestril*), 20 MG ORAL DAILY, (Reported) Loratadine (Loratadine), 10 MG PO DAILY, (Reported) Lorazepam* (Lorazepam*), 1 MG ORAL Q6HR, (Reported) Midodrine (Midodrine HCl), 2.5 MG ORAL Q8HR, (Reported) Multivitamins* (Multivitamins*), 1 TAB ORAL DAILY, (Reported) Nitrofurantoin (Nitrofurantoin), 100 MG PO BID, (Reported) Polyethylene Glycol 3350* (Miralax*), 17 GM ORAL DAILY, (Reported) Pregabalin* (Lyrica*), 100 MG ORAL THREE TIMES A DAY, (Reported) Pregabalin* (Lyrica*), 100 MG ORAL THREE TIMES A DAY, (Reported) Quetiapine Fumarate* (Seroquel*), 300 MG ORAL DAILY, (Reported) Scheduled PRN Acetaminophen* (Acetaminophen 325MG Tablet*), 650 MG ORAL Q4H PRN for For Pain, (Reported) Dextran 70/Hypromellose (Artificial Tears Eye Drops*), 1 DROP BOTH EYES Q4HR PRN for Dry Eyes, (Reported) Diazepam* (Valium*), 10 MG ORAL EVERY 6 HOURS PRN for ANXIETY, (Reported) Diphenhydramine Hcl* (Benadryl*), 50 MG ORAL Q6H PRN for Itching, (Reported) Hydrocodone Bit/Acetaminophen 10-325* ([place] 10-325*), 1 TAB ORAL Q6H PRN for For Pain, (Reported) Hydrocodone Bit/Acetaminophen 10-325* ([place] 10-325*), 1 TAB ORAL Q4H PRN for For Pain, (Reported) Hydrocodone/Acetaminophen 7.5-325* (Hydrocodon-Acetaminoph 7.5-325*), 1 TAB ORAL Q6H PRN for Pain Scale (6-10), (Reported) Magnesium Hydroxide* (Milk Of Magnesia*), 30 ML ORAL Q6HR PRN for Constipation, (Reported) Ondansetron Odt* (Zofran Odt*), 4 MG ORAL Q8HR PRN for Nausea & Vomiting, ( Reported) Oxymetazoline HCl (Afrin), 1 SPRAY NASAL TWICE A DAY PRN for Constipation, ( Reported) Temazepam* (Restoril*), 15 MG ORAL BEDTIME PRN for Insomnia, (Reported) Miscellaneous Medications Fluticasone Propionate (Flonase Allergy Relief), 9.9 ML NS, (Reported) Patient History Healthcare decision maker Resuscitation status Do Not Resuscitate Advanced Directive on File Past Medical/Surgical History Past Medical/Surgical History: (1) Multiple sclerosis (2) Chronic pain (3) HTN (hypertension) Review of Systems All Other Systems: negative except mentioned in HPI Physical Exam General Appearance: WD/WN Lines, tubes and drains: peripheral HEENT: normocephalic, atraumatic Neck: non-tender, normal alignment Respiratory/Chest: chest wall non-tender, lungs clear Breasts: no masses Cardiovascular/Chest: normal peripheral pulses Abdomen: normal bowel sounds, non tender Genitourinary/Rectal: normal genital exam Extremities: normal range of motion Last 24 Hour Vital Signs Date Time Temp Pulse Resp B/P (MAP) Pulse Ox O2 Delivery O2 Flow Rate FiO2 03/08/19 12:00 82 03/08/19 09:46 124/65 03/08/19 09:00 Room Air 03/08/19 08:00 81 03/08/19 08:00 96.8 77 18 124/65 (84) 97 03/08/19 04:00 98.0 80 16 123/80 (94) 97 03/08/19 04:00 75 03/08/19 00:00 77 03/07/19 21:00 Room Air 03/07/19 20:00 80 03/07/19 17:05 Room Air Intake and Output 03/07/19 03/08/19 19:00 07:00 # Voids 2 1 # Bowel Movements 2 Laboratory Tests Test 03/07/19 18:00 03/08/19 05:39 Troponin I 0.000 ng/mL (0.000-0.056) White Blood Count 6.2 K/UL (4.8-10.8) Red Blood Count 4.17 M/UL (4.20-5.40) L Hemoglobin 13.0 G/DL (12.0-16.0) Hematocrit 38.5 % (37.0-47.0) Mean Corpuscular Volume 92 FL (80-99) Mean Corpuscular Hemoglobin 31.1 PG (27.0-31.0) H Mean Corpuscular Hemoglobin Concent 33.7 G/DL (32.0-36.0) Red Cell Distribution Width 11.5 % (11.6-14.8) L Platelet Count 262 K/UL (150-450) Mean Platelet Volume 6.1 FL (6.5-10.1) L Neutrophils (%) (Auto) 46.3 % (45.0-75.0) Lymphocytes (%) (Auto) 43.8 % (20.0-45.0) Monocytes (%) (Auto) 5.8 % (1.0-10.0) Eosinophils (%) (Auto) 3.0 % (0.0-3.0) Basophils (%) (Auto) 1.1 % (0.0-2.0) Prothrombin Time 10.6 SEC (9.30-11.50) Prothromb Time International Ratio 1.0 (0.9-1.1) Activated Partial Thromboplast Time 34 SEC (23-33) H C-Reactive Protein, Quantitative 0.8 mg/dL (0.00-0.90) Triglycerides Level 42 MG/DL (30-150) Cholesterol Level 201 MG/DL (< 200) H LDL Cholesterol 126 mg/dL (<100) H HDL Cholesterol 63 MG/DL (40-60) H Cholesterol/HDL Ratio 3.2 (3.3-4.4) L Thyroid Stimulating Hormone (TSH) 6.710 uiU/mL (0.358-3.740) Height (Feet): 5 Height (Inches): 6.00 Weight (Pounds): 149 Medications Current Medications Medications (Trade) Dose Ordered Sig/Galen Route PRN Reason Start Time Stop Time Status Last Admin Dose Admin Acetaminophen (Tylenol) 650 mg Q4H PRN ORAL FEVER 03/07/19 17:15 04/06/19 17:14 Albuterol/ Ipratropium (Albuterol/ Ipratropium) 3 ml Q4H PRN HHN Shortness of Breath 03/07/19 17:15 03/12/19 17:14 Aspirin (ASA) 162 mg DAILY ORAL 03/08/19 09:00 04/07/19 08:59 03/08/19 09:45 Baclofen (Lioresal) 10 mg Q8HR ORAL 03/07/19 22:00 04/06/19 21:59 03/08/19 06:23 Carbamazepine (TEGretol) 200 mg Q12HR ORAL 03/07/19 21:00 04/06/19 20:59 03/08/19 09:45 Diltiazem HCl (Cardizem) 10 mg Q1H PRN IV heart rate more than 120, 03/07/19 17:15 04/06/19 17:14 Enalaprilat (Vasotec) 2.5 mg Q6H PRN IV sbp more than 160 03/07/19 17:15 04/06/19 17:14 Gabapentin (Neurontin) 400 mg TWICE A DAY ORAL 03/07/19 18:00 04/06/19 17:59 03/08/19 09:44 Heparin Sodium (Porcine) (Heparin 5000 units/ml) 5,000 units EVERY 12 HOURS SUBQ 03/07/19 21:00 04/06/19 20:59 03/08/19 09:48 Levothyroxine Sodium (Synthroid) 25 mcg ACBREAKFAST ORAL 03/08/19 06:30 04/07/19 06:29 03/08/19 06:23 Lisinopril (Prinivil) 20 mg DAILY ORAL 03/08/19 09:00 04/07/19 08:59 03/08/19 09:46 Nitroglycerin (Ntg) 0.4 mg Q5M PRN SL Prn Chest Pain 03/07/19 17:15 04/06/19 17:14 Ondansetron HCl (Zofran) 4 mg Q6H PRN IVP Nausea & Vomiting 03/07/19 17:15 04/06/19 17:14 Oxycodone/ Acetaminophen (Percocet 5-325) 1 tab Q6H PRN ORAL For Pain 03/07/19 20:00 03/14/19 19:59 03/08/19 09:46 Polyethylene Glycol (Miralax) 17 gm DAILYPRN PRN ORAL Constipation 03/07/19 17:15 04/06/19 17:14 Pregabalin (Lyrica) 100 mg THREE TIMES A DAY ORAL 03/07/19 18:00 04/06/19 17:59 03/07/19 18:35 Quetiapine Fumarate (SEROquel) 300 mg DAILY ORAL 03/08/19 09:00 04/07/19 08:59 03/08/19 09:44 Temazepam (Restoril) 15 mg HSPRN PRN ORAL Insomnia 03/07/19 17:15 03/14/19 17:14 03/07/19 20:56 Assessment/Plan Problem List: (1) ACS (acute coronary syndrome) ICD Codes: I24.9 - Acute ischemic heart disease, unspecified SNOMED: 847871549 (2) HTN (hypertension) ICD Codes: I10 - Essential (primary) hypertension SNOMED: 00968346 (3) Multiple sclerosis ICD Codes: G35 - Multiple sclerosis SNOMED: 12666691 (4) Hyponatremia ICD Codes: E87.1 - Hypo-osmolality and hyponatremia SNOMED: 31399052 (5) DNR (do not resuscitate) ICD Codes: Z66 - Do not resuscitate SNOMED: 330986729 Assessment/Plan: serial ekg, troponin, echocardiogram monitor BP symptomatic treatment cardiology to see. old chart reviewed. Jose De Jesus Alcala MD Mar 08, 2019 16:18
--- NOTE | 2019-03-08 16:27 | NUR ---
CASE MANAGEMENT:REVIEW 58 YR OLD MALE BIBA FROM [facility] CC; CHEST PAIN SI: ACUTE CORONARY SYNDROME 98.2 78 18 130/80 97% ON RA TROPONIN(-) SI: IV MORPHINE CHEST XRAY : TO TELEMETRY IS: LISINOPRIL PO QD ASA PO QD TEGRETOL PO Q12 HEPARIN SQ Q12 PERCOCET PO Q6HRS PRN LYRICA PO TID
--- NOTE | 2019-03-08 18:15 | History and Physical Report ---
DATE OF ADMISSION: 03/07/2019 CONSULTANTS: 1. Jose De Jesus Alcala M.D. 2. Daniel Hernández M.D. 3. Elmre Fried M.D. CHIEF COMPLAINT: Chest pain and chronic pain. BRIEF HISTORY: This is a 58-year-old female from [facility], who presented with above-mentioned diagnoses. She said it was substernal, mild, and intermittent. No radiation. No loss of consciousness. No shortness of breath. The patient came to [facility], diagnosed with the chest pain, and admitted to telemetry for further care. Currently, sleeping in bed, slight general pain, no complaint. REVIEW OF SYSTEMS: Slight chest pain. Slight short of breath. No nausea, vomiting, or diarrhea. PAST MEDICAL HISTORY: Includes hypertension, hypothyroid, multiple sclerosis, and chronic pain. PAST SURGICAL HISTORY: None. MEDICATIONS: Include Prinivil, Seroquel, Synthroid, Lioresal, Tegretol, Neurontin, and Lyrica. ALLERGIES: Hydromorphone, prednisone, and pseudoephedrine. PHYSICAL EXAMINATION: GENERAL: Lethargic in bed, oriented x2, and in no acute distress. VITAL SIGNS: Temperature is 97, pulse 77, respirations 18, and blood pressure 124/65. CARDIOVASCULAR: No murmur. LUNGS: Distant and clear. ABDOMEN: Bowel sounds positive. Nontender. Nondistended. EXTREMITIES: No cyanosis, clubbing, or edema. LABORATORY DATA: Labs, at this time, show CBC is normal. BMP is sodium 135 and creatinine 0.4. Troponin 0.00. INR is 1.0. PTT is 34. ASSESSMENT: 1. Chest pain. 2. Chronic pain. 3. Hypertension. 4. Hypothyroidism. 5. Multiple sclerosis. PLAN: 1. Continue premeds. 2. Pain control. 3. Blood pressure control. 4. Dietary followup. 5. We will have Psychiatry, Dr. Temple to see. Nishant Rider D.O. DR: KEMAL JOB#: [id number] CC:
--- NOTE | 2019-03-08 19:46 | Cardiology Progress Note ---
Assessment/Plan Assessment/Plan The patient is seen and examined, full consult note will be dictated. Objective Last 24 Hour Vital Signs Date Time Temp Pulse Resp B/P (MAP) Pulse Ox O2 Delivery O2 Flow Rate FiO2 03/08/19 16:00 70 03/08/19 16:00 97.1 72 18 94/64 (74) 97 03/08/19 12:00 82 03/08/19 09:46 124/65 03/08/19 09:00 Room Air 03/08/19 08:00 81 03/08/19 08:00 96.8 77 18 124/65 (84) 97 03/08/19 04:00 98.0 80 16 123/80 (94) 97 03/08/19 04:00 75 03/08/19 00:00 77 03/07/19 21:00 Room Air 03/07/19 20:00 80 Intake and Output 03/07/19 03/08/19 19:00 07:00 # Voids 2 1 # Bowel Movements 2 Laboratory Tests Test 03/08/19 05:39 03/08/19 18:10 White Blood Count 6.2 K/UL (4.8-10.8) Red Blood Count 4.17 M/UL (4.20-5.40) L Hemoglobin 13.0 G/DL (12.0-16.0) Hematocrit 38.5 % (37.0-47.0) Mean Corpuscular Volume 92 FL (80-99) Mean Corpuscular Hemoglobin 31.1 PG (27.0-31.0) H Mean Corpuscular Hemoglobin Concent 33.7 G/DL (32.0-36.0) Red Cell Distribution Width 11.5 % (11.6-14.8) L Platelet Count 262 K/UL (150-450) Mean Platelet Volume 6.1 FL (6.5-10.1) L Neutrophils (%) (Auto) 46.3 % (45.0-75.0) Lymphocytes (%) (Auto) 43.8 % (20.0-45.0) Monocytes (%) (Auto) 5.8 % (1.0-10.0) Eosinophils (%) (Auto) 3.0 % (0.0-3.0) Basophils (%) (Auto) 1.1 % (0.0-2.0) Prothrombin Time 10.6 SEC (9.30-11.50) Prothromb Time International Ratio 1.0 (0.9-1.1) Activated Partial Thromboplast Time 34 SEC (23-33) H C-Reactive Protein, Quantitative 0.8 mg/dL (0.00-0.90) Triglycerides Level 42 MG/DL (30-150) Cholesterol Level 201 MG/DL (< 200) H LDL Cholesterol 126 mg/dL (<100) H HDL Cholesterol 63 MG/DL (40-60) H Cholesterol/HDL Ratio 3.2 (3.3-4.4) L Thyroid Stimulating Hormone (TSH) 6.710 uiU/mL (0.358-3.740) Troponin I 0.000 ng/mL (0.000-0.056) Microbiology Date/Time Source Procedure Growth Status 03/07/19 13:25 Rectum Received Daniel Hernández MD Mar 08, 2019 19:46
[2019-03-08 20:00] VITALS: BP 100/59
--- NOTE | 2019-03-08 20:18 | NUR ---
HAND-OFF: Report given to Princess KHOURY. pt in stable condition.
--- NOTE | 2019-03-08 22:45 | Consultation ---
DATE OF CONSULTATION: 03/08/2019 CARDIOLOGY CONSULTATION CONSULTING PHYSICIAN: Daniel Hernández M.D. REFERRING PHYSICIAN: Nishant Rider D.O. REASON FOR CONSULTATION: Management of chest pain. HISTORY OF PRESENT ILLNESS: The patient is a very unfortunate 58-year-old female, who presents to this facility with multiple complaints of body aches including back ache, neck ache, chest pain, which was initially reported by triage nurse to be pleuritic in nature with no associated shortness of breath. The patient is a resident of [facility] and is suffering from chronic and generalized body pain due to multiple sclerosis. At the time of arrival to this facility, blood pressure was 130/80 and heart rate was 78. A 12-lead electrocardiogram was significant for sinus tachycardia, rate of 102 with right atrial enlargement, but no acute ST and T-wave abnormalities. QT interval was 435. Her cardiovascular history is significant for history of hypertension. At the time of arrival to the hospital, initial laboratory data included troponin I level was within normal limits. Beta-natriuretic peptide was also measured at 38. Chest x-ray upon arrival to the hospital showed no acute cardiopulmonary disease. The patient was admitted to telemetry for further evaluation and management. Cardiology consultation was made at request of Dr. Rider for evaluation of chest pain. PAST MEDICAL HISTORY: Includes multiple sclerosis, history of paraplegia, history of anemia, history of hypertension. PAST SURGICAL HISTORY: None. SOCIAL HISTORY: No history of tobacco, alcohol, or illicit drug use. ALLERGIES: To hydromorphone, prednisone, and pseudoephedrine. FAMILY HISTORY: No premature coronary artery disease in first-degree relatives. MEDICATIONS: List of medications in the nursing facility includes: 1. Acetaminophen 650 q.4 hours p.r.n. pain. 2. Pro-Stat liquid 30 mL 3 times a day. 3. Augmentin 875/125 one tablet twice daily. 4. Baclofen 10 mg p.o. q.8 hours p.r.n. spasm. 5. Tegretol 200 mg twice daily. 6. Artificial Tears. 7. Valium 10 mg p.o. q.6 hours p.r.n. anxiety. 8. Benadryl 50 mg p.o. q.6 hours p.r.n. itching. 9. Colace 100 mg p.o. 3 times daily. 10. Cymbalta 60 mg p.o. daily. 11. Flonase Allergy Relief as needed. 12. Furosemide 20 mg p.o. daily. 13. Neurontin 400 mg twice daily. 14. [place] 10/325 one tablet q.6 hours p.r.n. pain. 15. Hydrocodone/acetaminophen 7.5/325 one tablet q.6 hours p.r.n. pain. 16. Levaquin 750 mg daily for 5 days. 17. Synthroid 25 mcg p.o. daily. 18. Lisinopril 20 mg p.o. daily. 19. Loratadine 10 mg p.o. daily. 20. Lorazepam 1 mg p.o. q.6 hours. 21. Milk of magnesia 30 mL q.6 hours p.r.n. constipation. 22. Midodrine 2.5 mg q.8 hours. 23. Multivitamin one tablet p.o. daily. 24. Nitrofurantoin 100 mg p.o. twice daily. 25. Zofran 4 mg q.8 hours p.r.n. nausea, vomiting. 26. Oxymetazoline (Afrin) 1 spray twice daily. 27. MiraLAX 17 g daily. 28. Lyrica 100 mg p.o. 3 times a day. 29. Seroquel 300 mg p.o. daily. 30. Restoril 10 mg at bedtime p.r.n. insomnia. REVIEW OF SYSTEMS: Twelve system review done essentially negative except what was mentioned in history of present illness. PHYSICAL EXAMINATION: VITAL SIGNS: Blood pressure is 130/80, pulse of 78, respirations 18, temperature 98.2 degrees Fahrenheit, O2 saturation 97% on room air. GENERAL: The patient is a very depressed, well nourished, obese 58-year-old female, in no apparent respiratory distress. Alert and oriented x4. Complaining of pain. HEENT: Atraumatic and normocephalic. Anicteric. Pupils are equal, round, and reactive to light and accommodation. Extraocular muscles intact. NECK: JVP cannot be assessed due to obesity and short neck. No carotid bruit. Carotid upstrokes 2+ bilaterally. CARDIOVASCULAR: Normal S1, S2. Regular rate and rhythm. No murmurs, gallops, or rubs. PMI is at fourth intercostal space in the midclavicular line. LUNGS: Clear to auscultation bilaterally. ABDOMEN: Obese. I do not appreciate any hepatosplenomegaly. Positive bowel sounds. EXTREMITIES: No evidence of edema, clubbing, or cyanosis. LABORATORY FINDINGS: Sodium is 135, potassium is 4.1, chloride 99, bicarbonate 29, BUN of 13, creatinine 0.4, glucose is 105, calcium is 9.2. Troponin I x4 negative. ProBNP was 38. Triglycerides 42, total cholesterol is 201, LDL is 126, HDL is 63. TSH is 6.5. INR is 1.0. ASSESSMENT AND PLAN: The patient is a very unfortunate 58-year-old female, seen in Cardiology consultation. 1. Chest pain. This is pleuritic according to triage nurse who saw the patient the first time in this hospital, however, she states that the chest is not the only body part that is hurting and she complains of pain in the neck and the back and lower extremities as well. A 12-lead electrocardiogram does not show any ischemic changes, acute myocardial infarction is ruled out by cardiac enzyme levels. At this time, the patient does not require any cardiac intervention. She can be transferred to non telemetry if considered to be appropriate by the primary care physician. 2. History of hypertension. Currently blood pressure is within normal limits. I will continue the patient on lisinopril. I will adjust the dose to keep the blood pressure approximately around 120/80 mmHg. 3. History of hypothyroidism. The dose of levothyroxine should be adjusted accordingly as the TSH level is elevated. 4. History of multiple sclerosis. I would like to thank Dr. Rider for allowing me to participate in care of this patient. Daniel Hernández M.D. DR: TABITHA JOB#: [id number] CC:
[2019-03-09] VITALS (9 sets, daily range): BP systolic 83–116; BP diastolic 46–70
--- NOTE | 2019-03-09 00:50 | NUR ---
NURSE NOTES: Received report from IRAIDA Sánchez from tele. Received pt via bed, AOX4, denies any pain at this time, repositioned pt for comfort, sacral redness and left thoracanteric redness noted, skin intact, elevated both lower extremities on pillow. IV L FA patent and intact, flushed with normal saline. Bed in lowest postion and locked, side rails up x 2, call light within reach. Will continue to monitor.
--- NOTE | 2019-03-09 01:00 | NUR ---
HAND-OFF: Report given to Alverto KHOURY, pt transferred to 3E, PT IN STABLE CONDITION, belonging list signed off.
[2019-03-09] MEDS ORDERED: Albuterol/Ipratropium 3ml neb HHN PRN (01:15)
[2019-03-09] MEDS ORDERED: dilTIAZem HCl 25mg/5ml Inj IV PRN (01:15)
[2019-03-09] MEDS ORDERED: Nitroglycerin Subl 0.4mg tab SL PRN (01:15)
[2019-03-09] MEDS ORDERED: oxyCODONE HCL/Acetaminophen 5/325mg ORAL PRN (01:19)
[2019-03-09] MEDS ORDERED: Miralax 17gm pkt ORAL PRN (01:21)
[2019-03-09] MEDS ORDERED: Enalaprilat 1.25mg/ml Inj IV PRN (05:15)
[2019-03-09] MEDS: Levothyroxine 25mcg tab ORAL SCH (05:40)
[2019-03-09 06:37] LABS: BASOPHILS % (AUTO) 1.3 % (0.0-2.0); EOSINOPHILS % (AUTO) 3.5 % (0.0-3.0); HEMATOCRIT 36.9 % (37.0-47.0); HEMOGLOBIN 12.3 G/DL (12.0-16.0); LYMPHOCYTES % (AUTO) 39.1 % (20.0-45.0); MEAN CORPUSCULAR VOLUME 93 FL (80-99); MONOCYTES % (AUTO) 8.7 % (1.0-10.0); NEUTROPHILS % (AUTO) 47.4 % (45.0-75.0); PLATELET COUNT 274 K/UL (150-450); RED BLOOD COUNT 3.97 M/UL (4.20-5.40); RED CELL DISTRIBUTION WIDTH 11.8 % (11.6-14.8); WHITE BLOOD COUNT 5.5 K/UL (4.8-10.8)
[2019-03-09 06:49] LABS: ANION GAP 6 mmol/L (5-15); BLOOD UREA NITROGEN 18 mg/dL (7-18); CALCIUM 8.7 MG/DL (8.5-10.1); CARBON DIOXIDE 27 MMOL/L (21-32); CHLORIDE 102 MMOL/L (98-107); CREATININE 0.6 MG/DL (0.55-1.30); POTASSIUM 4.4 MMOL/L (3.5-5.1); SODIUM 135 MMOL/L (136-145)
--- NOTE | 2019-03-09 07:15 | NUR ---
NURSE NOTES: Report received from Alverto Zepeda RN, rounds made. Patient resting in right lateral position in bed, bilateral heels floating, alert oriented x4 calm. No distress on RA. LW heplock intact. Denies chest pain or any pain at this time. Call light in reach, bed in lowest position, will continue to monitor.
--- NOTE | 2019-03-09 07:38 | NUR ---
HAND-OFF: Report given to IRAIDA [place]. Pt in stable condition.
--- NOTE | 2019-03-09 08:17 | General Progress Note ---
Assessment/Plan Assessment/Plan: (1) Neuropathic pain (2) Multiple Sclerosis Patient will be continued on Percocet changed to 10/325mg PO 1 tab Q4H PRN D/w Dr. Fried and he concurred. Subjective Date patient seen: Mar 09, 2019 Time patient seen: 07:30 - am Allergies: Coded Allergies: HYDROMORPHONE (Verified Allergy, Intermediate, 03/28/18) PREDNISONE (Verified Allergy, Intermediate, 03/28/18) PSEUDOEPHEDRINE (Verified Allergy, Intermediate, 03/28/18) Subjective REVIEW OF SYSTEMS: Denies rash, fever, chills, sweating, dizziness, drowsiness, blurred vision, sore throat, or change in weight. No shortness of breath or chest pain. No nausea, vomiting, diarrhea, or blood in the stool or urine. She is complaining of generalized body pain. SUBJECTIVE: Patient is a known patient from prior admission readmitted under the care of Dr. Rider. Continues to c/o generalized body pain. Started on Percocet 5/325mg PO 1 tab Q6H PRN with minimal relief. She has no new complaints at this time. Objective Last 24 Hour Vital Signs Date Time Temp Pulse Resp B/P (MAP) Pulse Ox O2 Delivery O2 Flow Rate FiO2 03/09/19 06:00 97.2 78 18 94/56 (69) 97 03/09/19 00:50 98.4 73 18 95/62 (73) 99 03/09/19 00:21 97.9 03/09/19 00:00 83 03/09/19 00:00 98.9 84 18 116/67 (83) 98 03/08/19 21:45 97.9 03/08/19 21:00 Room Air 03/08/19 20:00 97.9 87 18 100/59 (73) 97 03/08/19 20:00 80 03/08/19 16:00 70 03/08/19 16:00 97.1 72 18 94/64 (74) 97 03/08/19 12:00 82 03/08/19 09:46 124/65 03/08/19 09:00 Room Air Intake and Output 03/08/19 03/09/19 19:00 07:00 Intake Total 680 ml 300 ml Balance 680 ml 300 ml Intake Oral 680 ml 300 ml # Voids 4 2 Laboratory Tests 03/08/19 18:10: Troponin I 0.000 03/09/19 06:00: White Blood Count 5.5, Red Blood Count 3.97L, Hemoglobin 12.3, Hematocrit 36.9L , Mean Corpuscular Volume 93, Mean Corpuscular Hemoglobin 31.1H, Mean Corpuscular Hemoglobin Concent 33.4, Red Cell Distribution Width 11.8, Platelet Count 274, Mean Platelet Volume 7.2, Neutrophils (%) (Auto) 47.4, Lymphocytes (% ) (Auto) 39.1, Monocytes (%) (Auto) 8.7, Eosinophils (%) (Auto) 3.5H, Basophils (%) (Auto) 1.3, Sodium Level 135L, Potassium Level 4.4, Chloride Level 102, Carbon Dioxide Level 27, Anion Gap 6, Blood Urea Nitrogen 18, Creatinine 0.6, Estimat Glomerular Filtration Rate > 60, Glucose Level 95, Calcium Level 8.7 Height (Feet): 5 Height (Inches): 6.00 Weight (Pounds): 149 Objective GENERAL: alert, awake, and oriented. LUNGS: Decreased breath sounds bilaterally. HEART: S1 and S2 regular. ABDOMEN: Benign. EXTREMITIES: No cyanosis. No clubbing. No edema. NEUROLOGICAL: Marked weakness noted in bilateral lower extremities. Alonso Young Mar 09, 2019 08:17
--- NOTE | 2019-03-09 08:33 | General Progress Note ---
Assessment/Plan Problem List: (1) Chest pain ICD Codes: R07.9 - Chest pain, unspecified SNOMED: 40958648 (2) ACS (acute coronary syndrome) ICD Codes: I24.9 - Acute ischemic heart disease, unspecified SNOMED: 707448917 (3) HTN (hypertension) ICD Codes: I10 - Essential (primary) hypertension SNOMED: 08795227 (4) Chronic pain ICD Codes: G89.29 - Other chronic pain SNOMED: 38850859 (5) Hypothyroid ICD Codes: E03.9 - Hypothyroidism, unspecified SNOMED: 45424439 (6) Multiple sclerosis ICD Codes: G35 - Multiple sclerosis SNOMED: 22794755 Status: stable, progressing Assessment/Plan: pt diet pain control cardio f/u cbc bmp am Subjective Constitutional: Reports: weakness Allergies: Coded Allergies: HYDROMORPHONE (Verified Allergy, Intermediate, 03/28/18) PREDNISONE (Verified Allergy, Intermediate, 03/28/18) PSEUDOEPHEDRINE (Verified Allergy, Intermediate, 03/28/18) All Systems: reviewed and negative except above Subjective sl anxious c/o gen pain Objective Last 24 Hour Vital Signs Date Time Temp Pulse Resp B/P (MAP) Pulse Ox O2 Delivery O2 Flow Rate FiO2 03/09/19 08:00 98.1 77 18 83/46 (58) 97 03/09/19 06:00 97.2 78 18 94/56 (69) 97 03/09/19 00:50 98.4 73 18 95/62 (73) 99 03/09/19 00:21 97.9 03/09/19 00:00 83 03/09/19 00:00 98.9 84 18 116/67 (83) 98 03/08/19 21:45 97.9 03/08/19 21:00 Room Air 03/08/19 20:00 97.9 87 18 100/59 (73) 97 03/08/19 20:00 80 03/08/19 16:00 70 03/08/19 16:00 97.1 72 18 94/64 (74) 97 03/08/19 12:00 82 03/08/19 09:46 124/65 03/08/19 09:00 Room Air Intake and Output 03/08/19 03/09/19 19:00 07:00 Intake Total 680 ml 300 ml Balance 680 ml 300 ml Intake Oral 680 ml 300 ml # Voids 4 2 Laboratory Tests 03/08/19 18:10: Troponin I 0.000 03/09/19 06:00: White Blood Count 5.5, Red Blood Count 3.97L, Hemoglobin 12.3, Hematocrit 36.9L , Mean Corpuscular Volume 93, Mean Corpuscular Hemoglobin 31.1H, Mean Corpuscular Hemoglobin Concent 33.4, Red Cell Distribution Width 11.8, Platelet Count 274, Mean Platelet Volume 7.2, Neutrophils (%) (Auto) 47.4, Lymphocytes (% ) (Auto) 39.1, Monocytes (%) (Auto) 8.7, Eosinophils (%) (Auto) 3.5H, Basophils (%) (Auto) 1.3, Sodium Level 135L, Potassium Level 4.4, Chloride Level 102, Carbon Dioxide Level 27, Anion Gap 6, Blood Urea Nitrogen 18, Creatinine 0.6, Estimat Glomerular Filtration Rate > 60, Glucose Level 95, Calcium Level 8.7 Height (Feet): 5 Height (Inches): 6.00 Weight (Pounds): 149 General Appearance: lethargic EENT: normal ENT inspection Neck: normal alignment Cardiovascular: normal peripheral pulses, normal rate, regular rhythm Respiratory/Chest: chest wall non-tender, lungs clear, normal breath sounds Abdomen: normal bowel sounds, non tender, soft Extremities: normal inspection Edema: no edema noted Arm (L), no edema noted Arm (R), no edema noted Leg (L), no edema noted Leg (R), no edema noted Pedal (L), no edema noted Pedal (R), no edema noted Generalized Neurologic: responsive, motor weakness Skin: normal pigmentation, warm/dry Nishant Rider DO Mar 09, 2019 08:33
[2019-03-09] MEDS: Lyrica 50mg cap ORAL SCH ×3 (09:00→18:00)
[2019-03-09] MEDS ORDERED: Lisinopril 20mg tab ORAL SCH (09:00)
--- NOTE | 2019-03-09 09:30 | NUR ---
NURSE NOTES: Portable XR of left ankle done at bedside at this time.
[2019-03-09] MEDS: Aspirin Baby 81mg ORAL SCH (09:37)
[2019-03-09] MEDS: QUEtiapine 200mg tab ORAL SCH (09:39)
[2019-03-09] MEDS: carBAMazepine 200mg tab ORAL SCH ×2 (09:41→21:00)
[2019-03-09] MEDS: Heparin 5000 units/ml inj SUBQ SCH ×2 (09:42→21:05)
--- NOTE | 2019-03-09 10:50 | NUR ---
NURSE NOTES: Dr. Rider and Dr. Hernández notified of low blood pressure 83/46 mmHg and HR 77, patient asymptomatic, no chest pain, dizziness reported. Orders received for NS 500 ml bolus x1, patient informed of new orders, verbalized understanding, started at 1005, bolus infused over 30 minutes, BP recheck 91/53 mmHg and HR 77, no changes in status. Will continue to monitor.
--- NOTE | 2019-03-09 12:58 | Pulmonology Progress Note ---
Assessment/Plan Problems: (1) ACS (acute coronary syndrome) (2) HTN (hypertension) (3) Multiple sclerosis (4) Hyponatremia (5) DNR (do not resuscitate) Assessment/Plan symptomatic treatment monitor bp pain management psych f/u dvt prophylaxis. Subjective ROS Limited/Unobtainable: No Constitutional: Reports: no symptoms HEENT: Repors: no symptoms Allergies: Coded Allergies: HYDROMORPHONE (Verified Allergy, Intermediate, 03/28/18) PREDNISONE (Verified Allergy, Intermediate, 03/28/18) PSEUDOEPHEDRINE (Verified Allergy, Intermediate, 03/28/18) Objective Last 24 Hour Vital Signs Date Time Temp Pulse Resp B/P (MAP) Pulse Ox O2 Delivery O2 Flow Rate FiO2 03/09/19 09:00 83/46 03/09/19 08:00 98.1 77 18 83/46 (58) 97 03/09/19 06:00 97.2 78 18 94/56 (69) 97 03/09/19 00:50 98.4 73 18 95/62 (73) 99 03/09/19 00:21 97.9 03/09/19 00:00 83 03/09/19 00:00 98.9 84 18 116/67 (83) 98 03/08/19 21:45 97.9 03/08/19 21:00 Room Air 03/08/19 20:00 97.9 87 18 100/59 (73) 97 03/08/19 20:00 80 03/08/19 16:00 70 03/08/19 16:00 97.1 72 18 94/64 (74) 97 Intake and Output 03/08/19 03/09/19 19:00 07:00 Intake Total 680 ml 300 ml Balance 680 ml 300 ml Intake Oral 680 ml 300 ml # Voids 4 2 General Appearance: WD/WN HEENT: normocephalic Respiratory/Chest: chest wall non-tender, lungs clear Breasts: no masses Cardiovascular: normal peripheral pulses Abdomen: soft, non tender, no organomegaly Genitourinary: normal external genitalia Skin: no rash Microbiology Date/Time Source Procedure Growth Status 03/07/19 13:25 Rectum Received Laboratory Tests 03/08/19 18:10: Troponin I 0.000 03/09/19 06:00: White Blood Count 5.5, Red Blood Count 3.97L, Hemoglobin 12.3, Hematocrit 36.9L , Mean Corpuscular Volume 93, Mean Corpuscular Hemoglobin 31.1H, Mean Corpuscular Hemoglobin Concent 33.4, Red Cell Distribution Width 11.8, Platelet Count 274, Mean Platelet Volume 7.2, Neutrophils (%) (Auto) 47.4, Lymphocytes (% ) (Auto) 39.1, Monocytes (%) (Auto) 8.7, Eosinophils (%) (Auto) 3.5H, Basophils (%) (Auto) 1.3, Sodium Level 135L, Potassium Level 4.4, Chloride Level 102, Carbon Dioxide Level 27, Anion Gap 6, Blood Urea Nitrogen 18, Creatinine 0.6, Estimat Glomerular Filtration Rate > 60, Glucose Level 95, Calcium Level 8.7 Current Medications Medications (Trade) Dose Ordered Sig/[place] Route PRN Reason Start Time Stop Time Status Last Admin Dose Admin Acetaminophen (Tylenol) 650 mg Q4H PRN ORAL FEVER 03/09/19 01:15 04/06/19 17:14 03/09/19 01:35 Albuterol/ Ipratropium (Albuterol/ Ipratropium) 3 ml Q4H PRN HHN Shortness of Breath 03/09/19 01:15 03/12/19 17:14 Aspirin (ASA) 162 mg DAILY ORAL 03/09/19 09:00 04/07/19 08:59 03/09/19 09:37 Baclofen (Lioresal) 10 mg Q8HR ORAL 03/09/19 06:00 04/06/19 21:59 03/09/19 05:40 Carbamazepine (TEGretol) 200 mg Q12HR ORAL 03/09/19 09:00 04/06/19 20:59 03/09/19 09:41 Enalaprilat (Vasotec) 2.5 mg Q6H PRN IV sbp more than 160 03/09/19 05:15 04/06/19 17:14 Gabapentin (Neurontin) 400 mg TWICE A DAY ORAL 03/09/19 09:00 04/06/19 17:59 03/09/19 09:38 Heparin Sodium (Porcine) (Heparin 5000 units/ml) 5,000 units EVERY 12 HOURS SUBQ 03/09/19 09:00 04/06/19 20:59 03/09/19 09:42 Levothyroxine Sodium (Synthroid) 25 mcg ACBREAKFAST ORAL 03/09/19 06:30 04/07/19 06:29 03/09/19 05:40 Lisinopril (Prinivil) 20 mg DAILY ORAL 03/09/19 09:00 04/07/19 08:59 Nitroglycerin (Ntg) 0.4 mg Q5M PRN SL Prn Chest Pain 03/09/19 01:15 04/06/19 17:14 Ondansetron HCl (Zofran) 4 mg Q6H PRN IVP Nausea & Vomiting 03/09/19 01:19 04/06/19 01:18 03/09/19 10:21 Oxycodone/ Acetaminophen (Percocet 10/325) 1 tab Q4H PRN ORAL Severe Pain (Pain Scale 7-10) 03/09/19 08:30 03/16/19 08:29 03/09/19 10:05 Polyethylene Glycol (Miralax) 17 gm DAILYPRN PRN ORAL Constipation 03/09/19 01:21 04/06/19 01:20 Pregabalin (Lyrica) 100 mg THREE TIMES A DAY ORAL 03/09/19 09:00 04/06/19 17:59 Quetiapine Fumarate (SEROquel) 300 mg DAILY ORAL 03/09/19 09:00 04/07/19 08:59 03/09/19 09:39 Temazepam (Restoril) 15 mg HSPRN PRN ORAL Insomnia 03/09/19 17:15 03/14/19 17:14 Jose De Jesus Alcala MD Mar 09, 2019 12:58
--- NOTE | 2019-03-09 13:15 | NUR ---
NURSE NOTES: Dr. Alcala updated on patient status and vitals/bolus order, rechecked BP per Dr. Alcala request, 86/53 mmHg and HR 70, patient remains asymptomatic, no chest pain or dizziness or SOB. See updated orders for discontinued Prinivil. Will continue to monitor.
--- NOTE | 2019-03-09 14:39 | Diagnostic Imaging Report ---
Indication: Left ankle pain Technique: 3 views of the left ankle Comparison: None Findings: The bones are osteoporotic. No acute fractures. No dislocations. The joint spaces are preserved. Impression: Osteoporosis No acute bony trauma
--- NOTE | 2019-03-09 14:52 | NUR ---
CASE MANAGEMENT:REVIEW 03/09/19 SI: ACS. HYPONATREMIA MULTIPLE SCLEROSIS 98.1 77 18 83/46 97% ON RA IS: 500CC NS BOLUS X1 ASA PO QD TEGRETOL PO Q12 NEURONTIN PO BID LYRICA PO TID SEROQUEL PO QD PERCOCET PO Q4HRS PRN : MED/SURG STATUS 3 EAST DCP: FROM [facility] PLAN: PSYCH F/U PAIN MGMT
[2019-03-09] MEDS ORDERED: NS 500ML ONE (15:05)
[2019-03-09 15:33] LABS: APPEARANCE,URINE CLOUDY; BILIRUBIN, URINE NEGATIVE (NEGATIVE); COLOR,URINE PALE YELLOW; GLUCOSE, URINE (UA) NEGATIVE (NEGATIVE); KETONES,URINE NEGATIVE (NEGATIVE); LEUKOCYTE ESTERASE ,URINE 3+ (NEGATIVE); NITRITE,URINE POSITIVE (NEGATIVE); PH,URINE 7 (4.5-8.0); PROTEIN,URINE NEGATIVE (NEGATIVE); UROBILINOGEN,URINE NORMAL MG/DL (0.0-1.0)
--- NOTE | 2019-03-09 15:41 | NUR ---
P.T NOTE: P.T EVALUATION COMPLETED AND TREATMENT INITIATED. PLEASE REFER TO P.T EVALUATION FOR CURRENT FUNCTIONAL STATUS. SKILLED P.T SERVICE IS WARRANTED TO IMPROVE HER STRENGTH, BALANCE AND ENDURANCE TO INCREASE HER MOBILITY INDEPENDENCE DURING STAY. RECOMMEND RETURN TO PRIOR LIVING ARRANGEMENT WITH CONTINUE REHAB AT [facility].
--- NOTE | 2019-03-09 18:30 | NUR ---
NURSE NOTES: UA to be obtained via straight cath per MD order, patient informed of new orders, verbalized understanding. Straight cath done using aseptic technique at 1450, odorous urine noted, sent down to lab at 1515. Patient incontinent of urine throughout the day, turned every 2 hours with bilateral heels floating, skin care provided, able to obtain 300 ml via straight cath and Purewik applied at 1700 to continuous suction, output 200 ml y/cl urine. Skin remains intact. Will continue to monitor.
--- NOTE | 2019-03-09 18:45 | NUR ---
NURSE NOTES: Dr. Rider notified of UA results, orders for Dr. Johnson to consult, see order, message left for Dr. Sánchez.
--- NOTE | 2019-03-09 19:20 | NUR ---
NURSE NOTES:Patient received from Nan Glaser . Patient resting in bed .A/A/OX4 . Patient denies any pain at this time . no s/s of distress noted LFA g#20 H/L Patent and intact.patient purewik. and incontinent of urine kept clean and dry at all times . patient turned and repositioned to prevent skin breakdown . HOB Elevated . safety/ fall precautions Patient instructed to use the call light when needed . Bed in low position . Bed alarm on.
--- NOTE | 2019-03-09 19:20 | NUR ---
HAND-OFF: Report given to Adeola CHAMBERS. Endorsed UA results and order for Dr. Johnson ID consult, message left for Dr. Sánchez.
--- NOTE | 2019-03-09 20:09 | Cardiology Progress Note ---
Assessment/Plan Assessment/Plan 1. Non-cardiac chest pain, likely a part of generalized pain in face of MS. 2D echo reveals normal LV systolic function with LVEF at 60%. 2. History of hypertension. She had an episode of hypotension, NS IV bolus 500cc given. 3. History of hypothyroidism. 4. Small pericardial effusion. Subjective Subjective No cardiac events. Had an episode of hypotension this am, asymptomatic. Objective Last 24 Hour Vital Signs Date Time Temp Pulse Resp B/P (MAP) Pulse Ox O2 Delivery O2 Flow Rate FiO2 03/09/19 16:00 98.0 67 17 95/53 (67) 98 03/09/19 13:08 70 86/53 (64) 03/09/19 12:00 98.2 69 18 92/57 (69) 97 03/09/19 10:50 77 91/53 (66) 03/09/19 09:00 Room Air 03/09/19 09:00 83/46 03/09/19 08:00 98.1 77 18 83/46 (58) 97 03/09/19 06:00 97.2 78 18 94/56 (69) 97 03/09/19 00:50 98.4 73 18 95/62 (73) 99 03/09/19 00:21 97.9 03/09/19 00:00 83 03/09/19 00:00 98.9 84 18 116/67 (83) 98 03/08/19 21:45 97.9 03/08/19 21:00 Room Air Intake and Output 03/08/19 03/09/19 19:00 07:00 Intake Total 680 ml 300 ml Balance 680 ml 300 ml Intake Oral 680 ml 300 ml # Voids 4 2 2D Echo: EF 60%, Mild AR, Small pericard. eff., Grade I LVDD, RVSP 22 mmHg Laboratory Tests Test 03/09/19 06:00 03/09/19 15:15 03/09/19 18:15 White Blood Count 5.5 K/UL (4.8-10.8) Red Blood Count 3.97 M/UL (4.20-5.40) L Hemoglobin 12.3 G/DL (12.0-16.0) Hematocrit 36.9 % (37.0-47.0) L Mean Corpuscular Volume 93 FL (80-99) Mean Corpuscular Hemoglobin 31.1 PG (27.0-31.0) H Mean Corpuscular Hemoglobin Concent 33.4 G/DL (32.0-36.0) Red Cell Distribution Width 11.8 % (11.6-14.8) Platelet Count 274 K/UL (150-450) Mean Platelet Volume 7.2 FL (6.5-10.1) Neutrophils (%) (Auto) 47.4 % (45.0-75.0) Lymphocytes (%) (Auto) 39.1 % (20.0-45.0) Monocytes (%) (Auto) 8.7 % (1.0-10.0) Eosinophils (%) (Auto) 3.5 % (0.0-3.0) H Basophils (%) (Auto) 1.3 % (0.0-2.0) Sodium Level 135 MMOL/L (136-145) L Potassium Level 4.4 MMOL/L (3.5-5.1) Chloride Level 102 MMOL/L (98-107) Carbon Dioxide Level 27 MMOL/L (21-32) Anion Gap 6 mmol/L (5-15) Blood Urea Nitrogen 18 mg/dL (7-18) Creatinine 0.6 MG/DL (0.55-1.30) Estimat Glomerular Filtration Rate > 60 mL/min (>60) Glucose Level 95 MG/DL (74-106) Calcium Level 8.7 MG/DL (8.5-10.1) Urine Color Pale yellow Urine Appearance Cloudy Urine pH 7 (4.5-8.0) Urine Specific [place] 1.010 (1.005-1.035) Urine Protein Negative (NEGATIVE) Urine Glucose (UA) Negative (NEGATIVE) Urine Ketones Negative (NEGATIVE) Urine Blood 2+ (NEGATIVE) H Urine Nitrite Positive (NEGATIVE) H Urine Bilirubin Negative (NEGATIVE) Urine Urobilinogen Normal MG/DL (0.0-1.0) Urine Leukocyte Esterase 3+ (NEGATIVE) H Urine RBC 2-4 /HPF (0 - 2) H Urine WBC 10-15 /HPF (0 - 2) H Urine Squamous Epithelial Cells None /LPF (NONE/OCC) Urine Bacteria Many /HPF (NONE) H Troponin I 0.000 ng/mL (0.000-0.056) Microbiology Date/Time Source Procedure Growth Status 03/07/19 13:25 Rectum Received Objective HEENT: Atraumatic and normocephalic. Anicteric. Pupils are equal, round, and reactive to light and accommodation. Extraocular muscles intact. NECK: JVP cannot be assessed due to obesity and short neck. No carotid bruit. Carotid upstrokes 2+ bilaterally. CARDIOVASCULAR: Normal S1, S2. Regular rate and rhythm. No murmurs, gallops, or rubs. PMI is at fourth intercostal space in the midclavicular line. LUNGS: Clear to auscultation bilaterally. ABDOMEN: Obese. I do not appreciate any hepatosplenomegaly. Positive bowel sounds. EXTREMITIES: No evidence of edema, clubbing, or cyanosis. Daniel Hernández MD Mar 09, 2019 20:09
[2019-03-10] VITALS: BP 136/73
[2019-03-10 04:00] VITALS: BP 140/77
--- NOTE | 2019-03-10 05:30 | NUR ---
NURSE NOTES:Joshua Burris from Microbiology call patient Positive MRSA Nares . left message to Paul Arriola Nursing distribution center supervisor and Felipa HWANG notified and aware.
[2019-03-10] MEDS: Levothyroxine 25mcg tab ORAL SCH (06:20)
--- NOTE | 2019-03-10 06:34 | NUR ---
NURSE NOTESv Patient tranfer from 315 bed 1 to 421 bed 2 . Patient MRSA Nares positive. DR. Tereso Dillard notified and aware patient location . and left message to DR. Elizabeth Li still awaiting to call back. endorsed to Isabelle Glaser in [facility]
--- NOTE | 2019-03-10 06:35 | NUR ---
HAND-OFF: Report given to Fozia Glaser
--- NOTE | 2019-03-10 06:45 | NUR ---
NURSE NOTES: Received patient from Adeola RN, 3E. AAO x 4, on room air. Patient resting in bed. IV on L FA 22G intact. Patient is on pureweek. Belongings list reviewed. Patient stated her hair band was left on the floor of the room from 3 E but Adeola said nothing was on the floor. Skin redness on L hip. Adeola received lab result of MRSA nares positive before transfer to 4E but did not change from standard precaution to contact precaution on the status board. Adeola said she will change it on the board. Adeola will notify Dr. Higgins that patient has MRSA nares positive with isolation. Patient denies any pain at this time. Bed locked, lowest position, alarm on, call light within reach. Will continue to monitor.
[2019-03-10 07:23] LABS: BASOPHILS % (AUTO) 1.2 % (0.0-2.0); EOSINOPHILS % (AUTO) 3.7 % (0.0-3.0); HEMATOCRIT 34.3 % (37.0-47.0); HEMOGLOBIN 11.5 G/DL (12.0-16.0); LYMPHOCYTES % (AUTO) 46.3 % (20.0-45.0); MEAN CORPUSCULAR VOLUME 92 FL (80-99); MONOCYTES % (AUTO) 8.3 % (1.0-10.0); NEUTROPHILS % (AUTO) 40.5 % (45.0-75.0); PLATELET COUNT 233 K/UL (150-450); RED BLOOD COUNT 3.71 M/UL (4.20-5.40); RED CELL DISTRIBUTION WIDTH 11.4 % (11.6-14.8); WHITE BLOOD COUNT 4.7 K/UL (4.8-10.8)
--- NOTE | 2019-03-10 07:35 | NUR ---
HAND-OFF: Report given to IRAIDA Crabtree.
[2019-03-10 07:41] LABS: ANION GAP 6 mmol/L (5-15); BLOOD UREA NITROGEN 13 mg/dL (7-18); CALCIUM 8.5 MG/DL (8.5-10.1); CARBON DIOXIDE 26 MMOL/L (21-32); CHLORIDE 97 MMOL/L (98-107); CREATININE 0.4 MG/DL (0.55-1.30); POTASSIUM 4.2 MMOL/L (3.5-5.1); SODIUM 129 MMOL/L (136-145)
[2019-03-10 08:00] VITALS: BP 123/73
--- NOTE | 2019-03-10 08:08 | NUR ---
NURSE NOTES: Patient alert x4, on room air, no sign of distress and shortness of breath; no sing of chest pain; IV LFA 22G flush well; Purewick in place drains well. PM nurse received this patient which transferred from 3E, 3E nurse didn't change the Isolation status of the patient. Will follow up on that. Patient states that she is missing hair band. call light within reach, will keep monitoring.
[2019-03-10] MEDS: Aspirin Baby 81mg ORAL SCH (09:37)
[2019-03-10] MEDS: carBAMazepine 200mg tab ORAL SCH ×2 (09:37→21:04)
[2019-03-10] MEDS: Lyrica 50mg cap ORAL SCH ×3 (09:38→18:00)
[2019-03-10] MEDS: QUEtiapine 200mg tab ORAL SCH (09:38)
[2019-03-10] MEDS: Heparin 5000 units/ml inj SUBQ SCH ×2 (09:40→21:09)
--- NOTE | 2019-03-10 10:59 | NUR ---
CHARGE NURSE NOTE: Na-129, Chl.97. No IV fluids. notified.
[2019-03-10 12:00] VITALS: BP 114/60
--- NOTE | 2019-03-10 12:27 | General Progress Note ---
Assessment/Plan Problem List: (1) Chest pain ICD Codes: R07.9 - Chest pain, unspecified SNOMED: 79506093 (2) ACS (acute coronary syndrome) ICD Codes: I24.9 - Acute ischemic heart disease, unspecified SNOMED: 856061287 (3) HTN (hypertension) ICD Codes: I10 - Essential (primary) hypertension SNOMED: 13931107 (4) Chronic pain ICD Codes: G89.29 - Other chronic pain SNOMED: 18107754 (5) Hypothyroid ICD Codes: E03.9 - Hypothyroidism, unspecified SNOMED: 72037583 (6) Multiple sclerosis ICD Codes: G35 - Multiple sclerosis SNOMED: 76683231 Status: stable, progressing Assessment/Plan: pt diet pain control cardio f/u cbc bmp am dc plan Subjective Constitutional: Reports: weakness Allergies: Coded Allergies: HYDROMORPHONE (Verified Allergy, Intermediate, 03/28/18) PREDNISONE (Verified Allergy, Intermediate, 03/28/18) PSEUDOEPHEDRINE (Verified Allergy, Intermediate, 03/28/18) All Systems: reviewed and negative except above Subjective sl anxious c/o gen pain Objective Last 24 Hour Vital Signs Date Time Temp Pulse Resp B/P (MAP) Pulse Ox O2 Delivery O2 Flow Rate FiO2 03/10/19 12:00 98.0 70 20 114/60 (78) 98 03/10/19 10:31 72 18 96 Room Air 21 03/10/19 09:00 Room Air 03/10/19 08:00 98.1 79 18 123/73 (90) 96 03/10/19 04:27 98.5 03/10/19 04:00 97.5 70 18 140/77 (98) 97 03/10/19 00:00 98.5 74 18 136/73 (94) 95 03/09/19 21:56 70 18 97 Room Air 21 03/09/19 21:00 Room Air 03/09/19 20:00 98.4 68 18 98/70 (79) 100 03/09/19 16:00 98.0 67 17 95/53 (67) 98 03/09/19 13:08 70 86/53 (64) Intake and Output 03/09/19 03/10/19 19:00 07:00 Intake Total 2700 ml 1600 ml Output Total 300 ml 900 ml Balance 2400 ml 700 ml Intake Oral 2700 ml 1600 ml Output Urine Total 300 ml 900 ml # Voids 9 13 Laboratory Tests 03/09/19 15:15: Urine Color Pale yellow, Urine Appearance Cloudy, Urine pH 7, Urine Specific [place] 1.010, Urine Protein Negative, Urine Glucose (UA) Negative, Urine Ketones Negative, Urine Blood 2+H, Urine Nitrite PositiveH, Urine Bilirubin Negative, Urine Urobilinogen Normal, Urine Leukocyte Esterase 3+H, Urine RBC 2- 4H, Urine WBC 10-15H, Urine Squamous Epithelial Cells None, Urine Bacteria ManyH 03/09/19 18:15: Troponin I 0.000 03/10/19 06:59: White Blood Count 4.7L, Red Blood Count 3.71L, Hemoglobin 11.5L, Hematocrit 34.3L, Mean Corpuscular Volume 92, Mean Corpuscular Hemoglobin 31.1H, Mean Corpuscular Hemoglobin Concent 33.6, Red Cell Distribution Width 11.4L, Platelet Count 233, Mean Platelet Volume 6.3L, Neutrophils (%) (Auto) 40.5L, Lymphocytes (%) (Auto) 46.3H, Monocytes (%) (Auto) 8.3, Eosinophils (%) (Auto) 3.7H, Basophils (%) (Auto) 1.2, Sodium Level 129L, Potassium Level 4.2, Chloride Level 97L, Carbon Dioxide Level 26, Anion Gap 6, Blood Urea Nitrogen 13 , Creatinine 0.4L, Estimat Glomerular Filtration Rate > 60, Glucose Level 90, Calcium Level 8.5 Height (Feet): 5 Height (Inches): 6.00 Weight (Pounds): 149 General Appearance: lethargic EENT: normal ENT inspection Neck: normal alignment Cardiovascular: normal peripheral pulses, normal rate, regular rhythm Respiratory/Chest: chest wall non-tender, lungs clear, normal breath sounds Abdomen: normal bowel sounds, non tender, soft Edema: no edema noted Arm (L), no edema noted Arm (R), no edema noted Leg (L), no edema noted Leg (R), no edema noted Pedal (L), no edema noted Pedal (R), no edema noted Generalized Neurologic: responsive, motor weakness Skin: normal pigmentation, warm/dry Nishant Rider DO Mar 10, 2019 12:27
--- NOTE | 2019-03-10 13:14 | General Progress Note ---
Progress Note Progress Note [id number] full note dictated Tangela Mensah MD Mar 10, 2019 13:14
[2019-03-10 16:00] VITALS: BP 117/71
--- NOTE | 2019-03-10 19:00 | Consultation ---
DATE OF CONSULTATION: 03/10/2019 NEPHROLOGY CONSULTATION CONSULTING PHYSICIAN: Tangela Mensah M.D. REFERRING PHYSICIAN: Nishant Rider D.O. REASON FOR CONSULTATION: Hyponatremia. HISTORY OF PRESENT ILLNESS: The patient is an unfortunate 58-year-old female with past medical history with history of hypertension and multiple sclerosis. The patient is wheelchair-bounded and she was presented to [facility] with the initial complaint of chest pain, which was in pleuritic nature. The patient was admitted in the hospital. During the course of hospital admission, the patient was found to be hyponatremic and with electrolyte imbalance, I was called for management of renal disease and electrolyte imbalance. PAST MEDICAL HISTORY: Including history of paraplegia, history of multiple sclerosis, history of hypertension, and history of anemia. PAST SURGICAL HISTORY: None. SOCIAL HISTORY: [facility] lives at senior living. There is no history of tobacco, alcohol, or drug use. ALLERGIES: The patient is allergic to hydromorphone, prednisone, and pseudoephedrine. FAMILY HISTORY: Negative for any history of chronic kidney disease or premature heart disease. HOME MEDICATIONS: 1. Tylenol 650 mg q.6 h. p.r.n. pain. 2. Pro-Stat 30 mg daily. 3. Augmentin 875 mg p.o. b.i.d. 4. Baclofen 10 mg daily. 5. Tegretol 200 mg p.o. b.i.d. 6. Valium 10 mg p.o. q.6 h. p.r.n. anxiety. 7. Benadryl 10 mg daily. 8. Lasix 20 mg daily. 9. Neurontin 400 mg daily. 10. [place] 10/325 mg daily. 11. Flonase p.r.n. 12. Levaquin 750 mg daily. 13. Synthroid 25 mcg daily. 14. Lisinopril 20 mg daily. 15. Milk of magnesia tablet p.o. daily. 16. Zofran 4 mg daily. 17. Lyrica 100 mg daily. 18. Seroquel 300 mg daily. 19. Restoril 10 mg p.r.n. at bedtime. REVIEW OF SYSTEMS: GENERAL: She complained of generalized weakness. Denies any fever, chills, or night sweats. HEAD AND NECK: Denies any dysphagia, odynophagia, blurry vision, headache, or neck stiffness. PULMONARY: No shortness of breath or cough. CARDIOVASCULAR: Chest pain has resolved at this time. GASTROINTESTINAL: Denies any nausea, vomiting, diarrhea, hematemesis, or hematochezia. GENITOURINARY: Denies any dysuria, frequency, or hematuria. MUSCULOSKELETAL: Complained of generalized body pain. Denies any localized weakness or numbness. PHYSICAL EXAMINATION: VITAL SIGNS: The patient had temperature of 98 degrees, pulse rate of 78, and blood pressure of 130/85. HEAD AND NECK: No JVP. No LAD. No thyromegaly. Extraocular movement intact. Pupils are reactive to light and accommodation. LUNGS: Clear to auscultation. CARDIAC: Regular rate and rhythm. S1, S2. No murmur. No rub. ABDOMEN: Soft, nontender, and nondistended. EXTREMITIES: No edema. No clubbing. No cyanosis. LABORATORY DATA: The patient has WBC count of 4.7, hemoglobin of 11.5, hematocrit of 34, and platelet count of 233,000. Chemistry revealed sodium of 129, drop from 135, potassium 4.2, chloride 97, bicarb 26, BUN of 13, creatinine of 0.5, and calcium of 8.5. UA revealed specific gravity of 1.010, blood 2+, leukocyte esterase 3+, wbc 2 to 4, rbc of 10 to 15, and bacteria many. ASSESSMENT: 1. Isovolemic hyponatremia. The etiology are the patient is on multiple medication including antipsychotic, anti-depression, and Tegretol, which could cause hyponatremia for this patient. 2. Urinary tract infection with hematuria and white blood cells. 3. Hypertension, well controlled at this time. PLAN: We will check the urine sodium and urine creatinine to calculate fractional excretion of sodium. Check the urine osmolality and serum osmolality. Check the TSH level. Make full IV piggyback with normal saline. Avoid any NSAID and nephrotoxic. Free water restriction. Again, I would like to thank, Dr. Nishant Rider, for allowing me to participate in the care of this patient. Tangela Mensah M.D. DR: JERE JOB#: [id number] CC:
--- NOTE | 2019-03-10 19:40 | NUR ---
HAND-OFF: Report given to IRAIDA Davila.
--- NOTE | 2019-03-10 19:40 | NUR ---
NURSE NOTES:- Urine needs to be collected, endorsed to PM nurseGiovanni.
[2019-03-10 20:00] VITALS: BP 110/64
--- NOTE | 2019-03-10 20:51 | Consultation ---
History of Present Illness General Date patient seen: Mar 10, 2019 Chief Complaint: Chest Pain Present Illness HPI 58 y/o F with hx of HTN, MS, hypothyroidism, paraplegia, anemia, NH resident presented to ED on 03/07 with complains of diffuse pain: chest, neck, back, lower extremities. Chest pain is midsternal and radiates up to the neck. Upon admission she was found to be hyponatremic Denied f/c, n/v/d, SOB, POLK Allergies: Coded Allergies: HYDROMORPHONE (Verified Allergy, Intermediate, 03/28/18) PREDNISONE (Verified Allergy, Intermediate, 03/28/18) PSEUDOEPHEDRINE (Verified Allergy, Intermediate, 03/28/18) Medication History Scheduled Amino Acids/Protein Hydrolys (Pro-Stat Liquid), 30 ML ORAL THREE TIMES A DAY, ( Reported) Amoxicillin/Potassium Clav 875-125* (Augmentin 875-125 Tablet*), 1 TAB ORAL TWICE A DAY, (Reported) Baclofen* (Baclofen*), 10 MG ORAL Q8HR, (Reported) Carbamazepine (Tegretol*), 200 MG PO BID, (Reported) Dextran 70/Hypromellose (Artificial Tears Eye Drops*), 1 DROP BOTH EYES BID, ( Reported) Docusate Sodium* (Docusate Sodium*), 100 MG ORAL THREE TIMES A DAY, (Reported) Duloxetine Hcl* (Cymbalta*), 60 MG ORAL DAILY, (Reported) Furosemide (Furosemide), 20 MG ORAL DAILY, (Reported) Gabapentin* (Neurontin*), 400 MG ORAL TWICE A DAY, (Reported) Levofloxacin* (Levaquin*), 750 MG ORAL DAILY, (Reported) Levothyroxine Sodium* (Synthroid*), 25 MCG ORAL DAILY, (Reported) Lisinopril* (Zestril*), 20 MG ORAL DAILY, (Reported) Loratadine (Loratadine), 10 MG PO DAILY, (Reported) Lorazepam* (Lorazepam*), 1 MG ORAL Q6HR, (Reported) Midodrine (Midodrine HCl), 2.5 MG ORAL Q8HR, (Reported) Multivitamins* (Multivitamins*), 1 TAB ORAL DAILY, (Reported) Nitrofurantoin (Nitrofurantoin), 100 MG PO BID, (Reported) Polyethylene Glycol 3350* (Miralax*), 17 GM ORAL DAILY, (Reported) Pregabalin* (Lyrica*), 100 MG ORAL THREE TIMES A DAY, (Reported) Pregabalin* (Lyrica*), 100 MG ORAL THREE TIMES A DAY, (Reported) Quetiapine Fumarate* (Seroquel*), 300 MG ORAL DAILY, (Reported) Scheduled PRN Acetaminophen* (Acetaminophen 325MG Tablet*), 650 MG ORAL Q4H PRN for For Pain, (Reported) Dextran 70/Hypromellose (Artificial Tears Eye Drops*), 1 DROP BOTH EYES Q4HR PRN for Dry Eyes, (Reported) Diazepam* (Valium*), 10 MG ORAL EVERY 6 HOURS PRN for ANXIETY, (Reported) Diphenhydramine Hcl* (Benadryl*), 50 MG ORAL Q6H PRN for Itching, (Reported) Hydrocodone Bit/Acetaminophen 10-325* ([place] 10-325*), 1 TAB ORAL Q6H PRN for For Pain, (Reported) Hydrocodone Bit/Acetaminophen 10-325* ([place] 10-325*), 1 TAB ORAL Q4H PRN for For Pain, (Reported) Hydrocodone/Acetaminophen 7.5-325* (Hydrocodon-Acetaminoph 7.5-325*), 1 TAB ORAL Q6H PRN for Pain Scale (6-10), (Reported) Magnesium Hydroxide* (Milk Of Magnesia*), 30 ML ORAL Q6HR PRN for Constipation, (Reported) Ondansetron Odt* (Zofran Odt*), 4 MG ORAL Q8HR PRN for Nausea & Vomiting, ( Reported) Oxymetazoline HCl (Afrin), 1 SPRAY NASAL TWICE A DAY PRN for Constipation, ( Reported) Temazepam* (Restoril*), 15 MG ORAL BEDTIME PRN for Insomnia, (Reported) Miscellaneous Medications Fluticasone Propionate (Flonase Allergy Relief), 9.9 ML NS, (Reported) Patient History Healthcare decision maker Resuscitation status Do Not Resuscitate Advanced Directive on File Patient History Narrative Pmhx: as above Shx: [facility] There is no history of tobacco, alcohol, or drug use. Fhx: non contributory Review of Systems All Other Systems: negative except mentioned in HPI Physical Exam Physical Exam Narrative GENERAL: The patient is a very depressed, well nourished, obese Alert and oriented x4. Complaining of pain. HEENT: Atraumatic and normocephalic. Anicteric. Pupils are equal, round, and reactive to light and accommodation. Extraocular muscles intact. NECK: JVP cannot be assessed due to obesity and short neck. No carotid bruit. Carotid upstrokes 2+ bilaterally. CARDIOVASCULAR: Normal S1, S2. Regular rate and rhythm. No murmurs, gallops, or rubs. PMI is at fourth intercostal space in the midclavicular line. LUNGS: Clear to auscultation bilaterally. ABDOMEN: Obese. I do not appreciate any hepatosplenomegaly. Positive bowel sounds. EXTREMITIES: No evidence of edema, clubbing, or cyanosis. Last 24 Hour Vital Signs Date Time Temp Pulse Resp B/P (MAP) Pulse Ox O2 Delivery O2 Flow Rate FiO2 03/10/19 19:50 77 18 95 Room Air 21 03/10/19 16:17 98.0 03/10/19 16:00 97.1 73 20 117/71 (86) 97 03/10/19 12:00 98.0 70 20 114/60 (78) 98 03/10/19 10:31 72 18 96 Room Air 21 03/10/19 09:00 Room Air 03/10/19 08:00 98.1 79 18 123/73 (90) 96 03/10/19 04:00 97.5 70 18 140/77 (98) 97 03/10/19 00:00 98.5 74 18 136/73 (94) 95 03/09/19 21:56 70 18 97 Room Air 21 03/09/19 21:00 Room Air Intake and Output 03/09/19 03/10/19 19:00 07:00 Intake Total 2700 ml 1600 ml Output Total 300 ml 900 ml Balance 2400 ml 700 ml Intake Oral 2700 ml 1600 ml Output Urine Total 300 ml 900 ml # Voids 9 13 Laboratory Tests Test 03/10/19 06:59 White Blood Count 4.7 K/UL (4.8-10.8) L Red Blood Count 3.71 M/UL (4.20-5.40) L Hemoglobin 11.5 G/DL (12.0-16.0) L Hematocrit 34.3 % (37.0-47.0) L Mean Corpuscular Volume 92 FL (80-99) Mean Corpuscular Hemoglobin 31.1 PG (27.0-31.0) H Mean Corpuscular Hemoglobin Concent 33.6 G/DL (32.0-36.0) Red Cell Distribution Width 11.4 % (11.6-14.8) L Platelet Count 233 K/UL (150-450) Mean Platelet Volume 6.3 FL (6.5-10.1) L Neutrophils (%) (Auto) 40.5 % (45.0-75.0) L Lymphocytes (%) (Auto) 46.3 % (20.0-45.0) H Monocytes (%) (Auto) 8.3 % (1.0-10.0) Eosinophils (%) (Auto) 3.7 % (0.0-3.0) H Basophils (%) (Auto) 1.2 % (0.0-2.0) Sodium Level 129 MMOL/L (136-145) L Potassium Level 4.2 MMOL/L (3.5-5.1) Chloride Level 97 MMOL/L (98-107) L Carbon Dioxide Level 26 MMOL/L (21-32) Anion Gap 6 mmol/L (5-15) Blood Urea Nitrogen 13 mg/dL (7-18) Creatinine 0.4 MG/DL (0.55-1.30) L Estimat Glomerular Filtration Rate > 60 mL/min (>60) Glucose Level 90 MG/DL (74-106) Calcium Level 8.5 MG/DL (8.5-10.1) Height (Feet): 5 Height (Inches): 6.00 Weight (Pounds): 149 Medications Current Medications Medications (Trade) Dose Ordered Sig/[place] Route PRN Reason Start Time Stop Time Status Last Admin Dose Admin Acetaminophen (Tylenol) 650 mg Q4H PRN ORAL FEVER 03/09/19 01:15 04/06/19 17:14 03/09/19 01:35 Albuterol/ Ipratropium (Albuterol/ Ipratropium) 3 ml Q4H PRN HHN Shortness of Breath 03/09/19 01:15 03/12/19 17:14 Aspirin (ASA) 162 mg DAILY ORAL 03/09/19 09:00 04/07/19 08:59 03/10/19 09:37 Baclofen (Lioresal) 10 mg Q8HR ORAL 03/09/19 06:00 04/06/19 21:59 03/10/19 15:47 Carbamazepine (TEGretol) 200 mg Q12HR ORAL 03/09/19 09:00 04/06/19 20:59 03/10/19 09:37 Enalaprilat (Vasotec) 2.5 mg Q6H PRN IV sbp more than 160 03/09/19 05:15 04/06/19 17:14 Gabapentin (Neurontin) 400 mg TWICE A DAY ORAL 03/09/19 09:00 04/06/19 17:59 03/10/19 18:05 Heparin Sodium (Porcine) (Heparin 5000 units/ml) 5,000 units EVERY 12 HOURS SUBQ 03/09/19 09:00 04/06/19 20:59 03/10/19 09:40 Levothyroxine Sodium (Synthroid) 25 mcg ACBREAKFAST ORAL 03/09/19 06:30 04/07/19 06:29 03/10/19 06:20 Nitroglycerin (Ntg) 0.4 mg Q5M PRN SL Prn Chest Pain 03/09/19 01:15 04/06/19 17:14 Ondansetron HCl (Zofran) 4 mg Q6H PRN IVP Nausea & Vomiting 03/09/19 01:19 04/06/19 01:18 03/09/19 10:21 Oxycodone/ Acetaminophen (Percocet 10/325) 1 tab Q4H PRN ORAL Severe Pain (Pain Scale 7-10) 03/09/19 08:30 03/16/19 08:29 03/10/19 20:10 Polyethylene Glycol (Miralax) 17 gm DAILYPRN PRN ORAL Constipation 03/09/19 01:21 04/06/19 01:20 Pregabalin (Lyrica) 100 mg THREE TIMES A DAY ORAL 03/09/19 09:00 04/06/19 17:59 03/10/19 09:38 Quetiapine Fumarate (SEROquel) 300 mg DAILY ORAL 03/09/19 09:00 04/07/19 08:59 03/10/19 09:38 Temazepam (Restoril) 15 mg HSPRN PRN ORAL Insomnia 03/09/19 17:15 03/14/19 17:14 03/09/19 21:54 Assessment/Plan Assessment/Plan: Abx: None Assessment: Afebrile No leukocytosis Pyuria -u/a wbc 10-15, nit +, leuk +3; ucx Chest pain, non cardiac -CXR: No acute findings -Trop neg x4 HTN Multiple Sclerosis hypothyroidism paraplegia anemia NH resident Plan: -Continue to monitor off abx unless febrile, leukocytosis and/or urinary symptoms -f/u cx -Monitor CBC/CMP, temperatures Thank you for this consultation. Will continue to follow along with you. Discussed with IRAIDA. Shivani Sánchez M.D. Mar 10, 2019 20:51
[2019-03-11] VITALS: BP 131/96
[2019-03-11 04:00] VITALS: BP 141/86
[2019-03-11] MEDS: Levothyroxine 25mcg tab ORAL SCH (05:45)
--- NOTE | 2019-03-11 07:29 | NUR ---
HAND-OFF: Report given to IRAIDA Caldwell.
[2019-03-11 07:41] LABS: BASOPHILS % (AUTO) 1.5 % (0.0-2.0); EOSINOPHILS % (AUTO) 3.7 % (0.0-3.0); HEMATOCRIT 35.1 % (37.0-47.0); HEMOGLOBIN 11.7 G/DL (12.0-16.0); LYMPHOCYTES % (AUTO) 47.3 % (20.0-45.0); MEAN CORPUSCULAR VOLUME 92 FL (80-99); MONOCYTES % (AUTO) 8.3 % (1.0-10.0); NEUTROPHILS % (AUTO) 39.2 % (45.0-75.0); PLATELET COUNT 234 K/UL (150-450); RED BLOOD COUNT 3.82 M/UL (4.20-5.40); RED CELL DISTRIBUTION WIDTH 11.4 % (11.6-14.8)
--- NOTE | 2019-03-11 07:59 | NUR ---
NURSE NOTES: Patient alert x4, on room air, no sign of distress, no sign of chest pain; NO IV ACCESS; Purewick collects urine; side rails up x2, breaks engaged, bed alarm on, bed at lowest position; call light within reach; will keep monitoring.
[2019-03-11 08:00] VITALS: BP 125/66
[2019-03-11 08:16] LABS: ANION GAP 10 mmol/L (5-15); BLOOD UREA NITROGEN 15 mg/dL (7-18); CALCIUM 8.4 MG/DL (8.5-10.1); CARBON DIOXIDE 23 MMOL/L (21-32); CHLORIDE 95 MMOL/L (98-107); CREATININE 0.4 MG/DL (0.55-1.30); POTASSIUM 4.4 MMOL/L (3.5-5.1); SODIUM 128 MMOL/L (136-145)
[2019-03-11] MEDS: Lyrica 50mg cap ORAL SCH ×3 (09:00→17:43)
[2019-03-11] MEDS: carBAMazepine 200mg tab ORAL SCH ×2 (09:13→21:09)
[2019-03-11] MEDS: QUEtiapine 200mg tab ORAL SCH (09:14)
[2019-03-11] MEDS: Aspirin Baby 81mg ORAL SCH (09:14)
[2019-03-11] MEDS: Heparin 5000 units/ml inj SUBQ SCH ×2 (09:16→21:18)
--- NOTE | 2019-03-11 09:19 | General Progress Note ---
Assessment/Plan Problem List: (1) Chest pain ICD Codes: R07.9 - Chest pain, unspecified SNOMED: 86259083 (2) ACS (acute coronary syndrome) ICD Codes: I24.9 - Acute ischemic heart disease, unspecified SNOMED: 100405835 (3) HTN (hypertension) ICD Codes: I10 - Essential (primary) hypertension SNOMED: 29089101 (4) Chronic pain ICD Codes: G89.29 - Other chronic pain SNOMED: 00500446 (5) Hypothyroid ICD Codes: E03.9 - Hypothyroidism, unspecified SNOMED: 29210676 (6) Multiple sclerosis ICD Codes: G35 - Multiple sclerosis SNOMED: 81528418 Status: stable, progressing Assessment/Plan: pt diet pain control cardio f/u cbc bmp am dc plan Subjective Constitutional: Reports: weakness Allergies: Coded Allergies: HYDROMORPHONE (Verified Allergy, Intermediate, 03/28/18) PREDNISONE (Verified Allergy, Intermediate, 03/28/18) PSEUDOEPHEDRINE (Verified Allergy, Intermediate, 03/28/18) All Systems: reviewed and negative except above Subjective sleepy calm Objective Last 24 Hour Vital Signs Date Time Temp Pulse Resp B/P (MAP) Pulse Ox O2 Delivery O2 Flow Rate FiO2 03/11/19 08:00 97.0 73 19 125/66 (85) 96 03/11/19 04:00 99.1 69 18 141/86 (104) 97 03/11/19 00:00 99.9 79 18 131/96 (108) 96 03/10/19 21:00 Room Air 03/10/19 20:00 99.2 77 20 110/64 (79) 97 03/10/19 19:50 77 18 95 Room Air 21 03/10/19 16:17 98.0 03/10/19 16:00 97.1 73 20 117/71 (86) 97 03/10/19 12:00 98.0 70 20 114/60 (78) 98 03/10/19 10:31 72 18 96 Room Air 21 Intake and Output 03/10/19 03/11/19 18:59 06:59 Intake Total 836 ml 1500 ml Balance 836 ml 1500 ml Intake Oral 836 ml 1500 ml # Voids 1 4 Laboratory Tests 03/11/19 02:48: Urine Eosinophils None seen, Urine Random Creatinine [Pending], Urine Random Microalbumin [Pending], Urine Random Total Protein 22H, Urine Random Sodium 78, Urine Creatinine 25.0L, Urine Microalbumin/Creatinine Ratio [Pending] 03/11/19 05:40: White Blood Count 5.0, Red Blood Count 3.82L, Hemoglobin 11.7L, Hematocrit 35.1L , Mean Corpuscular Volume 92, Mean Corpuscular Hemoglobin 30.7, Mean Corpuscular Hemoglobin Concent 33.3, Red Cell Distribution Width 11.4L, Platelet Count 234, Mean Platelet Volume 5.9L, Neutrophils (%) (Auto) 39.2L, Lymphocytes (%) (Auto) 47.3H, Monocytes (%) (Auto) 8.3, Eosinophils (%) (Auto) 3.7H, Basophils (%) (Auto) 1.5, Sodium Level 128L, Potassium Level 4.4, Chloride Level 95L, Carbon Dioxide Level 23, Anion Gap 10, Blood Urea Nitrogen 15, Creatinine 0.4L, Estimat Glomerular Filtration Rate > 60, Glucose Level 82, Calcium Level 8.4L Height (Feet): 5 Height (Inches): 6.00 Weight (Pounds): 149 General Appearance: lethargic EENT: normal ENT inspection Neck: normal alignment Cardiovascular: normal peripheral pulses, normal rate, regular rhythm Respiratory/Chest: chest wall non-tender, lungs clear, normal breath sounds Abdomen: normal bowel sounds, non tender, soft Extremities: normal inspection Edema: no edema noted Arm (L), no edema noted Arm (R), no edema noted Leg (L), no edema noted Leg (R), no edema noted Pedal (L), no edema noted Pedal (R), no edema noted Generalized Neurologic: motor weakness Skin: normal pigmentation, warm/dry Nishant Rider DO Mar 11, 2019 09:19
[2019-03-11 12:00] VITALS: BP 104/64
--- NOTE | 2019-03-11 12:47 | General Progress Note ---
Assessment/Plan Assessment/Plan: (1) Neuropathic pain (2) Multiple Sclerosis Patient will be continued on Percocet D/w Dr. Fried and he concurred. Subjective Date patient seen: Mar 11, 2019 Time patient seen: 12:30 - pm Allergies: Coded Allergies: HYDROMORPHONE (Verified Allergy, Intermediate, 03/28/18) PREDNISONE (Verified Allergy, Intermediate, 03/28/18) PSEUDOEPHEDRINE (Verified Allergy, Intermediate, 03/28/18) Subjective REVIEW OF SYSTEMS: Denies rash, fever, chills, sweating, dizziness, drowsiness, blurred vision, sore throat, or change in weight. No shortness of breath or chest pain. No nausea, vomiting, diarrhea, or blood in the stool or urine. She is complaining of generalized body pain. SUBJECTIVE: Patient is in bed and shows no signs of pain or distress, pain has been tolerated on the Percocet. She has no new complaints at this time. Objective Last 24 Hour Vital Signs Date Time Temp Pulse Resp B/P (MAP) Pulse Ox O2 Delivery O2 Flow Rate FiO2 03/11/19 09:43 97.0 03/11/19 09:00 Room Air 03/11/19 08:00 97.0 73 19 125/66 (85) 96 03/11/19 04:00 99.1 69 18 141/86 (104) 97 03/11/19 00:00 99.9 79 18 131/96 (108) 96 03/10/19 21:00 Room Air 03/10/19 20:00 99.2 77 20 110/64 (79) 97 03/10/19 19:50 77 18 95 Room Air 21 03/10/19 16:00 97.1 73 20 117/71 (86) 97 Intake and Output 03/10/19 03/11/19 19:00 07:00 Intake Total 836 ml 1500 ml Balance 836 ml 1500 ml Intake Oral 836 ml 1500 ml # Voids 1 4 Laboratory Tests 03/11/19 02:48: Urine Eosinophils None seen, Urine Random Creatinine [Pending], Urine Random Microalbumin [Pending], Urine Random Total Protein 22H, Urine Random Sodium 78, Urine Creatinine 25.0L, Urine Microalbumin/Creatinine Ratio [Pending] 03/11/19 05:40: White Blood Count 5.0, Red Blood Count 3.82L, Hemoglobin 11.7L, Hematocrit 35.1L , Mean Corpuscular Volume 92, Mean Corpuscular Hemoglobin 30.7, Mean Corpuscular Hemoglobin Concent 33.3, Red Cell Distribution Width 11.4L, Platelet Count 234, Mean Platelet Volume 5.9L, Neutrophils (%) (Auto) 39.2L, Lymphocytes (%) (Auto) 47.3H, Monocytes (%) (Auto) 8.3, Eosinophils (%) (Auto) 3.7H, Basophils (%) (Auto) 1.5, Sodium Level 128L, Potassium Level 4.4, Chloride Level 95L, Carbon Dioxide Level 23, Anion Gap 10, Blood Urea Nitrogen 15, Creatinine 0.4L, Estimat Glomerular Filtration Rate > 60, Glucose Level 82, Calcium Level 8.4L Height (Feet): 5 Height (Inches): 6.00 Weight (Pounds): 149 Objective GENERAL: alert, awake, and oriented. LUNGS: Decreased breath sounds bilaterally. HEART: S1 and S2 regular. ABDOMEN: Benign. EXTREMITIES: No cyanosis. No clubbing. No edema. NEUROLOGICAL: Marked weakness noted in bilateral lower extremities. Alonso Young Mar 11, 2019 12:47
[2019-03-11 16:00] VITALS: BP 117/77
[2019-03-11] MEDS ORDERED: Albuterol/Ipratropium 3ml neb HHN PRN (16:30)
--- NOTE | 2019-03-11 19:41 | NUR ---
HAND-OFF: Report given to IRAIDA Davila.
--- NOTE | 2019-03-11 19:45 | NUR ---
NURSE NOTES: Received patient from IRAIDA Caldwell. Patient is in bed, awake and alert x4. Patient is on room air with no signs of distress or SOB. Pure[place] is in place and collecting urine. Patient has no IV access at this time and MD is aware. Bed is locked and in lowest position with side rails up and bed alarm on. Will continue to monitor.
[2019-03-11 20:00] VITALS: BP 122/68
--- NOTE | 2019-03-11 21:45 | Nephrology Progress Note ---
Assessment/Plan Assessment ASSESSMENT: 1. Isovolemic hyponatremia. The etiology are the patient is on multiple medication including antipsychotic, anti-depression, and Tegretol, which could cause hyponatremia for this patient. 2. Urinary tract infection with hematuria and white blood cells. 3. Hypertension, well controlled at this time. Plan free water restriction monitoring urine out void NSAID Subjective Constitutional: Reports: no symptoms Subjective pt is very drowsy Objective Objective Last 24 Hour Vital Signs Date Time Temp Pulse Resp B/P (MAP) Pulse Ox O2 Delivery O2 Flow Rate FiO2 03/11/19 20:00 98.0 66 19 122/68 (86) 98 03/11/19 19:42 69 18 97 Room Air 21 03/11/19 16:56 97.1 03/11/19 16:00 97.1 68 20 117/77 (90) 99 03/11/19 12:00 97.4 64 17 104/64 (77) 97 03/11/19 09:00 Room Air 03/11/19 08:00 97.0 73 19 125/66 (85) 96 03/11/19 07:12 78 18 96 Room Air 21 03/11/19 04:00 99.1 69 18 141/86 (104) 97 03/11/19 00:00 99.9 79 18 131/96 (108) 96 Intake and Output 03/10/19 03/11/19 19:00 07:00 Intake Total 836 ml 1500 ml Balance 836 ml 1500 ml Intake Oral 836 ml 1500 ml # Voids 1 4 Laboratory Tests 03/11/19 02:48: Urine Eosinophils None seen, Urine Random Creatinine [Pending], Urine Random Microalbumin [Pending], Urine Random Total Protein 22H, Urine Random Sodium 78, Urine Creatinine 25.0L, Urine Microalbumin/Creatinine Ratio [Pending] 03/11/19 05:40: White Blood Count 5.0, Red Blood Count 3.82L, Hemoglobin 11.7L, Hematocrit 35.1L , Mean Corpuscular Volume 92, Mean Corpuscular Hemoglobin 30.7, Mean Corpuscular Hemoglobin Concent 33.3, Red Cell Distribution Width 11.4L, Platelet Count 234, Mean Platelet Volume 5.9L, Neutrophils (%) (Auto) 39.2L, Lymphocytes (%) (Auto) 47.3H, Monocytes (%) (Auto) 8.3, Eosinophils (%) (Auto) 3.7H, Basophils (%) (Auto) 1.5, Sodium Level 128L, Potassium Level 4.4, Chloride Level 95L, Carbon Dioxide Level 23, Anion Gap 10, Blood Urea Nitrogen 15, Creatinine 0.4L, Estimat Glomerular Filtration Rate > 60, Glucose Level 82, Calcium Level 8.4L Height (Feet): 5 Height (Inches): 6.00 Weight (Pounds): 149 Objective HEAD AND NECK: No JVP. No LAD. No thyromegaly. Extraocular movement intact. Pupils are reactive to light and accommodation. LUNGS: Clear to auscultation. CARDIAC: Regular rate and rhythm. S1, S2. No murmur. No rub. ABDOMEN: Soft, nontender, and nondistended. EXTREMITIES: No edema. No clubbing. No cyanosis. Tangela Mensah MD Mar 11, 2019 21:45
--- NOTE | 2019-03-11 22:20 | Cardiology Progress Note ---
Assessment/Plan Assessment/Plan 1. Non-cardiac chest pain, echo with normal LV systolic function and LVEF of 60% . 2. Hypotension, resolved with fluid challenge. 3. History of hypothyroidism. 4. Small pericardial effusion. Subjective Subjective Denies chest pain or SOB. Objective Last 24 Hour Vital Signs Date Time Temp Pulse Resp B/P (MAP) Pulse Ox O2 Delivery O2 Flow Rate FiO2 03/11/19 20:00 98.0 66 19 122/68 (86) 98 03/11/19 19:42 69 18 97 Room Air 21 03/11/19 16:56 97.1 03/11/19 16:00 97.1 68 20 117/77 (90) 99 03/11/19 12:00 97.4 64 17 104/64 (77) 97 03/11/19 09:00 Room Air 03/11/19 08:00 97.0 73 19 125/66 (85) 96 03/11/19 07:12 78 18 96 Room Air 21 03/11/19 04:00 99.1 69 18 141/86 (104) 97 03/11/19 00:00 99.9 79 18 131/96 (108) 96 Intake and Output 03/10/19 03/11/19 19:00 07:00 Intake Total 836 ml 1500 ml Balance 836 ml 1500 ml Intake Oral 836 ml 1500 ml # Voids 1 4 2D Echo: EF 60%, Mild AR, Small pericard. eff., Grade I LVDD, RVSP 22 mmHg Laboratory Tests Test 03/11/19 02:48 03/11/19 05:40 Urine Eosinophils None seen (NONE SEEN) Urine Random Creatinine Pending Urine Random Microalbumin Pending Urine Random Total Protein 22 MG/DL (< 11.9) H Urine Random Sodium 78 mmol/L (20-110) Urine Creatinine 25.0 MG/DL (30.0-125.0) L Urine Microalbumin/Creatinine Ratio Pending White Blood Count 5.0 K/UL (4.8-10.8) Red Blood Count 3.82 M/UL (4.20-5.40) L Hemoglobin 11.7 G/DL (12.0-16.0) L Hematocrit 35.1 % (37.0-47.0) L Mean Corpuscular Volume 92 FL (80-99) Mean Corpuscular Hemoglobin 30.7 PG (27.0-31.0) Mean Corpuscular Hemoglobin Concent 33.3 G/DL (32.0-36.0) Red Cell Distribution Width 11.4 % (11.6-14.8) L Platelet Count 234 K/UL (150-450) Mean Platelet Volume 5.9 FL (6.5-10.1) L Neutrophils (%) (Auto) 39.2 % (45.0-75.0) L Lymphocytes (%) (Auto) 47.3 % (20.0-45.0) H Monocytes (%) (Auto) 8.3 % (1.0-10.0) Eosinophils (%) (Auto) 3.7 % (0.0-3.0) H Basophils (%) (Auto) 1.5 % (0.0-2.0) Sodium Level 128 MMOL/L (136-145) L Potassium Level 4.4 MMOL/L (3.5-5.1) Chloride Level 95 MMOL/L (98-107) L Carbon Dioxide Level 23 MMOL/L (21-32) Anion Gap 10 mmol/L (5-15) Blood Urea Nitrogen 15 mg/dL (7-18) Creatinine 0.4 MG/DL (0.55-1.30) L Estimat Glomerular Filtration Rate > 60 mL/min (>60) Glucose Level 82 MG/DL (74-106) Calcium Level 8.4 MG/DL (8.5-10.1) L Microbiology Date/Time Source Procedure Growth Status 03/09/19 15:15 Urine,Clean Catch Urine Culture - Preliminary Gram Negative Parviz Resulted Objective HEENT: Atraumatic and normocephalic. Anicteric. Pupils are equal, round, and reactive to light and accommodation. Extraocular muscles intact. NECK: JVP cannot be assessed due to obesity and short neck. No carotid bruit. Carotid upstrokes 2+ bilaterally. CARDIOVASCULAR: Normal S1, S2. Regular rate and rhythm. No murmurs, gallops, or rubs. PMI is at fourth intercostal space in the midclavicular line. LUNGS: Clear to auscultation bilaterally. ABDOMEN: Obese. I do not appreciate any hepatosplenomegaly. Positive bowel sounds. EXTREMITIES: No evidence of edema, clubbing, or cyanosis. Daniel Hernández MD Mar 11, 2019 22:20
[2019-03-12] VITALS: BP 139/65
[2019-03-12 04:00] VITALS: BP 120/62
[2019-03-12] MEDS: Levothyroxine 25mcg tab ORAL SCH (05:50)
[2019-03-12 06:35] LABS: BASOPHILS % (AUTO) 1.3 % (0.0-2.0); EOSINOPHILS % (AUTO) 3.1 % (0.0-3.0); HEMATOCRIT 34.3 % (37.0-47.0); HEMOGLOBIN 11.6 G/DL (12.0-16.0); LYMPHOCYTES % (AUTO) 51.8 % (20.0-45.0); MEAN CORPUSCULAR VOLUME 92 FL (80-99); MONOCYTES % (AUTO) 7.9 % (1.0-10.0); NEUTROPHILS % (AUTO) 35.9 % (45.0-75.0); PLATELET COUNT 216 K/UL (150-450); RED BLOOD COUNT 3.74 M/UL (4.20-5.40); RED CELL DISTRIBUTION WIDTH 11.4 % (11.6-14.8); WHITE BLOOD COUNT 3.8 K/UL (4.8-10.8)
[2019-03-12 07:02] LABS: ANION GAP 7 mmol/L (5-15); BLOOD UREA NITROGEN 8 mg/dL (7-18); CALCIUM 8.5 MG/DL (8.5-10.1); CARBON DIOXIDE 26 MMOL/L (21-32); CHLORIDE 93 MMOL/L (98-107); CREATININE 0.4 MG/DL (0.55-1.30); POTASSIUM 4.1 MMOL/L (3.5-5.1); SODIUM 125 MMOL/L (136-145)
--- NOTE | 2019-03-12 07:31 | NUR ---
DISCHARGE PLANNING DISCHARGE ORDER NOTED FAXED CLINICALS TO MICHAEL JONES T: [phone] F:[phone] *AWAIT CALL BACK WITH ASSIGNED ROOM NUMBER
--- NOTE | 2019-03-12 07:52 | NUR ---
HAND-OFF: Report given to IRAIDA Christian.
[2019-03-12 08:00] VITALS: BP 118/65
--- NOTE | 2019-03-12 08:05 | NUR ---
NURSE NOTES: Patient received resting in bed, alert and oriented x4. Breathing unlabored. Denies respiratory distress or pain at this time. Bed locked in low position. Call light placed within reach, will continue to monitor.
--- NOTE | 2019-03-12 08:17 | General Progress Note ---
Assessment/Plan Assessment/Plan: (1) Neuropathic pain (2) Multiple Sclerosis Patient will be continued on Percocet D/w Dr. Fried and he concurred. Subjective Date patient seen: Mar 12, 2019 Time patient seen: 07:00 - am Allergies: Coded Allergies: HYDROMORPHONE (Verified Allergy, Intermediate, 03/28/18) PREDNISONE (Verified Allergy, Intermediate, 03/28/18) PSEUDOEPHEDRINE (Verified Allergy, Intermediate, 03/28/18) Subjective REVIEW OF SYSTEMS: Denies rash, fever, chills, sweating, dizziness, drowsiness, blurred vision, sore throat, or change in weight. No shortness of breath or chest pain. No nausea, vomiting, diarrhea, or blood in the stool or urine. She is complaining of generalized body pain. SUBJECTIVE: Patient showing no signs of pain or distress. She is in bed and has been tolerating the pain on the Percocet. No new complaints at this time. Objective Last 24 Hour Vital Signs Date Time Temp Pulse Resp B/P (MAP) Pulse Ox O2 Delivery O2 Flow Rate FiO2 03/12/19 08:00 98.2 66 18 118/65 (82) 97 03/12/19 04:00 98.6 64 18 120/62 (81) 98 03/12/19 00:00 97.9 64 18 139/65 (89) 95 03/11/19 21:00 Room Air 03/11/19 20:00 98.0 66 19 122/68 (86) 98 03/11/19 19:42 69 18 97 Room Air 21 03/11/19 16:56 97.1 03/11/19 16:00 97.1 68 20 117/77 (90) 99 03/11/19 12:00 97.4 64 17 104/64 (77) 97 03/11/19 09:00 Room Air Intake and Output 03/11/19 03/12/19 19:00 07:00 Intake Total 716 ml 1200 ml Balance 716 ml 1200 ml Intake Oral 716 ml 1200 ml # Voids 2 Laboratory Tests 03/12/19 06:15: White Blood Count 3.8L, Red Blood Count 3.74L, Hemoglobin 11.6L, Hematocrit 34.3L, Mean Corpuscular Volume 92, Mean Corpuscular Hemoglobin 31.0, Mean Corpuscular Hemoglobin Concent 33.7, Red Cell Distribution Width 11.4L, Platelet Count 216, Mean Platelet Volume 6.6, Neutrophils (%) (Auto) 35.9L, Lymphocytes (%) (Auto) 51.8H, Monocytes (%) (Auto) 7.9, Eosinophils (%) (Auto) 3.1H, Basophils (%) (Auto) 1.3, Sodium Level 125L, Potassium Level 4.1, Chloride Level 93L, Carbon Dioxide Level 26, Anion Gap 7, Blood Urea Nitrogen 8 , Creatinine 0.4L, Estimat Glomerular Filtration Rate > 60, Glucose Level 85, Calcium Level 8.5 Height (Feet): 5 Height (Inches): 6.00 Weight (Pounds): 149 Objective GENERAL: alert, awake, and oriented. LUNGS: Decreased breath sounds bilaterally. HEART: S1 and S2 regular. ABDOMEN: Benign. EXTREMITIES: No cyanosis. No clubbing. No edema. NEUROLOGICAL: Marked weakness noted in bilateral lower extremities. Alonso Young Mar 12, 2019 08:17
[2019-03-12 08:43] VITALS: BP 115/61
[2019-03-12] MEDS: Lyrica 50mg cap ORAL SCH ×3 (09:00→09:38)
[2019-03-12] MEDS: Aspirin Baby 81mg ORAL SCH (09:25)
[2019-03-12] MEDS: carBAMazepine 200mg tab ORAL SCH (09:25)
[2019-03-12] MEDS: QUEtiapine 200mg tab ORAL SCH (09:26)
--- NOTE | 2019-03-12 09:29 | General Progress Note ---
Assessment/Plan Problem List: (1) Chest pain ICD Codes: R07.9 - Chest pain, unspecified SNOMED: 28747655 (2) ACS (acute coronary syndrome) ICD Codes: I24.9 - Acute ischemic heart disease, unspecified SNOMED: 461051373 (3) HTN (hypertension) ICD Codes: I10 - Essential (primary) hypertension SNOMED: 26268988 (4) Chronic pain ICD Codes: G89.29 - Other chronic pain SNOMED: 25849921 (5) Hypothyroid ICD Codes: E03.9 - Hypothyroidism, unspecified SNOMED: 41923260 (6) Multiple sclerosis ICD Codes: G35 - Multiple sclerosis SNOMED: 90333664 Status: stable, progressing Assessment/Plan: pt diet pain control cardio f/u cbc bmp am dc plan Subjective Constitutional: Reports: weakness Allergies: Coded Allergies: HYDROMORPHONE (Verified Allergy, Intermediate, 03/28/18) PREDNISONE (Verified Allergy, Intermediate, 03/28/18) PSEUDOEPHEDRINE (Verified Allergy, Intermediate, 03/28/18) All Systems: reviewed and negative except above Subjective sleepy calm Objective Last 24 Hour Vital Signs Date Time Temp Pulse Resp B/P (MAP) Pulse Ox O2 Delivery O2 Flow Rate FiO2 03/12/19 08:43 98.2 75 18 115/61 (79) 96 03/12/19 08:00 98.2 66 18 118/65 (82) 97 03/12/19 04:00 98.6 64 18 120/62 (81) 98 03/12/19 00:00 97.9 64 18 139/65 (89) 95 03/11/19 21:00 Room Air 03/11/19 20:00 98.0 66 19 122/68 (86) 98 03/11/19 19:42 69 18 97 Room Air 21 03/11/19 16:56 97.1 03/11/19 16:00 97.1 68 20 117/77 (90) 99 03/11/19 12:00 97.4 64 17 104/64 (77) 97 Intake and Output 03/11/19 03/12/19 19:00 07:00 Intake Total 716 ml 1200 ml Balance 716 ml 1200 ml Intake Oral 716 ml 1200 ml # Voids 2 Laboratory Tests 03/12/19 06:15: White Blood Count 3.8L, Red Blood Count 3.74L, Hemoglobin 11.6L, Hematocrit 34.3L, Mean Corpuscular Volume 92, Mean Corpuscular Hemoglobin 31.0, Mean Corpuscular Hemoglobin Concent 33.7, Red Cell Distribution Width 11.4L, Platelet Count 216, Mean Platelet Volume 6.6, Neutrophils (%) (Auto) 35.9L, Lymphocytes (%) (Auto) 51.8H, Monocytes (%) (Auto) 7.9, Eosinophils (%) (Auto) 3.1H, Basophils (%) (Auto) 1.3, Sodium Level 125L, Potassium Level 4.1, Chloride Level 93L, Carbon Dioxide Level 26, Anion Gap 7, Blood Urea Nitrogen 8 , Creatinine 0.4L, Estimat Glomerular Filtration Rate > 60, Glucose Level 85, Calcium Level 8.5 Height (Feet): 5 Height (Inches): 6.00 Weight (Pounds): 149 General Appearance: lethargic EENT: normal ENT inspection Neck: normal alignment Cardiovascular: normal peripheral pulses, normal rate, regular rhythm Respiratory/Chest: chest wall non-tender, lungs clear, normal breath sounds Abdomen: normal bowel sounds, non tender, soft Extremities: normal inspection Edema: no edema noted Arm (L), no edema noted Arm (R), no edema noted Leg (L), no edema noted Leg (R), no edema noted Pedal (L), no edema noted Pedal (R), no edema noted Generalized Neurologic: motor weakness Skin: normal pigmentation, warm/dry Nishant Rider DO Mar 12, 2019 09:29
[2019-03-12] MEDS: Heparin 5000 units/ml inj SUBQ SCH (09:36)
--- NOTE | 2019-03-12 10:16 | Infectious Diseases Prog Note ---
Assessment/Plan Assessment/Plan Abx: None Assessment: Afebrile No leukocytosis Pyuria -u/a wbc 10-15, nit +, leuk +3; ucx >100k E.coli (S Ancef, bactrim, Ceftriaxone) Chest pain, non cardiac -CXR: No acute findings -Trop neg x4 HTN Multiple Sclerosis hypothyroidism paraplegia anemia [place] resident Plan: -Continue to monitor off abx unless febrile, leukocytosis and/or urinary symptoms -f/u cx -Monitor CBC/CMP, temperatures Thank you for this consultation. Will continue to follow along with you. Discussed with RN. Subjective Allergies: Coded Allergies: HYDROMORPHONE (Verified Allergy, Intermediate, 03/28/18) PREDNISONE (Verified Allergy, Intermediate, 03/28/18) PSEUDOEPHEDRINE (Verified Allergy, Intermediate, 03/28/18) Subjective afebrile no leukocytosis Objective Vital Signs Last 24 Hour Vital Signs Date Time Temp Pulse Resp B/P (MAP) Pulse Ox O2 Delivery O2 Flow Rate FiO2 03/12/19 08:43 98.2 75 18 115/61 (79) 96 03/12/19 08:00 98.2 66 18 118/65 (82) 97 03/12/19 04:00 98.6 64 18 120/62 (81) 98 03/12/19 00:00 97.9 64 18 139/65 (89) 95 03/11/19 21:00 Room Air 03/11/19 20:00 98.0 66 19 122/68 (86) 98 03/11/19 19:42 69 18 97 Room Air 21 03/11/19 16:56 97.1 03/11/19 16:00 97.1 68 20 117/77 (90) 99 03/11/19 12:00 97.4 64 17 104/64 (77) 97 Height (Feet): 5 Height (Inches): 6.00 Weight (Pounds): 149 Objective GENERAL: The patient is a very depressed, well nourished, obese Alert and oriented x4. Complaining of pain. HEENT: Atraumatic and normocephalic. Anicteric. Pupils are equal, round, and reactive to light and accommodation. Extraocular muscles intact. NECK: JVP cannot be assessed due to obesity and short neck. No carotid bruit. Carotid upstrokes 2+ bilaterally. CARDIOVASCULAR: Normal S1, S2. Regular rate and rhythm. No murmurs, gallops, or rubs. PMI is at fourth intercostal space in the midclavicular line. LUNGS: Clear to auscultation bilaterally. ABDOMEN: Obese. I do not appreciate any hepatosplenomegaly. Positive bowel sounds. EXTREMITIES: No evidence of edema, clubbing, or cyanosis. Microbiology Date/Time Source Procedure Growth Status 03/09/19 15:15 Urine,Clean Catch Urine Culture - Final Escherichia Coli Complete Laboratory Tests Test 03/12/19 06:15 White Blood Count 3.8 K/UL (4.8-10.8) L Red Blood Count 3.74 M/UL (4.20-5.40) L Hemoglobin 11.6 G/DL (12.0-16.0) L Hematocrit 34.3 % (37.0-47.0) L Mean Corpuscular Volume 92 FL (80-99) Mean Corpuscular Hemoglobin 31.0 PG (27.0-31.0) Mean Corpuscular Hemoglobin Concent 33.7 G/DL (32.0-36.0) Red Cell Distribution Width 11.4 % (11.6-14.8) L Platelet Count 216 K/UL (150-450) Mean Platelet Volume 6.6 FL (6.5-10.1) Neutrophils (%) (Auto) 35.9 % (45.0-75.0) L Lymphocytes (%) (Auto) 51.8 % (20.0-45.0) H Monocytes (%) (Auto) 7.9 % (1.0-10.0) Eosinophils (%) (Auto) 3.1 % (0.0-3.0) H Basophils (%) (Auto) 1.3 % (0.0-2.0) Sodium Level 125 MMOL/L (136-145) L Potassium Level 4.1 MMOL/L (3.5-5.1) Chloride Level 93 MMOL/L (98-107) L Carbon Dioxide Level 26 MMOL/L (21-32) Anion Gap 7 mmol/L (5-15) Blood Urea Nitrogen 8 mg/dL (7-18) Creatinine 0.4 MG/DL (0.55-1.30) L Estimat Glomerular Filtration Rate > 60 mL/min (>60) Glucose Level 85 MG/DL (74-106) Calcium Level 8.5 MG/DL (8.5-10.1) Current Medications Medications (Trade) Dose Ordered Sig/Galen Route PRN Reason Start Time Stop Time Status Last Admin Dose Admin Acetaminophen (Tylenol) 650 mg Q4H PRN ORAL FEVER 03/09/19 01:15 04/06/19 17:14 03/09/19 01:35 Albuterol/ Ipratropium (Albuterol/ Ipratropium) 3 ml Q4H PRN HHN Shortness of Breath 03/11/19 16:30 03/15/19 16:29 Aspirin (ASA) 162 mg DAILY ORAL 03/09/19 09:00 04/07/19 08:59 03/12/19 09:25 Baclofen (Lioresal) 10 mg Q8HR ORAL 03/09/19 06:00 04/06/19 21:59 03/12/19 05:50 Carbamazepine (TEGretol) 200 mg Q12HR ORAL 03/09/19 09:00 04/06/19 20:59 03/12/19 09:25 Diphenhydramine HCl (Benadryl) 25 mg Q6H PRN ORAL Itching 03/11/19 18:15 04/10/19 18:14 03/12/19 01:39 Enalaprilat (Vasotec) 2.5 mg Q6H PRN IV sbp more than 160 03/09/19 05:15 04/06/19 17:14 Gabapentin (Neurontin) 400 mg TWICE A DAY ORAL 03/09/19 09:00 04/06/19 17:59 03/12/19 09:25 Heparin Sodium (Porcine) (Heparin 5000 units/ml) 5,000 units EVERY 12 HOURS SUBQ 03/09/19 09:00 04/06/19 20:59 03/12/19 09:36 Levothyroxine Sodium (Synthroid) 25 mcg ACBREAKFAST ORAL 03/09/19 06:30 04/07/19 06:29 03/12/19 05:50 Nitroglycerin (Ntg) 0.4 mg Q5M PRN SL Prn Chest Pain 03/09/19 01:15 04/06/19 17:14 Ondansetron HCl (Zofran) 4 mg Q4H PRN ORAL Nausea & Vomiting 03/11/19 18:15 04/10/19 18:14 03/12/19 09:25 Ondansetron HCl (Zofran) 4 mg Q6H PRN IVP Nausea & Vomiting 03/09/19 01:19 04/06/19 01:18 03/09/19 10:21 Oxycodone/ Acetaminophen (Percocet 10/325) 1 tab Q4H PRN ORAL Severe Pain (Pain Scale 7-10) 03/09/19 08:30 03/16/19 08:29 03/12/19 09:26 Polyethylene Glycol (Miralax) 17 gm DAILYPRN PRN ORAL Constipation 03/09/19 01:21 04/06/19 01:20 Pregabalin (Lyrica) 100 mg THREE TIMES A DAY ORAL 03/09/19 09:00 04/06/19 17:59 03/10/19 09:38 Quetiapine Fumarate (SEROquel) 300 mg DAILY ORAL 03/09/19 09:00 04/07/19 08:59 03/12/19 09:26 Temazepam (Restoril) 15 mg HSPRN PRN ORAL Insomnia 03/09/19 17:15 03/14/19 17:14 03/11/19 23:26 Shivani Sánchez M.D. Mar 12, 2019 10:16
[2019-03-12 12:00] VITALS: BP 91/59
--- NOTE | 2019-03-12 12:16 | NUR ---
DISCHARGE PLANNED DISCHARGING TO [facility] ROOM [address] HAL[address] T: [phone] FOR NURSE TO NURSE REPORT [facility] HAS BEEN ARRANGED FOR 1400 [employer] Addendum: 03/12/19 at 1222 by BRIAN CARVAJAL LVN LVN CALLED DAUGHTER BUT NO ANSWER AND MAIL BOX FULL SO MESSAGE WAS LEFT
--- NOTE | 2019-03-12 14:41 | NUR ---
NURSE NOTES: Patient discharged back to [facility] accompanied by ambulance personnel. No IV site to remove. Belongings reviewed and confirmed by the bedside. Report given to Ann KHOURY. PMD assessed and deemed patient medically clear and safe for discharge despite hypotension as she was asymptomatic and in stable condition.
--- NOTE | 2019-03-12 15:15 | Pulmonology Progress Note ---
Assessment/Plan Problems: (1) ACS (acute coronary syndrome) (2) HTN (hypertension) (3) Multiple sclerosis (4) Hyponatremia (5) DNR (do not resuscitate) Assessment/Plan symptomatic treatment monitor bp pain management psych f/u dvt prophylaxis. Subjective ROS Limited/Unobtainable: No Constitutional: Reports: no symptoms HEENT: Repors: no symptoms Respiratory: Reports: no symptoms Allergies: Coded Allergies: HYDROMORPHONE (Verified Allergy, Intermediate, 03/28/18) PREDNISONE (Verified Allergy, Intermediate, 03/28/18) PSEUDOEPHEDRINE (Verified Allergy, Intermediate, 03/28/18) Objective Last 24 Hour Vital Signs Date Time Temp Pulse Resp B/P (MAP) Pulse Ox O2 Delivery O2 Flow Rate FiO2 03/12/19 12:00 97.8 74 18 91/59 (70) 98 03/12/19 09:00 Room Air 03/12/19 08:43 98.2 75 18 115/61 (79) 96 03/12/19 08:00 98.2 66 18 118/65 (82) 97 03/12/19 04:00 98.6 64 18 120/62 (81) 98 03/12/19 00:00 97.9 64 18 139/65 (89) 95 03/11/19 21:00 Room Air 03/11/19 20:00 98.0 66 19 122/68 (86) 98 03/11/19 19:42 69 18 97 Room Air 21 03/11/19 16:56 97.1 03/11/19 16:00 97.1 68 20 117/77 (90) 99 Intake and Output 03/11/19 03/12/19 19:00 07:00 Intake Total 716 ml 1200 ml Balance 716 ml 1200 ml Intake Oral 716 ml 1200 ml # Voids 2 General Appearance: WD/WN HEENT: normocephalic, atraumatic Respiratory/Chest: chest wall non-tender, lungs clear Breasts: no masses Cardiovascular: normal peripheral pulses, normal rate Genitourinary: normal external genitalia Skin: no rash Laboratory Tests 03/12/19 06:15: White Blood Count 3.8L, Red Blood Count 3.74L, Hemoglobin 11.6L, Hematocrit 34.3L, Mean Corpuscular Volume 92, Mean Corpuscular Hemoglobin 31.0, Mean Corpuscular Hemoglobin Concent 33.7, Red Cell Distribution Width 11.4L, Platelet Count 216, Mean Platelet Volume 6.6, Neutrophils (%) (Auto) 35.9L, Lymphocytes (%) (Auto) 51.8H, Monocytes (%) (Auto) 7.9, Eosinophils (%) (Auto) 3.1H, Basophils (%) (Auto) 1.3, Sodium Level 125L, Potassium Level 4.1, Chloride Level 93L, Carbon Dioxide Level 26, Anion Gap 7, Blood Urea Nitrogen 8 , Creatinine 0.4L, Estimat Glomerular Filtration Rate > 60, Glucose Level 85, Calcium Level 8.5 Jose De Jesus Alcala MD Mar 12, 2019 15:15
--- NOTE | 2019-03-12 20:11 | Cardiology Report ---
APPROVED REPORT EXAM: Two-dimensional and M-mode echocardiogram with Doppler and color Doppler. INDICATION LV FUNCTION M-Mode DIMENSIONS IVSd1.2 (0.7-1.1cm)Left Atrium (MM)3.4 (1.6-4.0cm) LVDd5.0 (3.5-5.6cm)Aortic Root3.6 (2.0-3.7cm) PWd0.9 (0.7-1.1cm)Aortic Cusp Exc.2.1 (1.5-2.0cm) IVSs1.6 cm LVDs3.3 (2.5-4.0cm) PWs1.3 cm Technically difficult study due to poor acoustical windows. Normal left ventricular chamber size, systolic function and wall motion to extent visualized. Left ventricular ejection fraction estimated to be 60-65 %. No evidence of left ventricular hypertrophy . Small posterior pericardial effusion. All other cardiac chamber sizes are within normal limits. Focal aortic valve sclerosis with adequate cusp excursion. Thickened mitral valve leaflets with normal excursion. Mitral annulus and aortic root calcification. Normal pulmonic valve structure. Normal tricuspid valve structure. IVC at normal size with physiologic collapse. A color flow and spectral Doppler study was performed and revealed: Mild aortic regurgitation.. Trace mitral regurgitation. Mitral diastolic velocities suggest reduced left ventricular relaxation c/w mild LV diastolic dysfunction (Grade I ). Trace tricuspid regurgitation. Tricuspid systolic velocities suggests peak right ventricular systolic pressure of 22 mmHg.
--- NOTE | 2019-03-12 20:51 | Cardiology Report ---
APPROVED REPORT EKG Measurement Heart [id number] Sinus tachycardia Right atrial enlargement Borderline ECG
--- NOTE | 2019-03-12 23:53 | Cardiology Progress Note ---
Assessment/Plan Assessment/Plan 1. Non-cardiac chest pain, echo with normal LV systolic function and LVEF of 60% . 2. Hypotension, recurrent likely due to narcotic use for pain control. 3. History of hypothyroidism. 4. Small pericardial effusion. Subjective Subjective Denies chest pain or SOB. No cardiac events noted. Objective Last 24 Hour Vital Signs Date Time Temp Pulse Resp B/P (MAP) Pulse Ox O2 Delivery O2 Flow Rate FiO2 03/12/19 12:00 97.8 74 18 91/59 (70) 98 03/12/19 09:00 Room Air 03/12/19 08:43 98.2 75 18 115/61 (79) 96 03/12/19 08:00 98.2 66 18 118/65 (82) 97 03/12/19 04:00 98.6 64 18 120/62 (81) 98 03/12/19 00:00 97.9 64 18 139/65 (89) 95 Intake and Output 03/11/19 03/12/19 18:59 06:59 Intake Total 716 ml 1200 ml Balance 716 ml 1200 ml Intake Oral 716 ml 1200 ml # Voids 2 2D Echo: EF 60%, Mild AR, Small pericard. eff., Grade I LVDD, RVSP 22 mmHg Laboratory Tests Test 03/12/19 06:15 White Blood Count 3.8 K/UL (4.8-10.8) L Red Blood Count 3.74 M/UL (4.20-5.40) L Hemoglobin 11.6 G/DL (12.0-16.0) L Hematocrit 34.3 % (37.0-47.0) L Mean Corpuscular Volume 92 FL (80-99) Mean Corpuscular Hemoglobin 31.0 PG (27.0-31.0) Mean Corpuscular Hemoglobin Concent 33.7 G/DL (32.0-36.0) Red Cell Distribution Width 11.4 % (11.6-14.8) L Platelet Count 216 K/UL (150-450) Mean Platelet Volume 6.6 FL (6.5-10.1) Neutrophils (%) (Auto) 35.9 % (45.0-75.0) L Lymphocytes (%) (Auto) 51.8 % (20.0-45.0) H Monocytes (%) (Auto) 7.9 % (1.0-10.0) Eosinophils (%) (Auto) 3.1 % (0.0-3.0) H Basophils (%) (Auto) 1.3 % (0.0-2.0) Sodium Level 125 MMOL/L (136-145) L Potassium Level 4.1 MMOL/L (3.5-5.1) Chloride Level 93 MMOL/L (98-107) L Carbon Dioxide Level 26 MMOL/L (21-32) Anion Gap 7 mmol/L (5-15) Blood Urea Nitrogen 8 mg/dL (7-18) Creatinine 0.4 MG/DL (0.55-1.30) L Estimat Glomerular Filtration Rate > 60 mL/min (>60) Glucose Level 85 MG/DL (74-106) Calcium Level 8.5 MG/DL (8.5-10.1) Objective HEENT: Atraumatic and normocephalic. Anicteric. Pupils are equal, round, and reactive to light and accommodation. Extraocular muscles intact. NECK: JVP cannot be assessed due to obesity and short neck. No carotid bruit. Carotid upstrokes 2+ bilaterally. CARDIOVASCULAR: Normal S1, S2. Regular rate and rhythm. No murmurs, gallops, or rubs. PMI is at fourth intercostal space in the midclavicular line. LUNGS: Clear to auscultation bilaterally. ABDOMEN: Obese. I do not appreciate any hepatosplenomegaly. Positive bowel sounds. EXTREMITIES: No evidence of edema, clubbing, or cyanosis. Daniel Hernández MD Mar 12, 2019 23:52
--- NOTE | 2019-03-13 14:14 | Discharge Summary ---
Discharge Summary Discharge Summary _ DATE OF ADMISSION: 03/07/2019 DATE OF DISCHARGE: 09/12/2018 DISCHARGED BY: Dr Rider REASON FOR ADMISSION: 58 years old female with past medical history of multiple sclerosis, hypertension, [facility] resident, presented with complaint of chest and neck pain. Patient usually wheelchair-bound and lives in many years in the [facility]. Upon evaluation vital signs were stable. Pulse oximetry was stable on room air. Laboratory work-up revealed no leukocytosis, stable hemoglobin and hematocrit. Stable electrolytes and renal parameters. Glucose 105. Stable LFT. Troponin negative. pro BNP 38. EKG revealed sinus rhythm , no acute ischemic changes. Chest x-ray demonstrated no acute cardiopulmonary pathology. Patient subsequently admitted for chest pain, rule out acute coronary syndrome. CONSULTANTS: quantitative analyst Dr. Hernández pulmonary Dr. Alcala ID specialist Dr Sánchez lang interpreter Dr. Carlisle pain specialist Dr. Fried HOSPITAL COURSE: Patient admitted to telemetry floor. Tack Picker followed. Serial troponin were negative. EKG revealed no acute ischemic changes. Patient was ruled out for acute myocardial infarction. Echocardiogram revealed preserved ejection fraction to 65% with no evidence of left ventricular hypertrophy. No evidence of wall motion abnormality. Right ventricular systolic pressure of 22. Lipid panel revealed elevated LDL 126 and borderline total cholesterol of 201 with normal triglycerides. Patient was educated on low-fat low-cholesterol diet. She was reluctant to start statin. Repeat lipid panel in 3 months and if it still elevated , consider to start statin. Home medication were resumed. DVT and GI prophylaxis provided. Antiplatelet therapy with aspirin provided. Per cardiology chest pain was noncardiac. Patient with history of hypertension but had recurrent hypotension during this admission, likely due to narcotic use for pain management. Pain management was addressed as per pain specialist recommendation. Supplemental oxygen provided as needed to keep pulse oximetry above 92%. Pulse oximetry was stable on room air. Supportive care provided. Bowel regimen instituted. ID specialist followed. Urinalysis with pyuria urine culture with evidence of E coli,. No urinary symptoms. Patient was afebrile, no leukocytosis. Infectious disease specialist recommended to monitor patient off antibiotic unless febrile, leukocytosis, or urinary symptoms. Patient noted to have hyponatremia /sodium 125 . Per lang interpreter , patient had isovolemic hyponatremia . Patient was on multiple medications which could cause hyponatremia , including antipsychotic , antidepressive ,Tegretol. Recommended outpatient follow up with psychiatrist for optimization of psychiatric medication regimen. FINAL DIAGNOSES: Noncardiac chest pain Hypotension, recurrent, likely due to narcotic use for pain management Hypothyroidism Isovolemic hyponatremia Neuropathic pain Multiple sclerosis DISCHARGE MEDICATIONS: See Medication Reconciliation list. DISCHARGE INSTRUCTIONS: [facility] Follow up with medical doctor at the facility. I have been assigned to dictate discharge summary for this account. I was not involved in the patient's management. Amanda Spangler NP Mar 13, 2019 14:14
== END 2019-03-12 14:25 | DRG 48 ==
LOC: EDBD 12:39 → EMR 14:30 → 2E 14:34 → EDBEDREQ 15:26 → 3E 03-09 01:06 → 4E 03-10 06:30
DX: G62.9 Polyneuropathy, unspecified (principal); G82.20 Paraplegia, unspecified; I31.3 Pericardial effusion (noninflammatory); E87.1 Hypo-osmolality and hyponatremia; R07.89 Other chest pain; G35 Multiple sclerosis; I10 Essential (primary) hypertension; Z88.6 Allergy status to analgesic agent; Z88.8 Allergy status to other drugs, medicaments and biological substances; Z66 Do not resuscitate; G89.29 Other chronic pain; N39.0 Urinary tract infection, site not specified; E03.9 Hypothyroidism, unspecified; I95.2 Hypotension due to drugs; T40.605A Adverse effect of unspecified narcotics, initial encounter
CPT/HCPCS: 36415; 71045; 80048; 80053; 80061; 81001; 82043; 82044; 82550; 82553; 82570; 83880; 84300; 84443; 84484; 85025; 85610; 85730; 86140; 87081; 87086; 87181; 89050; 93005; 93306; 94664; 96374; 99285; J2405

== ENCOUNTER 2019-07-30 21:59 | Inpatient (IN) | payer MEDICAID ==
[~2019-07-30] VITALS: Ht 167.6 cm; Wt 89.8 kg
[~2019-07-30 21:59] MED LIST changes: +ACETAMINOPHEN325 M1 ORAL; +AFRIN NASAL SPR30 ML NASAL; +BENADRYL25 MG ORAL; +CYMBALTA60 MG ORAL; +DOCUSATE SODIU100 MG ORAL; +FUROSEMIDE40 MG/5 ML ORAL; +HYDROCODON-ACE1 EA16 ORAL; +LORAZEPAM1 MG ORAL; +MILK OF MA400 MG/51 ORAL; +PRO-AMATINE2.5 MG ORAL
[2019-07-30 22:07] VITALS: BP 110/70
--- NOTE | 2019-07-30 22:07 | NUR ---
ED Nurse Note: Patient brought in by RA from [facility] c/o UTI and positive mrsa nares. Denies any pain while urinating. Pt is paraplegic. Alert and oriented, verbally responsive. No SOB. breathing even and unlabored. Afebrile. VSS.
--- NOTE | 2019-07-30 22:15 | NUR ---
ED Nurse Note: ERMD at bedside.
--- NOTE | 2019-07-30 22:26 | NUR ---
ED Nurse Note: Xrya at bedside.
[2019-07-30] MEDS ORDERED: Morphine Sulfate 4mg/ml Inj (IV USE ONLY) IVP ONE (22:30)
[2019-07-30 23:07] VITALS: BP 105/74
--- NOTE | 2019-07-30 23:07 | NUR ---
Note samia in EDM - 07/31/19 at 0024 by MAYNOR ED Nurse Note: Patient brought in by RA from [facility] c/o UTI and positive mrsa nares. Denies any pain while urinating. Pt is paraplegic. Alert and oriented, verbally responsive. No SOB. breathing even and unlabored. Afebrile. VSS.
--- NOTE | 2019-07-30 23:15 | NUR ---
Iris gracia in EDM - 07/31/19 at 0024 by [facility] ED Nurse Note: ERMD at bedside.
[2019-07-30 23:22] LABS: BASOPHILS % (AUTO) 0.9 % (0.0-2.0); EOSINOPHILS % (AUTO) 1.5 % (0.0-3.0); HEMATOCRIT 34.7 % (37.0-47.0); HEMOGLOBIN 12.6 G/DL (12.0-16.0); LYMPHOCYTES % (AUTO) 36.4 % (20.0-45.0); MEAN CORPUSCULAR VOLUME 86 FL (80-99); MONOCYTES % (AUTO) 8.1 % (1.0-10.0); NEUTROPHILS % (AUTO) 53.1 % (45.0-75.0); PLATELET COUNT 231 K/UL (150-450); RED BLOOD COUNT 4.05 M/UL (4.20-5.40); RED CELL DISTRIBUTION WIDTH 10.6 % (11.6-14.8); WHITE BLOOD COUNT 6.3 K/UL (4.8-10.8)
[2019-07-30 23:33] LABS: ANION GAP 10 mmol/L (5-15); BLOOD UREA NITROGEN 15 mg/dL (7-18); CALCIUM 8.7 MG/DL (8.5-10.1); CARBON DIOXIDE 24 MMOL/L (21-32); CHLORIDE 98 MMOL/L (98-107); CREATININE 0.4 MG/DL (0.55-1.30); POTASSIUM 4.1 MMOL/L (3.5-5.1); SODIUM 132 MMOL/L (136-145)
[2019-07-30 23:44] LABS: ALANINE AMINOTRANSFERASE 21 U/L (12-78); ALBUMIN 3.1 G/DL (3.4-5.0); ALBUMIN/GLOBULIN RATIO 0.9 (1.0-2.7); ALKALINE PHOSPHATASE 89 U/L (46-116); ASPARTATE AMINO TRANSFERASE 16 U/L (15-37); BILIRUBIN,TOTAL 0.3 MG/DL (0.2-1.0)
--- NOTE | 2019-07-31 00:03 | NUR ---
ED Nurse Note: Urine collected and sent to lab.
[2019-07-31 00:26] LABS: APPEARANCE,URINE CLEAR; BILIRUBIN, URINE NEGATIVE (NEGATIVE); COLOR,URINE PALE YELLOW; GLUCOSE, URINE (UA) NEGATIVE (NEGATIVE); KETONES,URINE NEGATIVE (NEGATIVE); NITRITE,URINE NEGATIVE (NEGATIVE); PH,URINE 7 (4.5-8.0); PROTEIN,URINE NEGATIVE (NEGATIVE); UROBILINOGEN,URINE NORMAL MG/DL (0.0-1.0)
[2019-07-31 00:38] LABS: LEUKOCYTE ESTERASE ,URINE 1+ (NEGATIVE)
[2019-07-31] MEDS ORDERED: Morphine Sulfate 4mg/ml Inj (IV USE ONLY) IVP PRN (00:45)
[2019-07-31] MEDS ORDERED: Piperacillin/Tazobactam 3.375 GM in NS 110 ML IVPB ONE (00:45)
--- NOTE | 2019-07-31 01:07 | NUR ---
ED Nurse Note: Report given to Zuleika KHOURY from [place].
[2019-07-31 01:18] VITALS: BP 111/72
--- NOTE | 2019-07-31 01:18 | NUR ---
TRANSFER TO FLOOR: Patient transferred to Med surg. Report given to Zuleika KHOURY. Pt alert and oriented, verbally responsive. No SOB. not in any distress. Afebrile. IV line on right hand 20g patent and intact. On NS 500ml and Zosyn atb patent and infusing well. Med recon done. Belongings list done. Swabs are sent. VSS.
--- NOTE | 2019-07-31 01:26 | Emergency Room Report ---
History of Present Illness General Chief Complaint: Abnormal Labs Source: Patient Present Illness HPI 58-year-old female presents ED for evaluation. Brought in by EMS from [facility] facility. Reportedly has UTI and positive MRSA in her naris. Upon arrival patient notes generalized pain. History of MS. Pain is dull, 9 out of 10, nonradiating. Denies fevers or chills. Denies cough. Denies chest pain or shortness of breath. No other aggravating relieving factors. Denies any other associated symptoms Allergies: Coded Allergies: HYDROMORPHONE (Verified Allergy, Intermediate, 03/28/18) PREDNISONE (Verified Allergy, Intermediate, 03/28/18) PSEUDOEPHEDRINE (Verified Allergy, Intermediate, 03/28/18) Patient History Past Medical History: other - MS Past Surgical History: none Pertinent Family History: none Social History: Denies: smoking, alcohol use, drug use Now: No Immunizations: UTD Reviewed Nursing Documentation: PMH: Agreed; PSxH: Agreed Nursing Documentation-PMH Past Medical History: No History, Except For Hx Cardiac Problems: No - multiple sclerosis, paraplegia, anemia Hx Hypertension: Yes - Myalgia Hx Cancer: No Hx Gastrointestinal Problems: No Hx Neurological Problems: Yes - Neuralgia and Neuritis, Degenarative Disease Hx Multiple Sclerosis: Yes Hx Paralysis: Yes - bilateral legs Review of Systems All Other Systems: negative except mentioned in HPI Physical Exam Vital Signs Date Time Temp Pulse Resp B/P (MAP) Pulse Ox O2 Delivery O2 Flow Rate FiO2 07/30/19 22:00 99.3 86 22 105/74 (84) 94 Room Air Sp02 EP Interpretation: reviewed, normal General Appearance: no apparent distress, alert, GCS 15, non-toxic Head: normocephalic, atraumatic Eyes: bilateral eye normal inspection, bilateral eye PERRL ENT: hearing grossly normal, normal pharynx, no angioedema, normal voice Neck: full range of motion, supple/symm/no masses Respiratory: chest non-tender, lungs clear, normal breath sounds, speaking full sentences Cardiovascular #1: regular rate, rhythm, no edema Cardiovascular #2: 2+ carotid (R), 2+ carotid (L), 2+ radial (R), 2+ radial (L) , 2+ dorsalis pedis (R), 2+ dorsalis pedis (L) Gastrointestinal: normal bowel sounds, non tender, soft, non-distended, no guarding, no rebound Rectal: deferred Genitourinary: normal inspection, no CVA tenderness Musculoskeletal: back normal, normal range of motion, gait/station normal, non- tender Neurologic: alert, motor strength/tone normal, oriented x3, sensory intact, responsive, speech normal Psychiatric: judgement/insight normal, memory normal, mood/affect normal, no suicidal/homicidal ideation Reflexes: 3+ bicep (R), 3+ bicep (L), 3+ tricep (R), 3+ tricep (L), 3+ knee (R) , 3+ knee (L) Skin: other - see nursing skin notes Lymphatic: no adenopathy Medical Decision Making Diagnostic Impression: Primary Impression: MRSA (methicillin resistant staph aureus) culture positive Additional Impressions: Multiple sclerosis Weakness ER Course Hospital Course 58 yo F presents to ED c/o body pain, weakness. sent in for +MRSA and UTI Differential diagnoses include: Pneumonia, UTI, sepsis, dehydration Clinical course Patient placed on stretcher. On floral decorator with stable vitals are ED course. After initial history and physical, I ordered labs, IV fluids, EKG, chest x-ray, blood cultures, UA. pain meds Labs - electrolytes ok, no leukocytosis, lactic ok, UA negative CXR - no acute process thyroid shield worn Abx given. given IVFs. Case discussed with Dr Rider and they agreed to admit patient to their service for further care and support I feel this is a highly complex case requiring extensive working including EKG/ Rhythm strip, Xray/CT/US, Blood/urine lab work, repeat exams while in ED, and administration of strong opiates/narcotics for pain control, admission to hospital or close patient follow up. Diagnosis - MRSA, MS, generalized weakness Patient admitted to floor in serious condition Labs Test 07/30/19 23:11 07/31/19 00:03 White Blood Count 6.3 K/UL (4.8-10.8) Red Blood Count 4.05 M/UL (4.20-5.40) Hemoglobin 12.6 G/DL (12.0-16.0) Hematocrit 34.7 % (37.0-47.0) Mean Corpuscular Volume 86 FL (80-99) Mean Corpuscular Hemoglobin 31.2 PG (27.0-31.0) Mean Corpuscular Hemoglobin Concent 36.5 G/DL (32.0-36.0) Red Cell Distribution Width 10.6 % (11.6-14.8) Platelet Count 231 K/UL (150-450) Mean Platelet Volume 6.3 FL (6.5-10.1) Neutrophils (%) (Auto) 53.1 % (45.0-75.0) Lymphocytes (%) (Auto) 36.4 % (20.0-45.0) Monocytes (%) (Auto) 8.1 % (1.0-10.0) Eosinophils (%) (Auto) 1.5 % (0.0-3.0) Basophils (%) (Auto) 0.9 % (0.0-2.0) Sodium Level 132 MMOL/L (136-145) Potassium Level 4.1 MMOL/L (3.5-5.1) Chloride Level 98 MMOL/L (98-107) Carbon Dioxide Level 24 MMOL/L (21-32) Anion Gap 10 mmol/L (5-15) Blood Urea Nitrogen 15 mg/dL (7-18) Creatinine 0.4 MG/DL (0.55-1.30) Estimat Glomerular Filtration Rate > 60 mL/min (>60) Glucose Level 102 MG/DL (74-106) Lactic Acid Level 0.50 mmol/L (0.4-2.0) Calcium Level 8.7 MG/DL (8.5-10.1) Total Bilirubin 0.3 MG/DL (0.2-1.0) Aspartate Amino Transf (AST/SGOT) 16 U/L (15-37) Alanine Aminotransferase (ALT/SGPT) 21 U/L (12-78) Alkaline Phosphatase 89 U/L (46-116) Pro-B-Type Natriuretic Peptide 97 pg/mL (0-125) Total Protein 6.7 G/DL (6.4-8.2) Albumin 3.1 G/DL (3.4-5.0) Globulin 3.6 g/dL Albumin/Globulin Ratio 0.9 (1.0-2.7) Urine Color Pale yellow Urine Appearance Clear Urine pH 7 (4.5-8.0) Urine Specific [place] 1.005 (1.005-1.035) Urine Protein Negative (NEGATIVE) Urine Glucose (UA) Negative (NEGATIVE) Urine Ketones Negative (NEGATIVE) Urine Blood 1+ (NEGATIVE) Urine Nitrite Negative (NEGATIVE) Urine Bilirubin Negative (NEGATIVE) Urine Urobilinogen Normal MG/DL (0.0-1.0) Urine Leukocyte Esterase 1+ (NEGATIVE) Urine RBC 0-2 /HPF (0 - 2) Urine WBC 0-2 /HPF (0 - 2) Urine Squamous Epithelial Cells Few /LPF (NONE/OCC) Urine Bacteria Few /HPF (NONE) Chest X-Ray Diagnostic Results Chest X-Ray Diagnostic Results : Chest X-Ray Ordered: Yes # of Views/Limited/Complete: 1 View Indication: Other EP Interpretation: Yes Interpretation: no consolidation, no effusion, no pneumothorax, no acute cardiopulmonary disease, other - thyroid shield (patient requested) Impression: No acute disease Electronically Signed by: Electronically signed by Nikko Sawyer MD Last Vital Signs Date Time Temp Pulse Resp B/P (MAP) Pulse Ox O2 Delivery O2 Flow Rate FiO2 07/31/19 01:18 98.7 80 19 111/72 98 Room Air Status: improved Disposition: ADMITTED INPATIENT Condition: Serious Referrals: Nishant Rider DO (PCP) Nikko Sawyer MD Jul 31, 2019 01:26
--- NOTE | 2019-07-31 02:39 | NUR ---
NURSE NOTES: Pt came from ER @ under Dr Rider, transported via gurney. Pt is AOX4, verbal Breathing on room air. No acute distress noted. Pt has scars on the sacrum from healed pressure ulcer and redness on unbalanceable redness on right trochanter. Pictures taken and uploded.Called and left message to Dr Rider for admitting orders. Call light within reach. Bed in low and locked position. will continue to monitor.
--- NOTE | 2019-07-31 02:45 | NUR ---
NURSE NOTES: Pt has BL lower extremities weakness.
[2019-07-31 04:00] VITALS: BP 117/59
[2019-07-31] MEDS ORDERED: Milk of Magnesia 30ml Ud ORAL PRN (04:45)
[2019-07-31] MEDS ORDERED: LORazepam 1mg tab ORAL PRN (04:45)
[2019-07-31] MEDS ORDERED: HYDROcodone/Acetamin 10/325 tab ORAL PRN (04:45)
[2019-07-31] MEDS: Levothyroxine 25mcg tab ORAL SCH (05:48)
--- NOTE | 2019-07-31 05:57 | NUR ---
NURSE NOTES: Informed Dr Rider about pts code status, pt wants to be DNR.
--- NOTE | 2019-07-31 07:13 | NUR ---
HAND-OFF: Report given to IRAIDA Schrader.
[2019-07-31 08:00] VITALS: BP 112/62
[2019-07-31] MEDS: Heparin 5000 units/ml inj SUBQ SCH ×2 (09:00→21:00)
[2019-07-31] MEDS: Docusate 100mg cap ORAL SCH ×3 (09:00→18:00)
[2019-07-31] MEDS: Lisinopril 20mg tab ORAL SCH (09:00)
[2019-07-31] MEDS: DULoxetine 30mg cap ORAL SCH (09:00)
[2019-07-31] MEDS: Miralax 17gm pkt ORAL SCH (09:00)
[2019-07-31] MEDS: Lyrica 50mg cap ORAL SCH ×3 (09:01→17:08)
[2019-07-31] MEDS: carBAMazepine 200mg tab ORAL SCH ×2 (09:01→17:07)
[2019-07-31 12:00] VITALS: BP 85/56
--- NOTE | 2019-07-31 13:56 | NUR ---
NURSE NOTES: PT REQUESTS FOR CHANGE IN PERCOCET FROM 10/325MG Q8H TO 7.5/325MG Q4H NEEDED FOR PAIN AND A FENTANYL PATCH. RN MADE DR FUCHS AWARE AND NEW ORDER TO CONSULT DR CHAMBERS FOR PAIN. RN LEFT MESSAGE FOR DR CHAMBERS/[facility] ONE[facility].
--- NOTE | 2019-07-31 14:37 | Diagnostic Imaging Report ---
Indication: Cough Technique: One view of the chest Comparison: 03/07/2019 Findings: Exam is limited, as a thyroid shield, placed at the request of the patient, obscures the upper thorax. The visualized lungs are clear. Heart size is normal. The pleural spaces are clear. Impression: Limited. No definite acute process
--- NOTE | 2019-07-31 14:58 | Consultation ---
History of Present Illness General Date patient seen: Jul 31, 2019 Chief Complaint: Abnormal Labs Present Illness HPI 58 y/o F with hx of MS w/ paraplegia, anemia, SNF resident presented to ED on with generalized pain. Apparently was diagnosed with UTI at [facility]. Denied f/c, cough, SP, SOB. Allergies: Coded Allergies: HYDROMORPHONE (Verified Allergy, Intermediate, 03/28/18) PREDNISONE (Verified Allergy, Intermediate, 03/28/18) PSEUDOEPHEDRINE (Verified Allergy, Intermediate, 03/28/18) Medication History Scheduled Baclofen* (Baclofen*), 10 MG ORAL Q8HR, (Reported) Carbamazepine (Tegretol*), 200 MG PO BID, (Reported) Docusate Sodium* (Docusate Sodium*), 100 MG ORAL THREE TIMES A DAY, (Reported) Duloxetine Hcl* (Cymbalta*), 60 MG ORAL DAILY, (Reported) Gabapentin* (Neurontin*), 400 MG ORAL TWICE A DAY, (Reported) Levothyroxine Sodium* (Synthroid*), 25 MCG ORAL DAILY, (Reported) Lisinopril* (Zestril*), 20 MG ORAL DAILY, (Reported) Loratadine (Loratadine), 10 MG PO DAILY, (Reported) Lorazepam* (Lorazepam*), 1 MG ORAL Q6HR, (Reported) Multivitamins* (Multivitamins*), 1 TAB ORAL DAILY, (Reported) Polyethylene Glycol 3350* (Miralax*), 17 GM ORAL DAILY, (Reported) Pregabalin* (Lyrica*), 100 MG ORAL THREE TIMES A DAY, (Reported) Quetiapine Fumarate* (Seroquel*), 300 MG ORAL DAILY, (Reported) Scheduled PRN Acetaminophen* (Acetaminophen 325MG Tablet*), 650 MG ORAL Q4H PRN for For Pain, (Reported) Dextran 70/Hypromellose (Artificial Tears Eye Drops*), 1 DROP BOTH EYES Q4HR PRN for Dry Eyes, (Reported) Diazepam* (Valium*), 10 MG ORAL EVERY 6 HOURS PRN for ANXIETY, (Reported) Diphenhydramine Hcl* (Benadryl*), 50 MG ORAL Q6H PRN for Itching, (Reported) Hydrocodone Bit/Acetaminophen 10-325* (Derry 10-325*), 1 TAB ORAL Q4H PRN for For Pain, (Reported) Magnesium Hydroxide* (Milk Of Magnesia*), 30 ML ORAL Q6HR PRN for Constipation, (Reported) Ondansetron Odt* (Zofran Odt*), 4 MG ORAL Q8HR PRN for Nausea & Vomiting, ( Reported) Oxymetazoline HCl (Afrin), 1 SPRAY NASAL TWICE A DAY PRN for Constipation, ( Reported) Temazepam* (Restoril*), 15 MG ORAL BEDTIME PRN for Insomnia, (Reported) Discontinued Medications Amino Acids/Protein Hydrolys (Pro-Stat Liquid), 30 ML ORAL THREE TIMES A DAY, ( Reported) Discontinued Reason: Pt stopped taking med Amoxicillin/Potassium Clav 875-125* (Augmentin 875-125 Tablet*), 1 TAB ORAL TWICE A DAY, (Reported) Discontinued Reason: Pt stopped taking med Dextran 70/Hypromellose (Artificial Tears Eye Drops*), 1 DROP BOTH EYES BID, ( Reported) Discontinued Reason: Pt stopped taking med Fluticasone Propionate (Flonase Allergy Relief), 9.9 ML NS, (Reported) Discontinued Reason: Pt stopped taking med Furosemide (Furosemide), 20 MG ORAL DAILY, (Reported) Discontinued Reason: Pt stopped taking med Hydrocodone Bit/Acetaminophen 10-325* (Derry 10-325*), 1 TAB ORAL Q6H PRN for For Pain, (Reported) Discontinued Reason: Pt stopped taking med Hydrocodone/Acetaminophen 7.5-325* (Hydrocodon-Acetaminoph 7.5-325*), 1 TAB ORAL Q6H PRN for Pain Scale (6-10), (Reported) Discontinued Reason: Pt stopped taking med Levofloxacin* (Levaquin*), 750 MG ORAL DAILY, (Reported) Discontinued Reason: Pt stopped taking med Midodrine (Midodrine HCl), 2.5 MG ORAL Q8HR, (Reported) Discontinued Reason: Pt stopped taking med Nitrofurantoin (Nitrofurantoin), 100 MG PO BID, (Reported) Discontinued Reason: Pt stopped taking med Pregabalin* (Lyrica*), 100 MG ORAL THREE TIMES A DAY, (Reported) Discontinued Reason: Pt stopped taking med Patient History Healthcare decision maker Resuscitation status Full Code Advanced Directive on File Patient History Narrative Pmhx: as above Shx: Denies: smoking, alcohol use, drug use Fhx: non contributory Review of Systems All Other Systems: negative except mentioned in HPI Physical Exam Physical Exam Narrative General Appearance: no apparent distress, alert, non-toxic Head: normocephalic, atraumatic Eyes: bilateral eye normal inspection, bilateral eye PERRL ENT: hearing grossly normal, normal pharynx, no angioedema, normal voice Neck: full range of motion, supple/symm/no masses Respiratory: chest non-tender, lungs clear, normal breath sounds, speaking full sentences Cardiovascular #1: regular rate, rhythm, no edema Gastrointestinal: normal bowel sounds, non tender, soft, non-distended, no guarding, no rebound Genitourinary: normal inspection, no CVA tenderness Musculoskeletal: back normal, normal range of motion, gait/station normal, non- tender Last 24 Hour Vital Signs Date Time Temp Pulse Resp B/P (MAP) Pulse Ox O2 Delivery O2 Flow Rate FiO2 07/31/19 12:00 98.4 80 15 85/56 (66) 93 07/31/19 09:00 Room Air 07/31/19 09:00 112/62 07/31/19 08:00 98.3 70 14 112/62 (79) 95 07/31/19 04:00 97.7 67 19 117/59 (78) 98 07/31/19 02:23 Room Air 07/31/19 01:18 98.7 80 19 111/72 98 Room Air 07/31/19 01:18 98.7 80 19 111/72 98 Room Air 07/30/19 23:48 99.3 07/30/19 23:07 99.3 78 22 105/74 94 Room Air 07/30/19 22:07 99.5 71 19 110/70 98 Room Air 07/30/19 22:00 99.3 86 22 105/74 (84) 94 Room Air Intake and Output 07/30/19 07/31/19 19:00 07:00 Intake Total 1000 ml Output Total 400 ml Balance 600 ml Intake IV Total 1000 ml Output Urine Total 400 ml # Voids 1 # Bowel Movements 1 Laboratory Tests Test 07/30/19 23:11 07/31/19 00:03 White Blood Count 6.3 K/UL (4.8-10.8) Red Blood Count 4.05 M/UL (4.20-5.40) L Hemoglobin 12.6 G/DL (12.0-16.0) Hematocrit 34.7 % (37.0-47.0) L Mean Corpuscular Volume 86 FL (80-99) Mean Corpuscular Hemoglobin 31.2 PG (27.0-31.0) H Mean Corpuscular Hemoglobin Concent 36.5 G/DL (32.0-36.0) H Red Cell Distribution Width 10.6 % (11.6-14.8) L Platelet Count 231 K/UL (150-450) Mean Platelet Volume 6.3 FL (6.5-10.1) L Neutrophils (%) (Auto) 53.1 % (45.0-75.0) Lymphocytes (%) (Auto) 36.4 % (20.0-45.0) Monocytes (%) (Auto) 8.1 % (1.0-10.0) Eosinophils (%) (Auto) 1.5 % (0.0-3.0) Basophils (%) (Auto) 0.9 % (0.0-2.0) Sodium Level 132 MMOL/L (136-145) L Potassium Level 4.1 MMOL/L (3.5-5.1) Chloride Level 98 MMOL/L (98-107) Carbon Dioxide Level 24 MMOL/L (21-32) Anion Gap 10 mmol/L (5-15) Blood Urea Nitrogen 15 mg/dL (7-18) Creatinine 0.4 MG/DL (0.55-1.30) L Estimat Glomerular Filtration Rate > 60 mL/min (>60) Glucose Level 102 MG/DL (74-106) Lactic Acid Level 0.50 mmol/L (0.4-2.0) Calcium Level 8.7 MG/DL (8.5-10.1) Total Bilirubin 0.3 MG/DL (0.2-1.0) Aspartate Amino Transf (AST/SGOT) 16 U/L (15-37) Alanine Aminotransferase (ALT/SGPT) 21 U/L (12-78) Alkaline Phosphatase 89 U/L (46-116) Pro-B-Type Natriuretic Peptide 97 pg/mL (0-125) Total Protein 6.7 G/DL (6.4-8.2) Albumin 3.1 G/DL (3.4-5.0) L Globulin 3.6 g/dL Albumin/Globulin Ratio 0.9 (1.0-2.7) L Urine Color Pale yellow Urine Appearance Clear Urine pH 7 (4.5-8.0) Urine Specific Udall 1.005 (1.005-1.035) Urine Protein Negative (NEGATIVE) Urine Glucose (UA) Negative (NEGATIVE) Urine Ketones Negative (NEGATIVE) Urine Blood 1+ (NEGATIVE) H Urine Nitrite Negative (NEGATIVE) Urine Bilirubin Negative (NEGATIVE) Urine Urobilinogen Normal MG/DL (0.0-1.0) Urine Leukocyte Esterase 1+ (NEGATIVE) H Urine RBC 0-2 /HPF (0 - 2) Urine WBC 0-2 /HPF (0 - 2) Urine Squamous Epithelial Cells Few /LPF (NONE/OCC) Urine Bacteria Few /HPF (NONE) Microbiology Date/Time Source Procedure Growth Status 07/31/19 00:15 Rectum Received Height (Feet): 5 Height (Inches): 6.00 Weight (Pounds): 200 Medications Current Medications Medications (Trade) Dose Ordered Sig/Galen Route PRN Reason Start Time Stop Time Status Last Admin Dose Admin Acetaminophen (Tylenol) 650 mg Q4H PRN ORAL For Pain 07/31/19 04:45 08/30/19 04:44 Acetaminophen/ Hydrocodone Bitart (Derry 10) 1 tab Q4H PRN ORAL moderate pain 07/31/19 04:45 08/07/19 04:44 07/31/19 13:15 Artificial Tears (Akwa-Tears) 1 drop Q4H PRN BOTH EYES Dry Eyes 07/31/19 04:45 08/30/19 04:44 Baclofen (Lioresal) 10 mg Q8HR ORAL 07/31/19 06:00 08/30/19 05:59 07/31/19 13:11 Carbamazepine (TEGretol) 200 mg BID ORAL 07/31/19 09:00 08/30/19 08:59 07/31/19 09:01 Diphenhydramine HCl (Benadryl) 50 mg Q6H PRN ORAL Itching 07/31/19 04:45 08/30/19 04:44 Docusate Sodium (Colace) 100 mg THREE TIMES A DAY ORAL 07/31/19 09:00 08/30/19 08:59 Duloxetine HCl (Cymbalta) 60 mg DAILY ORAL 07/31/19 09:00 08/30/19 08:59 Heparin Sodium (Porcine) (Heparin 5000 units/ml) 5,000 units EVERY 12 HOURS SUBQ 07/31/19 09:00 08/30/19 08:59 Levothyroxine Sodium (Synthroid) 25 mcg DAILY@0630 ORAL 07/31/19 06:30 08/30/19 06:29 07/31/19 05:48 Lisinopril (Prinivil) 20 mg DAILY ORAL 07/31/19 09:00 08/30/19 08:59 Loratadine (Claritin 10mg) 10 mg DAILY ORAL 07/31/19 09:00 08/30/19 08:59 Lorazepam (Ativan) 1 mg Q6H PRN ORAL For Anxiety 07/31/19 04:45 08/07/19 04:44 Magnesium Hydroxide (Mom) 30 ml Q6H PRN ORAL Constipation 07/31/19 04:45 08/30/19 04:44 Multivitamins (Multivitamins) 1 tab DAILY ORAL 07/31/19 09:00 08/30/19 08:59 07/31/19 09:02 Ondansetron HCl (Zofran ODT) 4 mg Q8H PRN ORAL Nausea & Vomiting 07/31/19 04:45 08/30/19 04:44 Oxycodone/ Acetaminophen (Percocet 10/325) 1 tab Q8H PRN ORAL Severe Pain (Pain Scale 7-10) 07/31/19 05:00 08/07/19 04:59 07/31/19 09:00 Polyethylene Glycol (Miralax) 17 gm DAILY ORAL 07/31/19 09:00 08/30/19 08:59 Pregabalin (Lyrica) 100 mg THREE TIMES A DAY ORAL 07/31/19 09:00 08/30/19 08:59 07/31/19 13:11 Quetiapine Fumarate (SEROqueL) 300 mg BEDTIME ORAL 07/31/19 21:00 08/30/19 20:59 Temazepam (Restoril) 15 mg BEDTIME PRN ORAL Insomnia 07/31/19 04:45 08/07/19 04:44 Assessment/Plan Assessment/Plan: Abx: Zosyn x1 07/31 Assessment: Generalized pain Afebrile No leukocytosis- R/o UTI (u/a with no pyuria but patient endorses dysuria and frequency) -u/a no pyuria, leuk +1, nit neg; ucx -CXR: no acute process MS w/ paraplegia anemia SNF resident Plan: -Start empiric Macrobid pending ucx -f/u cx -Monitor CBC/CMP, temperatures Thank you for this consultation. Will continue to follow along with you. Discussed with Shivani Fontenot M.D. Jul 31, 2019 14:58
[2019-07-31 16:00] VITALS: BP 94/55
--- NOTE | 2019-07-31 16:55 | General Progress Note ---
Assessment/Plan Assessment/Plan: (1) Neuropathic pain (2) Multiple Sclerosis Patient will be continued on Percocet changed to 5/325mg 1.5 tabs Q4h PRN severe pain. D/w Dr. Fried and he concurred. Subjective Date patient seen: Jul 31, 2019 Time patient seen: 04:00 - pm Allergies: Coded Allergies: HYDROMORPHONE (Verified Allergy, Intermediate, 03/28/18) PREDNISONE (Verified Allergy, Intermediate, 03/28/18) PSEUDOEPHEDRINE (Verified Allergy, Intermediate, 03/28/18) Subjective REVIEW OF SYSTEMS: Denies rash, fever, chills, sweating, dizziness, drowsiness, blurred vision, sore throat, or change in weight. No shortness of breath or chest pain. No nausea, vomiting, diarrhea, or blood in the stool or urine. She is complaining of generalized body pain. SUBJECTIVE: Patient is a known patient from previous admissions and has continued pain, was started on Percocet 10/325mg three times a day with minimal relief. Due to this we were consulted so patient has adequate pain control while here in the hospital. Objective Last 24 Hour Vital Signs Date Time Temp Pulse Resp B/P (MAP) Pulse Ox O2 Delivery O2 Flow Rate FiO2 07/31/19 16:00 99.0 66 17 94/55 (68) 99 07/31/19 12:00 98.4 80 15 85/56 (66) 93 07/31/19 09:00 Room Air 07/31/19 09:00 112/62 07/31/19 08:00 98.3 70 14 112/62 (79) 95 07/31/19 04:00 97.7 67 19 117/59 (78) 98 07/31/19 02:23 Room Air 07/31/19 01:18 98.7 80 19 111/72 98 Room Air 07/31/19 01:18 98.7 80 19 111/72 98 Room Air 07/30/19 23:48 99.3 07/30/19 23:07 99.3 78 22 105/74 94 Room Air 07/30/19 22:07 99.5 71 19 110/70 98 Room Air 07/30/19 22:00 99.3 86 22 105/74 (84) 94 Room Air Intake and Output 07/30/19 07/31/19 19:00 07:00 Intake Total 1000 ml Output Total 400 ml Balance 600 ml Intake IV Total 1000 ml Output Urine Total 400 ml # Voids 1 # Bowel Movements 1 Laboratory Tests 07/30/19 23:11: White Blood Count 6.3, Red Blood Count 4.05L, Hemoglobin 12.6, Hematocrit 34.7L , Mean Corpuscular Volume 86, Mean Corpuscular Hemoglobin 31.2H, Mean Corpuscular Hemoglobin Concent 36.5H, Red Cell Distribution Width 10.6L, Platelet Count 231, Mean Platelet Volume 6.3L, Neutrophils (%) (Auto) 53.1, Lymphocytes (%) (Auto) 36.4, Monocytes (%) (Auto) 8.1, Eosinophils (%) (Auto) 1.5, Basophils (%) (Auto) 0.9, Sodium Level 132L, Potassium Level 4.1, Chloride Level 98, Carbon Dioxide Level 24, Anion Gap 10, Blood Urea Nitrogen 15, Creatinine 0.4L, Estimat Glomerular Filtration Rate > 60, Glucose Level 102, Lactic Acid Level 0.50, Calcium Level 8.7, Total Bilirubin 0.3, Aspartate Amino Transf (AST/SGOT) 16, Alanine Aminotransferase (ALT/SGPT) 21, Alkaline Phosphatase 89, Pro-B-Type Natriuretic Peptide 97, Total Protein 6.7, Albumin 3.1L, Globulin 3.6, Albumin/Globulin Ratio 0.9L 07/31/19 00:03: Urine Color Pale yellow, Urine Appearance Clear, Urine pH 7, Urine Specific Rigby 1.005, Urine Protein Negative, Urine Glucose (UA) Negative, Urine Ketones Negative, Urine Blood 1+H, Urine Nitrite Negative, Urine Bilirubin Negative, Urine Urobilinogen Normal, Urine Leukocyte Esterase 1+H, Urine RBC 0-2 , Urine WBC 0-2, Urine Squamous Epithelial Cells Few, Urine Bacteria Few Height (Feet): 5 Height (Inches): 6.00 Weight (Pounds): 200 Objective GENERAL: alert, awake, and oriented. LUNGS: Decreased breath sounds bilaterally. HEART: S1 and S2 regular. ABDOMEN: Benign. EXTREMITIES: No cyanosis. No clubbing. No edema. NEUROLOGICAL: Marked weakness noted in bilateral lower extremities. Alonso Young Jul 31, 2019 16:55
[2019-07-31] MEDS: oxyCODONE HCL/Acetaminophen 5/325mg ORAL PRN ×2 (17:09→22:30)
--- NOTE | 2019-07-31 18:00 | Consultation ---
DATE OF CONSULTATION: 07/31/2019 CONSULTING PHYSICIAN: Kendrick Temple M.D. HISTORY OF PRESENT ILLNESS: This is a 58-year-old female with a history of multiple medical issues including UTI, hypertension, chronic pain, acute coronary syndrome, depression, anxiety who has been admitted to the hospital for medical stabilization. The patient is complaining of pain. She is positive for MRSA. On contact precaution. The patient is depressed. Has anxiety. She requesting to be on Valium. She is also on Seroquel as well. PAST PSYCHIATRIC HISTORY: Depression, bipolar disorder, anxiety. Denies suicide attempt. PAST MEDICAL HISTORY: As above. ALLERGIES: Include hydromorphone, prednisone, pseudoephedrine. SUBSTANCE ABUSE HISTORY: No known history of illicit drug use or alcohol. MENTAL STATUS EXAMINATION: Alert, oriented times self, place, and situation. Mood is depressed and anxious. Affect is constricted, congruent with mood. Thought process is concrete. Thought content, no suicidal or homicidal ideation. ASSESSMENT: 1. Major depressive disorder. 2. Anxiety disorder. PLAN: 1. We will continue the Cymbalta. 2. Continue Seroquel changed to night time. 3. Continue the Ativan. 4. Provide the patient with reality orientation and supportive therapy. Kendrick Temple M.D. DR: FELISHA JOB#: [id number] CC:
--- NOTE | 2019-07-31 19:25 | NUR ---
HAND-OFF: Report given to Blanca FINNEY RN.
[2019-07-31 20:00] VITALS: BP 96/66
--- NOTE | 2019-07-31 20:04 | NUR ---
NURSE NOTES: RECEIVED PATIENT FROM IRAIDA SCHUSTER. PT IS AWAKE, RESTING IN BED, AAOX4, ON ROOM AIR, NO ACUTE DISTRESS NOTED. PT DENIES PAIN. IV ON RIGHT HAND 20G IS INTACT AND PATENT. PUREWICK IN PLACE. BED IS LOCKED AND LOW, BED ALARMS ACTIVE, SIDE RAILS UP X2, AND CALL LIGHT IS WITHIN REACH. WILL CONTINUE TO MONITOR.
--- NOTE | 2019-07-31 20:45 | History and Physical Report ---
DATE OF ADMISSION: 07/30/2019 CONSULTANTS: 1. Guillermo Johnson M.D. 2. Elmer Fried M.D. 3. Kendrick Temple M.D. CHIEF COMPLAINT: UTI, chronic pain, and depression. BRIEF HISTORY: This is a 58-year-old female from [facility], presented with the above-mentioned diagnoses. Initially presented with dysuria and diagnosed with the above and admitted to medical floor for further treatment. Currently, slightly anxious in bed, slightly sad, no complaint. REVIEW OF SYSTEMS: No chest pain. No shortness of breath. No nausea or vomiting. PAST MEDICAL HISTORY: Chronic pain, ACS, and hypothyroid. PAST SURGICAL HISTORY: None. MEDICATIONS: Include Seroquel, Tegretol, Colace, Cymbalta, Prinivil, Claritin, heparin, levothyroxine, , oxycodone, artificial tears, magnesium, Zofran, and Zosyn. ALLERGY: Hydromorphone, prednisone, and pseudoephedrine. SOCIAL HISTORY: No smoking. No alcohol. No intravenous drug abuse. FAMILY HISTORY: Noncontributory. PHYSICAL EXAMINATION: GENERAL: Calm in bed, oriented x3, and in no acute distress. VITAL SIGNS: Temperature is 98 degrees, pulse 80, respirations 15, and blood pressure 85/56. CARDIOVASCULAR: No murmurs. LUNGS: Distant and clear. ABDOMEN: Bowel sounds positive. Nontender. Nondistended. EXTREMITIES: No cyanosis, clubbing, or edema. NEUROLOGIC: The patient moves all extremities, slightly weak. LABORATORY AND DIAGNOSTIC DATA: Labs at this time show CBC is normal. Sodium 132 and creatinine 0.4. Albumin 3.1. Otherwise normal. Urinalysis 1+ leukocyte esterase. ASSESSMENT: 1. UTI. 2. Depression. 3. MRSA. 4. Chronic pain. 5. Malnutrition. 6. ACS. 7. Hypothyroid. PLAN: 1. Antibiotic per Infectious Disease. 2. Pain control. 3. Dietary followup. 4. Psych treatment. 5. PT and dietary evaluation. 6. CBC and BMP in the morning. Nishant Rider D.O. DR: KEMAL JOB#: [id number] CC:
[2019-08-01] VITALS: BP 112/63
[2019-08-01] MEDS: oxyCODONE HCL/Acetaminophen 5/325mg ORAL PRN ×5 (04:28→22:02)
[2019-08-01 04:53] VITALS: BP 123/78
[2019-08-01 06:11] LABS: BASOPHILS % (AUTO) 0.9 % (0.0-2.0); HEMOGLOBIN 12.4 G/DL (12.0-16.0); LYMPHOCYTES % (AUTO) 34.6 % (20.0-45.0); MEAN CORPUSCULAR VOLUME 86 FL (80-99); MONOCYTES % (AUTO) 6.9 % (1.0-10.0); NEUTROPHILS % (AUTO) 54.5 % (45.0-75.0); PLATELET COUNT 248 K/UL (150-450); RED BLOOD COUNT 3.94 M/UL (4.20-5.40); WHITE BLOOD COUNT 6.9 K/UL (4.8-10.8)
[2019-08-01] MEDS: Levothyroxine 25mcg tab ORAL SCH (06:28)
[2019-08-01 06:30] LABS: ANION GAP 8 mmol/L (5-15); BLOOD UREA NITROGEN 13 mg/dL (7-18); CALCIUM 8.8 MG/DL (8.5-10.1); CARBON DIOXIDE 25 MMOL/L (21-32); CHLORIDE 102 MMOL/L (98-107); CREATININE 0.4 MG/DL (0.55-1.30); POTASSIUM 4.4 MMOL/L (3.5-5.1); SODIUM 135 MMOL/L (136-145)
--- NOTE | 2019-08-01 07:16 | NUR ---
HAND-OFF: Report given to IRAIDA Hampton. Patient is in stable condition. Endorsed plan of care.
--- NOTE | 2019-08-01 07:18 | NUR ---
NURSE NOTES: Received patient in bed asleep. No SOB or acute distress. IV line intact. Purewick in place. HOB elevated. Bed locked in lowest position. Call light within reach. For nutrition evaluation. Will continue plan of care.
[2019-08-01 08:00] VITALS: BP 132/77
[2019-08-01] MEDS: Lisinopril 20mg tab ORAL SCH ×2 (08:35→09:00)
[2019-08-01] MEDS: Docusate 100mg cap ORAL SCH ×4 (08:35→18:00)
[2019-08-01] MEDS: carBAMazepine 200mg tab ORAL SCH ×3 (08:35→17:25)
[2019-08-01] MEDS: Miralax 17gm pkt ORAL SCH (08:38)
[2019-08-01] MEDS: Heparin 5000 units/ml inj SUBQ SCH ×2 (08:38→20:12)
[2019-08-01] MEDS: DULoxetine 30mg cap ORAL SCH (08:40)
[2019-08-01] MEDS: Lyrica 50mg cap ORAL SCH ×3 (08:40→17:24)
--- NOTE | 2019-08-01 08:53 | General Progress Note ---
Assessment/Plan Assessment/Plan: (1) Neuropathic pain (2) Multiple Sclerosis Patient will be continued on Percocet We will start Morphine 2mg IV Q6h PRN D/w Dr. Fried and he concurred. Subjective Date patient seen: Aug 01, 2019 Time patient seen: 07:30 - am Allergies: Coded Allergies: HYDROMORPHONE (Verified Allergy, Intermediate, 03/28/18) PREDNISONE (Verified Allergy, Intermediate, 03/28/18) PSEUDOEPHEDRINE (Verified Allergy, Intermediate, 03/28/18) Subjective REVIEW OF SYSTEMS: Denies rash, fever, chills, sweating, dizziness, drowsiness, blurred vision, sore throat, or change in weight. No shortness of breath or chest pain. No nausea, vomiting, diarrhea, or blood in the stool or urine. She is complaining of generalized body pain. SUBJECTIVE: Patient is in bed still c/o pain on the Percocet. Objective Last 24 Hour Vital Signs Date Time Temp Pulse Resp B/P (MAP) Pulse Ox O2 Delivery O2 Flow Rate FiO2 08/01/19 08:35 132/77 08/01/19 08:00 97.2 69 18 132/77 (95) 94 08/01/19 04:53 97.4 69 16 123/78 (93) 96 08/01/19 00:00 96.0 64 18 112/63 (79) 96 07/31/19 21:00 Room Air 07/31/19 20:00 98.4 78 18 96/66 (76) 96 07/31/19 16:00 99.0 66 17 94/55 (68) 99 07/31/19 12:00 98.4 80 15 85/56 (66) 93 07/31/19 09:00 Room Air 07/31/19 09:00 112/62 Intake and Output 07/31/19 08/01/19 18:59 06:59 Intake Total 900 ml Output Total 600 ml 450 ml Balance 300 ml -450 ml Intake Oral 900 ml Output Urine Total 600 ml 450 ml Laboratory Tests 08/01/19 05:30: White Blood Count 6.9, Red Blood Count 3.94L, Hemoglobin 12.4, Hematocrit 34.0L , Mean Corpuscular Volume 86, Mean Corpuscular Hemoglobin 31.4H, Mean Corpuscular Hemoglobin Concent 36.4H, Red Cell Distribution Width 11.0L, Platelet Count 248, Mean Platelet Volume 5.7L, Neutrophils (%) (Auto) 54.5, Lymphocytes (%) (Auto) 34.6, Monocytes (%) (Auto) 6.9, Eosinophils (%) (Auto) 3.0, Basophils (%) (Auto) 0.9, Sodium Level 135L, Potassium Level 4.4, Chloride Level 102, Carbon Dioxide Level 25, Anion Gap 8, Blood Urea Nitrogen 13, Creatinine 0.4L, Estimat Glomerular Filtration Rate > 60, Glucose Level 92, Calcium Level 8.8 Height (Feet): 5 Height (Inches): 6.00 Weight (Pounds): 198 Objective GENERAL: alert, awake, and oriented. LUNGS: Decreased breath sounds bilaterally. HEART: S1 and S2 regular. ABDOMEN: Benign. EXTREMITIES: No cyanosis. No clubbing. No edema. NEUROLOGICAL: Marked weakness noted in bilateral lower extremities. Alonso Young Aug 01, 2019 08:53
[2019-08-01] MEDS: Morphine Sulfate 2mg/ml Inj(IV/IM USE ONLY) IVP PRN ×2 (10:04→20:12)
--- NOTE | 2019-08-01 10:08 | General Progress Note ---
Assessment/Plan Problem List: (1) Weakness ICD Codes: R53.1 - Weakness SNOMED: 66181371 (2) UTI (urinary tract infection) ICD Codes: N39.0 - Urinary tract infection, site not specified SNOMED: 43329616 (3) ACS (acute coronary syndrome) ICD Codes: I24.9 - Acute ischemic heart disease, unspecified SNOMED: 961812723 (4) Chronic pain ICD Codes: G89.29 - Other chronic pain SNOMED: 42436999 (5) Hypothyroid ICD Codes: E03.9 - Hypothyroidism, unspecified SNOMED: 09027145 Status: unchanged Assessment/Plan: pt diet pain control abx cbc bmp am Subjective Allergies: Coded Allergies: HYDROMORPHONE (Verified Allergy, Intermediate, 03/28/18) PREDNISONE (Verified Allergy, Intermediate, 03/28/18) PSEUDOEPHEDRINE (Verified Allergy, Intermediate, 03/28/18) All Systems: reviewed and negative except above Subjective calm in bed Objective Last 24 Hour Vital Signs Date Time Temp Pulse Resp B/P (MAP) Pulse Ox O2 Delivery O2 Flow Rate FiO2 08/01/19 08:00 97.2 69 18 132/77 (95) 94 08/01/19 04:53 97.4 69 16 123/78 (93) 96 08/01/19 00:00 96.0 64 18 112/63 (79) 96 07/31/19 21:00 Room Air 07/31/19 20:00 98.4 78 18 96/66 (76) 96 07/31/19 16:00 99.0 66 17 94/55 (68) 99 07/31/19 12:00 98.4 80 15 85/56 (66) 93 Intake and Output 07/31/19 08/01/19 18:59 06:59 Intake Total 900 ml Output Total 600 ml 450 ml Balance 300 ml -450 ml Intake Oral 900 ml Output Urine Total 600 ml 450 ml Laboratory Tests 08/01/19 05:30: White Blood Count 6.9, Red Blood Count 3.94L, Hemoglobin 12.4, Hematocrit 34.0L , Mean Corpuscular Volume 86, Mean Corpuscular Hemoglobin 31.4H, Mean Corpuscular Hemoglobin Concent 36.4H, Red Cell Distribution Width 11.0L, Platelet Count 248, Mean Platelet Volume 5.7L, Neutrophils (%) (Auto) 54.5, Lymphocytes (%) (Auto) 34.6, Monocytes (%) (Auto) 6.9, Eosinophils (%) (Auto) 3.0, Basophils (%) (Auto) 0.9, Sodium Level 135L, Potassium Level 4.4, Chloride Level 102, Carbon Dioxide Level 25, Anion Gap 8, Blood Urea Nitrogen 13, Creatinine 0.4L, Estimat Glomerular Filtration Rate > 60, Glucose Level 92, Calcium Level 8.8 Height (Feet): 5 Height (Inches): 6.00 Weight (Pounds): 198 General Appearance: lethargic EENT: normal ENT inspection Neck: normal alignment Cardiovascular: normal peripheral pulses, normal rate, regular rhythm Respiratory/Chest: chest wall non-tender, lungs clear, normal breath sounds Abdomen: normal bowel sounds, non tender, soft Extremities: normal inspection Edema: no edema noted Arm (L), no edema noted Arm (R), no edema noted Leg (L), no edema noted Leg (R), no edema noted Pedal (L), no edema noted Pedal (R), no edema noted Generalized Neurologic: responsive, motor weakness Skin: normal pigmentation, warm/dry Nishant Rider DO Aug 01, 2019 10:08
--- NOTE | 2019-08-01 10:18 | NUR ---
NURSE NOTES: Seen by Dr Rider, instructed RN to ask Dr Johnson until when ABX will be taken, ask pain MD for a pain patch as requested by patient, and inform social science teacher regarding placement.
--- NOTE | 2019-08-01 10:28 | NUR ---
NURSE NOTES: Spoke with Ely left message for Alonso Young regarding patient's request for patient. Awaiting callback.
--- NOTE | 2019-08-01 10:29 | NUR ---
NURSE NOTES: Checked MD orders, stop date for ABX Macrobid is 08/30/2019, patient made aware.
--- NOTE | 2019-08-01 11:53 | Infectious Diseases Prog Note ---
Assessment/Plan Assessment/Plan Assessment: Generalized pain Afebrile No leukocytosis- R/o UTI (u/a with no pyuria but patient endorses dysuria and frequency) -u/a no pyuria, leuk +1, nit neg; ucx p -CXR: no acute process MS w/ paraplegia anemia SNF resident Plan: -Cont empiric Macrobid #2 pending ucx -07/31 SP ZOsyn x1 -f/u cx -Monitor CBC/CMP, temperatures Thank you for this consultation. Will continue to follow along with you. Discussed with RN Subjective Allergies: Coded Allergies: HYDROMORPHONE (Verified Allergy, Intermediate, 03/28/18) PREDNISONE (Verified Allergy, Intermediate, 03/28/18) PSEUDOEPHEDRINE (Verified Allergy, Intermediate, 03/28/18) Subjective afebrile no leukcoytosis Objective Vital Signs Last 24 Hour Vital Signs Date Time Temp Pulse Resp B/P (MAP) Pulse Ox O2 Delivery O2 Flow Rate FiO2 08/01/19 09:00 Room Air 08/01/19 08:00 97.2 69 18 132/77 (95) 94 08/01/19 04:53 97.4 69 16 123/78 (93) 96 08/01/19 00:00 96.0 64 18 112/63 (79) 96 07/31/19 21:00 Room Air 07/31/19 20:00 98.4 78 18 96/66 (76) 96 07/31/19 16:00 99.0 66 17 94/55 (68) 99 07/31/19 12:00 98.4 80 15 85/56 (66) 93 Height (Feet): 5 Height (Inches): 6.00 Weight (Pounds): 198 Objective General Appearance: no apparent distress, alert, non-toxic Head: normocephalic, atraumatic Eyes: bilateral eye normal inspection, bilateral eye PERRL ENT: hearing grossly normal, normal pharynx, no angioedema, normal voice Neck: full range of motion, supple/symm/no masses Respiratory: chest non-tender, lungs clear, normal breath sounds, speaking full sentences Cardiovascular #1: regular rate, rhythm, no edema Gastrointestinal: normal bowel sounds, non tender, soft, non-distended, no guarding, no rebound Genitourinary: normal inspection, no CVA tenderness Musculoskeletal: back normal, normal range of motion, gait/station normal, non- tender Microbiology Date/Time Source Procedure Growth Status 07/30/19 23:11 Blood Blood Culture - Preliminary NO GROWTH AFTER 24 HOURS Resulted 07/30/19 22:50 Blood Blood Culture - Preliminary NO GROWTH AFTER 24 HOURS Resulted 07/31/19 00:15 Rectum Received Laboratory Tests Test 08/01/19 05:30 White Blood Count 6.9 K/UL (4.8-10.8) Red Blood Count 3.94 M/UL (4.20-5.40) L Hemoglobin 12.4 G/DL (12.0-16.0) Hematocrit 34.0 % (37.0-47.0) L Mean Corpuscular Volume 86 FL (80-99) Mean Corpuscular Hemoglobin 31.4 PG (27.0-31.0) H Mean Corpuscular Hemoglobin Concent 36.4 G/DL (32.0-36.0) H Red Cell Distribution Width 11.0 % (11.6-14.8) L Platelet Count 248 K/UL (150-450) Mean Platelet Volume 5.7 FL (6.5-10.1) L Neutrophils (%) (Auto) 54.5 % (45.0-75.0) Lymphocytes (%) (Auto) 34.6 % (20.0-45.0) Monocytes (%) (Auto) 6.9 % (1.0-10.0) Eosinophils (%) (Auto) 3.0 % (0.0-3.0) Basophils (%) (Auto) 0.9 % (0.0-2.0) Sodium Level 135 MMOL/L (136-145) L Potassium Level 4.4 MMOL/L (3.5-5.1) Chloride Level 102 MMOL/L (98-107) Carbon Dioxide Level 25 MMOL/L (21-32) Anion Gap 8 mmol/L (5-15) Blood Urea Nitrogen 13 mg/dL (7-18) Creatinine 0.4 MG/DL (0.55-1.30) L Estimat Glomerular Filtration Rate > 60 mL/min (>60) Glucose Level 92 MG/DL (74-106) Calcium Level 8.8 MG/DL (8.5-10.1) Current Medications Medications (Trade) Dose Ordered Sig/Galen Route PRN Reason Start Time Stop Time Status Last Admin Dose Admin Acetaminophen (Tylenol) 650 mg Q4H PRN ORAL For Pain 07/31/19 04:45 08/30/19 04:44 Artificial Tears (Akwa-Tears) 1 drop Q4H PRN BOTH EYES Dry Eyes 07/31/19 04:45 08/30/19 04:44 Baclofen (Lioresal) 10 mg Q8HR ORAL 07/31/19 06:00 08/30/19 05:59 08/01/19 06:28 Carbamazepine (TEGretol) 200 mg BID ORAL 07/31/19 09:00 08/30/19 08:59 07/31/19 17:07 Diphenhydramine HCl (Benadryl) 50 mg Q6H PRN ORAL Itching 07/31/19 04:45 08/30/19 04:44 Docusate Sodium (Colace) 100 mg THREE TIMES A DAY ORAL 07/31/19 09:00 08/30/19 08:59 Duloxetine HCl (Cymbalta) 60 mg DAILY ORAL 07/31/19 09:00 08/30/19 08:59 08/01/19 08:40 Heparin Sodium (Porcine) (Heparin 5000 units/ml) 5,000 units EVERY 12 HOURS SUBQ 07/31/19 09:00 08/30/19 08:59 Levothyroxine Sodium (Synthroid) 25 mcg DAILY@0630 ORAL 07/31/19 06:30 08/30/19 06:29 08/01/19 06:28 Lisinopril (Prinivil) 20 mg DAILY ORAL 07/31/19 09:00 08/30/19 08:59 Loratadine (Claritin 10mg) 10 mg DAILY ORAL 07/31/19 09:00 08/30/19 08:59 08/01/19 08:35 Lorazepam (Ativan) 1 mg Q6H PRN ORAL For Anxiety 07/31/19 04:45 08/07/19 04:44 07/31/19 17:08 Magnesium Hydroxide (Mom) 30 ml Q6H PRN ORAL Constipation 07/31/19 04:45 08/30/19 04:44 Morphine Sulfate (Morphine Sulfate) 2 mg Q6H PRN IVP breakthrogh severe pain 08/01/19 09:30 08/08/19 09:29 08/01/19 10:04 Multivitamins (Multivitamins) 1 tab DAILY ORAL 07/31/19 09:00 08/30/19 08:59 08/01/19 08:38 Nitrofurantoin (Macrobid) 100 mg EVERY 12 HOURS ORAL 07/31/19 21:00 08/30/19 20:59 08/01/19 08:40 Ondansetron HCl (Zofran ODT) 4 mg Q8H PRN ORAL Nausea & Vomiting 07/31/19 04:45 08/30/19 04:44 Oxycodone/ Acetaminophen (Percocet 5-325) 1.5 tab Q4H PRN ORAL severe pain 07/31/19 17:00 08/07/19 16:59 08/01/19 08:48 Polyethylene Glycol (Miralax) 17 gm DAILY ORAL 07/31/19 09:00 08/30/19 08:59 08/01/19 08:38 Pregabalin (Lyrica) 100 mg THREE TIMES A DAY ORAL 07/31/19 09:00 08/30/19 08:59 08/01/19 08:40 Quetiapine Fumarate (SEROqueL) 300 mg BEDTIME ORAL 07/31/19 21:00 08/30/19 20:59 07/31/19 21:19 Temazepam (Restoril) 15 mg BEDTIME PRN ORAL Insomnia 07/31/19 04:45 08/07/19 04:44 07/31/19 21:33 Shivani Sánchez M.D. Aug 01, 2019 11:53
[2019-08-01 12:00] VITALS: BP 102/61
[2019-08-01] MEDS: Ondansetron ODT 8mg tab ORAL PRN (13:18)
--- NOTE | 2019-08-01 15:55 | NUR ---
P.T Note: P.T evaluation completed and tx initiated. Please refer to P.T evaluation for current functional status.
[2019-08-01 16:00] VITALS: BP 109/70
--- NOTE | 2019-08-01 19:30 | NUR ---
NURSE NOTES: RECEIVED PT FROM IRAIDA FINNEY. PT IS AWAKE, AAOX4, ON ROOM AIR, NO ACUTE DISTRESS NOTED. PUREWICK IN PLACE, SUCTION WELL, NO REDNESS NOTED. IV ON RIGHT HAND 20G IS INTACT AND PATENT. BED IS LOCKED AND LOW, BED ALARMS ACTIVE, SIDE RAILS UP X2 AND CALL LIGHT IS WITHIN REACH. WILL CONTINUE TO MONITOR.
[2019-08-01] MEDS ORDERED: ARTIFICIAL TEAR15 ML BOTH EYES (19:59)
[2019-08-01] MEDS ORDERED: ZOFRAN4 M3 ORAL (19:59)
[2019-08-01] MEDS ORDERED: PERCOCET 10-321 EACH ORAL (19:59)
[2019-08-01] MEDS ORDERED: NAPROXEN500 M2 ORAL (19:59)
[2019-08-01] MEDS ORDERED: LEVAQUIN500 MG ORAL (19:59)
[2019-08-01] MEDS ORDERED: PREGABALIN100 MG PO (19:59)
[2019-08-01] MEDS ORDERED: ASPIRIN EC81 MG ORAL (19:59)
[2019-08-01] MEDS ORDERED: SORBITOL 70%30 ML PO (19:59)
[2019-08-01] MEDS ORDERED: VITAMIN C500 M1 ORAL (19:59)
[2019-08-01 20:00] VITALS: BP 111/42
[2019-08-02] VITALS: BP 135/63
[2019-08-02] MEDS: oxyCODONE HCL/Acetaminophen 5/325mg ORAL PRN ×4 (03:40→21:14)
[2019-08-02 04:00] VITALS: BP 137/58
[2019-08-02] MEDS: Morphine Sulfate 2mg/ml Inj(IV/IM USE ONLY) IVP PRN ×3 (04:48→17:38)
[2019-08-02] MEDS: Levothyroxine 25mcg tab ORAL SCH (06:15)
--- NOTE | 2019-08-02 07:26 | NUR ---
NURSE NOTES: Patient awake, alert x4; on room air, no sign of distress and shortness of breath; no sing of chest pain; IV Right-Hand 20G flushes well; Purewick in place suctions well; side rails up x2, breaks engaged, bed at lowest position; call light within reach; will keep monitoring.
--- NOTE | 2019-08-02 07:33 | NUR ---
HAND-OFF: Report given to IRAIDA ROBBINS.
[2019-08-02 08:00] VITALS: BP 130/74
[2019-08-02 08:00] LABS: BASOPHILS % (AUTO) 0.8 % (0.0-2.0); EOSINOPHILS % (AUTO) 3.6 % (0.0-3.0); HEMATOCRIT 33.7 % (37.0-47.0); HEMOGLOBIN 11.8 G/DL (12.0-16.0); LYMPHOCYTES % (AUTO) 27.5 % (20.0-45.0); MEAN CORPUSCULAR VOLUME 90 FL (80-99); MONOCYTES % (AUTO) 7.6 % (1.0-10.0); NEUTROPHILS % (AUTO) 60.6 % (45.0-75.0); PLATELET COUNT 221 K/UL (150-450); RED BLOOD COUNT 3.75 M/UL (4.20-5.40); RED CELL DISTRIBUTION WIDTH 11.9 % (11.6-14.8)
[2019-08-02 08:28] LABS: ANION GAP 5 mmol/L (5-15); BLOOD UREA NITROGEN 8 mg/dL (7-18); CALCIUM 8.6 MG/DL (8.5-10.1); CARBON DIOXIDE 28 MMOL/L (21-32); CHLORIDE 100 MMOL/L (98-107); CREATININE 0.3 MG/DL (0.55-1.30); POTASSIUM 3.9 MMOL/L (3.5-5.1); SODIUM 133 MMOL/L (136-145)
[2019-08-02] MEDS: Lisinopril 20mg tab ORAL SCH (09:00)
[2019-08-02] MEDS: Heparin 5000 units/ml inj SUBQ SCH ×2 (09:00→21:00)
[2019-08-02] MEDS: Docusate 100mg cap ORAL SCH ×3 (09:00→17:11)
[2019-08-02] MEDS: DULoxetine 30mg cap ORAL SCH (09:00)
--- NOTE | 2019-08-02 09:16 | General Progress Note ---
Assessment/Plan Assessment/Plan: (1) Neuropathic pain (2) Multiple Sclerosis Patient will be continued on Percocet and Morphine D/w Dr. Fried and he concurred. Subjective Date patient seen: Aug 02, 2019 Time patient seen: 08:45 - am Allergies: Coded Allergies: HYDROMORPHONE (Verified Allergy, Intermediate, 03/28/18) PREDNISONE (Verified Allergy, Intermediate, 03/28/18) PSEUDOEPHEDRINE (Verified Allergy, Intermediate, 03/28/18) Subjective REVIEW OF SYSTEMS: Denies rash, fever, chills, sweating, dizziness, drowsiness, blurred vision, sore throat, or change in weight. No shortness of breath or chest pain. No nausea, vomiting, diarrhea, or blood in the stool or urine. She is complaining of generalized body pain. SUBJECTIVE: Patient reports that the pain has been at a moderate level. Her pain is tolerated on the Morphine 5 doses and Percocet 3 doses in the last 24hrs. Objective Last 24 Hour Vital Signs Date Time Temp Pulse Resp B/P (MAP) Pulse Ox O2 Delivery O2 Flow Rate FiO2 08/02/19 04:00 97.7 87 18 137/58 (84) 94 08/02/19 00:00 97.5 90 19 135/63 (87) 94 08/01/19 21:00 Room Air 08/01/19 20:00 97.2 100 18 111/42 (65) 100 08/01/19 16:00 99.5 74 18 109/70 (83) 96 08/01/19 12:00 97.9 77 18 102/61 (75) 94 Intake and Output 08/01/19 08/02/19 19:00 07:00 Intake Total 600 ml 480 ml Output Total 1400 ml 1800 ml Balance -800 ml -1320 ml Intake Oral 600 ml 480 ml Output Urine Total 1400 ml 1800 ml # Voids 2 2 Laboratory Tests 08/02/19 06:48: White Blood Count 5.0, Red Blood Count 3.75L, Hemoglobin 11.8L, Hematocrit 33.7L , Mean Corpuscular Volume 90, Mean Corpuscular Hemoglobin 31.3H, Mean Corpuscular Hemoglobin Concent 34.8, Red Cell Distribution Width 11.9, Platelet Count 221, Mean Platelet Volume 6.2L, Neutrophils (%) (Auto) 60.6, Lymphocytes ( %) (Auto) 27.5, Monocytes (%) (Auto) 7.6, Eosinophils (%) (Auto) 3.6H, Basophils (%) (Auto) 0.8, Sodium Level 133L, Potassium Level 3.9, Chloride Level 100, Carbon Dioxide Level 28, Anion Gap 5, Blood Urea Nitrogen 8, Creatinine 0.3L, Estimat Glomerular Filtration Rate > 60, Glucose Level 85, Calcium Level 8.6 Height (Feet): 5 Height (Inches): 6.00 Weight (Pounds): 198 Objective GENERAL: alert, awake, and oriented. LUNGS: Decreased breath sounds bilaterally. HEART: S1 and S2 regular. ABDOMEN: Benign. EXTREMITIES: No cyanosis. No clubbing. No edema. NEUROLOGICAL: Marked weakness noted in bilateral lower extremities. Alonso Young Aug 02, 2019 09:16
[2019-08-02] MEDS: carBAMazepine 200mg tab ORAL SCH ×2 (09:21→17:36)
[2019-08-02] MEDS: Lyrica 50mg cap ORAL SCH ×3 (09:22→17:36)
[2019-08-02] MEDS: Miralax 17gm pkt ORAL SCH (09:23)
[2019-08-02 12:00] VITALS: BP 119/80
--- NOTE | 2019-08-02 12:03 | Infectious Diseases Prog Note ---
Assessment/Plan Assessment/Plan Assessment: Generalized pain Afebrile No leukocytosis- R/o UTI (u/a with no pyuria but patient endorses dysuria and frequency) -u/a no pyuria, leuk +1, nit neg; ucx p -CXR: no acute process MS w/ paraplegia anemia SNF resident Plan: -Cont empiric Macrobid #3/5 pending ucx -07/31 SP ZOsyn x1 -f/u cx -Monitor CBC/CMP, temperatures Thank you for this consultation. Will continue to follow along with you. Discussed with RN Subjective Allergies: Coded Allergies: HYDROMORPHONE (Verified Allergy, Intermediate, 03/28/18) PREDNISONE (Verified Allergy, Intermediate, 03/28/18) PSEUDOEPHEDRINE (Verified Allergy, Intermediate, 03/28/18) Subjective afebrile no leukcoytosis Objective Vital Signs Last 24 Hour Vital Signs Date Time Temp Pulse Resp B/P (MAP) Pulse Ox O2 Delivery O2 Flow Rate FiO2 08/02/19 09:46 97.5 08/02/19 09:00 Room Air 08/02/19 08:00 97.5 67 18 130/74 (92) 94 08/02/19 04:00 97.7 87 18 137/58 (84) 94 08/02/19 00:00 97.5 90 19 135/63 (87) 94 08/01/19 21:00 Room Air 08/01/19 20:00 97.2 100 18 111/42 (65) 100 08/01/19 16:00 99.5 74 18 109/70 (83) 96 Height (Feet): 5 Height (Inches): 6.00 Weight (Pounds): 198 Objective General Appearance: no apparent distress, alert, non-toxic Head: normocephalic, atraumatic Eyes: bilateral eye normal inspection, bilateral eye PERRL ENT: hearing grossly normal, normal pharynx, no angioedema, normal voice Neck: full range of motion, supple/symm/no masses Respiratory: chest non-tender, lungs clear, normal breath sounds, speaking full sentences Cardiovascular #1: regular rate, rhythm, no edema Gastrointestinal: normal bowel sounds, non tender, soft, non-distended, no guarding, no rebound Genitourinary: normal inspection, no CVA tenderness Musculoskeletal: back normal, normal range of motion, gait/station normal, non- tender Microbiology Date/Time Source Procedure Growth Status 07/30/19 23:11 Blood Blood Culture - Preliminary NO GROWTH AFTER 48 HOURS Resulted 07/30/19 22:50 Blood Blood Culture - Preliminary NO GROWTH AFTER 48 HOURS Resulted 07/31/19 00:15 Nasal Nares MRSA Culture - Final NO METHICILLIN RESISTANT STAPH AUREUS... Complete 07/31/19 00:15 Rectum - Final NO CARBAPENEM-RESISTANT ENTEROBACTERI... Complete 07/31/19 00:15 Rectum VRE Culture - Final NO VANCOMYCIN RESISTANT ENTEROCOCCUS ... Complete Laboratory Tests Test 08/02/19 06:48 White Blood Count 5.0 K/UL (4.8-10.8) Red Blood Count 3.75 M/UL (4.20-5.40) L Hemoglobin 11.8 G/DL (12.0-16.0) L Hematocrit 33.7 % (37.0-47.0) L Mean Corpuscular Volume 90 FL (80-99) Mean Corpuscular Hemoglobin 31.3 PG (27.0-31.0) H Mean Corpuscular Hemoglobin Concent 34.8 G/DL (32.0-36.0) Red Cell Distribution Width 11.9 % (11.6-14.8) Platelet Count 221 K/UL (150-450) Mean Platelet Volume 6.2 FL (6.5-10.1) L Neutrophils (%) (Auto) 60.6 % (45.0-75.0) Lymphocytes (%) (Auto) 27.5 % (20.0-45.0) Monocytes (%) (Auto) 7.6 % (1.0-10.0) Eosinophils (%) (Auto) 3.6 % (0.0-3.0) H Basophils (%) (Auto) 0.8 % (0.0-2.0) Sodium Level 133 MMOL/L (136-145) L Potassium Level 3.9 MMOL/L (3.5-5.1) Chloride Level 100 MMOL/L (98-107) Carbon Dioxide Level 28 MMOL/L (21-32) Anion Gap 5 mmol/L (5-15) Blood Urea Nitrogen 8 mg/dL (7-18) Creatinine 0.3 MG/DL (0.55-1.30) L Estimat Glomerular Filtration Rate > 60 mL/min (>60) Glucose Level 85 MG/DL (74-106) Calcium Level 8.6 MG/DL (8.5-10.1) Current Medications Medications (Trade) Dose Ordered Sig/Galen Route PRN Reason Start Time Stop Time Status Last Admin Dose Admin Acetaminophen (Tylenol) 650 mg Q4H PRN ORAL For Pain 07/31/19 04:45 08/30/19 04:44 08/01/19 16:33 Artificial Tears (Akwa-Tears) 1 drop Q4H PRN BOTH EYES Dry Eyes 07/31/19 04:45 08/30/19 04:44 Baclofen (Lioresal) 10 mg Q8HR ORAL 07/31/19 06:00 08/30/19 05:59 08/02/19 06:15 Carbamazepine (TEGretol) 200 mg BID ORAL 07/31/19 09:00 08/30/19 08:59 08/02/19 09:21 Diphenhydramine HCl (Benadryl) 50 mg Q6H PRN ORAL Itching 07/31/19 04:45 08/30/19 04:44 Docusate Sodium (Colace) 100 mg THREE TIMES A DAY ORAL 07/31/19 09:00 08/30/19 08:59 Duloxetine HCl (Cymbalta) 60 mg DAILY ORAL 07/31/19 09:00 08/30/19 08:59 08/01/19 08:40 Heparin Sodium (Porcine) (Heparin 5000 units/ml) 5,000 units EVERY 12 HOURS SUBQ 07/31/19 09:00 08/30/19 08:59 Levothyroxine Sodium (Synthroid) 25 mcg DAILY@0630 ORAL 07/31/19 06:30 08/30/19 06:29 08/02/19 06:15 Lisinopril (Prinivil) 20 mg DAILY ORAL 07/31/19 09:00 08/30/19 08:59 Loratadine (Claritin 10mg) 10 mg DAILY ORAL 07/31/19 09:00 08/30/19 08:59 08/02/19 09:21 Lorazepam (Ativan) 1 mg Q6H PRN ORAL For Anxiety 07/31/19 04:45 08/07/19 04:44 07/31/19 17:08 Magnesium Hydroxide (Mom) 30 ml Q6H PRN ORAL Constipation 07/31/19 04:45 08/30/19 04:44 Morphine Sulfate (Morphine Sulfate) 2 mg Q6H PRN IVP breakthrogh severe pain 08/01/19 09:30 08/08/19 09:29 08/02/19 11:38 Multivitamins (Multivitamins) 1 tab DAILY ORAL 07/31/19 09:00 08/30/19 08:59 08/02/19 09:22 Nitrofurantoin (Macrobid) 100 mg EVERY 12 HOURS ORAL 07/31/19 21:00 08/30/19 20:59 08/02/19 09:21 Ondansetron HCl (Zofran ODT) 4 mg Q8H PRN ORAL Nausea & Vomiting 07/31/19 04:45 08/30/19 04:44 08/01/19 13:18 Oxycodone/ Acetaminophen (Percocet 5-325) 1.5 tab Q4H PRN ORAL severe pain 07/31/19 17:00 08/07/19 16:59 08/02/19 09:16 Polyethylene Glycol (Miralax) 17 gm DAILY ORAL 07/31/19 09:00 08/30/19 08:59 08/02/19 09:23 Pregabalin (Lyrica) 100 mg THREE TIMES A DAY ORAL 07/31/19 09:00 08/30/19 08:59 08/02/19 09:22 Quetiapine Fumarate (SEROqueL) 300 mg BEDTIME ORAL 07/31/19 21:00 08/30/19 20:59 08/01/19 21:11 Temazepam (Restoril) 15 mg BEDTIME PRN ORAL Insomnia 07/31/19 04:45 08/07/19 04:44 07/31/19 21:33 Shivani Sánchez M.D. Aug 02, 2019 12:03
--- NOTE | 2019-08-02 14:01 | General Progress Note ---
Assessment/Plan Problem List: (1) Weakness ICD Codes: R53.1 - Weakness SNOMED: 03614732 (2) UTI (urinary tract infection) ICD Codes: N39.0 - Urinary tract infection, site not specified SNOMED: 74651020 (3) ACS (acute coronary syndrome) ICD Codes: I24.9 - Acute ischemic heart disease, unspecified SNOMED: 627664059 (4) Chronic pain ICD Codes: G89.29 - Other chronic pain SNOMED: 93810370 (5) Hypothyroid ICD Codes: E03.9 - Hypothyroidism, unspecified SNOMED: 89990803 Status: stable, progressing Assessment/Plan: pt diet pain control abx cbc bmp am cd plan snf Subjective Constitutional: Reports: weakness Allergies: Coded Allergies: HYDROMORPHONE (Verified Allergy, Intermediate, 03/28/18) PREDNISONE (Verified Allergy, Intermediate, 03/28/18) PSEUDOEPHEDRINE (Verified Allergy, Intermediate, 03/28/18) All Systems: reviewed and negative except above Subjective sl anxious in bed Objective Last 24 Hour Vital Signs Date Time Temp Pulse Resp B/P (MAP) Pulse Ox O2 Delivery O2 Flow Rate FiO2 08/02/19 12:08 97.5 08/02/19 12:00 97.7 66 18 119/80 (93) 94 08/02/19 09:46 97.5 08/02/19 09:00 Room Air 08/02/19 08:00 97.5 67 18 130/74 (92) 94 08/02/19 04:00 97.7 87 18 137/58 (84) 94 08/02/19 00:00 97.5 90 19 135/63 (87) 94 08/01/19 21:00 Room Air 08/01/19 20:00 97.2 100 18 111/42 (65) 100 08/01/19 16:00 99.5 74 18 109/70 (83) 96 Intake and Output 08/01/19 08/02/19 18:59 06:59 Intake Total 600 ml 480 ml Output Total 1400 ml 1800 ml Balance -800 ml -1320 ml Intake Oral 600 ml 480 ml Output Urine Total 1400 ml 1800 ml # Voids 2 2 Laboratory Tests 08/02/19 06:48: White Blood Count 5.0, Red Blood Count 3.75L, Hemoglobin 11.8L, Hematocrit 33.7L , Mean Corpuscular Volume 90, Mean Corpuscular Hemoglobin 31.3H, Mean Corpuscular Hemoglobin Concent 34.8, Red Cell Distribution Width 11.9, Platelet Count 221, Mean Platelet Volume 6.2L, Neutrophils (%) (Auto) 60.6, Lymphocytes ( %) (Auto) 27.5, Monocytes (%) (Auto) 7.6, Eosinophils (%) (Auto) 3.6H, Basophils (%) (Auto) 0.8, Sodium Level 133L, Potassium Level 3.9, Chloride Level 100, Carbon Dioxide Level 28, Anion Gap 5, Blood Urea Nitrogen 8, Creatinine 0.3L, Estimat Glomerular Filtration Rate > 60, Glucose Level 85, Calcium Level 8.6 Height (Feet): 5 Height (Inches): 6.00 Weight (Pounds): 198 General Appearance: lethargic EENT: normal ENT inspection Neck: normal alignment Cardiovascular: normal peripheral pulses, normal rate, regular rhythm Respiratory/Chest: chest wall non-tender, lungs clear, normal breath sounds Abdomen: normal bowel sounds, non tender, soft Extremities: normal inspection Edema: no edema noted Arm (L), no edema noted Arm (R), no edema noted Leg (L), no edema noted Leg (R), no edema noted Pedal (L), no edema noted Pedal (R), no edema noted Generalized Neurologic: responsive, motor weakness Skin: normal pigmentation, warm/dry Nishant Rider DO Aug 02, 2019 14:00
[2019-08-02 16:00] VITALS: BP 122/64
--- NOTE | 2019-08-02 19:37 | NUR ---
HAND-OFF: Report given to IRAIDA Hess.
--- NOTE | 2019-08-02 19:54 | NUR ---
NURSE NOTES: Received patient in bed, awake, alert, oriented,IV site is clean dry and intact, no acute distress noted, call light is within reach, bed is lowered, locked and alarm is on. Will continue to monitor for comfort and safety.
[2019-08-02 20:00] VITALS: BP 146/73
[2019-08-03] VITALS: BP 122/65
[2019-08-03 04:00] VITALS: BP 125/78
[2019-08-03] MEDS: Levothyroxine 25mcg tab ORAL SCH (05:48)
[2019-08-03] MEDS: oxyCODONE HCL/Acetaminophen 5/325mg ORAL PRN ×2 (05:48→10:28)
--- NOTE | 2019-08-03 07:15 | NUR ---
NURSE NOTES: Received report from IRAIDA Graham (Rita). Patient A&Ox4. On room air, no signs of distress or labored breathing. IV intact, patent, and saline locked. Bed in lowest position with call light in reach. Complains of pain. Will follow pain management orders and continue with plan of care.
[2019-08-03 07:40] LABS: BASOPHILS % (AUTO) 1.2 % (0.0-2.0); EOSINOPHILS % (AUTO) 5.5 % (0.0-3.0); HEMATOCRIT 35.4 % (37.0-47.0); HEMOGLOBIN 12.1 G/DL (12.0-16.0); LYMPHOCYTES % (AUTO) 35.8 % (20.0-45.0); MEAN CORPUSCULAR VOLUME 90 FL (80-99); MONOCYTES % (AUTO) 8.5 % (1.0-10.0); PLATELET COUNT 236 K/UL (150-450); RED BLOOD COUNT 3.92 M/UL (4.20-5.40); WHITE BLOOD COUNT 5.4 K/UL (4.8-10.8)
[2019-08-03 08:00] VITALS: BP 107/55
[2019-08-03 08:04] LABS: ANION GAP 8 mmol/L (5-15); BLOOD UREA NITROGEN 8 mg/dL (7-18); CALCIUM 8.6 MG/DL (8.5-10.1); CARBON DIOXIDE 25 MMOL/L (21-32); CHLORIDE 97 MMOL/L (98-107); CREATININE 0.4 MG/DL (0.55-1.30); SODIUM 130 MMOL/L (136-145)
[2019-08-03] MEDS: Morphine Sulfate 2mg/ml Inj(IV/IM USE ONLY) IVP PRN ×2 (08:38→14:47)
[2019-08-03] MEDS: carBAMazepine 200mg tab ORAL SCH (08:43)
[2019-08-03] MEDS: Lyrica 50mg cap ORAL SCH ×2 (08:43→13:38)
[2019-08-03] MEDS: Miralax 17gm pkt ORAL SCH (08:44)
[2019-08-03] MEDS: Lisinopril 20mg tab ORAL SCH (08:45)
[2019-08-03] MEDS: DULoxetine 30mg cap ORAL SCH (08:45)
[2019-08-03] MEDS: Docusate 100mg cap ORAL SCH ×2 (08:45→13:00)
[2019-08-03] MEDS: Heparin 5000 units/ml inj SUBQ SCH (08:46)
--- NOTE | 2019-08-03 09:25 | General Progress Note ---
Assessment/Plan Problem List: (1) Weakness ICD Codes: R53.1 - Weakness SNOMED: 18767522 (2) UTI (urinary tract infection) ICD Codes: N39.0 - Urinary tract infection, site not specified SNOMED: 32318633 (3) ACS (acute coronary syndrome) ICD Codes: I24.9 - Acute ischemic heart disease, unspecified SNOMED: 028763319 (4) Chronic pain ICD Codes: G89.29 - Other chronic pain SNOMED: 53936296 (5) Hypothyroid ICD Codes: E03.9 - Hypothyroidism, unspecified SNOMED: 88587288 Status: stable, progressing Assessment/Plan: pt diet pain control abx dc if clear Subjective Constitutional: Reports: weakness Allergies: Coded Allergies: HYDROMORPHONE (Verified Allergy, Intermediate, 03/28/18) PREDNISONE (Verified Allergy, Intermediate, 03/28/18) PSEUDOEPHEDRINE (Verified Allergy, Intermediate, 03/28/18) All Systems: reviewed and negative except above Subjective sl anxious in bed Objective Last 24 Hour Vital Signs Date Time Temp Pulse Resp B/P (MAP) Pulse Ox O2 Delivery O2 Flow Rate FiO2 08/03/19 08:45 107/55 08/03/19 06:40 96.6 08/03/19 04:00 96.6 63 18 125/78 (94) 98 08/03/19 00:00 98.8 70 18 122/65 (84) 97 08/02/19 21:53 Room Air 08/02/19 20:00 99.4 72 16 146/73 (97) 96 08/02/19 18:08 98.9 08/02/19 16:00 98.9 69 18 122/64 (83) 95 08/02/19 12:00 97.7 66 18 119/80 (93) 94 Intake and Output 08/02/19 08/03/19 19:00 07:00 Intake Total 120 ml 120 ml Output Total 1400 ml 1600 ml Balance -1280 ml -1480 ml Intake Oral 120 ml 120 ml Output Urine Total 1400 ml 1600 ml # Voids 4 1 Laboratory Tests 08/03/19 06:50: White Blood Count 5.4, Red Blood Count 3.92L, Hemoglobin 12.1, Hematocrit 35.4L , Mean Corpuscular Volume 90, Mean Corpuscular Hemoglobin 30.8, Mean Corpuscular Hemoglobin Concent 34.1, Red Cell Distribution Width 12.0, Platelet Count 236, Mean Platelet Volume 6.4L, Neutrophils (%) (Auto) 49.0, Lymphocytes ( %) (Auto) 35.8, Monocytes (%) (Auto) 8.5, Eosinophils (%) (Auto) 5.5H, Basophils (%) (Auto) 1.2, Sodium Level 130L, Potassium Level 4.0, Chloride Level 97L, Carbon Dioxide Level 25, Anion Gap 8, Blood Urea Nitrogen 8, Creatinine 0.4L, Estimat Glomerular Filtration Rate > 60, Glucose Level 91, Calcium Level 8.6 Height (Feet): 5 Height (Inches): 6.00 Weight (Pounds): 198 General Appearance: alert EENT: normal ENT inspection Neck: normal alignment Cardiovascular: normal peripheral pulses, normal rate, regular rhythm Respiratory/Chest: chest wall non-tender, lungs clear, normal breath sounds Abdomen: normal bowel sounds, non tender, soft Extremities: normal inspection Edema: no edema noted Arm (L), no edema noted Arm (R), no edema noted Leg (L), no edema noted Leg (R), no edema noted Pedal (L), no edema noted Pedal (R), no edema noted Generalized Neurologic: responsive, motor weakness Skin: normal pigmentation, warm/dry Nishant iRder DO Aug 03, 2019 09:25
--- NOTE | 2019-08-03 10:54 | General Progress Note ---
Assessment/Plan Assessment/Plan: (1) Neuropathic pain (2) Multiple Sclerosis Patient will be continued on Percocet and Morphine D/w Dr. Fried and he concurred. Subjective Date patient seen: Aug 03, 2019 Time patient seen: 10:00 - am Allergies: Coded Allergies: HYDROMORPHONE (Verified Allergy, Intermediate, 03/28/18) PREDNISONE (Verified Allergy, Intermediate, 03/28/18) PSEUDOEPHEDRINE (Verified Allergy, Intermediate, 03/28/18) Subjective REVIEW OF SYSTEMS: Denies rash, fever, chills, sweating, dizziness, drowsiness, blurred vision, sore throat, or change in weight. No shortness of breath or chest pain. No nausea, vomiting, diarrhea, or blood in the stool or urine. She is complaining of generalized body pain. SUBJECTIVE: Patient continues to c/o pain now c/o dental pain as well. She has been tolerating the pain on the Morphine and Percocet. No other complaints at this time. Objective Last 24 Hour Vital Signs Date Time Temp Pulse Resp B/P (MAP) Pulse Ox O2 Delivery O2 Flow Rate FiO2 08/03/19 08:45 107/55 08/03/19 06:40 96.6 08/03/19 04:00 96.6 63 18 125/78 (94) 98 08/03/19 00:00 98.8 70 18 122/65 (84) 97 08/02/19 21:53 Room Air 08/02/19 20:00 99.4 72 16 146/73 (97) 96 08/02/19 18:08 98.9 08/02/19 16:00 98.9 69 18 122/64 (83) 95 08/02/19 12:00 97.7 66 18 119/80 (93) 94 Intake and Output 08/02/19 08/03/19 19:00 07:00 Intake Total 120 ml 120 ml Output Total 1400 ml 1600 ml Balance -1280 ml -1480 ml Intake Oral 120 ml 120 ml Output Urine Total 1400 ml 1600 ml # Voids 4 1 Laboratory Tests 08/03/19 06:50: White Blood Count 5.4, Red Blood Count 3.92L, Hemoglobin 12.1, Hematocrit 35.4L , Mean Corpuscular Volume 90, Mean Corpuscular Hemoglobin 30.8, Mean Corpuscular Hemoglobin Concent 34.1, Red Cell Distribution Width 12.0, Platelet Count 236, Mean Platelet Volume 6.4L, Neutrophils (%) (Auto) 49.0, Lymphocytes ( %) (Auto) 35.8, Monocytes (%) (Auto) 8.5, Eosinophils (%) (Auto) 5.5H, Basophils (%) (Auto) 1.2, Sodium Level 130L, Potassium Level 4.0, Chloride Level 97L, Carbon Dioxide Level 25, Anion Gap 8, Blood Urea Nitrogen 8, Creatinine 0.4L, Estimat Glomerular Filtration Rate > 60, Glucose Level 91, Calcium Level 8.6 Height (Feet): 5 Height (Inches): 6.00 Weight (Pounds): 198 Objective GENERAL: alert, awake, and oriented. LUNGS: Decreased breath sounds bilaterally. HEART: S1 and S2 regular. ABDOMEN: Benign. EXTREMITIES: No cyanosis. No clubbing. No edema. NEUROLOGICAL: Marked weakness noted in bilateral lower extremities. Alonso Young Aug 03, 2019 10:54
[2019-08-03 12:00] VITALS: BP 129/77
[2019-08-03] MEDS: Ondansetron ODT 8mg tab ORAL PRN (13:39)
[2019-08-03] MEDS ORDERED: COLACE100 MG ORAL (14:02)
[2019-08-03] MEDS ORDERED: LISINOPRIL20 MG ORAL (14:03)
[2019-08-03] MEDS ORDERED: CYMBALTA60 MG ORAL (14:03)
[2019-08-03] MEDS ORDERED: MIRALAX17 G2 ORAL (14:04)
[2019-08-03] MEDS ORDERED: LORATADINE10 M1 PO (14:05)
[2019-08-03] MEDS ORDERED: SEROQUEL200 MG ORAL (14:07)
[2019-08-03] MEDS ORDERED: NITROFURANTOIN100 M2 ORAL (14:10)
[2019-08-03] MEDS ORDERED: PERCOCET 5-3251 EACH ORAL ×2 (14:27→14:48)
--- NOTE | 2019-08-03 16:11 | NUR ---
NURSE NOTES: Patient discharged to [facility] via [facility] [id number]. Gave report to picker machine operator Milad Sepulveda and Ana Almeida. IV D/C'd and ID band removed. Charge nurse aware.
--- NOTE | 2019-08-03 16:45 | NUR ---
NURSE NOTES: Patient discharged to [facility]. Report given to Lashae. Discharge packet given to ambulance personnel.
--- NOTE | 2019-08-03 23:45 | Progress Note ---
DATE: 08/03/2019 SUBJECTIVE: The patient is the same, is calm, cooperative. No behavioral issues noted. The patient has behavioral issues at the facility at [facility], however, in the hospital, she remained cooperative as long as she is on her pain medications. She has pain seeking behavior. MENTAL STATUS EXAMINATION: The patient is alert and oriented times self, place, and situation. Mood is anxious. Affect is constricted, congruent with mood. Thought process is concrete. Thought content, no suicidal or homicidal ideation. Cognition is impaired. Insight and judgment is impaired. ASSESSMENT: Stable. PLAN: 1. We will continue current medication. 2. Provide the patient with reality orientation and supportive therapy. Kendrick Temple M.D. DR: SAULO JOB#: [id number] CC:
--- NOTE | 2019-08-05 14:19 | Discharge Summary ---
Discharge Summary Discharge Summary _ DATE OF ADMISSION: 07/30/2019 DATE OF DISCHARGE: 08/03/2019 DISCHARGED BY: Dr. Nishant Rider CONSULTANTS: Dr. Kendrick Sánchez BRIEF HOSPITAL COURSE: Patient is a 58-year-old female, from [facility], presented to [place] due to abnormal labs. Patient was reportedly has UTI and positive MRSA. She has medical history of multiple sclerosis Upon evaluation in the ED vital signs were stable. Blood work did not show any leukocytosis. Hemoglobin and hematocrit were stable. Sodium 132. Urinalysis showed +1 leukocyte esterase, negative nitrite, negative pyuria. Chest x-ray did not show any definite acute process. She was given IV hydration. She was admitted for evaluation of weakness, MRSA culture positive. Patient was reported to have UTI at [facility]. ID was consulted. She was given empiric Macrobid pending culture result. Patient has neuropathic pain. Pain management consulted. She was given Percocet. Pain was unrelieved with Percocet. She was eventually started on morphine 2 mg IV. Psychiatric evaluation was done. Patient has anxiety and depression. She was requesting to be on Valium. Patient is on Seroquel. She was diagnosed with major depressive disorder and anxiety disorder. She was continued on Cymbalta. Seroquel dose was changed to nightly. She was given Ativan. Blood culture did not isolate any growth. Patient was discharged back to SNF. FINAL DIAGNOSES: Weakness, possible UTI results Neuropathic pain Multiple sclerosis with paraplegia Anemia Major depressive disorder Anxiety disorder Hypothyroidism SNF resident DISPOSITION: Patient was discharged to a SNF. DISCHARGE MEDICATIONS: Refer to Discharge Medication List. DISCHARGE INSTRUCTIONS: Follow-up in a week. I have been assigned to complete a discharge summary on this account, I was not involved with the patient's management.--[facility] Jacqueline Robles NP Aug 05, 2019 14:19
== END 2019-08-03 17:00 | DRG 463 ==
LOC: EDBD 21:59 → EMR 22:23 → 4E 23:16 → EDBEDREQ 23:35
DX: N39.0 Urinary tract infection, site not specified (principal); G35 Multiple sclerosis; G82.20 Paraplegia, unspecified; F32.9 Major depressive disorder, single episode, unspecified; E46 Unspecified protein-calorie malnutrition; E03.9 Hypothyroidism, unspecified; Z88.6 Allergy status to analgesic agent; Z88.8 Allergy status to other drugs, medicaments and biological substances; F41.9 Anxiety disorder, unspecified; G62.9 Polyneuropathy, unspecified; I24.9 Acute ischemic heart disease, unspecified; R53.1 Weakness
CPT/HCPCS: 36415; 71045; 80048; 80053; 81003; 83605; 83880; 85025; 87040; 87081; 96361; 96374; 99285; J7030

== ENCOUNTER 2019-08-26 18:51 | Emergency (ER) | payer MEDICAID ==
[~2019-08-26] VITALS: Ht 172.7 cm; Wt 80.7 kg
[~2019-08-26 18:51] MED LIST changes: +ASPIRIN EC81 MG ORAL; +COLACE100 MG ORAL; +LEVAQUIN500 MG ORAL; +LISINOPRIL20 MG ORAL; +LORATADINE10 M1 PO; +NAPROXEN500 M2 ORAL; +NITROFURANTOIN100 M2 ORAL; +PERCOCET 10-321 EACH ORAL; +PERCOCET 5-3251 EACH ORAL; +PREGABALIN100 MG PO; +SORBITOL 70%30 ML PO; +VITAMIN C500 M1 ORAL; +ZOFRAN4 M3 ORAL
--- NOTE | 2019-08-26 19:28 | NUR ---
HAND-OFF: Report given to Raciel Bailey RN.
--- NOTE | 2019-08-26 19:28 | Emergency Room Report ---
History of Present Illness General Chief Complaint: General Complaint Source: Medical Record, EMS Present Illness HPI Disclaimer: Please note that this report is being documented using DRAGON technology. This can lead to erroneous entry secondary to incorrect interpretation by the dictating instrument. HPI: 58-year-old female with a history of multiple sclerosis with lower extremity paraplegia, wheelchair-bound, hypothyroidism, anxiety disorder, major depression disorder presents from her alf facility ([facility]) for evaluation of dysuria and medication noncompliance. According to EMS, they were called to transfer the patient as she has not been compliant with her medications. Patient states she is refusing her antihypertensive medication because she believes they are not working. In fact, she states that her blood pressure typically increases after taking them. She herself states she wanted medical evaluation for dysuria. She has recently treated for urinary tract infection on previous hospitalization and completed her course of outpatient antibiotics. She states she has been having dysuria and urgency for approximately 2 weeks. Symptoms are stable, not getting better, not getting worse. Notes some lower pelvic pain and pressure. Denies any fevers, chills, nausea, vomiting, chest pain, shortness of breath. PMH: Multiple sclerosis, paraplegia, hypothyroidism, anxiety, major depressive disorder PSH: Oophorectomy as a child reported Allergies: Hydromorphone, prednisone and pseudoephedrine listed in medical chart Social Hx: Denies alcohol, tobacco or drug use Allergies: Coded Allergies: HYDROMORPHONE (Verified Allergy, Intermediate, 03/28/18) PREDNISONE (Verified Allergy, Intermediate, 03/28/18) PSEUDOEPHEDRINE (Verified Allergy, Intermediate, 03/28/18) Nursing Documentation-PMH Hx Hypertension: Yes - MRSA Hx Cancer: No Hx Gastrointestinal Problems: Yes - constipation History Of Psychiatric Problem: Yes - depression Hx Neurological Problems: Yes - MS,neuralgia,hypothyroidism Hx Multiple Sclerosis: Yes Hx Paralysis: Yes - bilateral legs Review of Systems All Other Systems: negative except mentioned in HPI Physical Exam Vital Signs Date Time Temp Pulse Resp B/P (MAP) Pulse Ox O2 Delivery O2 Flow Rate FiO2 08/26/19 18:52 98.2 76 18 135/79 (97) 96 Room Air General: Awake and alert, no acute distress HEENT: NC/AT. EOMI. Resp: Normal work of breathing Abdomen: Soft, nondistended, obese. Mild tenderness to suprapubic region. No rebound, no masses, otherwise no tenderness in the upper quadrants or bilaterally in the lower quadrants. Skin: Intact. No abrasions, laceration or rash over the exposed skin MSK: Normal tone and bulk. Moving all extremities. No obvious deformity. Neuro: Awake and alert. Mentating appropriately Medical Decision Making Diagnostic Impression: Primary Impression: UTI (urinary tract infection) ER Course This a 58-year-old female history of multiple sclerosis presenting for evaluation of dysuria of 2 weeks as well as medication noncompliance by her PMD. Patient states she does not want to take her antihypertensive because she feels they are not working. She is willing to take for the rest of her medications. Regarding her two-week dysuria she has been treated multiple times for urinary tract infection. We will send a repeat urinalysis. She is requesting a straight catheter. Previous UTI was treated with meropenem. Laboratory Tests Test 08/26/19 20:30 Urine Color Pale yellow Urine Appearance Slightly cloudy Urine pH 7 (4.5-8.0) Urine Specific Bentley 1.010 (1.005-1.035) Urine Protein Negative (NEGATIVE) Urine Glucose (UA) Negative (NEGATIVE) Urine Ketones Negative (NEGATIVE) Urine Blood 1+ (NEGATIVE) H Urine Nitrite Positive (NEGATIVE) H Urine Bilirubin Negative (NEGATIVE) Urine Urobilinogen Normal MG/DL (0.0-1.0) Urine Leukocyte Esterase 2+ (NEGATIVE) H Urine RBC 2-4 /HPF (0 - 2) H Urine WBC 15-20 /HPF (0 - 2) H Urine Squamous Epithelial Cells Moderate /LPF (NONE/OCC) H Urine Bacteria Many /HPF (NONE) H Reevaluation Time: 21:37 Last Vital Signs Date Time Temp Pulse Resp B/P (MAP) Pulse Ox O2 Delivery O2 Flow Rate FiO2 08/26/19 18:52 98.2 76 18 135/79 (97) 96 Room Air Reevaluation Impression Urinalysis consistent with acute urinary tract infection. Previous sensitivity shows sensitivity to ceftriaxone and Ancef as well as Bactrim. Originally plan to prescribe Bactrim however the patient states she had a rash with her last treatment. Patient be started on Keflex, first dose given in the emergency department. She is requesting her nightly pain medications which we will provide. PMD was updated. Patient will be returned to [facility]. Disposition: XFER SNF Condition: Stable Scripts Cephalexin* (KEFLEX*) 500 Mg Capsule 500 MG ORAL EVERY 12 HOURS for 7 Days, #14 CAP 0 Refills Prov: Po Polanco MD 08/26/19 Po Polanco MD Aug 26, 2019 19:28
--- NOTE | 2019-08-26 20:20 | NUR ---
ED Nurse Note: urine collected sent down to lab
[2019-08-26 20:42] LABS: BILIRUBIN, URINE NEGATIVE (NEGATIVE); COLOR,URINE PALE YELLOW; GLUCOSE, URINE (UA) NEGATIVE (NEGATIVE); KETONES,URINE NEGATIVE (NEGATIVE); LEUKOCYTE ESTERASE ,URINE 2+ (NEGATIVE); NITRITE,URINE POSITIVE (NEGATIVE); PH,URINE 7 (4.5-8.0); PROTEIN,URINE NEGATIVE (NEGATIVE); UROBILINOGEN,URINE NORMAL MG/DL (0.0-1.0)
[2019-08-26 20:45] LABS: APPEARANCE,URINE SLIGHTLY CLOUDY
[2019-08-26] MEDS ORDERED: BACTRIM DS TAB1 EAC1 ORAL (21:04)
[2019-08-26] MEDS ORDERED: Bactrim-DS 1 tab ORAL ONE (21:15)
[2019-08-26] MEDS ORDERED: CEPHALEXIN500 MG ORAL (21:36)
[2019-08-26] MEDS ORDERED: Cephalexin 500mg cap ORAL ONE (21:45)
[2019-08-26] MEDS ORDERED: cefTRIAXone 1 GM in NS 55 ML IVPB ONE (21:45)
[2019-08-26] MEDS ORDERED: Morphine Sulfate 4mg/ml Inj (IV USE ONLY) IVP ONE (21:45)
--- NOTE | 2019-08-26 21:57 | NUR ---
[facility] aware of patient going back by ambulance.
[2019-08-26 23:46] VITALS: BP 135/79
== END 2019-08-26 23:58 ==
LOC: EDBD 18:51 → EMR 23:53
DX: N39.0 Urinary tract infection, site not specified (principal); G35 Multiple sclerosis; E03.9 Hypothyroidism, unspecified; F41.9 Anxiety disorder, unspecified; F32.9 Major depressive disorder, single episode, unspecified; G82.20 Paraplegia, unspecified; Z88.6 Allergy status to analgesic agent; Z86.14 Personal history of Methicillin resistant Staphylococcus aureus infection; Z90.721 Acquired absence of ovaries, unilateral; Z91.14 Patient's other noncompliance with medication regimen
CPT/HCPCS: 81003; 87086; Z7502; 99283

== ENCOUNTER 2019-11-19 18:25 | Emergency (ER) | payer MEDICAID ==
[~2019-11-19] VITALS: Ht 172.7 cm; Wt 68.0 kg
[~2019-11-19 18:25] MED LIST changes: +ASCORBIC ACID500 MG ORAL; +BACTRIM DS TAB1 EAC1 ORAL; +CEPHALEXIN500 MG ORAL; +VITAMIN D32000 UNI3 PO
[2019-11-19] MEDS ORDERED: CLINDAMYCIN HC300 MG ORAL (18:32)
--- NOTE | 2019-11-19 18:33 | Emergency Room Report ---
History of Present Illness General Chief Complaint: Earache Source: Patient Present Illness HPI Patient presents with complaints of left ear pain Ongoing for the past 2 weeks Denies any fevers denies any chest pain denies any cough denies any vomiting or diarrhea Denies any change with hearing Denies any recent contact with water however reports that she has been getting eardrops which have made things worse Allergies: Coded Allergies: HYDROMORPHONE (Verified Allergy, Intermediate, 03/28/18) PREDNISONE (Verified Allergy, Intermediate, 03/28/18) PSEUDOEPHEDRINE (Verified Allergy, Intermediate, 03/28/18) COVID-19 Screening Contact w/high risk pt: No Recent Travel to affected area: No Experienced COVID-19 symptoms?: No Patient History Past Medical History: see triage record Reviewed Nursing Documentation: PMH: Agreed; PSxH: Agreed Nursing Documentation-PMH Past Medical History: No History, Except For Hx Cardiac Problems: Yes Hx Hypertension: Yes Hx Cancer: No Hx Gastrointestinal Problems: No Hx Neurological Problems: Yes Hx Multiple Sclerosis: Yes Hx Paralysis: Yes - bilateral legs Review of Systems All Other Systems: negative except mentioned in HPI Physical Exam Vital Signs Date Time Temp Pulse Resp B/P (MAP) Pulse Ox O2 Delivery O2 Flow Rate FiO2 11/19/19 18:27 98.4 78 17 102/66 (78) 97 Room Air Sp02 EP Interpretation: reviewed, normal General Appearance: well appearing, no apparent distress Head: normocephalic, atraumatic Eyes: bilateral eye PERRL, bilateral eye EOMI ENT: hearing grossly normal, other - Left tympanic membrane is erythematous mildly bulging, the mastoid region does not show any bogginess however the patient did have some discomfort on palpation Neck: supple Respiratory: lungs clear, no respiratory distress, no retraction Cardiovascular #1: regular rate, rhythm Gastrointestinal: non tender, soft Musculoskeletal: normal inspection Neurologic: alert, oriented x3 Psychiatric: normal inspection Skin: no rash Lymphatic: no adenopathy Medical Decision Making Diagnostic Impression: Primary Impression: otitis media Additional Impression: mastoiditis ER Course Multiple differentials and consideration including but not limited to otitis media, mastoiditis, carcinoma Review of medical records also reveals a previous MRI showing mastoiditis Patient does not appear septic or toxic at this time and will have initial conservative outpatient trial with oral antibiotics Last Vital Signs Date Time Temp Pulse Resp B/P (MAP) Pulse Ox O2 Delivery O2 Flow Rate FiO2 11/19/19 18:27 98.4 78 17 102/66 (78) 97 Room Air Status: unchanged Disposition: SNF Condition: Stable Scripts Clindamycin Hcl (CLINDAMYCIN HCL) 300 Mg Capsule 300 MG ORAL THREE TIMES A DAY, #30 CAP Prov: Dexter Pitt DO 11/19/19 Referrals: Rafal Branham MD Patient Instructions: Otitis Media, Adult, [id number], Mastoiditis, Pediatric Additional Instructions: Patient is provided with the discharge instructions notified to follow up with primary doctor in the next 2-3 days otherwise return to the er with any worsening symptoms. Please note that this report is being documented using Collusion technology. This can lead to erroneous entry secondary to incorrect interpretation by the dictating instrument. Dexter Pitt DO Nov 19, 2019 18:33
[2019-11-19 18:41] VITALS: BP 102/66
[2019-11-19 18:45] VITALS: BP 110/70
[2019-11-19] MEDS ORDERED: Clindamycin 150mg cap ORAL ONE (18:45)
== END 2019-11-19 18:45 ==
LOC: EDBD 18:25 → EMR 18:43
DX: H66.92 Otitis media, unspecified, left ear (principal); H70.92 Unspecified mastoiditis, left ear; I10 Essential (primary) hypertension; G35 Multiple sclerosis; Z88.6 Allergy status to analgesic agent
CPT/HCPCS: 99282

== ENCOUNTER 2020-07-01 18:10 | Inpatient (IN) | payer MEDICAID ==
[~2020-07-01] VITALS: Ht 172.7 cm; Wt 101.6 kg
[~2020-07-01 18:10] MED LIST changes: +CLINDAMYCIN HC300 MG ORAL
[2020-07-01] MEDS ORDERED: Morphine Sulfate 2mg/ml Inj(IV/IM USE ONLY) IVP ONE (18:45)
--- NOTE | 2020-07-01 19:01 | Emergency Room Report ---
History of Present Illness General Chief Complaint: General Complaint Source: Patient (Brea Camarena) Present Illness HPI 59-year-old female with history of multiple sclerosis, hypertension coming from residential facility by paramedics here complaining of generalized body pain which has been ongoing for several years however has been worsening in the past few days. Denies any fever and chills, cough and congestion, shortness of breath, headache and dizziness. Denies any chest pain at this time. Denies any diarrhea, any urinary symptoms. Sitting comfortably with stable vital signs. Denies any recent fall or injury. Patient is neurovascularly. No slurred speech noted. No unilateral generalized weakness noted. (Brea Camarena) Allergies: Coded Allergies: HYDROMORPHONE (Verified Allergy, Intermediate, 03/28/18) PREDNISONE (Verified Allergy, Intermediate, 03/28/18) PSEUDOEPHEDRINE (Verified Allergy, Intermediate, 03/28/18) COVID-19 Screening Contact w/high risk pt: No Recent Travel to affected area: No Experienced COVID-19 symptoms?: No COVID-19 Testing performed PRECISE WINDER: Yes - 06/27/2020 COVID-19 Screening: Negative COVID-19 COVID-19 Testing Source: nasopharyn (Brea Camarena) Patient History Past Medical History: see triage record Past Surgical History: none Pertinent Family History: none Now: No Immunizations: UTD Reviewed Nursing Documentation: PMH: Agreed; PSxH: Agreed (Brea Khalil) Nursing Documentation-PMH Past Medical History: No History, Except For Hx Cancer: No Hx Gastrointestinal Problems: No Hx Neurological Problems: Yes Hx Multiple Sclerosis: Yes Hx Paralysis: Yes - bilateral legs (Brea Camarena) Review of Systems All Other Systems: negative except mentioned in HPI (Brea Camarena) Physical Exam Vital Signs Date Time Temp Pulse Resp B/P (MAP) Pulse Ox O2 Delivery O2 Flow Rate FiO2 07/01/20 18:11 97.9 96 18 111/70 (84) 97 Room Air Sp02 EP Interpretation: reviewed, normal General Appearance: no apparent distress, alert, GCS 15, non-toxic Head: normocephalic, atraumatic Eyes: bilateral eye normal inspection, bilateral eye PERRL ENT: hearing grossly normal, normal pharynx, no angioedema, normal voice Neck: full range of motion, supple/symm/no masses Respiratory: chest non-tender, lungs clear, normal breath sounds, speaking full sentences Cardiovascular #1: regular rate, rhythm, no edema Cardiovascular #2: 2+ carotid (R), 2+ carotid (L), 2+ radial (R), 2+ radial (L), 2+ dorsalis pedis (R), 2+ dorsalis pedis (L) Gastrointestinal: normal bowel sounds, non tender, soft, non-distended, no guarding, no rebound Rectal: deferred Musculoskeletal: back normal, digits/nails normal Neurologic: alert, motor strength/tone normal, oriented x3, sensory intact, responsive, speech normal Psychiatric: judgement/insight normal, memory normal, mood/affect normal, no suicidal/homicidal ideation Skin: no rash Lymphatic: no adenopathy (Brea Camarena) Medical Decision Making PA Attestation ALL Diagnosis and treatment plan reviewed and discussed with my supervising physician Dr. Up (Brea Camarena) Diagnostic Impression: Primary Impression: Chronic pain ER Course 59-year-old female with history of multiple sclerosis, hypertension coming from residential facility by paramedics here complaining of generalized body pain which has been ongoing for several years however has been worsening in the past few days. Denies any fever and chills, cough and congestion, shortness of breath, headache and dizziness. Denies any chest pain at this time. Denies any diarrhea, any urinary symptoms. Sitting comfortably with stable vital signs. Denies any recent fall or injury. Patient is neurovascularly. No slurred speech noted. No unilateral generalized weakness noted. Ddx considered but are not limited to: CVA, TIA, multiple sclerosis chronic pain Vital signs: are WNL, pt. is afebrile H&PE are most consistent with chronic pain ORDERS: EKG, Chest XR, troponin, CBC, CMP, UA ED INTERVENTIONS:, NS bolus I signed out the patient to Dr. Up at 8PM (Brea Camarena) ER Course Patient was signed out to me by the PA. Patient was evaluated by myself and I agree with the above assessment and plan. I spoke with the patient's primary care physician who agreed to admit the patient to [facility] for intractable pain. Patient received multiple doses of IV pain medication. She was hemodynamically stable throughout her stay in the emergency department. Admitted to [facility]. (Vincent Up M.D.) EKG Diagnostic Results Rate: normal Rhythm: NSR ST Segments: no acute changes Other Impression No acute ST changes ASA given to the pt in ED: No (Brea Camarena) Chest X-Ray Diagnostic Results Chest X-Ray Diagnostic Results : Chest X-Ray Ordered: Yes # of Views/Limited/Complete: 1 View Indication: Other EP Interpretation: Yes PA Xray: Interpretation reviewed, by supervising MD, and agrees with findings. Interpretation: no consolidation, no effusion, no pneumothorax, no acute cardiopulmonary disease Impression: No acute disease Electronically Signed by: Brea Child PA-C (Brea Camarena) Last Vital Signs Date Time Temp Pulse Resp B/P (MAP) Pulse Ox O2 Delivery O2 Flow Rate FiO2 07/01/20 18:11 97.9 96 18 111/70 (84) 97 Room Air (Brea Camarena) Disposition: HOME, SELF-CARE Condition: Stable Brea Camarena Jul 01, 2020 19:01 Vincent Up M.D. Jul 01, 2020 20:25
--- NOTE | 2020-07-01 19:15 | NUR ---
ED Nurse Note: Patient resting in bed, semi-ferrer position. Patient awake, alert, oriented x 4. Regular, unlabored breathing noted. Patient here for chronic pain all over the body. RN established IV to left hand 22g. Endorsed care to IRAIDA Schultz. Bed in lowest position. Patient on residential monitor.
[2020-07-01 19:19] VITALS: BP 100/54
[2020-07-01 19:40] LABS: EOSINOPHILS % (AUTO) 1.7 % (0.0-3.0); LYMPHOCYTES % (AUTO) 13.5 % (20.0-45.0); MEAN CORPUSCULAR VOLUME 93 FL (80-99); MONOCYTES % (AUTO) 5.4 % (1.0-10.0); NEUTROPHILS % (AUTO) 78.4 % (45.0-75.0); PLATELET COUNT 304 K/UL (150-450); RED CELL DISTRIBUTION WIDTH 12.6 % (11.6-14.8); WHITE BLOOD COUNT 9.6 K/UL (4.8-10.8)
--- NOTE | 2020-07-01 19:45 | NUR ---
ED Nurse Note: Pt laying in bed with eyes open, c/o generalized pain, ERMD notified, awaiting orders. Pt repositioned for comfort, purwick applied without difficulty, will continue to monitor
[2020-07-01 19:58] LABS: ANION GAP 8 mmol/L (5-15); BLOOD UREA NITROGEN 16 mg/dL (7-18); CALCIUM 8.6 MG/DL (8.5-10.1); CARBON DIOXIDE 24 MMOL/L (21-32); CHLORIDE 98 MMOL/L (98-107); CREATININE 0.5 MG/DL (0.55-1.30); POTASSIUM 4.3 MMOL/L (3.5-5.1); SODIUM 130 MMOL/L (136-145)
[2020-07-01 20:03] LABS: ALANINE AMINOTRANSFERASE 22 U/L (12-78); ALBUMIN 3.4 G/DL (3.4-5.0); ALBUMIN/GLOBULIN RATIO 0.9 (1.0-2.7); ALKALINE PHOSPHATASE 96 U/L (46-116); ASPARTATE AMINO TRANSFERASE 15 U/L (15-37); BILIRUBIN,TOTAL 0.2 MG/DL (0.2-1.0)
[2020-07-01] MEDS ORDERED: Morphine Sulfate 4mg/ml Inj (IV USE ONLY) IVP ONE (20:30)
[2020-07-01 21:30] VITALS: BP 105/60
--- NOTE | 2020-07-01 22:45 | NUR ---
TRANSFER TO FLOOR: Patient transferred to as ordered, per Dr Rider. Report given to IRAIDA Yates. Belongings and medications given to . Family and or S/O informed of transfer.
--- NOTE | 2020-07-01 23:23 | NUR ---
NURSE NOTES: Admitted patient awake, alert, verbal, paraplegic, incontinent. Patient claims that she has redness/pressure sore on her butt/sacrum but refused to be assessed at this time. She wants it to be done in the morning.
[2020-07-01] MEDS ORDERED: QUEtiapine 200mg tab ORAL SCH (23:45)
[2020-07-01] MEDS ORDERED: Naproxen 500mg tab ORAL PRN (23:45)
[2020-07-02] VITALS: BP 96/55
[2020-07-02] MEDS: D5 1/2NS 1,000 ML IV SCH ×2 (00:07→17:36)
[2020-07-02] MEDS: Morphine Sulfate 2mg/ml Inj(IV/IM USE ONLY) IVP PRN ×6 (01:02→22:46)
[2020-07-02] MEDS: QUEtiapine 200mg tab ORAL SCH ×2 (01:21→20:56)
[2020-07-02 04:00] VITALS: BP 98/61
[2020-07-02] MEDS: Levothyroxine 25mcg tab ORAL SCH (05:47)
[2020-07-02 06:44] LABS: BASOPHILS % (AUTO) 0.8 % (0.0-2.0); EOSINOPHILS % (AUTO) 5.9 % (0.0-3.0); HEMATOCRIT 35.3 % (37.0-47.0); HEMOGLOBIN 11.7 G/DL (12.0-16.0); LYMPHOCYTES % (AUTO) 32.9 % (20.0-45.0); MEAN CORPUSCULAR VOLUME 95 FL (80-99); NEUTROPHILS % (AUTO) 52.3 % (45.0-75.0); PLATELET COUNT 263 K/UL (150-450); WHITE BLOOD COUNT 6.7 K/UL (4.8-10.8)
--- NOTE | 2020-07-02 07:03 | NUR ---
HAND-OFF: Report given to Vanessa Fernández RN.
[2020-07-02 07:04] LABS: ANION GAP 6 mmol/L (5-15); BLOOD UREA NITROGEN 11 mg/dL (7-18); CALCIUM 8.1 MG/DL (8.5-10.1); CARBON DIOXIDE 26 MMOL/L (21-32); CHLORIDE 103 MMOL/L (98-107); CREATININE 0.5 MG/DL (0.55-1.30); SODIUM 135 MMOL/L (136-145)
[2020-07-02] MEDS ORDERED: Varibar Honey 250ml MC PRN (07:15)
[2020-07-02] MEDS ORDERED: Varibar Nectar 240ml MC PRN (07:15)
[2020-07-02] MEDS ORDERED: Varibar Thin Liquid powder 148gm MC PRN (07:15)
[2020-07-02] MEDS ORDERED: Varibar Pudding 230ml MC PRN (07:15)
--- NOTE | 2020-07-02 07:30 | NUR ---
NURSE NOTES: Patient is in bed asleep. Stable. Breathing is even and unlabored. No visible signs of distress noted at this time. All safety measures provided. Patient is in bed in locked and lowest position with call light within reach. Will continue to monitor.
[2020-07-02] MEDS ORDERED: Clindamycin 150mg cap ORAL SCH (08:00)
--- NOTE | 2020-07-02 08:38 | Consultation ---
History of Present Illness General Date patient seen: Jul 02, 2020 Time patient seen: 07:30 - am Present Illness HPI SUBJECTIVE: Patient is a 59 y/o female seen on the med/surg floor of [facility] [place]. She is a known patient and has generalized body pain. Started on Morphine 2mg IV Q4H PRN and Percocet 5/325mg PO 1 tab Q6H PRN. Allergies: Coded Allergies: HYDROMORPHONE (Verified Allergy, Intermediate, 03/28/18) PREDNISONE (Verified Allergy, Intermediate, 03/28/18) PSEUDOEPHEDRINE (Verified Allergy, Intermediate, 03/28/18) Medication History Scheduled Ascorbic Acid* (Ascorbic Acid*), 500 MG ORAL DAILY, (Reported) Aspirin Ec* (Aspirin Ec*), 81 MG ORAL BID, (Reported) Cholecalciferol (Vitamin D3) (Vitamin D3), 2,000 UNIT PO DAILY, (Reported) Clindamycin Hcl (Clindamycin Hcl), 300 MG ORAL THREE TIMES A DAY Dextran 70/Hypromellose (Artificial Tears Eye Drops*), 1 DROP BOTH EYES BID, (Reported) Docusate Sodium* (Colace*), 100 MG ORAL THREE TIMES A DAY, (Reported) Duloxetine Hcl* (Cymbalta*), 60 MG ORAL DAILY, (Reported) Lisinopril (Lisinopril*), 20 MG ORAL DAILY, (Reported) Loratadine (Claritin*), 10 MG PO DAILY, (Reported) Polyethylene Glycol 3350* (Miralax*), 17 GM ORAL DAILY, (Reported) Pregabalin (Pregabalin), 100 MG PO TID, (Reported) Quetiapine Fumarate* (Seroquel*), 200 MG ORAL HS, (Reported) Scheduled PRN Diphenhydramine Hcl* (Benadryl*), 50 MG ORAL TID PRN for ALLERGY, (Reported) Naproxen* (Naproxen*), 500 MG ORAL TWICE A DAY PRN for KNEE PAIN, (Reported) Ondansetron* (Zofran*), 4 MG ORAL Q6H PRN for Nausea & Vomiting, (Reported) Oxycodone/Acetaminophen 5-325* (Percocet 5-325 Mg Tablet*), 1 TAB ORAL Q6H PRN for Severe Pain (Pain Scale 7-10), (Reported) Sorbitol (Sorbitol), 30 ML PO Q6HR PRN for Constipation, (Reported) Patient History Healthcare decision maker N Resuscitation status Advanced Directive on File Review of Systems ROS Narrative REVIEW OF SYSTEMS: Denies rash, fever, chills, sweating, dizziness, drowsiness, blurred vision, sore throat, or change in weight. No shortness of breath or chest pain. No nausea, vomiting, diarrhea, or blood in the stool or urine. She is complaining of generalized body pain. Physical Exam Physical Exam Narrative GENERAL: alert, awake, and oriented. LUNGS: Decreased breath sounds bilaterally. HEART: S1 and S2 regular. ABDOMEN: Benign. EXTREMITIES: No cyanosis. No clubbing. No edema. NEUROLOGICAL: weakness noted. Last 24 Hour Vital Signs Date Time Temp Pulse Resp B/P (MAP) Pulse Ox O2 Delivery O2 Flow Rate FiO2 07/02/20 06:22 98.5 07/02/20 04:00 98.5 74 18 98/61 (73) 95 07/02/20 01:37 98.2 07/02/20 00:00 98.2 70 18 96/55 (69) 95 07/01/20 23:01 Room Air 07/01/20 22:45 97.8 73 10 105/60 99 Room Air 07/01/20 21:30 97.8 73 10 105/60 99 Room Air 07/01/20 21:16 97.8 07/01/20 19:45 97.8 07/01/20 19:19 98 16 100/54 99 Room Air 07/01/20 19:00 96 18 Room Air 07/01/20 18:11 97.9 96 18 111/70 (84) 97 Room Air Intake and Output 07/01/20 07/02/20 19:00 07:00 Intake Total 660 ml Output Total 300 ml Balance 360 ml Intake IV Total 420 ml Tube Feeding 240 ml Output Urine Total 300 ml # Voids 1 Laboratory Tests Test 07/01/20 19:10 07/01/20 19:20 07/02/20 05:50 White Blood Count 9.6 K/UL (4.8-10.8) 6.7 K/UL (4.8-10.8) Red Blood Count 4.10 M/UL (4.20-5.40) L 3.70 M/UL (4.20-5.40) L Hemoglobin 13.0 G/DL (12.0-16.0) 11.7 G/DL (12.0-16.0) L Hematocrit 38.0 % (37.0-47.0) 35.3 % (37.0-47.0) L Mean Corpuscular Volume 93 FL (80-99) 95 FL (80-99) Mean Corpuscular Hemoglobin 31.8 PG (27.0-31.0) H 31.7 PG (27.0-31.0) H Mean Corpuscular Hemoglobin Concent 34.3 G/DL (32.0-36.0) 33.2 G/DL (32.0-36.0) Red Cell Distribution Width 12.6 % (11.6-14.8) 13.0 % (11.6-14.8) Platelet Count 304 K/UL (150-450) 263 K/UL (150-450) Mean Platelet Volume 6.9 FL (6.5-10.1) 7.1 FL (6.5-10.1) Neutrophils (%) (Auto) 78.4 % (45.0-75.0) H 52.3 % (45.0-75.0) Lymphocytes (%) (Auto) 13.5 % (20.0-45.0) L 32.9 % (20.0-45.0) Monocytes (%) (Auto) 5.4 % (1.0-10.0) 8.0 % (1.0-10.0) Eosinophils (%) (Auto) 1.7 % (0.0-3.0) 5.9 % (0.0-3.0) H Basophils (%) (Auto) 1.0 % (0.0-2.0) 0.8 % (0.0-2.0) Sodium Level 130 MMOL/L (136-145) L 135 MMOL/L (136-145) L Potassium Level 4.3 MMOL/L (3.5-5.1) 4.0 MMOL/L (3.5-5.1) Chloride Level 98 MMOL/L (98-107) 103 MMOL/L (98-107) Carbon Dioxide Level 24 MMOL/L (21-32) 26 MMOL/L (21-32) Anion Gap 8 mmol/L (5-15) 6 mmol/L (5-15) Blood Urea Nitrogen 16 mg/dL (7-18) 11 mg/dL (7-18) Creatinine 0.5 MG/DL (0.55-1.30) L 0.5 MG/DL (0.55-1.30) L Estimat Glomerular Filtration Rate > 60 mL/min (>60) > 60 mL/min (>60) Glucose Level 112 MG/DL (74-106) H 101 MG/DL (74-106) Calcium Level 8.6 MG/DL (8.5-10.1) 8.1 MG/DL (8.5-10.1) L Total Bilirubin 0.2 MG/DL (0.2-1.0) Aspartate Amino Transf (AST/SGOT) 15 U/L (15-37) Alanine Aminotransferase (ALT/SGPT) 22 U/L (12-78) Alkaline Phosphatase 96 U/L (46-116) Troponin I 0.000 ng/mL (0.000-0.056) Total Protein 7.2 G/DL (6.4-8.2) Albumin 3.4 G/DL (3.4-5.0) Globulin 3.8 g/dL Albumin/Globulin Ratio 0.9 (1.0-2.7) L Microbiology Date/Time Source Procedure Growth Status 07/01/20 19:03 Nasopharynx SARS-CoV-2 RdRp Gene Assay - Final Complete Height (Feet): 5 Height (Inches): 8.00 Weight (Pounds): 224 Medications Current Medications Medications (Trade) Dose Ordered Sig/Galen Route PRN Reason Start Time Stop Time Status Last Admin Dose Admin Artificial Tears (Akwa-Tears) 1 drop BID BOTH EYES 07/02/20 09:00 08/01/20 08:59 Ascorbic Acid (Vitamin C) 500 mg DAILY ORAL 07/02/20 09:00 08/01/20 08:59 Aspirin (Ecotrin) 81 mg BID ORAL 07/02/20 09:00 08/16/20 08:59 Barium Sulfate (Varibar Honey) 250 ml NOW PRN RAD 07/02/20 07:15 07/05/20 07:00 Barium Sulfate (Varibar [place]) 240 ml NOW PRN RAD 07/02/20 07:15 07/05/20 07:00 Barium Sulfate (Varibar Pudding) 230 ml NOW PRN RAD 07/02/20 07:15 07/05/20 07:00 Barium Sulfate (Varibar Thin Liquid powder) 148 gm NOW PRN RAD 07/02/20 07:15 07/05/20 07:00 Dextrose/Sodium Chloride 1,000 ml @ 60 mls/hr [id number] IV 07/01/20 23:45 07/31/20 23:44 07/02/20 00:07 Diphenhydramine HCl (Benadryl) 50 mg TID PRN ORAL ALLERGY 07/01/20 23:45 07/31/20 23:44 Docusate Sodium (Colace) 100 mg THREE TIMES A DAY ORAL 07/02/20 09:00 08/01/20 08:59 Duloxetine HCl (Cymbalta) 60 mg DAILY ORAL 07/02/20 09:00 09/30/20 08:59 Heparin Sodium (Porcine) (Heparin 5000 units/ml) 5,000 units EVERY 12 HOURS SUBQ 07/02/20 09:00 08/16/20 08:59 Levothyroxine Sodium (Synthroid) 25 mcg DAILY@0630 ORAL 07/02/20 06:30 08/01/20 06:29 07/02/20 05:47 Lisinopril (PriniviL) 20 mg DAILY ORAL 07/02/20 09:00 08/01/20 08:59 Morphine Sulfate (Morphine Sulfate) 2 mg Q4H PRN IVP For Pain 07/01/20 23:45 07/08/20 23:44 07/02/20 05:47 Naproxen (Naprosyn) 500 mg TWICE A DAY PRN ORAL KNEE PAIN 07/01/20 23:45 07/31/20 23:44 Ondansetron HCl (Zofran) 4 mg Q4H PRN IVP Nausea & Vomiting 07/01/20 23:45 07/31/20 23:44 Ondansetron HCl (Zofran) 4 mg Q6H PRN ORAL Nausea & Vomiting 07/01/20 23:45 07/31/20 23:44 Oxycodone/ Acetaminophen (Percocet 5-325) 1 tab Q6H PRN ORAL Severe Pain (Pain Scale 7-10) 07/01/20 23:45 07/08/20 23:44 Polyethylene Glycol (Miralax) 17 gm DAILY ORAL 07/02/20 09:00 08/01/20 08:59 Quetiapine Fumarate (SEROqueL) 400 mg HSPRN ORAL 07/02/20 01:15 08/15/20 23:44 07/02/20 01:21 Sorbitol (sorbitoL) 30 ml Q6H PRN ORAL Constipation 07/01/20 23:45 07/31/20 23:44 Assessment/Plan Assessment/Plan: (1) Neuropathic pain (2) Multiple Sclerosis Patient will be continued on Morphine and Percocet D/w Dr. Fried and he concurred. Alonso Young Jul 02, 2020 08:38
[2020-07-02] MEDS: Miralax 17gm pkt ORAL SCH (08:56)
[2020-07-02] MEDS: Ascorbic Acid 500mg tab ORAL SCH (08:57)
[2020-07-02] MEDS: DULoxetine 30mg cap ORAL SCH (08:57)
[2020-07-02] MEDS: Aspirin EC 81mg tab ORAL SCH ×2 (08:57→17:35)
[2020-07-02] MEDS: Docusate 100mg cap ORAL SCH ×3 (08:57→17:37)
[2020-07-02] MEDS: Heparin 5000 units/ml inj SUBQ SCH ×2 (08:58→21:08)
[2020-07-02] MEDS: Lisinopril 20mg tab ORAL SCH (09:00)
--- NOTE | 2020-07-02 09:38 | NUR ---
Speech pathology Note (Bedside Dysphagia Evaluation) Brief Note: Ms. Castorena is a 59 year old male admitted from [facility] on 07/01/2020 for worsening of generalized body pain. She was diagnosed with multiple sclerosis years ago. The last MRI brain here at [place] was done in December 2018. She is on regular diet at [facility]. I am not sure how well she had been tolerating. The electrolytes are fairly unremarkable. The Na is 130 upon admission and currently at 135. She is clinically stable at thi time. Findings: Ms. Castorena is alert and oriented x4. She follows commands consistently. Her speech is clear and voice is intact. Her cough is intact. The oral exam normal. She was able to self drink and eat and tolerated Po trial with water without dysphagia, odynophagia or s.s of aspiration. She denied dysphagia, odynophagia or dyspnea at this time. Interpretation: 1. Functional swallow -she denies pain with chewing, swallow at this time. Plan: 1. Regular diet and thin liquid Singed off from speech service at this time. Lynette Viveros
[2020-07-02] MEDS: oxyCODONE HCL/Acetaminophen 5/325mg ORAL PRN ×2 (11:12→17:35)
--- NOTE | 2020-07-02 11:45 | History and Physical Report ---
DATE OF ADMISSION: 07/01/2020 TIME SEEN: 07/02/2020 at 9 a.m. CONSULTANTS: 1. Elmer Fried MD. 2. Jorge Spears MD. 3. Daniel Hernández MD. CHIEF COMPLAINT: Intractable pain in low back and low blood pressure. BRIEF HISTORY: This is a 59-year-old female who lives in [facility], presents with increased low back pain and foot pain, was slightly lethargic, came to [place], diagnosed with above and shock, currently calm in bed, 05/01 pain, . REVIEW OF SYSTEMS: No chest pain. No shortness of breath. No nausea, vomiting, or diarrhea. PAST MEDICAL HISTORY: Includes multiple sclerosis, weakness, ACS, hypertension, chronic pain, hypothyroid, , CHF, malnutrition, depression. PAST SURGICAL HISTORY: Ovarian cyst. MEDICATIONS: Include baclofen, heparin, lisinopril, Dulcolax, aspirin, quetiapine, Zofran, morphine, oxycodone, Naprosyn. ALLERGIES: Hydromorphone, prednisone, pseudoephedrine. SOCIAL HISTORY: Positive smoking. No alcohol. No intravenous drug abuse. FAMILY HISTORY: Noncontributory. PHYSICAL EXAMINATION: GENERAL: Slightly anxious in bed, oriented x3, no acute distress. VITAL SIGNS: Temperature is 98 degrees, pulse 74, respiratory rate 18, blood pressure 90/61. CARDIOVASCULAR: No murmur. LUNGS: Distant and clear. ABDOMEN: Bowel sounds positive. Nontender. Nondistended. EXTREMITIES: No cyanosis, clubbing, or edema. NEUROLOGIC: The patient moves all extremities, slightly weak. LABORATORY AND DIAGNOSTIC DATA: Labs at this time show hemoglobin and hematocrit of 11 and 35, otherwise CBC is normal. BMP shows sodium 135, creatinine 0.5, calcium 8.1, otherwise normal. Urinalysis cancelled per the ER. ASSESSMENT: 1. Intractable pain, low back pain, foot pain. 2. Shock. 3. Anemia. 4. Neuralgia 5. Hypothyroid. 6. Hypertension. 7. CHF. 8. MS. 9. Depression. 10. Malnutrition. PLAN: 1. Pain control. 2. PT, OT, dietary followup. 3. Resume home medications. 4. Blood pressure control. 5. Psychiatric evaluation, Dr. Temple. Nishant Rider D.O. DR: Carmela JOB#: [id number] CC:
[2020-07-02 12:00] VITALS: BP 120/73
--- NOTE | 2020-07-02 12:18 | Diagnostic Imaging Report ---
Indication: Chest pain Technique: XRAY Chest 1v Comparison: 07/30/2019 Findings: Heart size and mediastinal contours are stable. No definite focal airspace consolidation, pleural effusion or pneumothorax. No acute osseous abnormality. Impression: No radiographic evidence of acute cardiopulmonary disease.
[2020-07-02] MEDS: Sorbitol Solution UD 30ml ORAL PRN (13:06)
--- NOTE | 2020-07-02 14:35 | Cardiology Report ---
APPROVED REPORT EKG Measurement Heart [id number] DC [id number] <Conclusion> Normal sinus rhythm Normal ECG
--- NOTE | 2020-07-02 14:57 | NUR ---
CASE MANAGEMENT:INITIAL REVIEW 59 YR OLD FEMALE BIBA FROM [facility] CC;GENERAL COMPLAINT SI;INTRACTABLE PAIN 97.9 98 16 100/54 97% ON RA NA 130 COVID RAPID ~ NEGATIVE CXR ~ No radiographic evidence of acute cardiopulmonary disease. IS;IVF NS BOLUS MORPHINE IV ZOFRAN IV ADMITTED TO MED SURG MED SURG STATUS DCP;FROM [facility]
--- NOTE | 2020-07-02 15:00 | NUR ---
NURSE NOTES: Patient had large BM.
[2020-07-02 16:00] VITALS: BP 131/73
[2020-07-02] MEDS: Diclofenac 1% Gel 100gm TOPIC PRN (17:35)
--- NOTE | 2020-07-02 19:35 | NUR ---
NURSE NOTES: RECEIVED PATIENT FROM IRAIDA DRISCOLL. PATIENT IS AAOX4, ON ROOM AIR, NO ACUTE DISTRESS NOTED. PIV INTACT AND PATENT. PUREWICK IN PLACE, SUCTION WELL. BED IS LOCKED AND LOW, BED ALARMS ACTIVE, SIDE RAILS UPX2 AND CALL LIGHT IS WITHIN REACH. WILL CONTINUE TO MONITOR.
--- NOTE | 2020-07-02 19:49 | NUR ---
NURSE HAND-OFF: Important Events on Shift:bm, hydration, pain management Patient Status: stable Diet: low sodium Pending Orders: n/a Pending Results/Labs:n/a Pending MD notification:n/a Latest Vital Signs: Temperature 97.7 , Pulse 64 , B/P 131 /73 , Respiratory Rate 20 , O2 SAT 96 , Room Air, O2 Flow Rate . Vital Sign Comment: n/a Latest Hatfield Fall Score: 55 Fall Risk: High Risk Safety Measures: Call light Within Reach, Bed Alarm Zone 2, Side Rails Side Rails x2, Bed position Low and Locked. Fall Precautions: Patient Fall Education Report given to Zoila RN.
[2020-07-02 20:00] VITALS: BP 124/67
--- NOTE | 2020-07-02 23:36 | Cardiology Progress Note ---
Assessment/Plan Assessment/Plan The patient is seen and examined, full consult note will be dictated shortly. Objective Last 24 Hour Vital Signs Date Time Temp Pulse Resp B/P (MAP) Pulse Ox O2 Delivery O2 Flow Rate FiO2 07/02/20 16:00 97.7 64 20 131/73 (92) 96 07/02/20 12:00 97.1 61 18 120/73 (89) 94 07/02/20 09:00 Room Air 07/02/20 08:00 97.4 68 17 95 07/02/20 06:22 98.5 07/02/20 04:00 98.5 74 18 98/61 (73) 95 07/02/20 01:37 98.2 07/02/20 00:00 98.2 70 18 96/55 (69) 95 Intake and Output 07/01/20 07/02/20 19:00 07:00 Intake Total 660 ml Output Total 300 ml Balance 360 ml IV Total 420 ml Tube Feeding 240 ml Output Urine Total 300 ml # Voids 1 Laboratory Tests Test 07/02/20 05:50 White Blood Count 6.7 K/UL (4.8-10.8) Red Blood Count 3.70 M/UL (4.20-5.40) L Hemoglobin 11.7 G/DL (12.0-16.0) L Hematocrit 35.3 % (37.0-47.0) L Mean Corpuscular Volume 95 FL (80-99) Mean Corpuscular Hemoglobin 31.7 PG (27.0-31.0) H Mean Corpuscular Hemoglobin Concent 33.2 G/DL (32.0-36.0) Red Cell Distribution Width 13.0 % (11.6-14.8) Platelet Count 263 K/UL (150-450) Mean Platelet Volume 7.1 FL (6.5-10.1) Neutrophils (%) (Auto) 52.3 % (45.0-75.0) Lymphocytes (%) (Auto) 32.9 % (20.0-45.0) Monocytes (%) (Auto) 8.0 % (1.0-10.0) Eosinophils (%) (Auto) 5.9 % (0.0-3.0) H Basophils (%) (Auto) 0.8 % (0.0-2.0) Sodium Level 135 MMOL/L (136-145) L Potassium Level 4.0 MMOL/L (3.5-5.1) Chloride Level 103 MMOL/L (98-107) Carbon Dioxide Level 26 MMOL/L (21-32) Anion Gap 6 mmol/L (5-15) Blood Urea Nitrogen 11 mg/dL (7-18) Creatinine 0.5 MG/DL (0.55-1.30) L Estimat Glomerular Filtration Rate > 60 mL/min (>60) Glucose Level 101 MG/DL (74-106) Calcium Level 8.1 MG/DL (8.5-10.1) L Microbiology Date/Time Source Procedure Growth Status 07/01/20 19:03 Nasopharynx SARS-CoV-2 RdRp Gene Assay - Final Complete Daniel Hernández MD Jul 02, 2020 23:36
[2020-07-03] VITALS: BP 119/66
[2020-07-03 04:00] VITALS: BP 118/68
[2020-07-03] MEDS: Morphine Sulfate 2mg/ml Inj(IV/IM USE ONLY) IVP PRN ×2 (04:14→09:02)
[2020-07-03] MEDS: Diclofenac 1% Gel 100gm TOPIC PRN ×3 (04:21→16:49)
[2020-07-03] MEDS: Levothyroxine 25mcg tab ORAL SCH (05:33)
[2020-07-03] MEDS: oxyCODONE HCL/Acetaminophen 5/325mg ORAL PRN ×2 (05:34→14:30)
--- NOTE | 2020-07-03 07:06 | NUR ---
NURSE NOTES: Received report from Zoila Logan RN. Patient in supine position, awake and alert, c/o draft in room, bed in lowest position, call light within reach, side rails up x 3, in no apparent distress.
--- NOTE | 2020-07-03 07:44 | NUR ---
NURSE NOTES: RECEIVED PATIENT FROM IRAIDA DRISCOLL. PATIENT IS AAOX4, ON ROOM AIR, NO ACUTE DISTRESS NOTED. PIV INTACT AND PATENT. PUREWICK IN PLACE, SUCTION WELL. BED IS LOCKED AND LOW, BED ALARMS ACTIVE, SIDE RAILS UPX2 AND CALL LIGHT IS WITHIN REACH. WILL CONTINUE TO MONITOR. Addendum: 07/03/20 at 0745 by Zoila Logan RN WRONG TIME STAMP
--- NOTE | 2020-07-03 07:45 | NUR ---
NURSE HAND-OFF: Important Events on Shift: PAIN MANAGEMENT Patient Status: STABLE Diet: LOW SODIUM Pending Orders: N/A Pending Results/Labs: N/A Pending MD notification: N/A Latest Vital Signs: Temperature 97.6 , Pulse 66 , B/P 118 /68 , Respiratory Rate 20 , O2 SAT 96 , Room Air, O2 Flow Rate . Vital Sign Comment: STABLE Latest Hatfield Fall Score: 55 Fall Risk: High Risk Safety Measures: Call light Within Reach, Bed Alarm Zone 2, Side Rails Side Rails x2, Bed position Low and Locked. Fall Precautions: Patient Fall Education Report given to IRAIDA HANLEY.
[2020-07-03 08:00] VITALS: BP 106/68
--- NOTE | 2020-07-03 08:36 | General Progress Note ---
Subjective Date patient seen: Jul 03, 2020 Time patient seen: 08:00 - am Allergies: Coded Allergies: HYDROMORPHONE (Verified Allergy, Intermediate, 03/28/18) PREDNISONE (Verified Allergy, Intermediate, 03/28/18) PSEUDOEPHEDRINE (Verified Allergy, Intermediate, 03/28/18) Subjective SUBJECTIVE: Patient is a 59 y/o female [place] [facility] [place] Reports continued pain in bed showing no signs of pain or distress. Using the Percocet and Morphine as needed. No new complaints at this time. REVIEW OF SYSTEMS: Denies rash, fever, chills, sweating, dizziness, drowsiness, blurred vision, sore throat, or change in weight. No shortness of breath or chest pain. No nausea, vomiting, diarrhea, or blood in the stool or urine. Objective Last 24 Hour Vital Signs Date Time Temp Pulse Resp B/P (MAP) Pulse Ox O2 Delivery O2 Flow Rate FiO2 07/03/20 04:00 97.6 66 20 118/68 (85) 96 07/03/20 00:00 98.8 72 16 119/66 (83) 94 07/02/20 21:00 Room Air 07/02/20 20:00 98.4 81 20 124/67 (86) 98 07/02/20 16:00 97.7 64 20 131/73 (92) 96 07/02/20 12:00 97.1 61 18 120/73 (89) 94 07/02/20 09:00 Room Air Intake and Output 07/02/20 07/03/20 19:00 07:00 Intake Total 1800 ml Output Total 900 ml Balance 1800 ml -900 ml Intake Oral 1800 ml Output Urine Total 900 ml # Voids 4 # Bowel Movements 1 Laboratory Tests 07/03/20 07:40: White Blood Count [Pending], Red Blood Count [Pending], Hemoglobin [Pending], Hematocrit [Pending], Mean Corpuscular Volume [Pending], Mean Corpuscular Hemoglobin [Pending], Mean Corpuscular Hemoglobin Concent [Pending], Red Cell Distribution Width [Pending], Platelet Count [Pending], Mean Platelet Volume [Pending], Neutrophils (%) (Auto) [Pending], Lymphocytes (%) (Auto) [Pending], Monocytes (%) (Auto) [Pending], Eosinophils (%) (Auto) [Pending], Basophils (%) (Auto) [Pending], Sodium Level [Pending], Potassium Level [Pending], Chloride Level [Pending], Carbon Dioxide Level [Pending], Blood Urea Nitrogen [Pending], Creatinine [Pending], Estimat Glomerular Filtration Rate [Pending], Glucose Level [Pending], Calcium Level [Pending] Height (Feet): 5 Height (Inches): 8.00 Weight (Pounds): 224 Objective GENERAL: alert, awake, and oriented. LUNGS: Decreased breath sounds bilaterally. HEART: S1 and S2 regular. ABDOMEN: Benign. EXTREMITIES: No cyanosis. No clubbing. No edema. NEUROLOGICAL: weakness noted. Assessment/Plan Assessment/Plan: (1) Neuropathic pain (2) Multiple Sclerosis Patient will be continued on morphine and Percocet D/w Dr. Fried and he concurred. Alonso Young Jul 03, 2020 08:36
[2020-07-03 08:48] LABS: BASOPHILS % (AUTO) 2.1 % (0.0-2.0); EOSINOPHILS % (AUTO) 5.2 % (0.0-3.0); HEMATOCRIT 32.5 % (37.0-47.0); HEMOGLOBIN 10.9 G/DL (12.0-16.0); LYMPHOCYTES % (AUTO) 44.2 % (20.0-45.0); MEAN CORPUSCULAR VOLUME 92 FL (80-99); MONOCYTES % (AUTO) 6.4 % (1.0-10.0); NEUTROPHILS % (AUTO) 42.1 % (45.0-75.0); PLATELET COUNT 253 K/UL (150-450); RED BLOOD COUNT 3.53 M/UL (4.20-5.40); RED CELL DISTRIBUTION WIDTH 13.2 % (11.6-14.8); WHITE BLOOD COUNT 5.4 K/UL (4.8-10.8)
[2020-07-03] MEDS: Lisinopril 20mg tab ORAL SCH (09:00)
[2020-07-03] MEDS: Sorbitol Solution UD 30ml ORAL PRN (09:01)
[2020-07-03 09:02] LABS: ANION GAP 8 mmol/L (5-15); BLOOD UREA NITROGEN 11 mg/dL (7-18); CARBON DIOXIDE 24 MMOL/L (21-32); CHLORIDE 103 MMOL/L (98-107); CREATININE 0.4 MG/DL (0.55-1.30); POTASSIUM 4.2 MMOL/L (3.5-5.1); SODIUM 135 MMOL/L (136-145)
[2020-07-03] MEDS: Aspirin EC 81mg tab ORAL SCH ×2 (09:02→17:53)
[2020-07-03] MEDS: Docusate 100mg cap ORAL SCH ×3 (09:02→17:53)
[2020-07-03] MEDS: DULoxetine 30mg cap ORAL SCH (09:02)
[2020-07-03] MEDS: Miralax 17gm pkt ORAL SCH (09:02)
[2020-07-03] MEDS: Ascorbic Acid 500mg tab ORAL SCH (09:02)
[2020-07-03] MEDS: Heparin 5000 units/ml inj SUBQ SCH (09:04)
[2020-07-03] MEDS: D5 1/2NS 1,000 ML IV SCH ×2 (09:05→11:02)
[2020-07-03 12:00] VITALS: BP 120/74
--- NOTE | 2020-07-03 13:13 | General Progress Note ---
Subjective Constitutional: Reports: weakness Allergies: Coded Allergies: HYDROMORPHONE (Verified Allergy, Intermediate, 03/28/18) PREDNISONE (Verified Allergy, Intermediate, 03/28/18) PSEUDOEPHEDRINE (Verified Allergy, Intermediate, 03/28/18) All Systems: reviewed and negative except above Subjective sl anxious in bed Objective Last 24 Hour Vital Signs Date Time Temp Pulse Resp B/P (MAP) Pulse Ox O2 Delivery O2 Flow Rate FiO2 07/03/20 12:00 97.9 62 18 120/74 (89) 96 07/03/20 09:32 97.3 07/03/20 09:00 Room Air 07/03/20 09:00 106/68 07/03/20 08:00 97.3 70 17 106/68 (81) 96 07/03/20 04:00 97.6 66 20 118/68 (85) 96 07/03/20 00:00 98.8 72 16 119/66 (83) 94 07/02/20 21:00 Room Air 07/02/20 20:00 98.4 81 20 124/67 (86) 98 07/02/20 16:00 97.7 64 20 131/73 (92) 96 Intake and Output 07/02/20 07/03/20 19:00 07:00 Intake Total 1800 ml Output Total 900 ml Balance 1800 ml -900 ml Intake Oral 1800 ml Output Urine Total 900 ml # Voids 4 # Bowel Movements 1 Laboratory Tests 07/03/20 07:40: White Blood Count 5.4, Red Blood Count 3.53L, Hemoglobin 10.9L, Hematocrit 32.5L , Mean Corpuscular Volume 92, Mean Corpuscular Hemoglobin 31.0, Mean Corpuscular Hemoglobin Concent 33.7, Red Cell Distribution Width 13.2, Platelet Count 253, Mean Platelet Volume 6.6, Neutrophils (%) (Auto) 42.1L, Lymphocytes (%) (Auto) 44.2, Monocytes (%) (Auto) 6.4, Eosinophils (%) (Auto) 5.2H, Basophils (%) (Auto) 2.1H, Sodium Level 135L, Potassium Level 4.2, Chloride Level 103, Carbon Dioxide Level 24, Anion Gap 8, Blood Urea Nitrogen 11, Creatinine 0.4L, Estimat Glomerular Filtration Rate > 60, Glucose Level 122H, Calcium Level 8.0L Height (Feet): 5 Height (Inches): 8.00 Weight (Pounds): 224 General Appearance: lethargic EENT: normal ENT inspection Neck: normal alignment Cardiovascular: normal peripheral pulses, normal rate, regular rhythm Respiratory/Chest: chest wall non-tender, lungs clear, normal breath sounds Abdomen: normal bowel sounds, non tender, soft Extremities: normal inspection Edema: no edema noted Arm (L), no edema noted Arm (R), no edema noted Leg (L), no edema noted Leg (R), no edema noted Pedal (L), no edema noted Pedal (R), no edema noted Generalized Neurologic: responsive, motor weakness Skin: normal pigmentation, warm/dry Assessment/Plan Problem List: (1) Weakness ICD Codes: R53.1 - Weakness SNOMED: 44171539 (2) Multiple sclerosis ICD Codes: G35 - Multiple sclerosis SNOMED: 29639295 (3) Chronic pain ICD Codes: G89.29 - Other chronic pain SNOMED: 50740273 (4) Hypothyroid ICD Codes: E03.9 - Hypothyroidism, unspecified SNOMED: 94178610 Status: stable, progressing Assessment/Plan: pt diet pain control dc if clear Nishant Rider DO Jul 03, 2020 13:13
--- NOTE | 2020-07-03 13:33 | NUR ---
DISCHARGE PLANNING PATIENT HAS BEEN REFERRED BACK TO [facility] P [phone] F [phone]
--- NOTE | 2020-07-03 15:30 | Consultation ---
DATE OF CONSULTATION: 07/02/2020 NEUROLOGICAL CONSULTATION CONSULTING PHYSICIAN: Jorge Spears MD. CHIEF COMPLAINT: This is one of several [facility] admissions for this 59-year-old right-handed woman with multiple sclerosis, who was brought in because of increased pain she has had for many years, but was getting worse over the last few days. The patient was admitted on for urinary tract infection and for pain control as well. The patient denies smoking, alcohol use or drug use according to the notes in the chart. The patient in March 2019 could "move all her extremities." PAST MEDICAL HISTORY: 1hypertension 2. Probable bipolar. 3. Multiple sclerosis. PAST SURGICAL HISTORY: According to her documents, exploratory laparotomy ALLERGIES: She denies any allergies. MEDICATIONS: She is on duloxetine 60 mg, lisinopril 20 mg, loratadine, naproxen 500 mg, Zofran 4 mg, oxycodone and acetaminophen 5/325 mg, pregabalin capsule 100 mg t.i.d., quetiapine 200 mg tablets, sorbitol ascorbic acid with vitamin D3, clindamycin, and ondansetron as an outpatient. SOCIAL HISTORY: She lives in a custodial. FAMILY HISTORY: Unavailable. REVIEW OF SYSTEMS: Unavailable. PHYSICAL EXAMINATION: VITAL SIGNS: Temperature is 98.5 degrees, blood pressure 98/61, pulse 74. The patient refuses the physical examination at this time. The patient cannot be examined in fact the history was taken from the chart. She has had a history of chest pain and abdominal pain. She was admitted to this hospital. No previous neurologic examination at this hospital. Therefore, I will try to see the patient later today or tomorrow. The patient does not want to be examined at this time because she is in "too much pain." It is "too cold" and does not want eggs for breakfast Thank you for this interesting case. Jorge Spears MD DR: JUAN JOB#: [id number] CC: [place]
--- NOTE | 2020-07-03 15:35 | NUR ---
NURSE NOTES: Patient refused the D51/2NS.
[2020-07-03 16:00] VITALS: BP 130/80
--- NOTE | 2020-07-03 18:04 | NUR ---
NURSE NOTES: Report given to IRAIDA Rossi at [facility]. Patient discharged in stable condition with belongings with ambulance personnel.
--- NOTE | 2020-07-03 18:30 | NUR ---
NURSE NOTES: Patient discharged in stable condition with ambulance personnel.
--- NOTE | 2020-07-04 10:00 | Consultation ---
DATE OF CONSULTATION: 07/02/2020 ADDENDUM NEUROLOGICAL CONSULTATION CONSULTING PHYSICIAN: Jorge Spears MD PHYSICAL EXAMINATION: MENTAL STATUS: She is alert, awake. Judgment intact. Affect is irritable. . Orientation, she is oriented to . She is not oriented to person. CRANIAL NERVE EXAMINATION: CRANIAL NERVE II: Visual jesus are intact to confrontation. is noted. CRANIAL NERVES III, IV, AND : Extraocular motility was . Pupils were 6 mm, round, reactive to light. CRANIAL NERVE V: Facial and corneal sensations were intact to fine touch. CRANIAL NERVE VII: Facial strength is 5/5 bilaterally. CRANIAL NERVE VIII: Auditory acuity is probably normal, right ear, to loud whisper. CRANIAL NERVES IX AND X: Not examined because of the pandemic. CRANIAL NERVE XI: Sternocleidomastoid strength is 5/5. CRANIAL NERVE XII: Tongue protrudes in the midline without fasciculations or atrophy. MUSCLE EXAMINATION: Muscle bulk appears to be symmetrical. Tone is normal but decreased in lower extremities. Strength in upper extremities . Reflexes are difficult to legs. Babinski response. COORDINATION: [id number] is intact tremor. . GAIT AND STATION: Not tested. SENSORY EXAMINATION: Not tested. IMPRESSION: treated. . However, she states that her pain is relieved with and diazepam 10 mg q.6h. . PLAN: 1. . 2. Try to obtain previous medical records . Thank you for this interesting case. Jorge Spears MD DR: KACEY JOB#: [id number] CC:
--- NOTE | 2020-07-05 21:45 | Consultation ---
DATE OF CONSULTATION: 07/02/2020 CARDIOLOGY CONSULTATION CONSULTING PHYSICIAN: Daniel Hernández MD. REFERRING PHYSICIAN: Nishant Rider DO. REASON FOR CONSULTATION: Management of hypotension. HISTORY OF PRESENT ILLNESS: The patient is a very unfortunate 59-year-old female with history of multiple sclerosis and hypertension, who is a resident of a assisted facility, was brought to emergency department of [facility] for evaluation of generalized body pain in the past few days. At the time of arrival to the hospital, the patient did not have any chest pain or shortness of breath. She does not have any risk factors for coronary artery disease. The initial blood pressure was 111/70 mmHg and heart rate was 96. A 12-lead electrocardiogram in the emergency department showed sinus rhythm at a rate of 95 with no acute ischemic features. In the emergency department, the patient had blood tests done, which revealed serum sodium of 130. Troponin I level was 0. The rest of the laboratories were unremarkable. The patient was admitted to Med/Surg unit for chronic pain. Cardiology consultation was made at the request of Dr. Rider as the patient became hypotensive upon arrival to the Med/Surg unit with blood pressure as low as 96/55 mmHg. She was afebrile. PAST MEDICAL HISTORY: 1. Multiple sclerosis. 2. Paraplegia. ALLERGIES: 1. Hydromorphone. 2. Prednisone. 3. Pseudoephedrine. SOCIAL HISTORY: Denies any tobacco, alcohol, or illicit drug use. FAMILY HISTORY: No premature coronary artery disease in the first-degree relatives. MEDICATIONS: List of medications in the nursing facility include ascorbic acid 500 mg p.o. daily, aspirin 81 mg twice daily, vitamin D3 2000 units p.o. daily, clindamycin 300 mg three times a day, Artificial Tears, Benadryl 50 mg three times a day p.r.n. allergies, Colace 100 mg p.o. three times a day, Cymbalta 60 mg p.o. daily, lisinopril 20 mg p.o. daily, Claritin 10 mg p.o. daily, Naprosyn 500 mg twice daily p.r.n. knee pain, Zofran 4 mg p.o. every six hours p.r.n. nausea and vomiting, Percocet 5-325 mg one tablet every six hours p.r.n. severe pain, MiraLAX 17 g p.o. daily, pregabalin 100 mg p.o. three times a day, Seroquel 200 mg nightly, and sorbitol 30 mL p.o. every six hours p.r.n. constipation. REVIEW OF SYSTEMS: HEENT: Denies any headache, diplopia, or blurred vision. CONSTITUTIONAL: Denies any fever, chills, or night sweats. Complains of fatigue and malaise. CARDIOVASCULAR: Denies any chest pain, shortness of breath, PND, orthopnea, or leg swelling. PULMONARY: Denies any cough, hemoptysis, or wheezing. GASTROINTESTINAL: Denies any nausea, vomiting, diarrhea, constipation, abdominal pain, or GI bleed. GENITOURINARY: Denies any hematuria, dysuria, or incontinence. NEUROLOGICAL: Diminished motor function of both lower extremity. MUSCULOSKELETAL: Abnormal gait and inability to walk. PHYSICAL EXAMINATION: VITAL SIGNS: Blood pressure was 111/70, pulse of 96, respirations 18, temperature 97.9 degrees Fahrenheit. O2 saturation 97% on room air. GENERAL: The patient is a very unfortunate 59-year-old female, in no apparent respiratory distress. Alert and oriented x4. HEENT: Atraumatic and normocephalic. Anicteric. Pupils are equal, round, and reactive to light and accommodation. Extraocular muscles intact. NECK: JVP less than 5 cm. No carotid bruit. Carotid upstrokes 2+ bilaterally. CARDIOVASCULAR: Normal S1, S2. Regular rate and rhythm. No murmurs, gallops, or rubs. PMI is at fourth intercostal space in left midclavicular line. LUNGS: Clear to auscultation bilaterally. ABDOMEN: Soft, nontender, and nondistended. No hepatosplenomegaly. Positive bowel sounds. EXTREMITIES: No evidence of edema, clubbing, or cyanosis. LABORATORY FINDINGS: WBC 9.6, hemoglobin of 13.0, hematocrit of 38.0, platelet count 304,000. Sodium was 130, potassium 4.3, chloride 98, bicarbonate 24, BUN of 16, creatinine 0.5. Glucose is 112. Calcium is 8.6. Troponin I level is 0. Albumin 3.4. Chest x-ray showed no acute cardiopulmonary disease. ASSESSMENT AND PLAN: The patient is a very unfortunate 59-year-old female, who was seen in Cardiology consultation. 1. Transient hypotension with evidence of hyponatremia. This is most likely due to hypovolemia and intravascular volume contraction. I would like to place a hold on all the blood pressure medications. The patient will benefit from normal saline IV bolus. Thyroid function should be also assessed. 2. History of multiple sclerosis. 3. History of hypertension. In the nursing facility, the patient is on lisinopril. I would like to thank Dr. Rider for allowing me to participate in the care of this patient. Daniel Hernández M.D. DR: [place] JOB#: [id number] CC:
--- NOTE | 2020-07-07 13:02 | Discharge Summary ---
Discharge Summary Discharge Summary _ DATE OF ADMISSION: 07/01/2020 DATE OF DISCHARGE: 07/03/2020 DISCHARGED BY: Dr. Rider REASON FOR ADMISSION: 59 years old female, with a DNR/DNI status , comfort focused treatment, no artificial means of nutrition, with past medical history of multiple sclerosis, hypertension, presented from the [facility] facility with complaints of generalized body pain ongoing for several years , but got progressively worse over the past few days. She denied fever and chills. She denied cough and congestion. No shortness of breath. No headache or dizziness , no focal changes. No diarrhea. No urinary symptoms. Upon evaluation vital signs were stable, EKG revealed sinus rhythm, no acute ischemic changes. Chest x-ray revealed no acute cardiopulmonary pathology. In the emergency department patient received IV fluids, analgesics , which did not improve her pain . Patient subsequently admitted for intractable pain. CONSULTANTS: Pain specialist Dr. Fried brine tank separator operator Dr. Hernández neurologist Dr. Spears [facility]SE: Patient admitted and t provided with gentle IV hydration Pain management was addressed as per pain specialist recommendation. Fall precaution maintained. Patient was working with a physical therapist. Home medication resumed. Patient initially had transient hypotension with evidence of hyponatremia. Per brine tank separator operator transient hypotension was most likely due to intravascular volume contraction and hypovolemia. All antihypertensive medications were slowly on hold. Patient was provided with IV hydration Blood pressure subsequently stabilized , and prior to discharge 120/74. Neurologist evaluated patient. Incomplete data base in terms of multiple sclerosis. Recommended MRI of the brain, which can be done as outpatient. Renal parameters and electrolytes were closely monitored, electrolytes corrected as needed Prior to transfer sodium up to 135. DVT prophylaxis provided. Bowel regimen instituted. Supportive care provided. As blood pressure improved, antihypertensive resumed. Patient clinically stabilized and was ready for transfer to [facility] facility for continuation of care. FINAL DIAGNOSES: Transient hypotension with evidence of hyponatremia , likely due to dehydration Multiple sclerosis History of hypertension Chronic pain Neuropathic pain Hypothyroidism Weakness DISCHARGE MEDICATIONS: See Medication Reconciliation list. DISCHARGE INSTRUCTIONS: Patient was discharged to the [facility] facility. Follow up with medical doctor at the facility. I have been assigned to dictate discharge summary for this account. I was not involved in the patient's management. Amanda Spangler NP Jul 07, 2020 13:02
--- NOTE | 2020-07-07 23:26 | Psychiatric Progress Note ---
Psychiatry Progress Note Psychiatry Progress Note Allergies: Coded Allergies: HYDROMORPHONE (Verified Allergy, Intermediate, 03/28/18) PREDNISONE (Verified Allergy, Intermediate, 03/28/18) PSEUDOEPHEDRINE (Verified Allergy, Intermediate, 03/28/18) Objective Data Height (Feet): 5 Height (Inches): 8.00 Weight (Pounds): 224 General Appearance: lethargic Assessment/Plan Status: stable, progressing Kendrick Temple MD Jul 07, 2020 23:25
--- NOTE | 2020-07-08 02:14 | Consultation ---
DATE OF CONSULTATION: 07/02/2020 CONSULTING PHYSICIAN: Kendrick Temple MD HISTORY OF PRESENT ILLNESS: This is a late entry. Patient is a 59-year-old female. I was asked by Dr. Nishant Rider to assess this patient for anxiety. Patient presented with anxiety, low energy, poor insight. Patient initially was lethargic. Upon evaluation, has of psychomotor agitation, difficulty sleeping. I am familiar to this patient from [facility]. PAST PSYCHIATRIC HISTORY: Significant for depression and anxiety. PAST MEDICAL HISTORY: Multiple sclerosis, weakness, hypertension. ALLERGIES: Hydromorphone, prednisone, pseudoephedrine. SUBSTANCE ABUSE HISTORY: No known history of illicit drug use or alcohol. She has medication-seeking behaviors for opiate pain medications. MENTAL STATUS EXAMINATION: Patient is alert, oriented times self, place, situation, and date. Mood is anxious. Affect is blunted, congruent with mood. Thought process is concrete. Thought content, no suicidal or homicidal ideation. Cognition is intact. Insight and judgment is fair. ASSESSMENT: Anxiety disorder. PLAN: 1. Continue current medications. 2. Provide the patient with reality orientation, supportive therapy. Kendrick Temple M.D. DR: FELISHA JOB#: [id number] CC:
== END 2020-07-03 18:15 | DRG 43 ==
LOC: EDUNIT# 18:10 → EDBD 18:10 → EMR 19:43 → 4E 20:50 → EDBEDREQ 21:03
DX: G35 Multiple sclerosis (principal); E87.1 Hypo-osmolality and hyponatremia; E86.0 Dehydration; R57.9 Shock, unspecified; E46 Unspecified protein-calorie malnutrition; F32.9 Major depressive disorder, single episode, unspecified; E03.9 Hypothyroidism, unspecified; Z66 Do not resuscitate; D64.9 Anemia, unspecified; I11.0 Hypertensive heart disease with heart failure; Z88.6 Allergy status to analgesic agent; Z88.8 Allergy status to other drugs, medicaments and biological substances; G62.9 Polyneuropathy, unspecified
CPT/HCPCS: 36415; 71045; 80048; 80053; 84484; 85025; 93005; 96361; 96374; 96375; 96376; 99285; J2405; J7030; U0002

== ENCOUNTER 2020-07-29 15:24 | Inpatient (IN) | payer MEDICAID ==
[~2020-07-29] VITALS: Ht 172.7 cm; Wt 77.1 kg
[2020-07-29 16:38] VITALS: BP 100/63
[2020-07-29] MEDS ORDERED: Morphine Sulfate 4mg/ml Inj (IV USE ONLY) IVP ONE (17:00)
[2020-07-29] MEDS ORDERED: ARTIFICIAL TEAR15 ML BOTH EYES (17:37)
[2020-07-29] MEDS ORDERED: PRO-STAT LIQUID30 ML ORAL (17:37)
[2020-07-29 17:47] LABS: ANION GAP 7 mmol/L (5-15); BLOOD UREA NITROGEN 14 mg/dL (7-18); CALCIUM 8.9 MG/DL (8.5-10.1); CARBON DIOXIDE 28 MMOL/L (21-32); CHLORIDE 97 MMOL/L (98-107); CREATININE 0.5 MG/DL (0.55-1.30); POTASSIUM 4.4 MMOL/L (3.5-5.1); SODIUM 132 MMOL/L (136-145)
[2020-07-29 17:52] LABS: ALANINE AMINOTRANSFERASE 33 U/L (12-78); ALKALINE PHOSPHATASE 105 U/L (46-116); ASPARTATE AMINO TRANSFERASE 29 U/L (15-37); BILIRUBIN,TOTAL 0.4 MG/DL (0.2-1.0)
[2020-07-29 17:58] LABS: BASOPHILS % (AUTO) 0.8 % (0.0-2.0); EOSINOPHILS % (AUTO) 1.9 % (0.0-3.0); HEMATOCRIT 38.4 % (37.0-47.0); HEMOGLOBIN 13.1 G/DL (12.0-16.0); LYMPHOCYTES % (AUTO) 21.2 % (20.0-45.0); MEAN CORPUSCULAR VOLUME 91 FL (80-99); MONOCYTES % (AUTO) 4.5 % (1.0-10.0); NEUTROPHILS % (AUTO) 71.6 % (45.0-75.0); PLATELET COUNT 292 K/UL (150-450); RED BLOOD COUNT 4.23 M/UL (4.20-5.40); RED CELL DISTRIBUTION WIDTH 13.8 % (11.6-14.8); WHITE BLOOD COUNT 7.8 K/UL (4.8-10.8)
--- NOTE | 2020-07-29 18:04 | Diagnostic Imaging Report ---
EXAM: CT Lumbar Spine Without Intravenous Contrast CLINICAL HISTORY: BK PAIN TECHNIQUE: Axial computed tomography images of the lumbar spine without intravenous contrast. CTDI is 13.9 mGy and DLP is 557 mGy-cm. One or more of the following dose reduction techniques were used: automated exposure control, adjustment of the mA and/or kV according to patient size, use of iterative reconstruction technique. COMPARISON: No relevant prior studies available. FINDINGS: Vertebrae: No fracture or malalignment. Vertebral body heights are preserved. 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 No significant spinal canal or foraminal stenosis. Soft tissues: Unremarkable. Stomach and bowel: Large-volume stool within the colon. IMPRESSION: 1. No acute abnormality. 2. Moderate degenerative spondylosis at L5-S1. No spinal canal or foraminal stenosis. 3. Large-volume stool within the colon. Correlate for constipation.
[2020-07-29] MEDS ORDERED: QUEtiapine 200mg tab ORAL ONE (21:00)
[2020-07-30 04:00] VITALS: BP 116/68
[2020-07-30] MEDS ORDERED: Naproxen 500mg tab ORAL PRN (04:00)
[2020-07-30] MEDS ORDERED: Sorbitol Solution UD 30ml ORAL PRN (04:00)
[2020-07-30] MEDS: Morphine Sulfate 2mg/ml Inj(IV/IM USE ONLY) IVP PRN ×4 (04:48→20:02)
[2020-07-30 08:00] VITALS: BP 118/69
--- NOTE | 2020-07-30 08:42 | Consultation ---
History of Present Illness General Date patient seen: Jul 30, 2020 Time patient seen: 07:00 - am Chief Complaint: Pain Referring physician: Tereso Reason for Consultation: Pain management Present Illness HPI SUBJECTIVE: Patient is a 59 y/o female seen on the med/surg floor of [facility]. She is a known patient from previous admissions and now admitted under the care of Dr. trejo. Continues to c/o pain which has been tolerated on the Morphine and Percocet. We were consulted so patient has adequate pain control while here in the hospital. Allergies: Coded Allergies: HYDROMORPHONE (Verified Allergy, Intermediate, 03/28/18) PREDNISONE (Verified Allergy, Intermediate, 03/28/18) PSEUDOEPHEDRINE (Verified Allergy, Intermediate, 03/28/18) Medication History Scheduled Amino Acids/Protein Hydrolys (Pro-Stat Liquid), 30 ML ORAL TWICE A DAY, (Reported) Aspirin Ec* (Aspirin Ec*), 81 MG ORAL BID, (Reported) Cholecalciferol (Vitamin D3) (Vitamin D3), 2,000 UNIT PO DAILY, (Reported) Dextran 70/Hypromellose (Artificial Tears Eye Drops*), 1 DROP BOTH EYES BID, (Reported) Docusate Sodium* (Colace*), 100 MG ORAL THREE TIMES A DAY, (Reported) Duloxetine Hcl* (Cymbalta*), 60 MG ORAL DAILY, (Reported) Lisinopril (Lisinopril*), 20 MG ORAL DAILY, (Reported) Loratadine (Claritin*), 10 MG PO DAILY, (Reported) Polyethylene Glycol 3350* (Miralax*), 17 GM ORAL DAILY, (Reported) Pregabalin (Pregabalin), 100 MG PO TID, (Reported) Quetiapine Fumarate* (Seroquel*), 200 MG ORAL HS, (Reported) Scheduled PRN Diphenhydramine Hcl* (Benadryl*), 50 MG ORAL TID PRN for ALLERGY, (Reported) Naproxen* (Naproxen*), 500 MG ORAL TWICE A DAY PRN for KNEE PAIN, (Reported) Ondansetron* (Zofran*), 4 MG ORAL Q6H PRN for Nausea & Vomiting, (Reported) Oxycodone/Acetaminophen 5-325* (Percocet 5-325 Mg Tablet*), 1 TAB ORAL Q6H PRN for Severe Pain (Pain Scale 7-10), (Reported) Sorbitol (Sorbitol), 30 ML PO Q6HR PRN for Constipation, (Reported) Miscellaneous Medications Dextran 70/Hypromellose (Artificial Tears Eye Drops*), 1 DROP BOTH EYES, (Report ed) Discontinued Medications Ascorbic Acid* (Ascorbic Acid*), 500 MG ORAL DAILY, (Reported) Discontinued Reason: MD discontinued med Clindamycin Hcl (Clindamycin Hcl), 300 MG ORAL THREE TIMES A DAY Discontinued Reason: Pt stopped taking med Patient History Healthcare decision maker N Resuscitation status Advanced Directive on File Review of Systems ROS Narrative REVIEW OF SYSTEMS: Denies rash, fever, chills, sweating, dizziness, drowsiness, blurred vision, sore throat, or change in weight. No shortness of breath or chest pain. No nausea, vomiting, diarrhea, or blood in the stool or urine. Physical Exam Physical Exam Narrative GENERAL: alert, awake, and oriented. LUNGS: Decreased breath sounds bilaterally. HEART: S1 and S2 regular. ABDOMEN: Benign. EXTREMITIES: No cyanosis. No clubbing. No edema. NEUROLOGICAL: weakness noted. Last 24 Hour Vital Signs Date Time Temp Pulse Resp B/P (MAP) Pulse Ox O2 Delivery O2 Flow Rate FiO2 07/30/20 04:00 97.9 73 18 116/68 (84) 97 07/30/20 02:54 Room Air 07/29/20 21:56 99.1 90 20 108/72 97 Room Air 07/29/20 17:31 99.3 07/29/20 16:38 99.3 18 100/63 97 Room Air 07/29/20 15:31 99.3 89 18 100/63 (75) 97 Room Air Laboratory Tests Test 07/29/20 17:20 White Blood Count 7.8 K/UL (4.8-10.8) Red Blood Count 4.23 M/UL (4.20-5.40) Hemoglobin 13.1 G/DL (12.0-16.0) Hematocrit 38.4 % (37.0-47.0) Mean Corpuscular Volume 91 FL (80-99) Mean Corpuscular Hemoglobin 31.0 PG (27.0-31.0) Mean Corpuscular Hemoglobin Concent 34.1 G/DL (32.0-36.0) Red Cell Distribution Width 13.8 % (11.6-14.8) Platelet Count 292 K/UL (150-450) Mean Platelet Volume 7.2 FL (6.5-10.1) Neutrophils (%) (Auto) 71.6 % (45.0-75.0) Lymphocytes (%) (Auto) 21.2 % (20.0-45.0) Monocytes (%) (Auto) 4.5 % (1.0-10.0) Eosinophils (%) (Auto) 1.9 % (0.0-3.0) Basophils (%) (Auto) 0.8 % (0.0-2.0) Sodium Level 132 MMOL/L (136-145) L Potassium Level 4.4 MMOL/L (3.5-5.1) Chloride Level 97 MMOL/L (98-107) L Carbon Dioxide Level 28 MMOL/L (21-32) Anion Gap 7 mmol/L (5-15) Blood Urea Nitrogen 14 mg/dL (7-18) Creatinine 0.5 MG/DL (0.55-1.30) L Estimat Glomerular Filtration Rate > 60 mL/min (>60) Glucose Level 80 MG/DL (74-106) Calcium Level 8.9 MG/DL (8.5-10.1) Total Bilirubin 0.4 MG/DL (0.2-1.0) Aspartate Amino Transf (AST/SGOT) 29 U/L (15-37) Alanine Aminotransferase (ALT/SGPT) 33 U/L (12-78) Alkaline Phosphatase 105 U/L (46-116) Total Protein 8.0 G/DL (6.4-8.2) Albumin 4.0 G/DL (3.4-5.0) Globulin 4.0 g/dL Albumin/Globulin Ratio 1.0 (1.0-2.7) Microbiology Date/Time Source Procedure Growth Status 07/29/20 18:15 Rectum Received Height (Feet): 5 Height (Inches): 8.00 Weight (Pounds): 170 Medications Current Medications Medications (Trade) Dose Ordered Sig/Galen Route PRN Reason Start Time Stop Time Status Last Admin Dose Admin Artificial Tears (Akwa-Tears) 1 drop BID BOTH EYES 07/30/20 09:00 08/29/20 08:59 Ascorbic Acid (Vitamin C) 250 mg TWICE A DAY ORAL 07/30/20 09:00 08/29/20 08:59 Aspirin (Ecotrin) 81 mg BID ORAL 07/30/20 09:00 09/13/20 08:59 Collagenase (SantyL) 1 applic DAILY TOPIC 07/30/20 09:00 10/28/20 08:59 Collagenase (SantyL) 1 applic PRN PRN TOPIC soilage 07/30/20 05:15 10/28/20 05:14 Diphenhydramine HCl (Benadryl) 50 mg TID PRN ORAL ALLERGY 07/30/20 04:00 08/29/20 03:59 Docusate Sodium (Colace) 100 mg TWICE A DAY ORAL 07/30/20 09:00 08/29/20 08:59 Duloxetine HCl (Cymbalta) 60 mg DAILY ORAL 07/30/20 09:00 10/28/20 08:59 Heparin Sodium (Porcine) (Heparin 5000 units/ml) 5,000 units EVERY 12 HOURS SUBQ 07/30/20 09:00 09/13/20 08:59 Lisinopril (PriniviL) 20 mg DAILY ORAL 07/30/20 09:00 08/29/20 08:59 Loratadine (Claritin 10mg) 10 mg DAILY ORAL 07/30/20 09:00 08/29/20 08:59 Morphine Sulfate (Morphine Sulfate) 2 mg Q4H PRN IVP For Pain 07/30/20 04:00 08/06/20 03:59 07/30/20 04:48 Naproxen (Naprosyn) 500 mg TWICE A DAY PRN ORAL KNEE PAIN 07/30/20 04:00 08/29/20 03:59 Ondansetron HCl (Zofran ODT) 4 mg Q4H PRN ORAL Nausea & Vomiting 07/30/20 04:00 08/29/20 03:59 Oxycodone/ Acetaminophen (Percocet 5-325) 1 tab Q6H PRN ORAL Severe Pain (Pain Scale 7-10) 07/30/20 04:00 08/06/20 03:59 Polyethylene Glycol (Miralax) 17 gm DAILY ORAL 07/30/20 09:00 08/29/20 08:59 Pregabalin (Lyrica) 100 mg THREE TIMES A DAY ORAL 07/30/20 09:00 08/29/20 08:59 Quetiapine Fumarate (SEROqueL) 200 mg BEDTIME ORAL 07/30/20 21:00 09/13/20 20:59 Sorbitol (sorbitoL) 30 ml Q6H PRN ORAL Constipation 07/30/20 04:00 08/29/20 03:59 Vitamin D (Vitamin D) 2,000 intlu DAILY ORAL 07/30/20 09:00 08/29/20 08:59 Zinc Sulfate (Zinc Sulfate) 220 mg DAILY ORAL 07/30/20 09:00 10/28/20 08:59 Assessment/Plan Assessment/Plan: (1) Neuropathic pain (2) Multiple Sclerosis Patient will be continued on morphine and Percocet D/w Dr. Fried and he concurred. Alonso Young Jul 30, 2020 08:42
[2020-07-30] MEDS: Heparin 5000 units/ml inj SUBQ SCH ×2 (09:00→21:00)
[2020-07-30] MEDS: Vitamin D 1000 IU Tab ORAL SCH (09:13)
[2020-07-30] MEDS: Aspirin EC 81mg tab ORAL SCH ×2 (09:13→17:44)
[2020-07-30] MEDS: Zinc Sulfate 220mg ORAL SCH (09:17)
[2020-07-30] MEDS: Docusate 100mg cap ORAL SCH ×2 (09:17→17:44)
[2020-07-30] MEDS: Miralax 17gm pkt ORAL SCH (09:18)
[2020-07-30] MEDS: Lisinopril 20mg tab ORAL SCH (09:18)
[2020-07-30] MEDS: Ascorbic Acid 500mg tab ORAL SCH ×2 (09:18→17:43)
[2020-07-30] MEDS: Lyrica 50mg cap ORAL SCH ×3 (09:31→17:46)
--- NOTE | 2020-07-30 10:15 | History and Physical Report ---
DATE OF ADMISSION: 07/29/2020 TIME SEEN: 07/30/2020, 9 a.m. CONSULTANTS: 1. Elmer Fried MD. 2. . 3. Kendrick Temple MD. CHIEF COMPLAINT: Intractable pain. BRIEF HISTORY: This is a 65-year-old female from [facility] presents with increased intractable pain for two days, low back and shoulder, and was slightly constipated also. The patient came to [place], diagnosed with the above, and admitted to medical floor. Currently, slightly anxious in bed, no complaint. REVIEW OF SYSTEMS: No chest pain. No shortness of breath. No nausea, vomiting, or diarrhea. PAST MEDICAL HISTORY: Includes intractable pain, weakness, anemia, neuralgia, myalgia, hypothyroid, hypertension, anxiety, malnutrition, multiple sclerosis, DJD. PAST SURGICAL HISTORY: Exploratory lap, ovarian cysts surgery. MEDICATIONS: Include quetiapine, diclofenac, heparin, zinc, ascorbic acid, collagenase, pregabalin, loratadine, lisinopril, Dulcolax, artificial tear, aspirin, morphine, Zofran, Percocet, naproxen. ALLERGIES: Hydromorphone, prednisone, pseudoephedrine. SOCIAL HISTORY: No smoking. No alcohol. No intravenous drug abuse. FAMILY HISTORY: Noncontributory. PHYSICAL EXAMINATION: GENERAL: Slightly anxious in bed, oriented x3, slight distress secondary to pain. VITAL SIGNS: Temperature 97 degrees, pulse 65, respiratory rate 20, blood pressure 118/69. CARDIOVASCULAR: No murmur. LUNGS: Distant and clear. ABDOMEN: Positive bowel sounds. Soft, nontender, and nondistended. EXTREMITIES: No cyanosis, clubbing, or edema. NEUROLOGIC: The patient moves all extremities, slightly weak. LABORATORY AND DIAGNOSTIC DATA: Labs at this time show CBC is normal. BMP shows sodium 132, chloride 97, creatinine 0.5. ASSESSMENT: 1. Chronic intractable pain, low back pain, shoulder pain, constipation. 2. Hyponatremia. 3. Weakness. 4. Anemia. 5. Neuralgia. 6. Myalgia. 7. Hypothyroid. 8. Hypertension. 9. Anxiety. 10. Malnutrition. 11. Multiple sclerosis and DJD. PLAN: 1. Pain control. 2. PT/OT. 3. Dietary followup. 4. CBC and BMP in the morning. 5. Resume home medications. 6. We will add Nephrology evaluation, Dr. Martinez. Nishant Rider D.O. DR: Carmela JOB#: [id number] CC:
[2020-07-30 11:31] LABS: BASOPHILS % (AUTO) 1.5 % (0.0-2.0); HEMATOCRIT 36.3 % (37.0-47.0); HEMOGLOBIN 12.4 G/DL (12.0-16.0); LYMPHOCYTES % (AUTO) 34.6 % (20.0-45.0); MEAN CORPUSCULAR VOLUME 91 FL (80-99); NEUTROPHILS % (AUTO) 52.9 % (45.0-75.0); PLATELET COUNT 255 K/UL (150-450); RED CELL DISTRIBUTION WIDTH 13.9 % (11.6-14.8); WHITE BLOOD COUNT 5.9 K/UL (4.8-10.8)
[2020-07-30 12:00] VITALS: BP 100/55
[2020-07-30 12:21] LABS: ALANINE AMINOTRANSFERASE 25 U/L (12-78); ALBUMIN 3.3 G/DL (3.4-5.0); ALKALINE PHOSPHATASE 72 U/L (46-116); ANION GAP 3 mmol/L (5-15); ASPARTATE AMINO TRANSFERASE 15 U/L (15-37); BILIRUBIN,TOTAL 0.3 MG/DL (0.2-1.0); BLOOD UREA NITROGEN 11 mg/dL (7-18); CALCIUM 8.4 MG/DL (8.5-10.1); CARBON DIOXIDE 27 MMOL/L (21-32); CHLORIDE 104 MMOL/L (98-107); CHOLESTEROL 183 MG/DL (< 200); CREATININE 0.4 MG/DL (0.55-1.30); GAMMA GLUTAMYL TRANSPEPTIDASE 14 U/L (5-85); HDL CHOLESTEROL 56 MG/DL (40-60); PHOSPHORUS 3.5 MG/DL (2.5-4.9); SODIUM 134 MMOL/L (136-145); TRIGLYCERIDES 34 MG/DL (30-150)
[2020-07-30] MEDS: Diclofenac 1% Gel 100gm TOPIC SCH ×2 (14:54→17:45)
[2020-07-30] MEDS: oxyCODONE HCL/Acetaminophen 5/325mg ORAL PRN ×3 (14:55→17:52)
--- NOTE | 2020-07-30 15:49 | Consultation ---
Consult Note Consult Note I am asked to evaluate the patient at the request of for fluid and electrolyte management Data reviewed Labs and urine orders given Full note to follow Zoran Martinez MD Jul 30, 2020 15:49
[2020-07-30 16:00] VITALS: BP 111/64
--- NOTE | 2020-07-30 16:09 | Neurology Progress Note ---
Interim History Interim History Interim History CHIEF COMPLAINT: Intractable back pain. per chart review and discussion with pt; pt did not want to give me full hx as she was asking for her Percocet multiple times HPI 65 y/o female who says she has a hx of MS(would not tell me her MS symtpsoms) but this is why she is weak in her legs? Pt says at [facility] presents with increased intractable pain for two days, low back and shoulder, and was slightly constipated also. Pt denies any new weakness, numbness or tingly. She denies urinary or bowel incontinace. Or loss of sensation in her private area or her perineum, or anus. She says sometimes she gets shooting pain down to her feet, but not occuring now, also some shooting pain form the neck to the hands. However not happening. Also pt denies ever losing vision in one eye. REVIEW OF SYSTEMS: Constitutional: denies chills /fever Eyes: denies diplopia ENT: denies dysphagia C.V.: denies chest pain Resp: denies dyspnea G.I.: denies diarrhea .: denies hematuria MSK: denies joint pain Integumentary: denies rash Neuro: b/l LE weakness chronic Psychiatric: denies depression Endocrine: denies flushing Heme: denies bruising PAST MEDICAL HISTORY: Includes intractable pain, weakness, anemia, neuralgia, myalgia, hypothyroid, hypertension, anxiety, malnutrition, multiple sclerosis?, DJD. PAST SURGICAL HISTORY: Exploratory lap, ovarian cysts surgery. MEDICATIONS: quetiapine, diclofenac, heparin, zinc, ascorbic acid, collagenase, pregabalin, loratadine, lisinopril, Dulcolax, artificial tear, aspirin, morphine, Zofran, Percocet, naproxen. ALLERGIES: Hydromorphone, prednisone, pseudoephedrine. SOCIAL HISTORY: No smoking. No alcohol. No intravenous drug abuse. FAMILY HISTORY: Noncontributory. Objective Physical Exam Last Vital Signs Date Time Temp Pulse Resp B/P (MAP) Pulse Ox O2 Delivery O2 Flow Rate FiO2 07/30/20 15:31 97.7 07/30/20 12:00 77 18 100/55 (70) 97 07/30/20 09:00 Room Air Laboratory Tests Test 07/29/20 17:20 07/30/20 11:15 White Blood Count 7.8 K/UL (4.8-10.8) 5.9 K/UL (4.8-10.8) Red Blood Count 4.23 M/UL (4.20-5.40) 4.00 M/UL (4.20-5.40) L Hemoglobin 13.1 G/DL (12.0-16.0) 12.4 G/DL (12.0-16.0) Hematocrit 38.4 % (37.0-47.0) 36.3 % (37.0-47.0) L Mean Corpuscular Volume 91 FL (80-99) 91 FL (80-99) Mean Corpuscular Hemoglobin 31.0 PG (27.0-31.0) 30.9 PG (27.0-31.0) Mean Corpuscular Hemoglobin Concent 34.1 G/DL (32.0-36.0) 34.1 G/DL (32.0-36.0) Red Cell Distribution Width 13.8 % (11.6-14.8) 13.9 % (11.6-14.8) Platelet Count 292 K/UL (150-450) 255 K/UL (150-450) Mean Platelet Volume 7.2 FL (6.5-10.1) 7.8 FL (6.5-10.1) Neutrophils (%) (Auto) 71.6 % (45.0-75.0) 52.9 % (45.0-75.0) Lymphocytes (%) (Auto) 21.2 % (20.0-45.0) 34.6 % (20.0-45.0) Monocytes (%) (Auto) 4.5 % (1.0-10.0) 6.0 % (1.0-10.0) Eosinophils (%) (Auto) 1.9 % (0.0-3.0) 5.0 % (0.0-3.0) H Basophils (%) (Auto) 0.8 % (0.0-2.0) 1.5 % (0.0-2.0) Sodium Level 132 MMOL/L (136-145) L 134 MMOL/L (136-145) L Potassium Level 4.4 MMOL/L (3.5-5.1) 4.0 MMOL/L (3.5-5.1) Chloride Level 97 MMOL/L (98-107) L 104 MMOL/L (98-107) Carbon Dioxide Level 28 MMOL/L (21-32) 27 MMOL/L (21-32) Anion Gap 7 mmol/L (5-15) 3 mmol/L (5-15) L Blood Urea Nitrogen 14 mg/dL (7-18) 11 mg/dL (7-18) Creatinine 0.5 MG/DL (0.55-1.30) L 0.4 MG/DL (0.55-1.30) L Estimat Glomerular Filtration Rate > 60 mL/min (>60) > 60 mL/min (>60) Glucose Level 80 MG/DL (74-106) 119 MG/DL (74-106) H Calcium Level 8.9 MG/DL (8.5-10.1) 8.4 MG/DL (8.5-10.1) L Total Bilirubin 0.4 MG/DL (0.2-1.0) 0.3 MG/DL (0.2-1.0) Aspartate Amino Transf (AST/SGOT) 29 U/L (15-37) 15 U/L (15-37) Alanine Aminotransferase (ALT/SGPT) 33 U/L (12-78) 25 U/L (12-78) Alkaline Phosphatase 105 U/L (46-116) 72 U/L (46-116) Total Protein 8.0 G/DL (6.4-8.2) 6.6 G/DL (6.4-8.2) Albumin 4.0 G/DL (3.4-5.0) 3.3 G/DL (3.4-5.0) L Globulin 4.0 g/dL 3.3 g/dL Albumin/Globulin Ratio 1.0 (1.0-2.7) 1.0 (1.0-2.7) Osmolality 295 mOsm/kg (297-317) L Uric Acid 3.8 MG/DL (2.6-7.2) Phosphorus Level 3.5 MG/DL (2.5-4.9) Magnesium Level 1.9 MG/DL (1.8-2.4) Gamma Glutamyl Transpeptidase 14 U/L (5-85) C-Reactive Protein, Quantitative 0.7 mg/dL (0.00-0.90) Triglycerides Level 34 MG/DL (30-150) Cholesterol Level 183 MG/DL (< 200) LDL Cholesterol 111 mg/dL (<100) H HDL Cholesterol 56 MG/DL (40-60) Cholesterol/HDL Ratio 3.3 (3.3-4.4) Thyroid Stimulating Hormone (TSH) 3.032 uiU/mL (0.358-3.740) General: well developed, well nourished, no acute distress Head: normocophalic, atraumatic Neck: no rigidity EENT: benign Neurologic Exam Mental Status: awake, alert, oriented x4, normal cognition, normal recent memory, normal remote memory Speech: normal speech Language: normal language Cranial Nerve II: visual jesus Cranial Nerves III, IV, : EOMI, pupils Cranial Nerve V: normal facial sensations, temporales function normal, masseters function normal Cranial Nerve VII: no facial asymmetry, normal facial expressions Cranial Nerve VIII: normal hearing, no nystagmus Cranial Nerve IX: normal palate elevation Cranial Nerve X: no voice hoarseness Cranial Nerve XI: SCM symmetric Cranial Nerve XII: tongue midline Motor System: no involuntary movement, no muscle wasting, other - UE's 12/24 througout, LEs b/l HF 2/5, KE/KF b/l 2/5, PF/DF 3/5, however it did seem effort dependent Sensory: normal light touch Deep Tendon Reflexes: 0 knee (L), 0 knee (R); 1+ bicep (L), 1+ bicep (R), 1+ brachioradialis (L), 1+ brachioradialis (R), 1+ ankle (L), 1+ ankle (R) Gait: other - deferred Imaging MRI brain 01/05/19 Comparison: None There are fairly extensive foci of T2 hyperintense signal demonstrated within black radiata and centrum semiovale. Several of the lesions have a typical configuration for multiple sclerosis, oriented transversely, perpendicular to the long axis of the lateral ventricles. There is no abnormal enhancement identified. There is some mild generalized prominence of the sulci ventricles and basal cisterns in keeping with atrophy. There is no mass effect or edema identified. There is no diffusion restriction identified. Mild mucosal thickening demonstrated within the ethmoid sinus. T2 hyperintense fluid signal in the left mastoid region noted. Corpus callosum and sella appear unremarkable. IMPRESSION: Extensive white matter disease consistent with the given history of multiple sclerosis. No enhancing lesions identified. Generalized atrophy of the brain CT L spine 07/29/20 IMPRESSION: 1. No acute abnormality. 2. Moderate degenerative spondylosis at L5-S1. No spinal canal or foraminal stenosis. 3. Large-volume stool within the colon. Correlate for constipation. Impression/Recommendations Problems: (1) Paraparesis (2) Back pain (3) Multiple sclerosis (4) Pain (5) Weakness Recommendations Her back pain flores snot appear to be neurologic since her LE strength has not changed per pt. Her MRI brain did show lesions c/w with MS. 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 Pt does say that pain is sometimes one of her MS symptoms. Her reflexes are decreased in her LE , it is possible there is a superimposed neuropathy on her MS. plan MRI L spine w/ and w.out contrast if kidney function ok also consider workup for neuropathy -will get more hx from pt mange pain pt is not on any MS meds -will discuss if she has outside neurologist taking care of her MS needs Thank you for this interesting consult Stevo Faulkner M.D. Jul 30, 2020 16:09
[2020-07-30 17:37] LABS: APPEARANCE,URINE CLOUDY; BILIRUBIN, URINE NEGATIVE (NEGATIVE); COLOR,URINE PALE YELLOW; GLUCOSE, URINE (UA) NEGATIVE (NEGATIVE); KETONES,URINE NEGATIVE (NEGATIVE); LEUKOCYTE ESTERASE ,URINE 3+ (NEGATIVE); NITRITE,URINE POSITIVE (NEGATIVE); PH,URINE 7 (4.5-8.0); PROTEIN,URINE NEGATIVE (NEGATIVE); UROBILINOGEN,URINE NORMAL MG/DL (0.0-1.0)
[2020-07-30 20:00] VITALS: BP 113/67
[2020-07-30] MEDS: QUEtiapine 200mg tab ORAL SCH (20:03)
[2020-07-31] VITALS: BP 110/70
--- NOTE | 2020-07-31 00:30 | Consultation ---
DATE OF CONSULTATION: 07/30/2020 CONSULTING PHYSICIAN: Kendrick Temple MD HISTORY OF PRESENT ILLNESS: This is a 59-year-old female who is well known to me from . Patient has a history of psychiatric disorder and is presenting with depressed mood, anhedonia, anxiety. Patient was admitted here for medical stabilization. The patient is anxious. PAST PSYCHIATRIC HISTORY: Anxiety, anhedonia, worthlessness. PAST MEDICAL HISTORY: Significant for hypertension, hypothyroidism, MS. ALLERGIES: Hydromorphone, prednisone, pseudoephedrine. SUBSTANCE ABUSE HISTORY: Patient is addicted to pain medication. MENTAL STATUS EXAMINATION: Patient is alert, oriented times self, place, situation, and date. Mood is anxious. Affect is blunted, congruent with mood. Thought process is concrete. Thought content, no suicidal or homicidal ideation. Cognition is impaired. Insight and judgment is impaired. ASSESSMENT: Buda I Anxiety disorder. Major depressive disorder. Buda II Deferred. Buda III MS. Buda IV Low. Buda V 20. PLAN: 1. We will start patient on Seroquel. 2. Cymbalta. 3. Provide the patient with reality orientation and supportive therapy. Kendrick Temple M.D. DR: FELISHA JOB#: [id number] CC:
[2020-07-31] MEDS: Morphine Sulfate 2mg/ml Inj(IV/IM USE ONLY) IVP PRN ×2 (00:38→06:27)
[2020-07-31] MEDS: Diclofenac 1% Gel 100gm TOPIC SCH ×4 (01:17→17:05)
[2020-07-31] MEDS: oxyCODONE HCL/Acetaminophen 5/325mg ORAL PRN ×4 (03:17→20:50)
[2020-07-31 07:09] LABS: BASOPHILS % (AUTO) 1.4 % (0.0-2.0); EOSINOPHILS % (AUTO) 3.8 % (0.0-3.0); HEMATOCRIT 32.5 % (37.0-47.0); HEMOGLOBIN 11.7 G/DL (12.0-16.0); LYMPHOCYTES % (AUTO) 38.4 % (20.0-45.0); MEAN CORPUSCULAR VOLUME 88 FL (80-99); MONOCYTES % (AUTO) 5.9 % (1.0-10.0); NEUTROPHILS % (AUTO) 50.4 % (45.0-75.0); PLATELET COUNT 241 K/UL (150-450); RED BLOOD COUNT 3.68 M/UL (4.20-5.40); RED CELL DISTRIBUTION WIDTH 13.1 % (11.6-14.8); WHITE BLOOD COUNT 6.6 K/UL (4.8-10.8)
[2020-07-31 07:44] LABS: ANION GAP 9 mmol/L (5-15); BLOOD UREA NITROGEN 13 mg/dL (7-18); CALCIUM 8.4 MG/DL (8.5-10.1); CARBON DIOXIDE 24 MMOL/L (21-32); CHLORIDE 102 MMOL/L (98-107); CREATININE 0.4 MG/DL (0.55-1.30); POTASSIUM 4.2 MMOL/L (3.5-5.1); SODIUM 134 MMOL/L (136-145)
[2020-07-31 08:00] VITALS: BP 104/60
--- NOTE | 2020-07-31 08:52 | General Progress Note ---
Subjective Date patient seen: Jul 31, 2020 Time patient seen: 07:15 - am Allergies: Coded Allergies: HYDROMORPHONE (Verified Allergy, Intermediate, 03/28/18) PREDNISONE (Verified Allergy, Intermediate, 03/28/18) PSEUDOEPHEDRINE (Verified Allergy, Intermediate, 03/28/18) Subjective SUBJECTIVE: Patient is a 59 y/o female seen on the med/surg floor of [facility] [place]. Patient is in bed and continues to c/o pain which has been tolerated on the Morphine and Percocet as needed. She has no new complaints at this time. REVIEW OF SYSTEMS: Denies rash, fever, chills, sweating, dizziness, drowsiness, blurred vision, sore throat, or change in weight. No shortness of breath or chest pain. No nausea, vomiting, diarrhea, or blood in the stool or urine. Objective Last 24 Hour Vital Signs Date Time Temp Pulse Resp B/P (MAP) Pulse Ox O2 Delivery O2 Flow Rate FiO2 07/31/20 00:00 98.1 68 19 110/70 (83) 96 07/30/20 21:00 Room Air 07/30/20 20:00 98.1 70 20 113/67 (82) 97 07/30/20 18:22 97.7 07/30/20 16:00 97.9 79 20 111/64 (80) 97 07/30/20 15:31 97.7 07/30/20 12:00 97.7 77 18 100/55 (70) 97 07/30/20 10:17 97.9 07/30/20 09:18 118/69 07/30/20 09:00 Room Air Intake and Output 07/30/20 07/31/20 19:00 07:00 Intake Total 400 ml Balance 400 ml Intake Oral 400 ml # Voids 3 3 # Bowel Movements 2 Laboratory Tests 07/30/20 11:15: White Blood Count 5.9, Red Blood Count 4.00L, Hemoglobin 12.4, Hematocrit 36.3L, Mean Corpuscular Volume 91, Mean Corpuscular Hemoglobin 30.9, Mean Corpuscular Hemoglobin Concent 34.1, Red Cell Distribution Width 13.9, Platelet Count 255, Mean Platelet Volume 7.8, Neutrophils (%) (Auto) 52.9, Lymphocytes (%) (Auto) 34.6, Monocytes (%) (Auto) 6.0, Eosinophils (%) (Auto) 5.0H, Basophils (%) (Auto) 1.5, Sodium Level 134L, Potassium Level 4.0, Chloride Level 104, Carbon Dioxide Level 27, Anion Gap 3L, Blood Urea Nitrogen 11, Creatinine 0.4L, Estimat Glomerular Filtration Rate > 60, Glucose Level 119H, Osmolality 295L, Uric Acid 3.8, Calcium Level 8.4L, Phosphorus Level 3.5, Magnesium Level 1.9, Total Bilirubin 0.3, Gamma Glutamyl Transpeptidase 14, Aspartate Amino Transf (AST/SGOT) 15, Alanine Aminotransferase (ALT/SGPT) 25, Alkaline Phosphatase 72, C-Reactive Protein, Quantitative 0.7, Total Protein 6.6, Albumin 3.3L, Globulin 3.3, Albumin/Globulin Ratio 1.0, Triglycerides Level 34, Cholesterol Level 183, LDL Cholesterol 111H, HDL Cholesterol 56, Cholesterol/HDL Ratio 3.3, Thyroid Stimulating Hormone (TSH) 3.032 07/30/20 17:00: Urine Color Pale yellow, Urine Appearance Cloudy, Urine pH 7, Urine Specific [place] 1.010, Urine Protein Negative, Urine Glucose (UA) Negative, Urine Ke tones Negative, Urine Blood 1+H, Urine Nitrite PositiveH, Urine Bilirubin Negative, Urine Urobilinogen Normal, Urine Leukocyte Esterase 3+H, Urine RBC 2- 4H, Urine WBC 40-60H, Urine Squamous Epithelial Cells ModerateH, Urine Bacteria ManyH, Urine Osmolality 277L, Urine Random Sodium 40, Urine Opiates Screen PositiveH, Urine Barbiturates Screen Negative, Phencyclidine (PCP) Screen Negative, Urine Amphetamines Screen Negative, Urine Benzodiazepines Screen Negative, Urine Cocaine Screen Negative, Urine Marijuana (THC) Screen Negative 07/31/20 06:37: White Blood Count 6.6, Red Blood Count 3.68L, Hemoglobin 11.7L, Hematocrit 32.5L , Mean Corpuscular Volume 88, Mean Corpuscular Hemoglobin 31.7H, Mean Corpuscular Hemoglobin Concent 35.9, Red Cell Distribution Width 13.1, Platelet Count 241, Mean Platelet Volume 7.8, Neutrophils (%) (Auto) 50.4, Lymphocytes (%) (Auto) 38.4, Monocytes (%) (Auto) 5.9, Eosinophils (%) (Auto) 3.8H, Basophils (%) (Auto) 1.4, Sodium Level 134L, Potassium Level 4.2, Chloride Level 102, Carbon Dioxide Level 24, Anion Gap 9, Blood Urea Nitrogen 13, Creatinine 0.4L, Estimat Glomerular Filtration Rate > 60, Glucose Level 95, Calcium Level 8.4L Height (Feet): 5 Height (Inches): 8.00 Weight (Pounds): 170 Objective GENERAL: alert, awake, and oriented. LUNGS: Decreased breath sounds bilaterally. HEART: S1 and S2 regular. ABDOMEN: Benign. EXTREMITIES: No cyanosis. No clubbing. No edema. NEUROLOGICAL: weakness noted. Assessment/Plan Assessment/Plan: (1) Neuropathic pain (2) Multiple Sclerosis Patient will be continued on morphine and Percocet D/w Dr. Fried and he concurred. Alonso Young Jul 31, 2020 08:52
[2020-07-31] MEDS: Heparin 5000 units/ml inj SUBQ SCH ×2 (09:00→20:15)
[2020-07-31] MEDS: Aspirin EC 81mg tab ORAL SCH ×2 (09:03→17:06)
[2020-07-31] MEDS: Ascorbic Acid 500mg tab ORAL SCH ×2 (09:03→17:07)
[2020-07-31] MEDS: Miralax 17gm pkt ORAL SCH (09:03)
[2020-07-31] MEDS: Zinc Sulfate 220mg ORAL SCH (09:04)
[2020-07-31] MEDS: Docusate 100mg cap ORAL SCH ×2 (09:04→17:06)
[2020-07-31] MEDS: Lisinopril 20mg tab ORAL SCH (09:04)
[2020-07-31] MEDS: Vitamin D 1000 IU Tab ORAL SCH (09:05)
[2020-07-31] MEDS: Lyrica 50mg cap ORAL SCH ×3 (09:06→18:00)
[2020-07-31 12:00] VITALS: BP 102/57
--- NOTE | 2020-07-31 12:38 | Nephrology Progress Note ---
Assessment/Plan Problem List: (1) Hyponatremia (2) HTN (hypertension) (3) Multiple sclerosis (4) Back pain (5) DNR (do not resuscitate) Plan Hyponatremia Multiple sclerosis, back pain, chronic pain Anxiety disorder, depression Mild anemia Hypertension Continue to monitor electrolytes Down on Zestril dose due to low blood pressure Continue per consultants Per orders Subjective ROS Limited/Unobtainable: No Constitutional: Reports: malaise Objective Objective Last 24 Hour Vital Signs Date Time Temp Pulse Resp B/P (MAP) Pulse Ox O2 Delivery O2 Flow Rate FiO2 07/31/20 12:01 98.1 07/31/20 12:00 98.0 89 18 102/57 (72) 97 07/31/20 09:04 104/60 07/31/20 09:00 Room Air 07/31/20 08:00 98.1 56 18 104/60 (75) 95 07/31/20 00:00 98.1 68 19 110/70 (83) 96 07/30/20 21:00 Room Air 07/30/20 20:00 98.1 70 20 113/67 (82) 97 07/30/20 18:22 97.7 07/30/20 16:00 97.9 79 20 111/64 (80) 97 07/30/20 15:31 97.7 Intake and Output 07/30/20 07/31/20 19:00 07:00 Intake Total 400 ml Balance 400 ml Intake Oral 400 ml # Voids 3 3 # Bowel Movements 2 Current Medications Medications (Trade) Dose Ordered Sig/[place] Route PRN Reason Start Time Stop Time Status Last Admin Dose Admin Artificial Tears (Akwa-Tears) 1 drop BID BOTH EYES 07/30/20 09:00 08/29/20 08:59 07/31/20 09:03 Ascorbic Acid (Vitamin C) 250 mg TWICE A DAY ORAL 07/30/20 09:00 08/29/20 08:59 07/31/20 09:03 Aspirin (Ecotrin) 81 mg BID ORAL 07/30/20 09:00 09/13/20 08:59 07/31/20 09:03 Collagenase (SantyL) 1 applic DAILY TOPIC 07/30/20 09:00 10/28/20 08:59 07/31/20 09:09 Collagenase (SantyL) 1 applic PRN PRN TOPIC soilage 07/30/20 05:15 10/28/20 05:14 Diclofenac Sodium (Voltaren gel) 1 applic Q6HR TOPIC 07/30/20 12:00 10/28/20 11:59 07/31/20 09:02 Diphenhydramine HCl (Benadryl) 50 mg TIDPRN PRN ORAL ALLERGY 07/30/20 22:00 08/29/20 21:59 07/31/20 06:40 Docusate Sodium (Colace) 100 mg TWICE A DAY ORAL 07/30/20 09:00 08/29/20 08:59 07/31/20 09:04 Duloxetine HCl (Cymbalta) 60 mg DAILY ORAL 07/30/20 09:00 10/28/20 08:59 07/31/20 09:07 Heparin Sodium (Porcine) (Heparin 5000 units/ml) 5,000 units EVERY 12 HOURS SUBQ 07/30/20 09:00 09/13/20 08:59 Loratadine (Claritin 10mg) 10 mg DAILY ORAL 07/30/20 09:00 08/29/20 08:59 07/31/20 09:03 Naproxen (Naprosyn) 500 mg TWICE A DAY PRN ORAL KNEE PAIN 07/30/20 04:00 08/29/20 03:59 Ondansetron HCl (Zofran ODT) 4 mg Q4H PRN ORAL Nausea & Vomiting 07/30/20 04:00 08/29/20 03:59 Oxycodone/ Acetaminophen (Percocet 5-325) 1.5 tab Q4H PRN ORAL Severe Pain (Pain Scale 7-10) 07/31/20 09:00 08/07/20 08:59 07/31/20 11:31 Polyethylene Glycol (Miralax) 17 gm DAILY ORAL 07/30/20 09:00 08/29/20 08:59 07/31/20 09:03 Pregabalin (Lyrica) 100 mg THREE TIMES A DAY ORAL 07/30/20 09:00 08/29/20 08:59 07/31/20 09:06 Quetiapine Fumarate (SEROqueL) 200 mg BEDTIME ORAL 07/30/20 21:00 09/13/20 20:59 07/30/20 20:03 Sorbitol (sorbitoL) 30 ml Q6H PRN ORAL Constipation 12/9/20 04:00 08/29/20 03:59 Vitamin D (Vitamin D) 2,000 intlu DAILY ORAL 07/30/20 09:00 08/29/20 08:59 07/31/20 09:05 Zinc Sulfate (Zinc Sulfate) 220 mg DAILY ORAL 07/30/20 09:00 10/28/20 08:59 07/31/20 09:04 Laboratory Tests 07/30/20 17:00: Urine Color Pale yellow, Urine Appearance Cloudy, Urine pH 7, Urine Specific [place] 1.010, Urine Protein Negative, Urine Glucose (UA) Negative, Urine Ketones Negative, Urine Blood 1+H, Urine Nitrite PositiveH, Urine Bilirubin Negative, Urine Urobilinogen Normal, Urine Leukocyte Esterase 3+H, Urine RBC 2- 4H, Urine WBC 40-60H, Urine Squamous Epithelial Cells ModerateH, Urine Bacteria ManyH, Urine Osmolality 277L, Urine Random Sodium 40, Urine Opiates Screen Posit iveH, Urine Barbiturates Screen Negative, Phencyclidine (PCP) Screen Negative, Urine Amphetamines Screen Negative, Urine Benzodiazepines Screen Negative, Urine Cocaine Screen Negative, Urine Marijuana (THC) Screen Negative 07/31/20 06:37: White Blood Count 6.6, Red Blood Count 3.68L, Hemoglobin 11.7L, Hematocrit 32.5L , Mean Corpuscular Volume 88, Mean Corpuscular Hemoglobin 31.7H, Mean Corpusc ular Hemoglobin Concent 35.9, Red Cell Distribution Width 13.1, Platelet Count 241, Mean Platelet Volume 7.8, Neutrophils (%) (Auto) 50.4, Lymphocytes (%) (Auto) 38.4, Monocytes (%) (Auto) 5.9, Eosinophils (%) (Auto) 3.8H, Basophils (% ) (Auto) 1.4, Sodium Level 134L, Potassium Level 4.2, Chloride Level 102, Carbon Dioxide Level 24, Anion Gap 9, Blood Urea Nitrogen 13, Creatinine 0.4L, Estimat Glomerular Filtration Rate > 60, Glucose Level 95, Calcium Level 8.4L Height (Feet): 5 Height (Inches): 8.00 Weight (Pounds): 170 General Appearance: no apparent distress, lethargic Cardiovascular: normal rate Respiratory/Chest: decreased breath sounds Abdomen: soft Zoran Martinez MD Jul 31, 2020 12:38
--- NOTE | 2020-07-31 13:48 | General Progress Note ---
Subjective Constitutional: Reports: weakness Allergies: Coded Allergies: HYDROMORPHONE (Verified Allergy, Intermediate, 03/28/18) PREDNISONE (Verified Allergy, Intermediate, 03/28/18) PSEUDOEPHEDRINE (Verified Allergy, Intermediate, 03/28/18) All Systems: reviewed and negative except above Subjective anxious sl gen pain Objective Last 24 Hour Vital Signs Date Time Temp Pulse Resp B/P (MAP) Pulse Ox O2 Delivery O2 Flow Rate FiO2 07/31/20 12:01 98.1 07/31/20 12:00 98.0 89 18 102/57 (72) 97 07/31/20 09:04 104/60 07/31/20 09:00 Room Air 07/31/20 08:00 98.1 56 18 104/60 (75) 95 07/31/20 00:00 98.1 68 19 110/70 (83) 96 07/30/20 21:00 Room Air 07/30/20 20:00 98.1 70 20 113/67 (82) 97 07/30/20 18:22 97.7 07/30/20 16:00 97.9 79 20 111/64 (80) 97 07/30/20 15:31 97.7 Intake and Output 07/30/20 07/31/20 19:00 07:00 Intake Total 400 ml Balance 400 ml Intake Oral 400 ml # Voids 3 3 # Bowel Movements 2 Laboratory Tests 07/30/20 17:00: Urine Color Pale yellow, Urine Appearance Cloudy, Urine pH 7, Urine Specific [place] 1.010, Urine Protein Negative, Urine Glucose (UA) Negative, Urine [place] Negative, Urine Blood 1+H, Urine Nitrite PositiveH, Urine Bilirubin Negative, Urine Urobilinogen Normal, Urine Leukocyte Esterase 3+H, Urine RBC 2-4H, Urine W BC 40-60H, Urine Squamous Epithelial Cells ModerateH, Urine Bacteria ManyH, Urine Osmolality 277L, Urine Random Sodium 40, Urine Opiates Screen PositiveH, Urine Barbiturates Screen Negative, Phencyclidine (PCP) Screen Negative, Urine Amphetamines Screen Negative, Urine Benzodiazepines Screen Negative, Urine Cocaine Screen Negative, Urine Marijuana (THC) Screen Negative 07/31/20 06:37: White Blood Count 6.6, Red Blood Count 3.68L, Hemoglobin 11.7L, Hematocrit 32.5L , Mean Corpuscular Volume 88, Mean Corpuscular Hemoglobin 31.7H, Mean Corpuscular Hemoglobin Concent 35.9, Red Cell Distribution Width 13.1, Platelet Count 241, Mean Platelet Volume 7.8, Neutrophils (%) (Auto) 50.4, Lymphocytes (%) (Auto) 38.4, Monocytes (%) (Auto) 5.9, Eosinophils (%) (Auto) 3.8H, Basophils (%) (Auto) 1.4, Sodium Level 134L, Potassium Level 4.2, Chloride Level 102, Carbon Dioxide Level 24, Anion Gap 9, Blood Urea Nitrogen 13, Creatinine 0.4L, Estimat Glomerular Filtration Rate > 60, Glucose Level 95, Calcium Level 8.4L Height (Feet): 5 Height (Inches): 8.00 Weight (Pounds): 170 General Appearance: lethargic EENT: normal ENT inspection Neck: normal alignment Cardiovascular: normal peripheral pulses, normal rate, regular rhythm Respiratory/Chest: chest wall non-tender, lungs clear, normal breath sounds Abdomen: normal bowel sounds, non tender, soft Extremities: normal inspection Edema: no edema noted Arm (L), no edema noted Arm (R), no edema noted Leg (L), no edema noted Leg (R), no edema noted Pedal (L), no edema noted Pedal (R), no edema noted Generalized Neurologic: responsive, motor weakness Skin: normal pigmentation, warm/dry Assessment/Plan Problem List: (1) Multiple sclerosis ICD Codes: G35 - Multiple sclerosis SNOMED: 94972255 (2) Pain ICD Codes: R52 - Pain, unspecified SNOMED: 79490800 (3) Back pain ICD Codes: M54.9 - Dorsalgia, unspecified SNOMED: 797643953 (4) Weakness ICD Codes: R53.1 - Weakness SNOMED: 11231269 (5) UTI (urinary tract infection) ICD Codes: N39.0 - Urinary tract infection, site not specified SNOMED: 52491615 (6) HTN (hypertension) ICD Codes: I10 - Essential (primary) hypertension SNOMED: 68268663 (7) Chronic pain ICD Codes: G89.29 - Other chronic pain SNOMED: 81405347 (8) Hypothyroid ICD Codes: E03.9 - Hypothyroidism, unspecified SNOMED: 58736228 (9) Hyponatremia ICD Codes: E87.1 - Hypo-osmolality and hyponatremia SNOMED: 02852427 Status: unchanged Assessment/Plan: pain control pt diet abx id eval cbc bmp am psyc transfer prn Nishant Rider DO Jul 31, 2020 13:48
[2020-07-31 16:00] VITALS: BP 113/63
[2020-07-31] MEDS ORDERED: ZINC SULFATE220 M1 ORAL (17:58)
[2020-07-31] MEDS ORDERED: santyl TOPIC (17:58)
[2020-07-31 20:00] VITALS: BP 114/64
[2020-07-31] MEDS: QUEtiapine 200mg tab ORAL SCH (20:24)
[2020-08-01] VITALS: BP 112/60
[2020-08-01] MEDS: Diclofenac 1% Gel 100gm TOPIC SCH ×4 (00:02→18:02)
[2020-08-01 04:00] VITALS: BP 120/75
[2020-08-01] MEDS: oxyCODONE HCL/Acetaminophen 5/325mg ORAL PRN ×4 (04:09→18:07)
[2020-08-01 08:00] VITALS: BP 124/67
--- NOTE | 2020-08-01 08:35 | General Progress Note ---
Subjective Date patient seen: Aug 01, 2020 Time patient seen: 07:15 - am Allergies: Coded Allergies: HYDROMORPHONE (Verified Allergy, Intermediate, 03/28/18) PREDNISONE (Verified Allergy, Intermediate, 03/28/18) PSEUDOEPHEDRINE (Verified Allergy, Intermediate, 03/28/18) Subjective SUBJECTIVE: Patient is a 59 y/o female seen on the med/surg floor of [facility] [place]. Patient is in bed pain has been unchanged and using the Percocet as needed. No new complaints at this time. REVIEW OF SYSTEMS: Denies rash, fever, chills, sweating, dizziness, drowsiness, blurred vision, sore throat, or change in weight. No shortness of breath or chest pain. No nausea, vomiting, diarrhea, or blood in the stool or urine. Objective Last 24 Hour Vital Signs Date Time Temp Pulse Resp B/P (MAP) Pulse Ox O2 Delivery O2 Flow Rate FiO2 08/01/20 04:00 97.3 83 18 120/75 (90) 97 08/01/20 00:00 98.2 66 18 112/60 (77) 98 07/31/20 21:00 Room Air 07/31/20 20:00 97.7 71 18 114/64 (81) 97 07/31/20 17:02 98.1 07/31/20 16:00 98.6 77 18 113/63 (80) 99 07/31/20 12:01 98.1 07/31/20 12:00 98.0 89 18 102/57 (72) 97 07/31/20 09:04 104/60 07/31/20 09:00 Room Air Intake and Output 07/31/20 08/01/20 19:00 07:00 Intake Total 500 ml 400 ml Output Total 1800 ml Balance 500 ml -1400 ml Intake Oral 500 ml 400 ml Output Urine Total 1800 ml # Voids 3 # Bowel Movements 1 Height (Feet): 5 Height (Inches): 8.00 Weight (Pounds): 170 Objective GENERAL: alert, awake, and oriented. LUNGS: Decreased breath sounds bilaterally. HEART: S1 and S2 regular. ABDOMEN: Benign. EXTREMITIES: No cyanosis. No clubbing. No edema. NEUROLOGICAL: weakness noted. Assessment/Plan Status: unchanged Assessment/Plan: (1) Neuropathic pain (2) Multiple Sclerosis Patient will be continued on morphine and Percocet D/w Dr. Fried and he concurred. Alonso Young Aug 01, 2020 08:35
[2020-08-01] MEDS ORDERED: Lisinopril 2.5mg tab ORAL SCH (09:00)
[2020-08-01] MEDS: Heparin 5000 units/ml inj SUBQ SCH (09:00)
--- NOTE | 2020-08-01 09:01 | General Progress Note ---
Subjective Constitutional: Reports: weakness Allergies: Coded Allergies: HYDROMORPHONE (Verified Allergy, Intermediate, 03/28/18) PREDNISONE (Verified Allergy, Intermediate, 03/28/18) PSEUDOEPHEDRINE (Verified Allergy, Intermediate, 03/28/18) All Systems: reviewed and negative except above Subjective anxious sl gen pain Objective Last 24 Hour Vital Signs Date Time Temp Pulse Resp B/P (MAP) Pulse Ox O2 Delivery O2 Flow Rate FiO2 08/01/20 04:00 97.3 83 18 120/75 (90) 97 08/01/20 00:00 98.2 66 18 112/60 (77) 98 07/31/20 21:00 Room Air 07/31/20 20:00 97.7 71 18 114/64 (81) 97 07/31/20 17:02 98.1 07/31/20 16:00 98.6 77 18 113/63 (80) 99 07/31/20 12:01 98.1 07/31/20 12:00 98.0 89 18 102/57 (72) 97 07/31/20 09:04 104/60 Intake and Output 07/31/20 08/01/20 19:00 07:00 Intake Total 500 ml 400 ml Output Total 1800 ml Balance 500 ml -1400 ml Intake Oral 500 ml 400 ml Output Urine Total 1800 ml # Voids 3 # Bowel Movements 1 Height (Feet): 5 Height (Inches): 8.00 Weight (Pounds): 170 General Appearance: lethargic EENT: normal ENT inspection Neck: normal alignment Cardiovascular: normal peripheral pulses, normal rate, regular rhythm Respiratory/Chest: chest wall non-tender, lungs clear, normal breath sounds Abdomen: normal bowel sounds, non tender, soft Extremities: normal inspection Edema: no edema noted Arm (L), no edema noted Arm (R), no edema noted Leg (L), no edema noted Leg (R), no edema noted Pedal (L), no edema noted Pedal (R), no edema noted Generalized Neurologic: responsive, motor weakness Skin: normal pigmentation, warm/dry Assessment/Plan Problem List: (1) Multiple sclerosis ICD Codes: G35 - Multiple sclerosis SNOMED: 89932525 (2) Pain ICD Codes: R52 - Pain, unspecified SNOMED: 71785878 (3) Back pain ICD Codes: M54.9 - Dorsalgia, unspecified SNOMED: 474677670 (4) Weakness ICD Codes: R53.1 - Weakness SNOMED: 30704929 (5) UTI (urinary tract infection) ICD Codes: N39.0 - Urinary tract infection, site not specified SNOMED: 76236012 (6) HTN (hypertension) ICD Codes: I10 - Essential (primary) hypertension SNOMED: 31197168 (7) Chronic pain ICD Codes: G89.29 - Other chronic pain SNOMED: 89309933 (8) Hypothyroid ICD Codes: E03.9 - Hypothyroidism, unspecified SNOMED: 90587866 (9) Hyponatremia ICD Codes: E87.1 - Hypo-osmolality and hyponatremia SNOMED: 33596468 Status: unchanged Assessment/Plan: pain control pt diet abx id eval cbc bmp am psyc transfer prn vs dc plan Nishant Rider DO Aug 01, 2020 09:01
[2020-08-01] MEDS: Aspirin EC 81mg tab ORAL SCH ×2 (09:10→18:02)
[2020-08-01] MEDS: Ascorbic Acid 500mg tab ORAL SCH ×2 (09:10→18:02)
[2020-08-01] MEDS: Miralax 17gm pkt ORAL SCH (09:11)
[2020-08-01] MEDS: Vitamin D 1000 IU Tab ORAL SCH (09:11)
[2020-08-01] MEDS: Zinc Sulfate 220mg ORAL SCH (09:11)
--- NOTE | 2020-08-01 09:11 | Consultation ---
History of Present Illness General Date patient seen: Aug 01, 2020 Time patient seen: 12:26 Chief Complaint: Pain Referring physician: Tereso Reason for Consultation: Pain management Present Illness HPI 59yo F from SNF who p/w intractable pain x2 days, low back and shoulder, also constipation. UCx+. ID consulted. Pt has been AF, HDS on RA without any leukocytosis while in house. Pt reports h/o UTIs, has had intermittent pain w/ urination recently, hard to really describe by pt. Reports recent UTI that "wasn't treated" and went away. Allergy to some medication as a child, doesn't remember what it did, doesn't remember name, didn't cause SOB. Allergies: Coded Allergies: HYDROMORPHONE (Verified Allergy, Intermediate, 03/28/18) PREDNISONE (Verified Allergy, Intermediate, 03/28/18) PSEUDOEPHEDRINE (Verified Allergy, Intermediate, 03/28/18) Medication History Scheduled Amino Acids/Protein Hydrolys (Pro-Stat Liquid), 30 ML ORAL TWICE A DAY, (Reported) Aspirin Ec* (Aspirin Ec*), 81 MG ORAL BID, (Reported) Cholecalciferol (Vitamin D3) (Vitamin D3), 2,000 UNIT PO DAILY, (Reported) Dextran 70/Hypromellose (Artificial Tears Eye Drops*), 1 DROP BOTH EYES BID, (Reported) Docusate Sodium* (Colace*), 100 MG ORAL TWICE A DAY, (Reported) Duloxetine Hcl* (Cymbalta*), 60 MG ORAL DAILY, (Reported) Lisinopril (Lisinopril*), 20 MG ORAL DAILY, (Reported) Loratadine (Claritin*), 10 MG PO DAILY, (Reported) Polyethylene Glycol 3350* (Miralax*), 17 GM ORAL DAILY, (Reported) Pregabalin (Pregabalin), 100 MG PO TID, (Reported) Quetiapine Fumarate* (Seroquel*), 200 MG ORAL HS, (Reported) Zinc Sulfate (Zinc Sulfate*), 220 MG ORAL DAILY, (Reported) [santyl], Unknown Dose TOPIC DAILY, (Reported) Scheduled PRN Diphenhydramine Hcl* (Benadryl*), 50 MG ORAL TID PRN for ALLERGY, (Reported) Naproxen* (Naproxen*), 500 MG ORAL TWICE A DAY PRN for KNEE PAIN, (Reported) Ondansetron* (Zofran*), 4 MG ORAL Q6H PRN for Nausea & Vomiting, (Reported) Oxycodone/Acetaminophen 5-325* (Percocet 5-325 Mg Tablet*), 1 TAB ORAL Q6H PRN for Severe Pain (Pain Scale 7-10), (Reported) Sorbitol (Sorbitol), 30 ML PO Q6HR PRN for Constipation, (Reported) Discontinued Medications Ascorbic Acid* (Ascorbic Acid*), 500 MG ORAL DAILY, (Reported) Discontinued Reason: MD discontinued med Clindamycin Hcl (Clindamycin Hcl), 300 MG ORAL THREE TIMES A DAY Discontinued Reason: Pt stopped taking med Patient History Healthcare decision maker N Resuscitation status Advanced Directive on File Review of Systems ROS Narrative 10-point ROS neg except as noted in HPI Physical Exam Physical Exam Narrative Gen: NAD HEENT: NCAT, EOMI Pulm: BL chest rise on RA Abd: Soft, mildly TTP over suprapubic and LLQ areas Ext: No c/c/e Skin: No visible rashes Neuro: Awake, alert, interactive Last 24 Hour Vital Signs Date Time Temp Pulse Resp B/P (MAP) Pulse Ox O2 Delivery O2 Flow Rate FiO2 08/01/20 04:00 97.3 83 18 120/75 (90) 97 08/01/20 00:00 98.2 66 18 112/60 (77) 98 07/31/20 21:00 Room Air 07/31/20 20:00 97.7 71 18 114/64 (81) 97 07/31/20 17:02 98.1 07/31/20 16:00 98.6 77 18 113/63 (80) 99 07/31/20 12:01 98.1 07/31/20 12:00 98.0 89 18 102/57 (72) 97 Intake and Output 07/31/20 08/01/20 19:00 07:00 Intake Total 500 ml 400 ml Output Total 1800 ml Balance 500 ml -1400 ml Intake Oral 500 ml 400 ml Output Urine Total 1800 ml # Voids 3 # Bowel Movements 1 Height (Feet): 5 Height (Inches): 8.00 Weight (Pounds): 170 Medications Current Medications Medications (Trade) Dose Ordered Sig/Galen Route PRN Reason Start Time Stop Time Status Last Admin Dose Admin Artificial Tears (Akwa-Tears) 1 drop BID BOTH EYES 07/30/20 09:00 08/29/20 08:59 07/31/20 17:05 Ascorbic Acid (Vitamin C) 250 mg TWICE A DAY ORAL 07/30/20 09:00 08/29/20 08:59 07/31/20 17:07 Aspirin (Ecotrin) 81 mg BID ORAL 07/30/20 09:00 09/13/20 08:59 07/31/20 17:06 Collagenase (SantyL) 1 applic DAILY TOPIC 07/30/20 09:00 10/28/20 08:59 07/31/20 09:09 Collagenase (SantyL) 1 applic PRN PRN TOPIC soilage 07/30/20 05:15 10/28/20 05:14 Diclofenac Sodium (Voltaren gel) 1 applic Q6HR TOPIC 07/30/20 12:00 10/28/20 11:59 08/01/20 05:03 Diphenhydramine HCl (Benadryl) 50 mg TIDPRN PRN ORAL ALLERGY 07/30/20 22:00 08/29/20 21:59 08/01/20 05:05 Docusate Sodium (Colace) 100 mg TWICE A DAY ORAL 07/30/20 09:00 08/29/20 08:59 07/31/20 17:06 Duloxetine HCl (Cymbalta) 60 mg DAILY ORAL 07/30/20 09:00 10/28/20 08:59 07/31/20 09:07 Famotidine (Pepcid) 20 mg BID ORAL 07/31/20 18:00 10/29/20 17:59 07/31/20 17:06 Heparin Sodium (Porcine) (Heparin 5000 units/ml) 5,000 units EVERY 12 HOURS SUBQ 07/30/20 09:00 09/13/20 08:59 Lisinopril (ZestriL) 2.5 mg DAILY ORAL 08/01/20 09:00 08/29/20 08:59 Loratadine (Claritin 10mg) 10 mg DAILY ORAL 07/30/20 09:00 08/29/20 08:59 07/31/20 09:03 Naproxen (Naprosyn) 500 mg TWICE A DAY PRN ORAL KNEE PAIN 07/30/20 04:00 08/29/20 03:59 Ondansetron HCl (Zofran ODT) 4 mg Q4H PRN ORAL Nausea & Vomiting 07/30/20 04:00 08/29/20 03:59 Oxycodone/ Acetaminophen (Percocet 5-325) 1.5 tab Q4H PRN ORAL Severe Pain (Pain Scale 7-10) 07/31/20 09:00 08/07/20 08:59 08/01/20 04:09 Polyethylene Glycol (Miralax) 17 gm DAILY ORAL 07/30/20 09:00 08/29/20 08:59 07/31/20 09:03 Pregabalin (Lyrica) 100 mg THREE TIMES A DAY ORAL 07/30/20 09:00 08/29/20 08:59 07/31/20 09:06 Quetiapine Fumarate (SEROqueL) 200 mg BEDTIME ORAL 07/30/20 21:00 09/13/20 20:59 07/31/20 20:24 Sorbitol (sorbitoL) 30 ml Q6H PRN ORAL Constipation 07/30/20 04:00 08/29/20 03:59 Vitamin D (Vitamin D) 2,000 intlu DAILY ORAL 07/30/20 09:00 08/29/20 08:59 07/31/20 09:05 Zinc Sulfate (Zinc Sulfate) 220 mg DAILY ORAL 07/30/20 09:00 10/28/20 08:59 07/31/20 09:04 Assessment/Plan Assessment/Plan: 59yo F with: Afebrile Normal WBC R/o UTI (h/o UTIs) Mild suprapubic pain on exam 07/30 UA 40-50 WBC, +many sq epi cells too, UCx +GNR Intractable pain SNF resident HTN Ischemic heart disease MS Lower extremity paralysis Plan: Start keflex 500mg PO QID x5 day course for UTI Screening COVID PCR as pt from SNF F/u UCx Monitor CBC/CMP Monitor temp curve, hemodynamics Monitor resp status D/w RN Thank you for this consult. [facility] will continue to follow. Nicolette Hawley M.D. Aug 01, 2020 09:11
[2020-08-01] MEDS: Docusate 100mg cap ORAL SCH ×2 (09:13→18:03)
[2020-08-01] MEDS: Lyrica 50mg cap ORAL SCH ×3 (09:16→18:02)
--- NOTE | 2020-08-01 10:25 | Nephrology Progress Note ---
Assessment/Plan Problem List: (1) Hyponatremia (2) HTN (hypertension) (3) Multiple sclerosis (4) Back pain (5) DNR (do not resuscitate) Assessment Hyponatremia Multiple sclerosis, back pain, chronic pain Anxiety disorder, depression Mild anemia Hypertension Plan August 01: No labs drawn today. Clinically stable. Most recent labs suggestive of normal renal parameters, and serum sodium of 134. Blood pressure stable Previously: Continue to monitor electrolytes Down on Zestril dose due to low blood pressure Continue per consultants Per orders Subjective ROS Limited/Unobtainable: No Constitutional: Reports: malaise Objective Objective Last 24 Hour Vital Signs Date Time Temp Pulse Resp B/P (MAP) Pulse Ox O2 Delivery O2 Flow Rate FiO2 08/01/20 09:10 124/67 08/01/20 08:00 97.5 77 18 124/67 (86) 96 08/01/20 04:00 97.3 83 18 120/75 (90) 97 08/01/20 00:00 98.2 66 18 112/60 (77) 98 07/31/20 21:00 Room Air 07/31/20 20:00 97.7 71 18 114/64 (81) 97 07/31/20 17:02 98.1 07/31/20 16:00 98.6 77 18 113/63 (80) 99 07/31/20 12:01 98.1 07/31/20 12:00 98.0 89 18 102/57 (72) 97 Intake and Output 07/31/20 08/01/20 19:00 07:00 Intake Total 500 ml 400 ml Output Total 1800 ml Balance 500 ml -1400 ml Intake Oral 500 ml 400 ml Output Urine Total 1800 ml # Voids 3 # Bowel Movements 1 Current Medications Medications (Trade) Dose Ordered Sig/Galen Route PRN Reason Start Time Stop Time Status Last Admin Dose Admin Artificial Tears (Akwa-Tears) 1 drop BID BOTH EYES 07/30/20 09:00 08/29/20 08:59 08/01/20 09:12 Ascorbic Acid (Vitamin C) 250 mg TWICE A DAY ORAL 07/30/20 09:00 08/29/20 08:59 08/01/20 09:10 Aspirin (Ecotrin) 81 mg BID ORAL 07/30/20 09:00 09/13/20 08:59 08/01/20 09:10 Collagenase (SantyL) 1 applic DAILY TOPIC 07/30/20 09:00 10/28/20 08:59 08/01/20 09:11 Collagenase (SantyL) 1 applic PRN PRN TOPIC soilage 07/30/20 05:15 10/28/20 05:14 Diclofenac Sodium (Voltaren gel) 1 applic Q6HR TOPIC 07/30/20 12:00 10/28/20 11:59 08/01/20 05:03 Diphenhydramine HCl (Benadryl) 50 mg TIDPRN PRN ORAL ALLERGY 07/30/20 22:00 08/29/20 21:59 08/01/20 05:05 Docusate Sodium (Colace) 100 mg TWICE A DAY ORAL 07/30/20 09:00 08/29/20 08:59 08/01/20 09:13 Duloxetine HCl (Cymbalta) 60 mg DAILY ORAL 07/30/20 09:00 10/28/20 08:59 08/01/20 09:11 Famotidine (Pepcid) 20 mg BID ORAL 07/31/20 18:00 10/29/20 17:59 08/01/20 09:10 Heparin Sodium (Porcine) (Heparin 5000 units/ml) 5,000 units EVERY 12 HOURS SUBQ 07/30/20 09:00 09/13/20 08:59 Lisinopril (ZestriL) 2.5 mg DAILY ORAL 08/01/20 09:00 08/29/20 08:59 08/01/20 09:10 Loratadine (Claritin 10mg) 10 mg DAILY ORAL 07/30/20 09:00 08/29/20 08:59 08/01/20 09:10 Naproxen (Naprosyn) 500 mg TWICE A DAY PRN ORAL KNEE PAIN 07/30/20 04:00 08/29/20 03:59 Ondansetron HCl (Zofran ODT) 4 mg Q4H PRN ORAL Nausea & Vomiting 07/30/20 04:00 08/29/20 03:59 Oxycodone/ Acetaminophen (Percocet 5-325) 1.5 tab Q4H PRN ORAL Severe Pain (Pain Scale 7-10) 07/31/20 09:00 08/07/20 08:59 08/01/20 09:12 Polyethylene Glycol (Miralax) 17 gm DAILY ORAL 07/30/20 09:00 08/29/20 08:59 08/01/20 09:11 Pregabalin (Lyrica) 100 mg THREE TIMES A DAY ORAL 07/30/20 09:00 08/29/20 08:59 08/01/20 09:16 Quetiapine Fumarate (SEROqueL) 200 mg BEDTIME ORAL 07/30/20 21:00 09/13/20 20:59 07/31/20 20:24 Sorbitol (sorbitoL) 30 ml Q6H PRN ORAL Constipation 07/30/20 04:00 08/29/20 03:59 Vitamin D (Vitamin D) 2,000 intlu DAILY ORAL 07/30/20 09:00 08/29/20 08:59 08/01/20 09:11 Zinc Sulfate (Zinc Sulfate) 220 mg DAILY ORAL 07/30/20 09:00 10/28/20 08:59 08/01/20 09:11 Height (Feet): 5 Height (Inches): 8.00 Weight (Pounds): 170 Objective No change Zoran Martinez MD Aug 01, 2020 10:25
[2020-08-01 12:00] VITALS: BP 116/70
[2020-08-01] MEDS ORDERED: CEPHALEXIN500 MG ORAL (12:30)
[2020-08-01] MEDS: Cephalexin 500mg cap ORAL SCH ×2 (13:37→18:02)
[2020-08-01 16:00] VITALS: BP 127/73
[2020-08-01 16:46] LABS: BASOPHILS % (AUTO) 1.4 % (0.0-2.0); EOSINOPHILS % (AUTO) 2.7 % (0.0-3.0); HEMATOCRIT 33.8 % (37.0-47.0); LYMPHOCYTES % (AUTO) 20.9 % (20.0-45.0); MEAN CORPUSCULAR VOLUME 89 FL (80-99); MONOCYTES % (AUTO) 6.6 % (1.0-10.0); NEUTROPHILS % (AUTO) 68.4 % (45.0-75.0); PLATELET COUNT 237 K/UL (150-450); RED BLOOD COUNT 3.81 M/UL (4.20-5.40); RED CELL DISTRIBUTION WIDTH 13.3 % (11.6-14.8); WHITE BLOOD COUNT 7.5 K/UL (4.8-10.8)
[2020-08-01 16:47] LABS: ANION GAP 7 mmol/L (5-15); BLOOD UREA NITROGEN 16 mg/dL (7-18); CALCIUM 8.2 MG/DL (8.5-10.1); CARBON DIOXIDE 27 MMOL/L (21-32); CHLORIDE 100 MMOL/L (98-107); CREATININE 0.5 MG/DL (0.55-1.30); POTASSIUM 4.3 MMOL/L (3.5-5.1); SODIUM 134 MMOL/L (136-145)
--- NOTE | 2020-08-01 20:25 | Psychiatric Progress Note ---
Psychiatry Progress Note Psychiatry Progress Note Medications Current Medications Medications (Trade) Dose Ordered Sig/Galen Route PRN Reason Start Time Stop Time Status Last Admin Dose Admin Artificial Tears (Akwa-Tears) 1 drop BID BOTH EYES 07/30/20 09:00 08/29/20 08:59 08/01/20 18:03 Ascorbic Acid (Vitamin C) 250 mg TWICE A DAY ORAL 07/30/20 09:00 08/29/20 08:59 08/01/20 18:02 Aspirin (Ecotrin) 81 mg BID ORAL 07/30/20 09:00 09/13/20 08:59 08/01/20 18:02 Baclofen (Lioresal) 20 mg Q6H PRN ORAL muscle spasm 08/01/20 12:17 08/31/20 12:16 08/01/20 12:23 Cephalexin (Keflex) 500 mg Q6HR ORAL 08/01/20 13:00 08/08/20 12:59 08/01/20 18:02 Collagenase (SantyL) 1 applic DAILY TOPIC 07/30/20 09:00 10/28/20 08:59 08/01/20 09:11 Collagenase (SantyL) 1 applic PRN PRN TOPIC soilage 07/30/20 05:15 10/28/20 05:14 Diclofenac Sodium (Voltaren gel) 1 applic Q6HR TOPIC 07/30/20 12:00 10/28/20 11:59 08/01/20 18:02 Diphenhydramine HCl (Benadryl) 50 mg TIDPRN PRN ORAL ALLERGY 07/30/20 22:00 08/29/20 21:59 08/01/20 05:05 Docusate Sodium (Colace) 100 mg TWICE A DAY ORAL 07/30/20 09:00 08/29/20 08:59 08/01/20 18:03 Duloxetine HCl (Cymbalta) 60 mg DAILY ORAL 07/30/20 09:00 10/28/20 08:59 08/01/20 09:11 Famotidine (Pepcid) 20 mg BID ORAL 07/31/20 18:00 10/29/20 17:59 08/01/20 18:01 Heparin Sodium (Porcine) (Heparin 5000 units/ml) 5,000 units EVERY 12 HOURS SUBQ 07/30/20 09:00 09/13/20 08:59 Lisinopril (ZestriL) 2.5 mg DAILY ORAL 08/01/20 09:00 08/29/20 08:59 08/01/20 09:10 Loratadine (Claritin 10mg) 10 mg DAILY ORAL 07/30/20 09:00 08/29/20 08:59 08/01/20 09:10 Naproxen (Naprosyn) 500 mg TWICE A DAY PRN ORAL KNEE PAIN 07/30/20 04:00 08/29/20 03:59 Ondansetron HCl (Zofran ODT) 4 mg Q4H PRN ORAL Nausea & Vomiting 07/30/20 04:00 08/29/20 03:59 Oxycodone/ Acetaminophen (Percocet 5-325) 1.5 tab Q4H PRN ORAL Severe Pain (Pain Scale 7-10) 07/31/20 09:00 08/07/20 08:59 08/01/20 18:07 Polyethylene Glycol (Miralax) 17 gm DAILY ORAL 07/30/20 09:00 08/29/20 08:59 08/01/20 09:11 Pregabalin (Lyrica) 100 mg THREE TIMES A DAY ORAL 07/30/20 09:00 08/29/20 08:59 08/01/20 18:02 Quetiapine Fumarate (SEROqueL) 200 mg BEDTIME ORAL 07/30/20 21:00 09/13/20 20:59 07/31/20 20:24 Sorbitol (sorbitoL) 30 ml Q6H PRN ORAL Constipation 07/30/20 04:00 08/29/20 03:59 Vitamin D (Vitamin D) 2,000 intlu DAILY ORAL 07/30/20 09:00 08/29/20 08:59 08/01/20 09:11 Zinc Sulfate (Zinc Sulfate) 220 mg DAILY ORAL 07/30/20 09:00 10/28/20 08:59 08/01/20 09:11 Neurological/Psychiatric: Reports: anxiety, depressed, emotional problems Allergies: Coded Allergies: HYDROMORPHONE (Verified Allergy, Intermediate, 03/28/18) PREDNISONE (Verified Allergy, Intermediate, 03/28/18) PSEUDOEPHEDRINE (Verified Allergy, Intermediate, 03/28/18) Objective Data Height (Feet): 5 Height (Inches): 8.00 Weight (Pounds): 170 General Appearance: alert Additional Comments: alert, oriented times self, place, situation, and date. Mood is anxious. Affect is blunted, congruent with mood. Thought process is concrete. Thought content, no suicidal or homicidal ideation. Cognition is impaired. Insight and judgment is impaired. Assessment/Plan Status: unchanged Assessment/Plan: ASSESSMENT: [place] I Anxiety disorder. Major depressive disorder. [place] II Deferred. [place]atham III MS. [place]atham IV Low. [place]atham V 20. PLAN: 1. We will start patient on Seroquel. 2. Cymbalta. 3. Provide the patient with reality orientation and supportive therapy. Kendrick Temple MD Aug 01, 2020 20:25
[2020-08-01] MEDS: QUEtiapine 200mg tab ORAL SCH (20:42)
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
== END 2020-08-01 21:20 | DRG 347 ==
LOC: EDBD 15:24 → EDBEDREQ 17:05 → EMR 17:13 → 4E 17:20 → EDBEDREQ 17:52 → 4E 07-30 11:00
DX: M54.5 Low back pain (principal); G35 Multiple sclerosis; M25.519 Pain in unspecified shoulder; E87.1 Hypo-osmolality and hyponatremia; E46 Unspecified protein-calorie malnutrition; I10 Essential (primary) hypertension; M19.90 Unspecified osteoarthritis, unspecified site; D64.9 Anemia, unspecified; K59.00 Constipation, unspecified; F32.9 Major depressive disorder, single episode, unspecified; F41.8 Other specified anxiety disorders; Z99.3 Dependence on wheelchair; E03.9 Hypothyroidism, unspecified; G82.20 Paraplegia, unspecified; Z68.25 Body mass index [BMI] 25.0-25.9, adult
CPT/HCPCS: 36415; 72131; 80048; 80053; 80061; 80307; 81001; 82977; 83735; 83930; 83935; 84100; 84300; 84443; 84550; 85025; 86140; 87081; 87086; 87181; U0002